=== PATIENT | male | born 1960 ===

== ENCOUNTER 2020-06-26 14:29 | Inpatient (IN) | payer OTHER, SELFPAY ==
[2020-06-29 04:28] VITALS: BMI 29.9
[2020-06-30] VITALS: BP 163/91; PULSE 99; RESP 18; TEMP 36.8; O2SAT 98
[2020-06-30] MEDS: Acetaminophen 325 MG TABLET 650 MG PO ×2 (01:40→12:58)
[2020-06-30 04:00] VITALS: BP 169/77; PULSE 87; RESP 18; TEMP 36.8; O2SAT 95
[2020-06-30] MEDS: Omeprazole 40 MG CAPSULE.DR PO (05:37)
[2020-06-30 06:43] LABS: MANUAL DIFF FLAG NO
[2020-06-30 06:46] LABS: Basophils Percent Auto 0.5 % (0-2); Eosinophils Absolute Auto 0.1 X10*3/uL (0.0-0.4); Eosinophils Percent Auto 1.8 % (0-4); Hematocrit 25.3 % (42-52); Hemoglobin 8.3 g/dl (14.0-18.0); Imm Gran Pct Auto 1.8 % (0.0-0.4); Lymphocytes Absolute Auto 1.6 X10*3/uL (1.2-4.9); Lymphocytes Percent Auto 28.4 % (20-40); Mean Corpuscular HGB Conc 32.8 g/dl (31.0-36.0); Mean Corpuscular Hemoglobin 29.6 pg (27.0-33.0); Mean Corpuscular Volume 90.4 fL (80-98); Mean Platelet Volume 9.2 fL (9.4-12.4); Monocytes Absolute Auto 0.7 X10*3/uL (0.1-1.2); Monocytes Percent Auto 13.4 % (2-11); NRBC Pct Auto 0.4 /100WBC (0.0-0.2); Neutrophils Percent Auto 54.1 % (45-73); Platelet Count 198 X10*3/uL (160-400); Red Cell Distribution Width 17.7 % (11.0-16.0); White Blood Count 5.5 X10*3/uL (4.8-10.8)
[2020-06-30 07:05] LABS: Alanine Aminotransferase 37 U/L (0-40); Albumin Level 3.2 g/dL (3.5-5.0); Alkaline Phosphatase 36 U/L (39-117); Anion Gap 9 (12-20); Aspartate Amino Transferase 26 U/L (5-37); Bilirubin Direct 0.2 mg/dL (0.0-0.5); Bilirubin Total 0.4 mg/dL (0.0-1.0); Blood Urea Nitrogen 5 mg/dL (9-16); Carbon Dioxide 26 mmol/L (22-29); Chloride 106 mmol/L (96-108); Creatinine Clr Calc Pharmacy 142.1; Estimated Glomerular Filt Rate > 60; Glucose Fasting 101 mg/dL (60-99); Potassium 3.9 mmol/l (3.3-5.1); Sodium 137 mmol/L (135-145); Total Protein 5.3 g/dL (6.5-8.0)
[2020-06-30 07:43] VITALS: BP 176/95; PULSE 90; RESP 20; TEMP 36.8; O2SAT 97
[2020-06-30] MEDS: PHENobarbitaL 30 MG TABLET PO (08:13)
[2020-06-30] MEDS: 0.9 % Sodium Chloride Flush 3 ML SYRINGE 2 ML IVFLUSH ×2 (08:13)
[2020-06-30] MEDS: Thiamine HCL 100 MG TABLET PO (08:13)
[2020-06-30] MEDS: Folic Acid 1 MG TABLET PO (08:13)
[2020-06-30] MEDS: KCl 40 mEq in 0.9 % Sodium Chl 40 MEQ/1,000 ML IV.SOLN 100 MEQ IVCONT (09:28)
--- NOTE | 2020-06-30 09:40 | PM.DS ---
DS: Providers Provider Date of admission: 06/26/20 14:29 Primary care physician: Unknown Physician Consults: 06/29/20 06:46 Consult to Cardiology Routine Consulting Provider: Renee Joseph Reason for consultation: elevated troponin, gi bleed Has provider been notified: Yes 06/29/20 06:47 Consult to Gastroenterology Routine Consulting Provider: Luís Matta Reason for consultation: gi bleed DS: Diagnosis Discharge Diagnosis (1) Acute blood loss anemia: Status: Acute (2) Esophageal ulcer: Status: Acute (3) Alcohol dependence with withdrawal: Status: Acute (4) Acute kidney injury: Status: Acute (5) Alcoholic fatty liver: Status: Acute (6) Hypertension: Status: Acute DS: Summary Hospital Course Hospital Course: from initial H&P: 60 year old man presenting with coffee ground emesis and dark stools. He reports onset three days ago. He drinks 1-2 pints a day. Last drink was yesterday. He reported that he has had coffee-ground emesis and dark stools. He has a history of this and was last admitted in 2019 for to symptoms. EGD in 2019 showed erosive esophagitis, hiatal hernia and superficial gastritis. No varices seen. Abdominal CT performed today showed large hiatal hernia with hepatic steatosis and stable right adrenal adenoma. His blood pressure has been stable. H&H also stable but seems to have gone down since February where his hemoglobin was 13.8 and hematocrit 41.3. Potassium 2.9, sodium 133, creatinine 1.59. His EKG showing some mildly worsened ST depressions in lateral leads and tropoinin elevated at 70. He has no complaints of chest pain or shortenss of breath currently. PAST MEDICAL HISTORY: 1. Alcohol abuse/dependence. 2. History of tobacco dependence. 3. Hypertension. 4. Hyperlipidemia. 5. Insomnia. 6. Gastroesophageal reflux disease. 7. Erosive esophagitis 8. Alcoholic liver disease PAST SURGICAL HISTORY: None. SOCIAL HISTORY: He currently lives alone in an apartment. He drinks 1-2 pt of vodka a day. He denies illicit drug use. He ambulates freely. FAMILY HISTORY: This is obtained from old records and shows that mother is 91 years old and alive. Father at age 95 from heart problems. hospital course: patient was admitted for acute blood loss anemia due to esophageal ulcer in the setting of heavy alcohol use. Course was complicated by acute kidney injury, alcohol dependence with withdrawal. Patient received 4 units total PRBC. Initial hemoglobin was 11, lowest hemoglobin was some 7.1, is 8.3 at discharge. Patient was treated with IV Protonix. He underwent EGD which showed esophageal ulcer with exposed blood vessel and underwent sclerotherapy and cautery. Patient was observed for 3 days after. His hemoglobin is now stable and he was able to tolerate solid diet. He will transition to oral Prilosec 40 mg twice daily and follow-up with GI. He has been educated on alcohol cessation. Patient's acute kidney injury has resolved. For his alcohol withdrawal he was treated with phenobarbital and has improved. Time Spent with Patient Time attestation: Total time spent providing and/or coordinating discharge services: Time spent: Greater than 30 minutes Physical Exam Vital Signs and I&O and Narrative: Vital Signs and I&O: Vital Signs Temp 98.2 F 06/30/20 07:43 Pulse 90 06/30/20 07:43 Resp 20 06/30/20 07:43 BP 176/95 H 06/30/20 07:43 Pulse Ox 97 06/30/20 07:43 Intake & Output 06/29/20 06/30/20 06/30/20 18:59 06:59 18:59 Output Total 500 / 500 Balance -500 / -500 Urine Output (Aver age ml/kg/hr) 0.43 Output: Output, Urine Am ount 500 / 500 Other: Urine Urinal Urine Color Yellow Body Mass Index 29.9 Const: Orientation/consciousness: oriented to person, oriented to place and oriented to time Resp: Auscultation: clear to auscultation bilaterally Cardio: Heart sounds: S1 normal heart sound present and S2 normal heart sound present Neuro: General: oriented to person, oriented to place and oriented to time DS: Data Data Completed and Pending Labs on day of discharge: Labs from last 24 hours 06/30/20 06/30/20 06/30/20 06:00 06:00 05:40 WBC Not Rcvd RBC Not Rcvd Hgb Not Rcvd Hct Not Rcvd MCV Not Rcvd MCH Not Rcvd MCHC Not Rcvd RDW RDW Coeff of Koffi Not Rcvd Plt Count Not Rcvd MPV Not Rcvd Immature Gran % (Auto) Neut % (Auto) Lymph % (Auto) Sterling % (Auto) Eos % (Auto) Baso % (Auto) Neut # (Auto) Lymph # (Auto) Sterling # (Auto) Eos # (Auto) Baso # (Auto) Abs Immat Gran (auto) Absolute Lymphs (auto) Absolute Monos (auto) Absolute Eos (auto) Absolute Basos (auto) Absolute Nucleated RBC Not Rcvd Nucleated RBC % (auto) Not Rcvd Absolute Neutrophils PT INR Sodium Not Rcvd 137 Potassium Not Rcvd 3.9 Chloride Not Rcvd 106 Carbon Dioxide 26 Bicarbonate Not Rcvd Anion Gap Not Rcvd 9 L BUN Not Rcvd 5 L Creatinine Not Rcvd 0.65 Estimated Creat Clear Not Rcvd Estim Creat Clear Calc 142.1 Estimated GFR > 60 Est GFR (Non-Af Amer) Not Rcvd Random Glucose Fasting Glucose Not Rcvd 101 H Calcium Not Rcvd 8.0 L Total Bilirubin Not Rcvd 0.4 Direct Bilirubin Not Rcvd 0.2 AST Not Rcvd 26 ALT Not Rcvd 37 Alkaline Phosphatase Not Rcvd 36 L Total Protein Not Rcvd 5.3 L Albumin Not Rcvd 3.2 L Blood Bank Comment 06/30/20 06/29/20 06/29/20 05:40 05:41 05:41 WBC 5.5 5.2 RBC 2.80 L 2.63 L Hgb 8.3 L 7.9 L Hct 25.3 L 23.6 L MCV 90.4 89.7 MCH 29.6 30.0 MCHC 32.8 33.5 RDW 17.7 H RDW Coeff of Koffi 16.9 H Plt Count 198 136 L MPV 9.2 L 9.2 L Immature Gran % (Auto) 1.8 H 1.2 H Neut % (Auto) 54.1 56.9 Lymph % (Auto) 28.4 28.9 Sterling % (Auto) 13.4 H 10.1 Eos % (Auto) 1.8 2.3 Baso % (Auto) 0.5 0.6 Neut # (Auto) 3.0 Lymph # (Auto) 1.6 Sterling # (Auto) 0.7 Eos # (Auto) 0.1 Baso # (Auto) 0.0 Abs Immat Gran (auto) 0.10 H 0.06 H Absolute Lymphs (auto) 1.5 Absolute Monos (auto) 0.5 Absolute Eos (auto) 0.1 Absolute Basos (auto) 0.0 Absolute Nucleated RBC 0.020 H 0.020 H Nucleated RBC % (auto) 0.4 H 0.4 H Absolute Neutrophils 2.9 PT INR Sodium 137 Potassium 3.7 Chloride 106 Carbon Dioxide Bicarbonate 25 Anion Gap 10 L BUN 10 Creatinine 0.62 Estimated Creat Clear 148.9 Estim Creat Clear Calc Estimated GFR Est GFR (Non-Af Amer) > 60 Random Glucose 95 Fasting Glucose Calcium 7.7 L Total Bilirubin Direct Bilirubin AST ALT Alkaline Phosphatase Total Protein Albumin Blood Bank Comment 06/28/20 06/28/20 06/28/20 20:32 14:09 05:55 WBC 8.6 7.5 RBC 2.73 L 2.64 L Hgb 8.1 L 8.1 L 7.9 L Hct 23.5 L 23.8 L 23.2 L MCV 87.2 87.9 MCH 29.7 29.9 MCHC 34.0 34.1 RDW RDW Coeff of Koffi 16.6 H 16.3 H Plt Count 123 L 113 L MPV 9.5 9.3 L Immature Gran % (Auto) 2.3 H 0.9 H Neut % (Auto) 67.8 75.2 H Lymph % (Auto) 17.8 L 13.1 L Sterling % (Auto) 9.7 10.0 Eos % (Auto) 1.9 0.5 Baso % (Auto) 0.5 0.3 Neut # (Auto) Lymph # (Auto) Sterling # (Auto) Eos # (Auto) Baso # (Auto) Abs Immat Gran (auto) 0.20 H 0.07 H Absolute Lymphs (auto) 1.5 1.0 L Absolute Monos (auto) 0.8 0.8 Absolute Eos (auto) 0.2 0.0 Absolute Basos (auto) 0.0 0.0 Absolute Nucleated RBC 0.110 H 0.030 H Nucleated RBC % (auto) 1.3 H 0.4 H Absolute Neutrophils 5.8 5.6 PT INR Sodium Potassium Chloride Carbon Dioxide Bicarbonate Anion Gap BUN Creatinine Estimated Creat Clear Estim Creat Clear Calc Estimated GFR Est GFR (Non-Af Amer) Random Glucose Fasting Glucose Calcium Total Bilirubin Direct Bilirubin AST ALT Alkaline Phosphatase Total Protein Albumin Blood Bank Comment 06/28/20 06/27/20 06/27/20 05:55 Unknown 15:22 WBC RBC Hgb 7.1 L Hct 21.4 L MCV MCH MCHC RDW RDW Coeff of Koffi Plt Count MPV Immature Gran % (Auto) Neut % (Auto) Lymph % (Auto) Sterling % (Auto) Eos % (Auto) Baso % (Auto) Neut # (Auto) Lymph # (Auto) Sterling # (Auto) Eos # (Auto) Baso # (Auto) Abs Immat Gran (auto) Absolute Lymphs (auto) Absolute Monos (auto) Absolute Eos (auto) Absolute Basos (auto) Absolute Nucleated RBC Nucleated RBC % (auto) Absolute Neutrophils PT INR Sodium 140 Potassium 3.5 D Chloride 106 Carbon Dioxide Bicarbonate 27 Anion Gap 11 L BUN 20 H D Creatinine 0.64 Estimated Creat Clear 144.3 Estim Creat Clear Calc Estimated GFR Est GFR (Non-Af Amer) > 60 Random Glucose 105 Fasting Glucose Calcium 7.3 L Total Bilirubin 0.7 Direct Bilirubin AST 35 ALT 44 H Alkaline Phosphatase 33 L Total Protein 4.8 L Albumin 3.0 L Blood Bank Comment PRODUCT AVAILABLE 06/27/20 06/27/20 06/27/20 05:34 05:34 05:34 WBC 7.8 RBC 2.89 L Hgb 8.2 L Hct 25.1 L MCV 86.9 MCH 28.4 MCHC 32.7 RDW RDW Coeff of Koffi 17.3 H Plt Count 128 L MPV 10.1 Immature Gran % (Auto) 1.0 H Neut % (Auto) 73.3 H Lymph % (Auto) 17.1 L Sterling % (Auto) 8.1 Eos % (Auto) 0.4 Baso % (Auto) 0.1 Neut # (Auto) Lymph # (Auto) Sterling # (Auto) Eos # (Auto) Baso # (Auto) Abs Immat Gran (auto) 0.08 H Absolute Lymphs (auto) 1.3 Absolute Monos (auto) 0.6 Absolute Eos (auto) 0.0 Absolute Basos (auto) 0.0 Absolute Nucleated RBC 0.000 Nucleated RBC % (auto) 0.0 Absolute Neutrophils 5.7 PT 13.4 H INR 1.1 Sodium Potassium Chloride Carbon Dioxide Bicarbonate Anion Gap BUN Creatinine Estimated Creat Clear Estim Creat Clear Calc Estimated GFR Est GFR (Non-Af Amer) Random Glucose Fasting Glucose Calcium Total Bilirubin 0.7 Direct Bilirubin 0.3 AST 57 H ALT 66 H Alkaline Phosphatase 36 L D Total Protein 5.0 L D Albumin 3.1 L D Blood Bank Comment 06/27/20 06/27/20 06/26/20 05:34 01:56 22:50 WBC RBC Hgb 9.5 L 9.8 L D Hct 27.5 L 27.9 L D MCV MCH MCHC RDW RDW Coeff of Koffi Plt Count MPV Immature Gran % (Auto) Neut % (Auto) Lymph % (Auto) Sterling % (Auto) Eos % (Auto) Baso % (Auto) Neut # (Auto) Lymph # (Auto) Sterling # (Auto) Eos # (Auto) Baso # (Auto) Abs Immat Gran (auto) Absolute Lymphs (auto) Absolute Monos (auto) Absolute Eos (auto) Absolute Basos (auto) Absolute Nucleated RBC Nucleated RBC % (auto) Absolute Neutrophils PT INR Sodium 138 Potassium 2.9 L Chloride 99 Carbon Dioxide Bicarbonate 31 H Anion Gap 11 L BUN 45 H Creatinine 0.76 Estimated Creat Clear 121.5 Estim Creat Clear Calc Estimated GFR Est GFR (Non-Af Amer) > 60 Random Glucose Fasting Glucose 108 H Calcium 7.6 L Total Bilirubin Direct Bilirubin AST ALT Alkaline Phosphatase Total Protein Albumin Blood Bank Comment Discharge Plan Discharge Anticipated Discharge Date/Time: 06/30/20 09:34 Patient Disposition: Home, Self-Care Referrals: Physician,Unknown [Primary Care Provider] - Discharge Medications: New omeprazole 40 mg Capsule,Delayed Release(Dr/Ec) 40 mg PO BID@0630,1630 Qty: 60 RF: 0 Continued lisinopril 40 mg Tablet 40 mg PO DAILY RF: 0 Discontinued omeprazole [Prilosec] 40 mg Capsule,Delayed Release(Dr/Ec) 40 mg PO DAILY@0630 RF: 0 Discharge Orders: Discharge Order (Routine); Ordered 06/30/20 Ordered By: Joseluis Alvarez Diet: low salt diet Activity on Discharge: As tolerated Visit Report Forms: Patient Portal Discharge page Care Plan Goals: avoid bleeding Health Concerns: etoh, esophogeal ulcer Plan of Treatment: avoid alcohol, increase prilosec to twice daily
[2020-06-30 11:46] VITALS: BP 168/99; PULSE 98; RESP 19; TEMP 36.2; O2SAT 96
== END 2020-06-30 14:21 | disposition home or self-care (01) | DRG 242 ==
PROVIDERS: Admitting Provider Student in an Organized Health Care Education/Training Program; Emergency Provider Emergency Medicine; Visit Provider Internal Medicine
DX: K22.11 Ulcer of esophagus with bleeding (principal); I85.11 Secondary esophageal varices with bleeding; N17.9 Acute kidney failure, unspecified; I42.6 Alcoholic cardiomyopathy; D62 Acute posthemorrhagic anemia; K70.0 Alcoholic fatty liver; E86.0 Dehydration; F10.229 Alcohol dependence with intoxication, unspecified; F10.239 Alcohol dependence with withdrawal, unspecified; D72.829 Elevated white blood cell count, unspecified; E87.6 Hypokalemia; F17.210 Nicotine dependence, cigarettes, uncomplicated; Z79.899 Other long term (current) drug therapy; K44.9 Diaphragmatic hernia without obstruction or gangrene
CPT/HCPCS: 36415; 71045; 74176; 80048; 80051; 80053; 80076; 80320; 81003; 82272; 82565; 82947; 83690; 83735; 83880; 84484; 84520; 85014; 85018; 85025; 85610; 85730; 86850; 86900; 86901; 86923; 93005; 93971; 96361; 96365; 96375; 96376; 99285; J2270; J2405; J2560; J3411; P9016

== ENCOUNTER → 2020-07-22 08:54 | Outpatient (BNVA) | payer OTHER, SELFPAY | PROVIDERS: Visit Provider Nurse Practitioner Family | DX: I42.8 Other cardiomyopathies (principal); I10 Essential (primary) hypertension; E78.5 Hyperlipidemia, unspecified; K22.10 Ulcer of esophagus without bleeding; F10.239 Alcohol dependence with withdrawal, unspecified; Z87.891 Personal history of nicotine dependence | CPT/HCPCS: 99214 ==

== ENCOUNTER → 2020-08-31 09:46 | Outpatient (BNVA) | payer OTHER, SELFPAY | PROVIDERS: Visit Provider Nurse Practitioner Family | DX: I42.8 Other cardiomyopathies (principal); I10 Essential (primary) hypertension; E78.5 Hyperlipidemia, unspecified; F10.239 Alcohol dependence with withdrawal, unspecified; K22.10 Ulcer of esophagus without bleeding | CPT/HCPCS: 99212 ==

== ENCOUNTER 2020-08-31 10:25 | Outpatient (REF) | payer OTHER, SELFPAY ==
[2020-08-31 11:40] LABS: Hematocrit 30.4 % (42-52); Hemoglobin 9.2 g/dl (14.0-18.0); Mean Corpuscular HGB Conc 30.3 g/dl (31.0-36.0); Mean Corpuscular Hemoglobin 22.8 pg (27.0-33.0); Mean Corpuscular Volume 75.4 fL (80-98); Mean Platelet Volume 9.3 fL (9.4-12.4); Platelet Count 384 X10*3/uL (160-400); Red Blood Count 4.03 X10*6/uL (4.60-5.80); Red Cell Distribution Width 17.9 % (11.0-16.0); White Blood Count 6.6 X10*3/uL (4.8-10.8)
[2020-08-31 12:01] LABS: Anion Gap 14 (12-20); Blood Urea Nitrogen 11 mg/dL (9-16); Calcium 9.4 mg/dL (8.4-10.2); Carbon Dioxide 23 mmol/L (22-29); Chloride 102 mmol/L (96-108); Estimated Glomerular Filt Rate > 60; Glucose Random 101 mg/dL (60-115); Potassium 3.9 mmol/l (3.3-5.1); Sodium 135 mmol/L (135-145)
[2020-08-31 12:18] LABS: B Type Natriuretic Peptide 22 pg/mL (<100)
== END 2020-08-31 10:26 | disposition home or self-care (01) ==
LOC: HO.LAB 10:25
PROVIDERS: PCP Physician Assistant Medical; Visit Provider Nurse Practitioner Family
DX: I42.8 Other cardiomyopathies (principal)
CPT/HCPCS: 36415; 80048; 83880; 85027

== ENCOUNTER → 2020-09-19 15:04 | Outpatient (REF) | payer OTHER, SELFPAY ==
--- NOTE | 2020-09-19 15:07 | CA_ITS ---
Transthoracic Echocardiogram Patient (Last, First, Middle): Benji Pretty S Gender: Male Date of : 1960 Age: 60 Procedure Date: 09/19/2020 Procedure Type: Transthoracic Echocardiogram Location: OP Height: 167.64 cm Weight: 93.44 kg BSA: 2.03 m2 Heart Rate: bpm BP: 130 / 70 mmHg Chronometer Tester: RAINA Blanc MD: Natalie Ibarra ELECTROMECHANICAL ENGINEER-C Journeyman Pipefitter: Fabian Simmons MD Symptoms: I42.8 - Other cardiomyopathies Study Quality: Fair ECG Rhythm: Sinus Conclusions: - 1. Normal LV systolic function with impaired relaxation filling pattern 2. Moderately dilated left atrium 3. Normal cardiac valvular Doppler 4. No gross pericardial effusion Findings Left Ventricle Normal left ventricular size, thickness, and systolic function. The visually estimated ejection fraction is between 55-60%. Spectral Doppler is indicative of an impaired relaxation filling pattern. E/E prime ratio is between 8 and 15 consistent with indeterminate filling pressures. Right Ventricle Normal right ventricular cavity size and systolic function. Atria The left atrium is moderately dilated. There is lipomatous hypertrophy of the interatrial septum. There is a highly mobile atrial septum noted. Interatrial shunt cannot be excluded. The right atrium is normal in size. Aortic Valve The aortic valve was not well visualized. There is no aortic valve stenosis. There is no aortic valve regurgitation. Mitral Valve There is mild anterior and posterior mitral leaflet thickening. There is trace mitral valve regurgitation. There is no mitral valve stenosis. Pulmonic Valve The pulmonic valve was not well visualized. Tricuspid Valve The tricuspid valve was not well visualized. Tricuspid regurgitation envelope is inadequate for calculation of right ventricular systolic pressure. Great Vessels All visible segments of the aorta are normal in size. The pulmonary artery was not well visualized. Venous The inferior vena cava is normal in size and collapses greater than 50% with inspiration. Pericardium/Pleural There is no evidence of pericardial effusion. Prior Study Comparison Changes noted compared to prior study dated: 04/01/2018. LV systolic function has normalized Measurements 2D Linear Measurements IVSd: 1.10 0.6-0.9/0.6-1.0 cm LVIDd: 5.37 3.9-5.3/4.2-5.9 cm LVIDd Index: 2.65 2.4-3.2/2.2-3.1 cm/m2 LVIDs: 3.31 2.0-3.6 cm LVPWd: 1.11 0.7-1.1 cm Ao Root: 3.50 2.1-3.5 cm LA Diam: 3.40 2.7-3.8/3.0-4.0 cm LAIDs Index: 1.67 1.5-2.3 cm/m2 LV Mass: 291.89 67-162/88-224 g LV Mass Index: 143.79 43-95/49-115 g/m2 LVOT Diam: 2.20 3.0+(-)1.3 cm 2D Systolic Function EF 4C: 63.20 >55% EF 2C: 56.20 >55% EF BiP: 60.20 >55% Mitral Valve MV Pk E: 0.86 MV PK A: 0.84 MV Decel Time: 204.00 E/A: 1.00 E'Lateral: 7.62 E'Medial: 6.20 E/E' Med: 13.90 E/E' Lat: 11.30 PHT: 60.00 MVA PHT: 3.67 Decel [place]: 4.20 Aortic Valve AoV Pk Kel: 1.78 AoV Mn Kel: 1.19 AoV VTI: 0.31 AoV Pk Grad: 13.00 Aov Mn Grad: 6.00 KATHRYN Cont.VTI: 2.37 LVOT LVOT Pk Kel: 1.07 LVOT Mn Kel: 0.63 LVOT VTI: 0.19 LVOT Pk Grad: 5.00 LVOT Mn Grad: 2.00 LVOT Diam: 2.20 LVOT Area: 3.80 Diastolic Function MV Pk E: 0.86 MV Pk A: 0.84 E/A: 1.00 E'Medial: 6.20 E/E' Med: 13.90 E' Laterial: 7.62 E/E' Lat: 11.30 Great Vessels Aorta Ao Root-2D: 3.50 2.0-3.7 cm Ao Asc: 3.40 2.1-3.4 cm Ao Arch: 3.00 Updated in Other Vendor System with Status of Final Fabian Simmons MD electronically signed on 09/19/2020 6:32:44 PM with status of Final
== END ==
LOC: HO.CARD 15:04
PROVIDERS: Visit Provider Nurse Practitioner Family
DX: I42.8 Other cardiomyopathies (principal)
CPT/HCPCS: 93306

== ENCOUNTER → 2020-11-10 09:56 | Outpatient (BNVA) | payer OTHER, SELFPAY | PROVIDERS: PCP Physician Assistant Medical; Visit Provider Nurse Practitioner Family | DX: I42.8 Other cardiomyopathies (principal); I10 Essential (primary) hypertension; E78.5 Hyperlipidemia, unspecified; F10.239 Alcohol dependence with withdrawal, unspecified; K22.10 Ulcer of esophagus without bleeding | CPT/HCPCS: 99212 ==

== ENCOUNTER 2021-03-10 18:48 | Emergency (ER) | payer OTHER, SELFPAY ==
[2021-03-10] MEDS: LORazepam 2 MG/ML VIAL IM (19:10)
[2021-03-10] MEDS: Haloperidol Lactate 5 MG/ML VIAL IM (19:10)
[2021-03-10] MEDS: diphenhydrAMINE HCL 50 MG/ML VIAL IM (19:10)
[2021-03-10 19:11] VITALS: BP 137/76; PULSE 127; RESP 18; TEMP 37; O2SAT 88; BMI 33.9
[2021-03-10 20:00] VITALS: BP 137/76; PULSE 127; RESP 18; O2SAT 88
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
[2021-03-10 22:00] VITALS: RESP 104
[2021-03-11] VITALS (8 sets, daily range): BP systolic 152–177; BP diastolic 62–105; PULSE 89–108; RESP 15–28; TEMP 36.3–37; O2SAT 2–97
--- NOTE | 2021-03-11 06:56 | PC.NURSE ---
report taken from chyna katz pt resting in stretcher at this time, rr even/unlabored, appears to be on 2l nc for sleep apnea. pt alert to verbal stimuli, appears to be in behavioral control at this time. requesting glass of water, provided. emptied bedside urinal of 200 ml dark yellow urine. pt remains within good view of nurses station. wctm for dc needs.
[2021-03-11] MEDS: Acetaminophen 325 MG TABLET 650 MG PO (09:03)
[2021-03-11] MEDS: LORazepam 2 MG/ML VIAL IM (09:38)
[2021-03-11 09:39] LABS: Basophils Percent Auto 0.6 % (0-2); Eosinophils Absolute Auto 0.1 X10*3/uL (0.0-0.4); Hematocrit 30.9 % (42-52); Imm Gran Abs Auto 0.02 X10*3/uL (0.00-0.03); Imm Gran Pct Auto 0.3 % (0.0-0.4); Lymphocytes Absolute Auto 1.4 X10*3/uL (1.2-4.9); Lymphocytes Percent Auto 20.9 % (20-40); MANUAL DIFF FLAG NO; Mean Corpuscular HGB Conc 29.1 g/dl (31.0-36.0); Mean Corpuscular Hemoglobin 20.5 pg (27.0-33.0); Mean Corpuscular Volume 70.4 fL (80-98); Mean Platelet Volume 8.5 fL (9.4-12.4); Monocytes Absolute Auto 0.6 X10*3/uL (0.1-1.2); Monocytes Percent Auto 8.2 % (2-11); Neutrophils Absolute Auto 4.6 X10*3/uL (2.0-8.3); Platelet Count 265 X10*3/uL (160-400); Red Blood Count 4.39 X10*6/uL (4.60-5.80); Red Cell Distribution Width 21.9 % (11.0-16.0); White Blood Count 6.7 X10*3/uL (4.8-10.8)
--- NOTE | 2021-03-11 09:44 | PC.NURSE ---
no labs ordered from pt arrival. basic labs and gerber ordered att, blood labs obtained and sent. pt remains in behavioral control. pt hypertensive, some slight increase in etoh withdrawal s/s. pt appears comfortable, resting in stretcher. ordered im ativan administered. will fax to crisis once labs resulted. wctm.
[2021-03-11] MEDS: amLODIPine Besylate 10 MG TABLET PO (10:05)
[2021-03-11] MEDS: carvediloL 6.25 MG TABLET PO (10:05)
[2021-03-11] MEDS: Omeprazole 40 MG CAPSULE.DR PO (10:05)
[2021-03-11] MEDS: lisinopriL 40 MG TABLET PO (10:06)
[2021-03-11 10:11] LABS: Ethanol < 10 mg/dL
[2021-03-11 10:13] LABS: Anion Gap 18 (12-20); Blood Urea Nitrogen 16 mg/dL (9-16); Calcium 8.5 mg/dL (8.4-10.2); Carbon Dioxide 21 mmol/L (22-29); Chloride 107 mmol/L (96-108); Creatinine Clr Calc Pharmacy 121.4; Estimated Glomerular Filt Rate > 60; Glucose Random 97 mg/dL (60-115); Potassium 3.5 mmol/L (3.3-5.1); Sodium 142 mmol/L (135-145)
[2021-03-11 11:17] LABS: Alanine Aminotransferase 17 U/L (0-40); Albumin Level 4.3 g/dL (3.5-5.0); Alkaline Phosphatase 49 U/L (39-117); Aspartate Amino Transferase 24 U/L (5-37); Bilirubin Direct 0.2 mg/dL (0.0-0.5); Bilirubin Total 0.4 mg/dL (0.0-1.0); Magnesium 1.9 mg/dL (1.6-2.6); Total Protein 7.2 g/dL (6.5-8.0)
[2021-03-11 14:39] LABS: COVID-19 Test Negative (Negative); IDNOW Serial# 9DD0AD1C
[2021-03-11 14:43] LABS: Amphetamine Screen Urine Not Detected (Not Detect); Barbiturates, Urine Not Detected (Not Detect); Benzodiazepines Screen Urine Not Detected (Not Detect); Cannabinoid Screen Urine Not Detected (Not Detect); Cocaine Screen Urine Not Detected (Not Detect); Opiate Screen Urine Not Detected (Not Detect); Phencyclidine Screen Urine Not Detected (Not Detect)
--- NOTE | 2021-03-11 16:28 | PC.NURSE ---
[facility] AT BEDSIDE FOR PT EVAL
== END 2021-03-11 17:22 | disposition home or self-care (01) ==
PROVIDERS: Physician Assistant Medical; Emergency Provider Internal Medicine; PCP Physician Assistant Medical
DX: F23 Brief psychotic disorder (principal); R45.850 Homicidal ideations; F10.229 Alcohol dependence with intoxication, unspecified; Y90.9 Presence of alcohol in blood, level not specified; R00.0 Tachycardia, unspecified; I10 Essential (primary) hypertension; G47.30 Sleep apnea, unspecified; Z79.899 Other long term (current) drug therapy; Z20.822 Contact with and (suspected) exposure to COVID-19
CPT/HCPCS: 36415; 80048; 80076; 80307; 82077; 83735; 85025; 87635; 96372; 96374; 99285; J1200; J2060

== ENCOUNTER → 2021-03-14 13:09 | Outpatient (BNVA) | payer OTHER, SELFPAY | PROVIDERS: PCP Physician Assistant Medical; Referring Provider Physician Assistant Medical; Visit Provider Nurse Practitioner Family | DX: I42.8 Other cardiomyopathies (principal); I10 Essential (primary) hypertension; E78.5 Hyperlipidemia, unspecified; F10.239 Alcohol dependence with withdrawal, unspecified; K22.10 Ulcer of esophagus without bleeding | CPT/HCPCS: 99212 ==

== ENCOUNTER 2021-08-11 17:40 | Inpatient (IN) | payer OTHER, SELFPAY ==
--- NOTE | ~2021-08-11 | XR_ITS ---
EXAMINATION: XR CHEST CLINICAL INFORMATION: Shortness of breath status post fall COMPARISON: Chest x-ray 06/26/2020 TECHNIQUE: Frontal view of the chest was obtained. FINDINGS: Cardiac silhouette is normal in size. The lungs are adequately aerated. Similar minimal asymmetric elevation of the right hemidiaphragm. No lobar consolidation. No pleural effusion or pneumothorax. Old healed right clavicular fracture. Degenerative changes of the spine. XR/XR chest 1V IMPRESSION: Stable examination demonstrating no acute pulmonary pathology.
--- NOTE | ~2021-08-11 | CT_ITS ---
EXAMINATION: CT ABDOMEN AND PELVIS WITH CONTRAST CLINICAL INFORMATION: Left lower quadrant pain. Nausea and vomiting. COMPARISON: 06/26/2020 TECHNIQUE: Multidetector volumetric images were obtained from the superior aspect of the liver through the pubic symphysis following administration 85 mL of Omnipaque 350 intravenous contrast. Sagittal and coronal reformatted images were obtained on the technologist's workstation. Oral contrast: No This CT examination was performed using dose optimization techniques as appropriate, variously including the following: *Automated exposure control *Adjustment of mA and/or kV according to patient size (this includes techniques or standardized protocols for targeted exams where dose is matched to indication/reason for exam; i.e. extremities or head) *Use of iterative reconstruction technique DLP: 664 mGy-cm FINDINGS: LUNG BASES: Airspace opacities are seen at both lung bases, particularly at the left base. LIVER, GALLBLADDER, AND BILIARY TREE: The liver is normal in size and shape with decreased attenuation. No focal hepatic lesion or biliary ductal dilatation is present. The gallbladder is unremarkable with no evidence of radiopaque gallstones, gallbladder wall thickening, or obvious pericholecystic inflammatory changes. PANCREAS: Diffuse atrophy of the pancreatic parenchyma with no focal abnormality. SPLEEN: Unremarkable. ADRENAL GLANDS: The left adrenal gland is unremarkable. 1.7 cm right adrenal gland nodule. This was previously consistent with lipid rich adenoma. KIDNEYS AND URETERS: The kidneys are normal in size, shape, and attenuation. No hydronephrosis, hydroureter, or calculi seen. Mild symmetric perinephric stranding. BLADDER: Unremarkable. GASTROINTESTINAL TRACT: Large hiatal hernia. Normal caliber small bowel. No obstruction. No colonic wall thickening or inflammatory change. No free air or free fluid. ABDOMINAL WALL: Small fat-containing left inguinal hernia. LYMPH NODES: Normal. VASCULAR: Normal caliber aorta with mild atherosclerotic calcification. PELVIC VISCERA: The prostate and seminal vesicles are unremarkable. OSSEOUS STRUCTURES: No acute or suspicious osseous abnormality. Degenerative changes throughout the spine. Mild degenerative changes of the hips. Unchanged vertebral body height loss at L1. CT/CT abdomen pelvis w con IMPRESSION: No acute finding of the abdomen or pelvis. Airspace opacities of the lung bases, particularly on the left. This could represent atelectasis or pneumonia. Hepatic steatosis. Lipid rich right adrenal adenoma. Large hiatal hernia again noted.
[2021-08-11 17:58] VITALS: BP 147/82; BP 155/82; PULSE 115; PULSE 118; RESP 16; TEMP 37.1; O2SAT 90; O2SAT 96; BMI 32.4
[2021-08-11 18:03] VITALS: O2SAT 96
[2021-08-11] MEDS: Pantoprazole Sodium 40 MG/10 ML VIAL IVPUSH (18:08)
--- NOTE | 2021-08-11 18:17 | ED.NAVMDI ---
HPI - Nausea/Vomiting/Diarrhea General Chief complaint: Nausea/Vomiting/Diarrhea Stated complaint: dark stools/abd pain/etoh Time Seen by Provider: 08/11/21 17:43 Source: patient, EMS and old records reviewed Mode of arrival: EMS Limitations: no limitations History of Present Illness HPI Narrative: 61 y/o male with history of ETOH abuse and dependence, history of ETOH withdrawal, nonischemic cardiomyopathy, hypertension, hyperlipidemia, esophageal ulcers with upper GI bleed and acute blood loss anemia in the past who presents to the ER with vomiting that started yesterday. He is a poor historian. He reports drinking 1-2 pt of vodka daily. He denies drinking alcohol today because his stomach was hurting and he was vomiting. His vomitus is brown with no blood in it. He reports his abdominal pain is in his left lower quadrant and it comes and goes.. He also reports dark brown and black stools that happened yesterday. None today. He also reports some right-sided lower rib pain after he fell onto his right side 3 days ago. He thinks he broke a rib. He has some mild shortness of breath. On EMS arrival patient was found saturating 90-90 who presents to he was placed on supplemental oxygen. He had brown vomitus on his chin. His brought to the ER for further evaluation MD elicited complaint: nausea and vomiting Pertinent past history: alcohol abuse Onset (ago): day(s) (1) Description of vomiting: coffee grounds Description of diarrhea: black tarry Associated nausea: Yes Associated abdominal pain: Yes Location of pain: LLQ Radiation: diffuse Pain consistency: intermittent Quality: stabbing Exacerbating factors: none Relieving factors: none Context: alcohol abuse Associated symptoms: loss of appetite, malaise, nausea/vomiting and shortness of breath Related Data Home Medications Medication Instructions Recorded Confirmed albuterol sulfate 90 mcg/actuation 2 inh INHALATION Q4H PRN 11/10/20 08/11/21 aerosol inhaler fluticasone propionate 44 1 puff PO BID 11/10/20 08/11/21 mcg/actuation HFA aerosol inhaler ferrous sulfate 325 mg (65 mg 325 mg PO DAILY 08/11/21 08/11/21 iron) tablet omeprazole 40 mg capsule,delayed 40 mg PO DAILY 08/11/21 08/11/21 release tamsulosin 0.4 mg capsule 0.4 mg PO BEDTIME 08/11/21 08/11/21 trazodone 100 mg tablet 100 mg PO BEDTIME 08/11/21 08/11/21 Previous Rx's Medication Instructions Recorded amlodipine 10 mg tablet 10 mg PO DAILY 90 Days #90 tab 11/10/20 carvedilol 6.25 mg tablet 6.25 mg PO BID 90 Days #180 tab 11/10/20 lisinopril 40 mg tablet 40 mg PO DAILY 90 Days #90 tab 11/10/20 Allergies Allergy/AdvReac Type Severity Reaction Status Date / Time No Known Allergies Allergy Verified 08/03/21 13:16 Review of Systems Review of Systems: Constitutional: No Fever, No Chills ENT/Mouth: No sore throat, No Rhinorrhea, No Swallowing Difficulty Cardiovascular: + Chest Pain, + SOB, No Orthopnea, No Edema Respiratory: No Cough, No Sputum, No Wheezing, No dyspnea Gastrointestinal: + Nausea, + Vomiting, No Diarrhea, + abdominal Pain, No Hematochezia, + Melena, +Coffee ground emesis Genitourinary: No Dysuria, No Urinary Frequency, No Hematuria Musculoskeletal: + joint pain, + Myalgias Skin: No Skin Lesions, No rash Neuro: + Weakness, No Numbness, No Dizziness, No Headache Psych: No Anxiety/Panic, No Depression Heme/Lymph: No Bruising, No Lymphadenopathy Endocrine: No Polyuria, No Polydipsia Gastrointestinal: Gastrointestinal: Reports nausea PMFSH Past Medical History Medical History Alcohol dependence with withdrawal HLD (hyperlipidemia) Hypertension Nonischemic cardiomyopathy Surgical History History of cardiac cath (~01/2016) Family History Family History Father No problems noted. Mother No problems noted. Social History Social History (System 08/03/21 @ 13:16 by Sophia Gutiérrez) Alcohol intake: current Alcohol intake frequency: 3 or more drinks per day Alcohol type: hard liquor Patient Tobacco Use Status: Never used Tobacco Use of substances other than those prescribed or required for medical reasons: No Advance Directives: No Advance Directives Information Provided: No Physical Exam Vital Signs: Vital Signs: Last Vital Signs Temp 98.8 F 08/11/21 17:58 Pulse 118 H 08/11/21 17:58 Resp 16 08/11/21 17:58 BP 147/82 H 08/11/21 17:58 Pulse Ox 96 08/11/21 18:03 Body Mass Index 32.4 Appearance: Alert. Oriented X3. Grunting and mildly SOB Eyes: Pupils equal, round and reactive to light. ENT: Mouth with brown dried vomit. Mucous membranes are dry. Neck: Normal inspection. Neck supple. CVS: Tachycardic, regular rhythm. Pulses normal. Respiratory: Mild respiratory distress with increased respiratory rate in the low 20s. Breath sounds normal. Right lower anterior and lateral rib tenderness without crepitus. Abdomen: Soft with moderate left lower quadrant tenderness with rebound. No guarding. +BS x4 Skin: Skin warm and dry. Normal skin color. Normal skin turgor. No rashes. Extremities: No lower extremity edema. Abrasions and superficial scratches to bilateral arms. Left volar forearm with well-healed linear scars consistent with prior self-harm. Neuro: Oriented X 3. No motor deficit. No sensory deficit. Course Course Course Narrative: 61-year-old male with history of alcohol abuse and dependence history of GI bleed with peptic ulcer disease presents to the ER with reports of coffee-ground emesis that started yesterday as well as what sounds like melena yesterday. His vomiting persisted but his dark bowel movements resolved. He was given Zofran EN route and is no longer nauseous. He is tender on exam in the left lower quadrant. He was hypoxic to 90% on room air placed on 2 L nasal cannula with improvement in his saturations 96%. Blood pressure stable 140s/80s. Reevaluation(s) Reevaluation #1: H&H is increased from prior back in February. Platelets are normal. No leukocytosis. He does have a slight anion gap of 22. This is most likely due to alcoholic ketosis, however will check a lactic acid and blood cultures. No evidence of active infection at this time. BUN is normal which is reassuring against UGIB. No hx varices. Chest x-ray is clear. Will trial off of supplemental oxygen. Use declining rectal exam. No diarrhea or black stool while in the ER. No vomitus in the ER. CT scan of the belly is pending Reevaluation #2: CT scan of the abdomen did not show any acute pathology specifically in the left lower quadrant. He continues have some abdominal discomfort. No vomiting or diarrhea in the ER. Continuing to decline a rectal exam. Will plan to heme check stool once he has a bowel movement. CT of the belly did show bibasilar infiltrates in his lungs. Concern for possible aspiration pneumonia in the setting of vomiting and alcohol abuse. He continues to require supplemental oxygen with SpO2 90% on room air. Placed back on 2 L nasal cannula with improvement. He continues to be tachycardic to the 1 teens. This could be due to early alcohol withdrawal verses ongoing abdominal pain versus sepsis. Will plan to give another L of IV fluids and treat early alcohol withdrawal with phenobarbital load. Will give a dose of IV Zosyn for aspiration pneumonia coverage and plan for admission to the hospital. Patient agreeable with plan. Case discussed with Dr. Workman who admit the patient. MDM - Nausea/Vomiting/Diarrhea Lab Data Result diagrams: 08/11/21 18:36 08/11/21 18:36 Labs: Lab Results 08/11/21 08/11/21 08/11/21 Range/Units 18:36 18:36 18:36 WBC 9.5 (4.8-10.8) X10*3/uL RBC 4.65 (4.60-5.80) X10*6/uL Hgb 10.9 L (14.0-18.0) g/dl Hct 34.8 L (42.0-52.0) % MCV 74.8 L (80.0-98.0) fL MCH 23.4 L (27.0-33.0) pg MCHC 31.3 (31.0-36.0) g/dl RDW 23.9 H (11.0-16.0) % Plt Count 195 (160-400) X10*3/uL MPV 8.9 L (9.4-12.4) fL Immature Gran % (Auto) 0.5 H (0.0-0.4) % Neut % (Auto) 86.0 H (45-73) % Lymph % (Auto) 6.7 L (20-40) % [place] % (Auto) 6.4 (2-11) % Eos % (Auto) 0.1 (0-4) % Baso % (Auto) 0.3 (0-2) % Lymph # (Auto) 0.6 L (1.2-4.9) X10*3/uL [place] # (Auto) 0.6 (0.1-1.2) X10*3/uL Eos # (Auto) 0.0 (0.0-0.4) X10*3/uL Baso # (Auto) 0.0 (0.0-0.2) X10*3/uL Abs Immat Gran (auto) 0.05 H (0.00-0.03) X10*3/uL Absolute Neuts (auto) 8.2 (2.0-8.3) x10*3/uL Absolute Nucleated RBC 0.000 (0.0-0.012) X10*3/uL Nucleated RBC % (auto) 0.0 (0.0-0.2) /100WBC PT (9.9-13.0) SEC INR (0.9-1.1) APTT (24.1-38.0) SEC Sodium 137 (135-145) mmol/L Potassium 3.1 L (3.3-5.1) mmol/L Chloride 97 (96-108) mmol/L Carbon Dioxide 21 L (22-29) mmol/L Anion Gap 22 H (12-20) BUN 16 (9-16) mg/dL Creatinine 0.73 (0.5-1.4) mg/dL Estim Creat Clear Calc 118.4 Estimated GFR > 60 Random Glucose 142 H D (60-115) mg/dL Calcium 7.9 L D (8.4-10.2) mg/dL Magnesium 1.9 (1.6-2.6) mg/dL Total Bilirubin 0.4 (0.0-1.0) mg/dL Direct Bilirubin 0.2 (0.0-0.5) mg/dL AST 44 H D (5-37) U/L ALT 37 (0-40) U/L Alkaline Phosphatase 59 D (39-117) U/L Troponin I High Sens (<3.5-35.0) ng/L Total Protein 6.8 (6.5-8.0) g/dL Albumin 3.9 (3.5-5.0) g/dL Lipase 15 (8-78) U/L Ethyl Alcohol mg/dL COVID-19 ([facility]OY) Negative (Negative) COVID-19 Clin Com See Note 08/11/21 08/11/21 08/11/21 Range/Units 18:36 18:36 18:36 WBC (4.8-10.8) X10*3/uL RBC (4.60-5.80) X10*6/uL Hgb (14.0-18.0) g/dl Hct (42.0-52.0) % MCV (80.0-98.0) fL MCH (27.0-33.0) pg MCHC (31.0-36.0) g/dl RDW (11.0-16.0) % Plt Count (160-400) X10*3/uL MPV (9.4-12.4) fL Immature Gran % (Auto) (0.0-0.4) % Neut % (Auto) (45-73) % Lymph % (Auto) (20-40) % [place] % (Auto) (2-11) % Eos % (Auto) (0-4) % Baso % (Auto) (0-2) % Lymph # (Auto) (1.2-4.9) X10*3/uL [place] # (Auto) (0.1-1.2) X10*3/uL Eos # (Auto) (0.0-0.4) X10*3/uL Baso # (Auto) (0.0-0.2) X10*3/uL Abs Immat Gran (auto) (0.00-0.03) X10*3/uL Absolute Neuts (auto) (2.0-8.3) x10*3/uL Absolute Nucleated RBC (0.0-0.012) X10*3/uL Nucleated RBC % (auto) (0.0-0.2) /100WBC PT 12.2 (9.9-13.0) SEC INR 1.1 (0.9-1.1) APTT 33.8 (24.1-38.0) SEC Sodium (135-145) mmol/L Potassium (3.3-5.1) mmol/L Chloride (96-108) mmol/L Carbon Dioxide (22-29) mmol/L Anion Gap (12-20) BUN (9-16) mg/dL Creatinine (0.5-1.4) mg/dL Estim Creat Clear Calc Estimated GFR Random Glucose (60-115) mg/dL Calcium (8.4-10.2) mg/dL Magnesium (1.6-2.6) mg/dL Total Bilirubin (0.0-1.0) mg/dL Direct Bilirubin (0.0-0.5) mg/dL AST (5-37) U/L ALT (0-40) U/L Alkaline Phosphatase (39-117) U/L Troponin I High Sens 9.8 (<3.5-35.0) ng/L Total Protein (6.5-8.0) g/dL Albumin (3.5-5.0) g/dL Lipase (8-78) U/L Ethyl Alcohol 46 mg/dL COVID-19 ([facility]OY) (Negative) COVID-19 Clin Com Discharge Plan Discharge Clinical Impression: Acute respiratory failure with hypoxia, Coffee ground vomiting, Acute hypokalemia Aspiration pneumonia Qualifiers: Aspiration pneumonia type: unspecified Laterality: unspecified laterality Lung location: unspecified part of lung Qualified Code(s): J69.0 - Pneumonitis due to inhalation of food and vomit Alcohol dependence Qualifiers: Substance use status: uncomplicated Qualified Code(s): F10.20 - Alcohol dependence, uncomplicated Patient Disposition: Admitted As Inpatient
[2021-08-11] MEDS: Acetaminophen 325 MG TABLET 650 MG PO (18:25)
[2021-08-11] MEDS: 0.9 % Sodium Chloride 1,000 ML 999 ML IVCONT ×2 (18:27→22:01)
[2021-08-11 18:41] LABS: MANUAL DIFF FLAG NO
[2021-08-11 18:42] LABS: Basophils Percent Auto 0.3 % (0-2); Eosinophils Percent Auto 0.1 % (0-4); Hematocrit 34.8 % (42.0-52.0); Hemoglobin 10.9 g/dl (14.0-18.0); Imm Gran Abs Auto 0.05 X10*3/uL (0.00-0.03); Imm Gran Pct Auto 0.5 % (0.0-0.4); Lymphocytes Absolute Auto 0.6 X10*3/uL (1.2-4.9); Lymphocytes Percent Auto 6.7 % (20-40); Mean Corpuscular HGB Conc 31.3 g/dl (31.0-36.0); Mean Corpuscular Hemoglobin 23.4 pg (27.0-33.0); Mean Corpuscular Volume 74.8 fL (80.0-98.0); Mean Platelet Volume 8.9 fL (9.4-12.4); Monocytes Absolute Auto 0.6 X10*3/uL (0.1-1.2); Monocytes Percent Auto 6.4 % (2-11); Neutrophils Absolute Auto 8.2 x10*3/uL (2.0-8.3); Platelet Count 195 X10*3/uL (160-400); Red Blood Count 4.65 X10*6/uL (4.60-5.80); Red Cell Distribution Width 23.9 % (11.0-16.0); White Blood Count 9.5 X10*3/uL (4.8-10.8)
[2021-08-11 18:48] LABS: INTERNATIONAL NORM RATIO 1.1 (0.9-1.1); Prothrombin Time 12.2 SEC (9.9-13.0)
[2021-08-11 18:50] LABS: Partial Thromboplastin Time 33.8 SEC (24.1-38.0)
[2021-08-11 18:53] LABS: Ethanol 46 mg/dL
[2021-08-11 18:56] LABS: COVID-19 Test Negative (Negative)
[2021-08-11 19:01] LABS: Troponin-I High Sensitivity 9.8 ng/L (<3.5-35.0)
[2021-08-11 19:02] LABS: Alanine Aminotransferase 37 U/L (0-40); Albumin Level 3.9 g/dL (3.5-5.0); Alkaline Phosphatase 59 U/L (39-117); Anion Gap 22 (12-20); Aspartate Amino Transferase 44 U/L (5-37); Bilirubin Direct 0.2 mg/dL (0.0-0.5); Bilirubin Total 0.4 mg/dL (0.0-1.0); Blood Urea Nitrogen 16 mg/dL (9-16); Calcium 7.9 mg/dL (8.4-10.2); Carbon Dioxide 21 mmol/L (22-29); Chloride 97 mmol/L (96-108); Creatinine Clr Calc Pharmacy 118.4; Estimated Glomerular Filt Rate > 60; Glucose Random 142 mg/dL (60-115); Lipase 15 U/L (8-78); Magnesium 1.9 mg/dL (1.6-2.6); Potassium 3.1 mmol/L (3.3-5.1); Sodium 137 mmol/L (135-145); Total Protein 6.8 g/dL (6.5-8.0)
--- NOTE | 2021-08-11 19:17 | PHA.MEDREC ---
Pharmacy Consult ? Medication Reconciliation Pharmacy has completed the medication reconciliation. Note patient name is Benji Pretty, SO NO REFILL HISTORY APPEARS. PT USES [facility] Thanks Sunni Nicole D
[2021-08-11] MEDS: iohexoL 350 MG/ML 100 ML INFUS..BTL IV (20:09)
[2021-08-11] MEDS: Potassium Chloride ER 20 MEQ TAB.ER.PRT 40 MEQ PO (20:47)
[2021-08-11] MEDS: PHENobarbitaL sodium 130 MG/ML VIAL 274 MG IM (21:45)
[2021-08-11] MEDS: Piperacillin Sodium/Tazobactam 4.5 GM in 0.9 % Sodium Chloride 100 ML IV (22:02)
--- NOTE | 2021-08-11 22:11 | P.HPHOSP_ITS ---
History of Present Illness Date of Service: 08/11/21 Chief Complaint: Nausea vomiting 61-year-old male with a past medical history of hypertension, hyperlipidemia, cardiomyopathy, alcohol abuse, history of GI bleed/esophageal ulcers presented to the hospital with a chief complaint of nausea and vomiting. Patient is a poor historian. Patient mentioned that over the past 2 days she has been having nausea vomiting, vomitus is coffee-ground color; also reports few episodes of black stool. Denies any chest pain palpitations. Reports that he has been drinking alcohol on a regular basis. Last drink was yesterday. Denies any chest pain palpitations. Denies any numbness tingling or focal weakness. Review of all other systems is negative except mentioned above ER course: Per ER team patient noted to have stable hemoglobin; patient denied rectal exam; CT abdomen showed no acute intra-abdominal pathology but noted to have brother to lower lung field opacities concern for aspiration pneumonia; patient was given Zosyn. Patient was also started on phenobarb protocol. Admitted to the hospital for further management [facility] Medical History Alcohol dependence with withdrawal HLD (hyperlipidemia) Hypertension Nonischemic cardiomyopathy Family History Father No problems noted. Mother No problems noted. Surgical History History of cardiac cath (~01/2016) Social History (System 08/03/21 @ 13:16 by Sophia Gutiérrez) Alcohol intake: current Alcohol intake frequency: 3 or more drinks per day Alcohol type: hard liquor Patient Tobacco Use Status: Never used Tobacco Use of substances other than those prescribed or required for medical reasons: No Advance Directives: No Advance Directives Information Provided: No Meds Allergies Allergy/AdvReac Type Severity Reaction Status Date / Time No Known Allergies Allergy Verified 08/03/21 13:16 Active Medications: Current Medications Folic Acid (Folic Acid 1 Mg Tablet) 1 mg PO DAILY EVAN Stop: 08/15/21 08:59 Sodium Chloride (Ns) 1,000 mls @ 999 mls/hr IVCONT .Q1H1M EVAN Stop: 08/11/21 22:30 Last Admin: 08/11/21 22:01 Dose: 999 mls/hr Documented by: Piperacillin Sod/Tazobactam (Sod 3.375 gm/ Sodium Chloride) 50 mls @ 100 mls/hr IV Q6H [facility] [place] Medication (No Benzodiazepines) 1 each MISCELLANE DAILY [facility] Multivitamins/Vitamin C (Multivitamin Tablet) 1 tab PO DAILY [facility] [place] Stop: 08/15/21 08:59 Pharmacy Consult (Consult Rx Perform Med Rec) 1 each MISCELLANE ONCE PRN PRN Reason: Consult order Phenobarbital (Phenobarbital 15 Mg Tablet) 45 mg PO BID [facility] Stop: 08/14/21 09:01 Phenobarbital (Phenobarbital 15 Mg Tablet) 15 mg PO BID [facility] [place] Stop: 08/16/21 09:01 Phenobarbital (Phenobarbital 15 Mg Tablet) 15 mg PO DAILY [facility] [place] Stop: 08/18/21 09:01 Phenobarbital Sodium (Phenobarbital Sodium 130 Mg/Ml Vial) 205 mg IM Q3H [facility] [place] Stop: 08/12/21 04:01 Thiamine HCl (Thiamine Hcl 100 Mg Tablet) 100 mg PO DAILY [facility] [place] Stop: 08/15/21 08:59 Home Medications Medication Instructions Recorded Confirmed Last Taken Type albuterol sulfate 90 mcg/actuation 2 inh INHALATION Q4H PRN 11/10/20 08/11/21 Unknown History aerosol inhaler fluticasone propionate 44 1 puff PO BID 11/10/20 08/11/21 Unknown History mcg/actuation HFA aerosol inhaler ferrous sulfate 325 mg (65 mg 325 mg PO DAILY 08/11/21 08/11/21 08/10/21 History iron) tablet omeprazole 40 mg capsule,delayed 40 mg PO DAILY 08/11/21 08/11/21 08/10/21 History release tamsulosin 0.4 mg capsule 0.4 mg PO BEDTIME 08/11/21 08/11/21 08/10/21 History trazodone 100 mg tablet 100 mg PO BEDTIME 08/11/21 08/11/21 08/10/21 History Physical Exam Vital Signs and Narrative: Vital Signs: Last Vital Signs Temp 98.8 F 08/11/21 17:58 Pulse 118 H 08/11/21 17:58 Resp 16 08/11/21 17:58 BP 147/82 H 08/11/21 17:58 Pulse Ox 96 08/11/21 18:03 Body Mass Index 32.4 Results Labs CBC and Chem 7: 08/11/21 18:36 08/11/21 18:36 Labs: Laboratory Results - last 24 hr 08/11/21 08/11/21 08/11/21 18:36 18:36 18:36 MCV 74.8 L MCH 23.4 L MCHC 31.3 RDW 23.9 H Plt Count 195 MPV 8.9 L Immature Gran % (Auto) 0.5 H Neut % (Auto) 86.0 H Lymph % (Auto) 6.7 L [place] % (Auto) 6.4 Eos % (Auto) 0.1 Baso % (Auto) 0.3 Lymph # (Auto) 0.6 L [place] # (Auto) 0.6 Eos # (Auto) 0.0 Baso # (Auto) 0.0 Abs Immat Gran (auto) 0.05 H Absolute Neuts (auto) 8.2 Absolute Nucleated RBC 0.000 Nucleated RBC % (auto) 0.0 PT INR APTT Anion Gap 22 H Estim Creat Clear Calc 118.4 Estimated GFR > 60 Random Glucose 142 H D Calcium 7.9 L D Magnesium 1.9 Total Bilirubin 0.4 Direct Bilirubin 0.2 AST 44 H D ALT 37 Alkaline Phosphatase 59 D Troponin I High Sens Total Protein 6.8 Albumin 3.9 Lipase 15 Ethyl Alcohol COVID-19 (ELOY) Negative COVID-19 Clin Com See Note 08/11/21 08/11/21 08/11/21 18:36 18:36 18:36 MCV MCH MCHC RDW Plt Count MPV Immature Gran % (Auto) Neut % (Auto) Lymph % (Auto) [place] % (Auto) Eos % (Auto) Baso % (Auto) Lymph # (Auto) [place] # (Auto) Eos # (Auto) Baso # (Auto) Abs Immat Gran (auto) Absolute Neuts (auto) Absolute Nucleated RBC Nucleated RBC % (auto) PT 12.2 INR 1.1 APTT 33.8 Anion Gap Estim Creat Clear Calc Estimated GFR Random Glucose Calcium Magnesium Total Bilirubin Direct Bilirubin AST ALT Alkaline Phosphatase Troponin I High Sens 9.8 Total Protein Albumin Lipase Ethyl Alcohol 46 COVID-19 (ELOY) COVID-19 Clin Com Imaging Radiologist's Impressions: Impressions Chest X-Ray 08/11/21 18:06 IMPRESSION: Stable examination demonstrating no acute pulmonary pathology. Abdomen/Pelvis CT 08/11/21 19:21 IMPRESSION: No acute finding of the abdomen or pelvis. Airspace opacities of the lung bases, particularly on the left. This could represent atelectasis or pneumonia. Hepatic steatosis. Lipid rich right adrenal adenoma. Large hiatal hernia again noted. Assessment and Plan (1) Aspiration pneumonia: Qualifiers: Aspiration pneumonia type: unspecified Laterality: unspecified laterality Lung location: unspecified part of lung Qualified Code(s): J69.0 - Pneumonitis due to inhalation of food and vomit Status: Acute (2) Coffee ground vomiting: Status: Acute (3) Alcohol dependence with withdrawal: Status: Acute (4) Gastritis: Status: Acute 61-year-old male with a past medical history of hypertension, hyperlipidemia, cardiomyopathy, alcohol abuse, history of GI bleed/esophageal ulcers presented to the hospital with a chief complaint of nausea and vomiting. Noted to have following conditions Nausea/vomiting: The setting of alcoholic gastritis/esophagitis. Supportive care. Ppi. Upper GI bleed: Likely from retching versus ulcers. Patient has prior history of esophageal ulcers. IV ppi. NPO. Gentle IV fluids Will also transfuse the patient 1 unit of blood. Pneumonia: ? aspiration. c/w Zosyn. Speech and swallow eval. Will also add vancomycin. suppl oxygen prn History of hypertension: Hold home amlodipine/lisinopril. Continue carvedilol. DVT prophylaxis: SCD boots Code status: Full code Quality Stroke Does the patient have a stroke diagnosis?: No VTE Prior VTE?: No VTE Risk Level:: Medical - low VTE Device Contraindication: N/A - Device Ordered VTE Drug Contraindication: Treatment Not Indicated
[2021-08-11 22:17] LABS: Lactic Acid 0.7 mmol/L (0.5-2.0)
[2021-08-11 22:26] VITALS: BP 162/91; PULSE 113; RESP 15; O2SAT 95
[2021-08-11] MEDS: Dextrose 5 % and 0.45 % NaCl 1,000 ML 75 ML IVCONT (22:40)
--- NOTE | 2021-08-11 22:48 | PC.NURSE ---
pt repositioned, drink given, medication given per mar.
[2021-08-11 23:34] VITALS: BP 160/91; PULSE 106; RESP 18
[2021-08-12] MEDS: PHENobarbitaL sodium 130 MG/ML VIAL 205 MG IM ×2 (01:06→04:31)
[2021-08-12] MEDS: 0.9 % Sodium Chloride Flush 3 ML SYRINGE IVFLUSH (01:10)
[2021-08-12 01:26] LABS: Appearance Urine CLEAR; Color Urine YELLOW; Glucose Urine UA NEG (NEG); Leukocyte Esterase Urine NEG (NEG); Nitrite Urine NEG (NEG); UACC Culture Trigger NO; Urine Blood 1+ (NEG); Urine Ketones >=80 MG/DL (NEG); Urine Protein 1+ MG/DL (NEG-TRACE)
--- NOTE | 2021-08-12 01:27 | PC.NURSE ---
pt is a&o, no sob or chest pain, pt has no withdraw symptoms. pt is resting in bed at this time. medicated per nov.
[2021-08-12 01:35] LABS: Mucus Urine TRACE /LPF; RBC Urine 0 /HPF (0); WBC Urine 0-2 /HPF (0-4)
[2021-08-12 01:41] LABS: Amphetamine Screen Urine Not Detected (Not Detect); Barbiturates, Urine POSITIVE (Not Detect); Benzodiazepines Screen Urine Not Detected (Not Detect); Cannabinoid Screen Urine Not Detected (Not Detect); Cocaine Screen Urine Not Detected (Not Detect); Fentanyl, urine POSITIVE (Not Detect); Opiate Screen Urine Not Detected (Not Detect); Phencyclidine Screen Urine Not Detected (Not Detect)
[2021-08-12] MEDS: Piperacillin Sodium/Tazobactam 3.375 GM in 0.9 % Sodium Chloride 50 ML IV (04:29)
--- NOTE | 2021-08-12 04:38 | PC.NURSE ---
medicated pt per nov. provided a drink. pt a&o, no dizziness, headache or any sign of withdraw at this time. pt is resting comfortable in bed. call pimentel within reach.
[2021-08-12] MEDS: Pantoprazole Sodium 40 MG/10 ML VIAL IVPUSH ×2 (06:34→16:48)
[2021-08-12 06:41] LABS: MANUAL DIFF FLAG NO
[2021-08-12 06:43] VITALS: BP 176/103; PULSE 101
[2021-08-12] MEDS: carvediloL 6.25 MG TABLET PO ×2 (06:43→20:46)
[2021-08-12 06:45] VITALS: BP 176/103; PULSE 105; RESP 19; O2SAT 92
--- NOTE | 2021-08-12 06:45 | PC.NURSE ---
elevated bp, called hospitalist and okay to give coreg early.
--- NOTE | 2021-08-12 06:46 | PC.NURSE ---
please change into hospital attire and complete bed change.
[2021-08-12 06:52] LABS: Basophils Percent Auto 0.3 % (0-2); Eosinophils Absolute Auto 0.1 X10*3/uL (0.0-0.4); Eosinophils Percent Auto 1.5 % (0-4); Hematocrit 32.2 % (42.0-52.0); Imm Gran Abs Auto 0.04 X10*3/uL (0.00-0.03); Imm Gran Pct Auto 0.5 % (0.0-0.4); Lymphocytes Absolute Auto 0.6 X10*3/uL (1.2-4.9); Lymphocytes Percent Auto 8.4 % (20-40); Mean Corpuscular HGB Conc 31.1 g/dl (31.0-36.0); Mean Corpuscular Hemoglobin 23.2 pg (27.0-33.0); Mean Corpuscular Volume 74.7 fL (80.0-98.0); Mean Platelet Volume 9.3 fL (9.4-12.4); Monocytes Absolute Auto 0.7 X10*3/uL (0.1-1.2); Monocytes Percent Auto 8.7 % (2-11); Neutrophils Absolute Auto 6.1 x10*3/uL (2.0-8.3); Neutrophils Percent Auto 80.6 % (45-73); Platelet Count 190 X10*3/uL (160-400); Red Blood Count 4.31 X10*6/uL (4.60-5.80); Red Cell Distribution Width 23.4 % (11.0-16.0); White Blood Count 7.6 X10*3/uL (4.8-10.8)
[2021-08-12 06:56] LABS: Anion Gap 12 (12-20); Blood Urea Nitrogen 10 mg/dL (9-16); Calcium 7.5 mg/dL (8.4-10.2); Carbon Dioxide 28 mmol/L (22-29); Chloride 101 mmol/L (96-108); Creatinine Clr Calc Pharmacy 121.7; Estimated Glomerular Filt Rate > 60; Glucose Random 147 mg/dL (60-115); Potassium 3.4 mmol/L (3.3-5.1); Sodium 138 mmol/L (135-145)
[2021-08-12] MEDS: Multivitamin TABLET 1 TAB PO (07:59)
[2021-08-12] MEDS: Acetaminophen 325 MG TABLET PO (07:59)
[2021-08-12] MEDS: Thiamine HCL 100 MG TABLET PO (07:59)
[2021-08-12] MEDS: Folic Acid 1 MG TABLET PO (08:00)
--- NOTE | 2021-08-12 09:16 | HO.PM.IMPN ---
Subjective Subjective Date of Service: 08/12/21 Interval History: cc: coffee ground emesis, melena interval history: hungry Cardiovascular Cardiovascular: Reports no additional cardiovascular complaints Respiratory Respiratory: Reports no additional respiratory complaints Physical Exam Vital Signs: Vital Signs: Last Vital Signs Temp 98.8 F 08/11/21 17:58 Pulse 105 H 08/12/21 06:45 Resp 19 08/12/21 06:45 BP 176/103 H 08/12/21 06:45 Pulse Ox 92 08/12/21 06:45 Body Mass Index 32.4 General: AO X 3, no acute distress Resp: CTA bilateral, no accessory muscles used CVS: S1,S2,RRR GI: soft, non tender, non distended Neuro: motor grossly intact, alert Psych: appropriate affect, appropriate insight Objective Data Active Medications Acetaminophen (Acetaminophen 325 Mg Tablet) 325 mg PO Q6H PRN PRN Reason: mild pain Last Admin: 08/12/21 07:59 Dose: 325 mg Documented by: BARBARA Albuterol Sulfate (Albuterol Sulfate 90 Mcg 8 Gm Inhaler) 2 puff INHALE Q4H PRN PRN Reason: Dyspnea Carvedilol (Carvedilol 6.25 Mg Tablet) 6.25 mg PO BID [facility]; Protocol Last Admin: 08/12/21 06:43 Dose: 6.25 mg Documented by: ALEJANDRO Folic Acid (Folic Acid 1 Mg Tablet) 1 mg PO DAILY [facility] Stop: 08/15/21 08:59 Last Admin: 08/12/21 08:00 Dose: 1 mg Documented by: BARBARA Dextrose/Sodium Chloride (D51/2ns) 1,000 mls @ 75 mls/hr IVCONT .[id number] [facility] Last Admin: 08/11/21 22:40 Dose: 75 mls/hr Documented by: ALEJANDRO Medication (No Benzodiazepines) 1 each MISCELLANE DAILY [facility] Melatonin (Melatonin 3 Mg Tablet) 6 mg PO BEDTIME PRN PRN Reason: Insomnia Multivitamins/Vitamin C (Multivitamin Tablet) 1 tab PO DAILY [facility] Stop: 08/15/21 08:59 Last Admin: 08/12/21 07:59 Dose: 1 tab Documented by: BARBARA Non-Formulary Medication (Fluticasone Propionate) 1 puff PO BID [facility] Pantoprazole Sodium (Pantoprazole Sodium 40 Mg/10 Ml Vial) 40 mg IVPUSH BID@4455,4060 [facility] Pharmacy Consult (Consult Rx Perform Med Rec) 1 each MISCELLANE ONCE PRN PRN Reason: Consult order Phenobarbital (Phenobarbital 15 Mg Tablet) 45 mg PO BID [facility] Stop: 08/14/21 09:01 Phenobarbital (Phenobarbital 15 Mg Tablet) 15 mg PO BID [facility] Stop: 08/16/21 09:01 Phenobarbital (Phenobarbital 15 Mg Tablet) 15 mg PO DAILY [facility] Stop: 08/18/21 09:01 Senna (Sennosides 8.6 Mg Tablet) 17.2 mg PO BEDTIME PRN PRN Reason: Constipation Sodium Chloride (0.9 % Sodium Chloride Flush 3 Ml Syringe) 3 ml IVFLUSH QSHIFT [facility] Last Admin: 08/12/21 07:17 Dose: Not Given Documented by: BARBARA Non-Admin Reason: IV Running Tamsulosin HCl (Tamsulosin Hcl 0.4 Mg Capsule) 0.4 mg PO BEDTIME [facility] Thiamine HCl (Thiamine Hcl 100 Mg Tablet) 100 mg PO DAILY [facility] Stop: 08/15/21 08:59 Last Admin: 08/12/21 07:59 Dose: 100 mg Documented by: BARBARA Trazodone HCl (Trazodone Hcl 100 Mg Tablet) 100 mg PO BEDTIME [facility] Labs CBC & Chem 7: 08/12/21 06:29 08/12/21 06:29 Labs: Laboratory Results - last 24 hr 08/11/21 08/11/21 08/11/21 18:36 18:36 18:36 MCV 74.8 L MCH 23.4 L MCHC 31.3 RDW 23.9 H Plt Count 195 MPV 8.9 L Immature Gran % (Auto) 0.5 H Neut % (Auto) 86.0 H Lymph % (Auto) 6.7 L Atlantic % (Auto) 6.4 Eos % (Auto) 0.1 Baso % (Auto) 0.3 Lymph # (Auto) 0.6 L [place] # (Auto) 0.6 Eos # (Auto) 0.0 Baso # (Auto) 0.0 Abs Immat Gran (auto) 0.05 H Absolute Neuts (auto) 8.2 Absolute Nucleated RBC 0.000 Nucleated RBC % (auto) 0.0 PT INR APTT Anion Gap 22 H Estim Creat Clear Calc 118.4 Estimated GFR > 60 Random Glucose 142 H D Lactic Acid Calcium 7.9 L D Magnesium 1.9 Total Bilirubin 0.4 Direct Bilirubin 0.2 AST 44 H D ALT 37 Alkaline Phosphatase 59 D Troponin I High Sens Total Protein 6.8 Albumin 3.9 Lipase 15 Urine Color Urine Appearance Urine pH Ur Specific [place] Urine Protein Urine Glucose (UA) Urine Ketones Urine Blood Urine Nitrite Ur Leukocyte Esterase Urine RBC Urine WBC Ur Squamous Epith Cells Urine Bacteria Urine Mucus Urine Opiates Screen Urine Fentanyl Screen Ur Barbiturates Screen Ur Phencyclidine Scrn Ur Amphetamines Screen U Benzodiazepines Scrn Urine Cocaine Screen U Marijuana (THC) Screen Ethyl Alcohol COVID-19 (ELOY) Negative COVID-19 Clin Com See Note 08/11/21 08/11/21 08/11/21 18:36 18:36 18:36 MCV MCH MCHC RDW Plt Count MPV Immature Gran % (Auto) Neut % (Auto) Lymph % (Auto) Atlantic % (Auto) Eos % (Auto) Baso % (Auto) Lymph # (Auto) Atlantic # (Auto) Eos # (Auto) Baso # (Auto) Abs Immat Gran (auto) Absolute Neuts (auto) Absolute Nucleated RBC Nucleated RBC % (auto) PT 12.2 INR 1.1 APTT 33.8 Anion Gap Estim Creat Clear Calc Estimated GFR Random Glucose Lactic Acid Calcium Magnesium Total Bilirubin Direct Bilirubin AST ALT Alkaline Phosphatase Troponin I High Sens 9.8 Total Protein Albumin Lipase Urine Color Urine Appearance Urine pH Ur Specific [place] Urine Protein Urine Glucose (UA) Urine Ketones Urine Blood Urine Nitrite Ur Leukocyte Esterase Urine RBC Urine WBC Ur Squamous Epith Cells Urine Bacteria Urine Mucus Urine Opiates Screen Urine Fentanyl Screen Ur Barbiturates Screen Ur Phencyclidine Scrn Ur Amphetamines Screen U Benzodiazepines Scrn Urine Cocaine Screen U Marijuana (THC) Screen Ethyl Alcohol 46 COVID-19 ([facility]) COVID-19 Clin Com 08/11/21 08/12/21 08/12/21 22:01 01:17 01:17 MCV MCH MCHC RDW Plt Count MPV Immature Gran % (Auto) Neut % (Auto) Lymph % (Auto) Atlantic % (Auto) Eos % (Auto) Baso % (Auto) Lymph # (Auto) Atlantic # (Auto) Eos # (Auto) Baso # (Auto) Abs Immat Gran (auto) Absolute Neuts (auto) Absolute Nucleated RBC Nucleated RBC % (auto) PT INR APTT Anion Gap Estim Creat Clear Calc Estimated GFR Random Glucose Lactic Acid 0.7 Calcium Magnesium Total Bilirubin Direct Bilirubin AST ALT Alkaline Phosphatase Troponin I High Sens Total Protein Albumin Lipase Urine Color YELLOW Urine Appearance CLEAR Urine pH 6.0 Ur Specific [place] 1.020 Urine Protein 1+ H Urine Glucose (UA) NEG Urine Ketones >=80 Urine Blood 1+ H Urine Nitrite NEG Ur Leukocyte Esterase NEG Urine RBC 0 Urine WBC 0-2 Ur Squamous Epith Cells NONE Urine Bacteria NONE Urine Mucus TRACE Urine Opiates Screen Not Detected Urine Fentanyl Screen POSITIVE H Ur Barbiturates Screen POSITIVE H Ur Phencyclidine Scrn Not Detected Ur Amphetamines Screen Not Detected U Benzodiazepines Scrn Not Detected Urine Cocaine Screen Not Detected U Marijuana (THC) Screen Not Detected Ethyl Alcohol COVID-19 ([facility]) COVID-19 Clin Com 08/12/21 08/12/21 06:29 06:29 MCV 74.7 L MCH 23.2 L MCHC 31.1 RDW 23.4 H Plt Count 190 MPV 9.3 L Immature Gran % (Auto) 0.5 H Neut % (Auto) 80.6 H Lymph % (Auto) 8.4 L Atlantic % (Auto) 8.7 Eos % (Auto) 1.5 Baso % (Auto) 0.3 Lymph # (Auto) 0.6 L Atlantic # (Auto) 0.7 Eos # (Auto) 0.1 Baso # (Auto) 0.0 Abs Immat Gran (auto) 0.04 H Absolute Neuts (auto) 6.1 Absolute Nucleated RBC 0.000 Nucleated RBC % (auto) 0.0 PT INR APTT Anion Gap 12 Estim Creat Clear Calc 121.7 Estimated GFR > 60 Random Glucose 147 H Lactic Acid Calcium 7.5 L Magnesium Total Bilirubin Direct Bilirubin AST ALT Alkaline Phosphatase Troponin I High Sens Total Protein Albumin Lipase Urine Color Urine Appearance Urine pH Ur Specific [place] Urine Protein Urine Glucose (UA) Urine Ketones Urine Blood Urine Nitrite Ur Leukocyte Esterase Urine RBC Urine WBC Ur Squamous Epith Cells Urine Bacteria Urine Mucus Urine Opiates Screen Urine Fentanyl Screen Ur Barbiturates Screen Ur Phencyclidine Scrn Ur Amphetamines Screen U Benzodiazepines Scrn Urine Cocaine Screen U Marijuana (THC) Screen Ethyl Alcohol COVID-19 ([facility]) COVID-19 Clin Com Assessment and Plan (1) Acute respiratory failure with hypoxia: Status: Acute (2) Coffee ground vomiting: Status: Acute Assessment and Plan: 61M presented with coffee ground emesis and melena. 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
[2021-08-12] MEDS: Dextrose 5 % and 0.45 % NaCl 1,000 ML 75 ML IVCONT (12:20)
--- NOTE | 2021-08-12 12:33 | MHC.CM.PN ---
Attempted to meet with patient in regards to discharge planning. Nursing care being provided. Will attempt to meet again. Continue to monitor for d/c needs.
[2021-08-12] MEDS: Acetaminophen 325 MG TABLET 625 MG PO (13:13)
[2021-08-12 16:01] VITALS: BP 181/97; PULSE 86; RESP 20; TEMP 36.6; O2SAT 95
[2021-08-12 16:40] VITALS: BMI 32.4
[2021-08-12] MEDS: oxyCODONE HCl Immed Release 5 MG TABLET PO ×2 (16:48→20:46)
[2021-08-12 19:23] VITALS: BP 140/62; PULSE 88; RESP 18; TEMP 36.6; O2SAT 99
--- NOTE | 2021-08-12 20:13 | CONS_ITS ---
DATE OF SERVICE: 08/12/2021 REFERRING PHYSICIAN: Austin Workman MD REASON FOR CONSULTATION: Coffee-grounds emesis. HISTORY OF PRESENT ILLNESS: The patient is a 61-year-old man with a history of alcohol abuse, who was admitted to the hospital after presenting to the emergency room. He reports nausea and vomiting for 24 hours prior to admission with coffee-grounds emesis. Stools have been black and brown. He denies any epigastric pain. He reports alcohol use with approximately 2 pints of liquor on a daily basis. He was evaluated in the emergency department with lab work showing a hematocrit of 34.8 on admission, up from 30.9 in February. This has remained stable with no signs of GI bleeding overnight. The patient previously has undergone evaluation with endoscopy, most recently in May of 2020, which showed erosive esophagitis with an esophageal ulcer with a visible vessel that was treated with sclerotherapy and cauterization. The patient has been prescribed omeprazole, but he states he has not been taking this over the past month as he has no medication at home. He denies use of chronic NSAIDs. PAST MEDICAL HISTORY: 1. Alcohol abuse. 2. Hypertension. 3. Hyperlipidemia. 4. Cardiomyopathy. 5. Erosive esophagitis. CURRENT MEDICATIONS: His current medication list is reviewed in the chart. ALLERGIES: THERE ARE NONE REPORTED. FAMILY HISTORY: This is reviewed and is noncontributory. SOCIAL HISTORY: He denies tobacco and substance abuse. REVIEW OF SYSTEMS: SKIN: No pruritus. HEENT: Negative. CARDIOPULMONARY: He denies shortness of breath or chest pain. GASTROINTESTINAL: As above. GENITOURINARY: Negative. NEUROPSYCHIATRIC: Negative. PHYSICAL EXAMINATION: GENERAL: Shows a pleasant male, lying in bed, drinking [place]. VITAL SIGNS: Reviewed in the electronic medical record and are stable. SKIN: Anicteric. HEENT: Shows no scleral icterus. NECK: Without lymphadenopathy or thyromegaly. LUNGS: Clear. HEART: Shows regular rate and rhythm. S1, S2. No murmur. ABDOMEN: Soft without focal masses or tenderness. Bowel sounds are present. No organomegaly is noted. EXTREMITIES: Without edema. LABORATORY DATA: Laboratory data and CT scanning are reviewed. CT scanning obtained yesterday shows steatohepatitis and a large hiatal hernia. IMPRESSION: Coffee-grounds emesis. The patient appears to be stable without any signs of ongoing GI bleeding, so I do not recommend endoscopy at this time. He is advised to discontinue alcohol use. I would recommend treating him with a proton pump inhibitor and monitoring his hematocrit. If he does show signs of active bleeding, endoscopy could be considered. He should be prescribed a proton pump inhibitor on discharge, although his compliance is questionable. Thanks for asking me to see him. I will follow him in the hospital with you. MD WILLIAMS Clemente/YOUNG / [phone] MTDD
[2021-08-12] MEDS: traZODone HCL 100 MG TABLET PO (20:44)
[2021-08-12] MEDS: Tamsulosin HCL 0.4 MG CAPSULE PO (20:45)
[2021-08-12] MEDS: PHENobarbitaL 15 MG TABLET 45 MG PO (20:45)
[2021-08-12] MEDS: Melatonin 3 MG TABLET 6 MG PO (20:45)
[2021-08-12 20:46] VITALS: BP 140/62; PULSE 88
[2021-08-12 23:13] VITALS: BP 176/89; PULSE 76; RESP 20; TEMP 36.6; O2SAT 92
[2021-08-13] VITALS (9 sets, daily range): BP systolic 126–162; BP diastolic 81–91; PULSE 76–100; RESP 17–20; TEMP 36.2–37.2; O2SAT 90–96
[2021-08-13] MEDS: Dextrose 5 % and 0.45 % NaCl 1,000 ML 75 ML IVCONT (01:53)
[2021-08-13] MEDS: oxyCODONE HCl Immed Release 5 MG TABLET PO ×2 (02:01→16:16)
[2021-08-13] MEDS: Pantoprazole Sodium 40 MG/10 ML VIAL IVPUSH (05:59)
[2021-08-13] MEDS: Acetaminophen 325 MG TABLET 625 MG PO ×2 (06:33→21:28)
[2021-08-13 07:14] LABS: Hematocrit 32.8 % (42.0-52.0); Hemoglobin 10.2 g/dl (14.0-18.0); Mean Corpuscular HGB Conc 31.1 g/dl (31.0-36.0); Mean Corpuscular Hemoglobin 23.8 pg (27.0-33.0); Mean Corpuscular Volume 76.5 fL (80.0-98.0); Mean Platelet Volume 9.3 fL (9.4-12.4); Platelet Count 180 X10*3/uL (160-400); Red Blood Count 4.29 X10*6/uL (4.60-5.80); Red Cell Distribution Width 23.5 % (11.0-16.0); White Blood Count 7.7 X10*3/uL (4.8-10.8)
[2021-08-13 08:23] LABS: Anion Gap 10 (12-20); Blood Urea Nitrogen 5 mg/dL (9-16); Calcium 7.7 mg/dL (8.4-10.2); Carbon Dioxide 31 mmol/L (22-29); Chloride 98 mmol/L (96-108); Estimated Glomerular Filt Rate > 60; Glucose Fasting 139 mg/dL (60-99); Magnesium 1.5 mg/dL (1.6-2.6); Potassium 3.2 mmol/L (3.3-5.1); Sodium 136 mmol/L (135-145)
[2021-08-13] MEDS: PHENobarbitaL 15 MG TABLET 45 MG PO ×2 (08:38→20:21)
[2021-08-13] MEDS: carvediloL 6.25 MG TABLET PO ×2 (08:39→20:22)
[2021-08-13] MEDS: Thiamine HCL 100 MG TABLET PO (08:39)
[2021-08-13] MEDS: Folic Acid 1 MG TABLET PO (08:39)
[2021-08-13] MEDS: amLODIPine Besylate 10 MG TABLET PO (08:39)
[2021-08-13] MEDS: Multivitamin TABLET 1 TAB PO (08:40)
[2021-08-13] MEDS: lisinopriL 40 MG TABLET PO (08:40)
[2021-08-13] MEDS: 0.9 % Sodium Chloride Flush 3 ML SYRINGE IVFLUSH ×3 (08:42→21:32)
--- NOTE | 2021-08-13 09:46 | PM.DS ---
DS: Providers Provider Date of Service: 08/15/21 Date of admission: 08/11/21 22:17 Primary care physician: ADDY Landrum Consults: 08/11/21 22:09 Consult to Gastroenterology Routine Consulting Provider: Ed Berger Reason for consultation: GI bleed DS: Diagnosis Discharge Diagnosis (1) Acute respiratory failure with hypoxia: Status: Acute (2) Coffee ground vomiting: Status: Acute DS: Summary Hospital Course Hospital Course: patient was admitted for coffee ground emesis. his hgb remained stable, this appears not to have been an active GI bleed, rather more alcoholic gastritis. he was treated with protonix, and symptoms resolved, he was able to tolerate solid diet. course was complicated by transient acute hypoxic respriatory failure, likely aspiration pneumonitis, no evidence of bacterial infection, therefore, antibiotics were discontinued. course was also complicated by alcohol dependence with withdrawal. he was treated with phenobarbital. symptoms resolved. patient is feeling better, he will continue omeprazole and is encouraged to stop ETOH. he was noted to be debilitated and having difficulty ambulating, PT has recommended STR at SNF. Time Spent with Patient Time attestation: Total time spent providing and/or coordinating discharge services: Discharge coordination time: Greater than 30 minutes Quality: Stroke Does the patient have a stroke diagnosis?: No Physical Exam Vital Signs: Vital Signs: Last Vital Signs Temp 98.5 F 08/13/21 02:58 Pulse 76 08/13/21 08:40 Resp 20 08/13/21 02:58 BP 126/84 08/13/21 08:40 Pulse Ox 90 L 08/13/21 02:58 Body Mass Index 32.4 General: AO X 3, no acute distress Resp: CTA bilateral, no accessory muscles used CVS: S1,S2,RRR GI: soft, non tender, non distended Neuro: motor grossly intact, alert Psych: appropriate affect, appropriate insight DS: Data Data Completed and Pending Completed studies during hospitalization [Text1]: Procedures Control Bleeding in Gastrointestinal Tract, Via Natural or Artificial Opening Endoscopic (06/26/20) Detoxification Services for Substance Abuse Treatment (06/26/20) Introduction of Destructive Agent into Upper GI, Via Natural or Artificial Opening Endoscopic (06/26/20) Transfusion of Nonautologous Red Blood Cells into Peripheral Vein, Percutaneous Approach (06/26/20) Labs on day of discharge: Laboratory Results - last 24 hr 08/13/21 08/13/21 06:21 06:21 WBC 7.7 RBC 4.29 L Hgb 10.2 L Hct 32.8 L MCV 76.5 L MCH 23.8 L MCHC 31.1 RDW 23.5 H Plt Count 180 MPV 9.3 L Absolute Nucleated RBC 0.000 Nucleated RBC % (auto) 0.0 Sodium 136 Potassium 3.2 L Chloride 98 Carbon Dioxide 31 H Anion Gap 10 L BUN 5 L Creatinine 0.65 Estim Creat Clear Calc 133.0 Estimated GFR > 60 Fasting Glucose 139 H D Calcium 7.7 L Magnesium 1.5 L Preliminary micro results at discharge 08/11/21 22:01 Blood Culture - Preliminary Blood - Venous No growth after 24 hours. 08/11/21 22:01 Blood Culture - Preliminary Blood - Venous No growth after 24 hours. Discharge Plan Discharge Patient Disposition: er [facility] Discharge Diagnosis: etoh gastritis Referrals: Osito Grant PA [Primary Care Provider] - 1 Week Discharge Medications: Continued tamsulosin 0.4 mg Capsule 0.4 mg PO BEDTIME RF: 0 trazodone 100 mg Tablet 100 mg PO BEDTIME RF: 0 ferrous sulfate 325 mg (65 mg iron) Tablet 325 mg PO DAILY RF: 0 omeprazole 40 mg capsule,delayed release(DR/EC) 40 mg PO DAILY RF: 0 fluticasone propionate 44 mcg/actuation HFA aerosol inhaler 1 puff PO BID RF: 0 albuterol sulfate 90 mcg/actuation HFA aerosol inhaler 2 inh inhalation Q4H PRN (Reason: Dyspnea) RF: 0 amlodipine 10 mg tablet 10 mg PO DAILY 90 Days Qty: 90 RF: 1 carvedilol 6.25 mg tablet 6.25 mg PO BID 90 Days Qty: 180 RF: 1 lisinopril 40 mg tablet 40 mg PO DAILY 90 Days Qty: 90 RF: 1 Diet: advance to usual diet Activity on Discharge: As tolerated Stand Alone Forms: Patient Portal Discharge page Care Plan Goals: recovery Health Concerns: etoh Plan of Treatment: no etoh, continue omeprazole Assessment: see above
--- NOTE | 2021-08-13 10:20 | HO.PM.IMPN ---
Subjective Subjective Date of Service: 08/13/21 Interval History: ?cc: coffee ground emesis, melena interval history: resolved Cardiovascular Cardiovascular: Reports no additional cardiovascular complaints Respiratory Respiratory: Reports no additional respiratory complaints Physical Exam Vital Signs: Vital Signs: Last Vital Signs Temp 97.8 F 08/13/21 08:00 Pulse 76 08/13/21 08:40 Resp 18 08/13/21 08:00 BP 126/84 08/13/21 08:40 Pulse Ox 93 08/13/21 08:00 Body Mass Index 32.4 General: AO X 3, no acute distress Resp: CTA bilateral, no accessory muscles used CVS: S1,S2,RRR GI: soft, non tender, non distended Neuro: motor grossly intact, alert Psych: appropriate affect, appropriate insight Objective Data Active Medications Acetaminophen (Acetaminophen 325 Mg Tablet) 625 mg PO Q6H PRN PRN Reason: mild pain Last Admin: 08/13/21 06:33 Dose: 625 mg Documented by: MIGNON Albuterol Sulfate (Albuterol Sulfate 90 Mcg 8 Gm Inhaler) 2 puff INHALE Q4H PRN PRN Reason: Dyspnea Amlodipine Besylate (Amlodipine Besylate 10 Mg Tablet) 10 mg PO DAILY [facility]; Protocol Last Admin: 08/13/21 08:39 Dose: 10 mg Documented by: CHANDRAKANT Carvedilol (Carvedilol 6.25 Mg Tablet) 6.25 mg PO BID [facility]; Protocol Last Admin: 08/13/21 08:39 Dose: 6.25 mg Documented by: CHANDRAKANT Folic Acid (Folic Acid 1 Mg Tablet) 1 mg PO DAILY [facility] Stop: 08/15/21 08:59 Last Admin: 08/13/21 08:39 Dose: 1 mg Documented by: CHANDRAKANT Lisinopril (Lisinopril 40 Mg Tablet) 40 mg PO DAILY [facility]; Protocol Last Admin: 08/13/21 08:40 Dose: 40 mg Documented by: CHANDRAKANT Medication (No Benzodiazepines) 1 each MISCELLANE DAILY [facility] Melatonin (Melatonin 3 Mg Tablet) 6 mg PO BEDTIME PRN PRN Reason: Insomnia Last Admin: 08/12/21 20:45 Dose: 6 mg Documented by: MIGNON Multivitamins/Vitamin C (Multivitamin Tablet) 1 tab PO DAILY [facility] Stop: 08/15/21 08:59 Last Admin: 08/13/21 08:40 Dose: 1 tab Documented by: CHANDRAKANT Non-Formulary Medication (Fluticasone Propionate) 1 puff PO BID [facility] Oxycodone HCl (Oxycodone Hcl Immed Release 5 Mg Tablet) 5 mg PO Q4H PRN PRN Reason: moderate pain Last Admin: 08/13/21 02:01 Dose: 5 mg Documented by: MIGNON Pantoprazole Sodium (Pantoprazole Sodium 40 Mg/10 Ml Vial) 40 mg IVPUSH BID@0630,1630 [facility] Last Admin: 08/13/21 05:59 Dose: 40 mg Documented by: MIGNON Pharmacy Consult (Consult Rx Perform Med Rec) 1 each MISCELLANE ONCE PRN PRN Reason: Consult order Phenobarbital (Phenobarbital 15 Mg Tablet) 45 mg PO BID [facility] Stop: 08/14/21 09:01 Last Admin: 08/13/21 08:38 Dose: 45 mg Documented by: CHANDRAKANT Phenobarbital (Phenobarbital 15 Mg Tablet) 15 mg PO BID [facility] Stop: 08/16/21 09:01 Phenobarbital (Phenobarbital 15 Mg Tablet) 15 mg PO DAILY [facility] Stop: 08/18/21 09:01 Senna (Sennosides 8.6 Mg Tablet) 17.2 mg PO BEDTIME PRN PRN Reason: Constipation Sodium Chloride (0.9 % Sodium Chloride Flush 3 Ml Syringe) 3 ml IVFLUSH QSHIFT [facility] Last Admin: 08/13/21 08:42 Dose: 3 ml Documented by: CHANDRAKANT Tamsulosin HCl (Tamsulosin Hcl 0.4 Mg Capsule) 0.4 mg PO BEDTIME [facility] Last Admin: 08/12/21 20:45 Dose: 0.4 mg Documented by: MIGNON Thiamine HCl (Thiamine Hcl 100 Mg Tablet) 100 mg PO DAILY [facility] Stop: 08/15/21 08:59 Last Admin: 08/13/21 08:39 Dose: 100 mg Documented by: CHANDRAKANT Trazodone HCl (Trazodone Hcl 100 Mg Tablet) 100 mg PO BEDTIME [facility] Last Admin: 08/12/21 20:44 Dose: 100 mg Documented by: MIGNON Labs CBC & Chem 7: 08/13/21 06:21 08/13/21 06:21 Labs: Laboratory Results - last 24 hr 08/13/21 08/13/21 06:21 06:21 MCV 76.5 L MCH 23.8 L MCHC 31.1 RDW 23.5 H Plt Count 180 MPV 9.3 L Absolute Nucleated RBC 0.000 Nucleated RBC % (auto) 0.0 Anion Gap 10 L Estim Creat Clear Calc 133.0 Estimated GFR > 60 Fasting Glucose 139 H D Calcium 7.7 L Magnesium 1.5 L Microbiology Microbiology Results: Microbiology 08/11/21 22:01 Blood Culture - Preliminary Blood - Venous No growth after 24 hours. 08/11/21 22:01 Blood Culture - Preliminary Blood - Venous No growth after 24 hours. Assessment and Plan (1) Acute respiratory failure with hypoxia: Status: Acute (2) Coffee ground vomiting: Status: Acute Assessment and Plan: 61M presented with coffee ground emesis and melena. 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
--- NOTE | 2021-08-13 12:15 | MHC.CM.PN ---
CM ATTEMPTED TO MEET WITH PT WHO DECLINED TO ANSWER ANY QUESTIONS AND STATED NOTHING HAS CHANGED PER CLARIFICATION, PT MEANT, NOTHING HAS CHANGED SINCE LAST ADMISSION. RN FIELD COMPLETED USING EMR PER RECORDS, PT LIVES ALONE AND IS INDEPENDENT WITH SELF CARE PT USES A [facility] AT [facility] AND HAS NO HOME SERVICES PCP IS [facility] HCP ON FILE DCP TBD PENDING PT EVAL TRANSPORT TBD BY DISPOSITION
[2021-08-13] MEDS: Tamsulosin HCL 0.4 MG CAPSULE PO (20:21)
[2021-08-13] MEDS: traZODone HCL 100 MG TABLET PO (20:21)
[2021-08-13] MEDS: Melatonin 3 MG TABLET 6 MG PO (21:27)
[2021-08-14 04:00] VITALS: BP 134/75; PULSE 89; RESP 18; TEMP 36.1; O2SAT 92
[2021-08-14] MEDS: Omeprazole 40 MG CAPSULE.DR PO ×2 (05:49→21:11)
[2021-08-14] MEDS: oxyCODONE HCl Immed Release 5 MG TABLET PO ×2 (05:53→20:28)
[2021-08-14 05:55] LABS: Hematocrit 33.8 % (42.0-52.0); Hemoglobin 10.6 g/dl (14.0-18.0); Mean Corpuscular HGB Conc 31.4 g/dl (31.0-36.0); Mean Corpuscular Hemoglobin 23.8 pg (27.0-33.0); Mean Platelet Volume 9.4 fL (9.4-12.4); Platelet Count 172 X10*3/uL (160-400); Red Blood Count 4.45 X10*6/uL (4.60-5.80); Red Cell Distribution Width 23.5 % (11.0-16.0); White Blood Count 5.9 X10*3/uL (4.8-10.8)
[2021-08-14 06:17] LABS: Anion Gap 9 (12-20); Blood Urea Nitrogen 5 mg/dL (9-16); Calcium 8.1 mg/dL (8.4-10.2); Carbon Dioxide 31 mmol/L (22-29); Chloride 101 mmol/L (96-108); Creatinine Clr Calc Pharmacy 139.4; Estimated Glomerular Filt Rate > 60; Glucose Fasting 116 mg/dL (60-99); Magnesium 1.6 mg/dL (1.6-2.6); Potassium 3.1 mmol/L (3.3-5.1); Sodium 138 mmol/L (135-145)
[2021-08-14 08:00] VITALS: BP 176/91; PULSE 79; RESP 18; TEMP 36.4; O2SAT 94
[2021-08-14] MEDS: Multivitamin TABLET 1 TAB PO (08:30)
[2021-08-14] MEDS: carvediloL 6.25 MG TABLET PO ×2 (08:30→20:23)
[2021-08-14] MEDS: Potassium Chloride ER 20 MEQ TAB.ER.PRT 40 MEQ PO (08:30)
[2021-08-14] MEDS: PHENobarbitaL 15 MG TABLET 45 MG PO (08:31)
[2021-08-14] MEDS: amLODIPine Besylate 10 MG TABLET PO (08:31)
[2021-08-14] MEDS: Folic Acid 1 MG TABLET PO (08:31)
[2021-08-14] MEDS: Thiamine HCL 100 MG TABLET PO (08:31)
[2021-08-14] MEDS: lisinopriL 40 MG TABLET PO (08:31)
[2021-08-14] MEDS: Acetaminophen 325 MG TABLET 625 MG PO ×2 (08:32→14:44)
[2021-08-14] MEDS: 0.9 % Sodium Chloride Flush 3 ML SYRINGE IVFLUSH ×3 (08:33→20:26)
[2021-08-14 10:57] VITALS: BP 176/91; PULSE 79; O2SAT 94
[2021-08-14 11:43] VITALS: BP 159/87; PULSE 75; RESP 18; TEMP 36.6; O2SAT 95
--- NOTE | 2021-08-14 12:26 | MHC.CM.PN ---
Addendum entered by Carola Leahy RN 08/14/21 14:12: CM MET W/PT WHO REPORTS HE WOULD LIKE TO STAY LOCAL BUT HAS NO PREFERENCES IN SNF'S, PT DOES HAVE BARRIERS TO PLACEMENT THAT INCLUDE ETOH USE AND VACCINE STATUS, PT IS UNVACCINATED FOR COVID. CM WILL CONT TO FOLLOW REFERRALS. Original Note: CM MET W/HOSPITALIST TO DISCUSS CASE, PT MEDICALLY CLEARED, PER PT EVAL PT WILL NEED STR, REFERRALS PLACED TO FACILITIES KNOWN TO TAKE ETOH PT'S, CM WILL MEET W/PT TO DISCUSS PREFERENCES AND EXPAND REFERRAL SEARCH NEEDED.
--- NOTE | 2021-08-14 12:30 | P.PNIM_ITS ---
Subjective Subjective Date of Service: 08/14/21 Interval History: ?cc: coffee ground emesis, melena interval history: resolved, difficulty walking Cardiovascular Cardiovascular: Reports no additional cardiovascular complaints Respiratory Respiratory: Reports no additional respiratory complaints Physical Exam Vital Signs: Vital Signs: Last Vital Signs Temp 97.8 F 08/14/21 11:43 Pulse 75 08/14/21 11:43 Resp 18 08/14/21 11:43 BP 159/87 H 08/14/21 11:43 Pulse Ox 95 08/14/21 11:43 Body Mass Index 32.4 General: AO X 3, no acute distress Resp:? CTA bilateral, no accessory muscles used CVS: S1,S2,RRR GI: soft, non tender, non distended Neuro:? motor grossly intact, alert Psych: appropriate affect, appropriate insight? Objective Data Active Medications Acetaminophen (Acetaminophen 325 Mg Tablet) 625 mg PO Q6H PRN PRN Reason: mild pain Last Admin: 08/14/21 08:32 Dose: 625 mg Documented by: NANCY Albuterol Sulfate (Albuterol Sulfate 90 Mcg 8 Gm Inhaler) 2 puff INHALE Q4H PRN PRN Reason: Dyspnea Amlodipine Besylate (Amlodipine Besylate 10 Mg Tablet) 10 mg PO DAILY [facility]; Protocol Last Admin: 08/14/21 08:31 Dose: 10 mg Documented by: NANCY Carvedilol (Carvedilol 6.25 Mg Tablet) 6.25 mg PO BID [facility]; Protocol Last Admin: 08/14/21 08:30 Dose: 6.25 mg Documented by: NANCY Folic Acid (Folic Acid 1 Mg Tablet) 1 mg PO DAILY [facility] Stop: 08/15/21 08:59 Last Admin: 08/14/21 08:31 Dose: 1 mg Documented by: NANCY Lisinopril (Lisinopril 40 Mg Tablet) 40 mg PO DAILY [facility]; Protocol Last Admin: 08/14/21 08:31 Dose: 40 mg Documented by: NANCY Medication (No Benzodiazepines) 1 each MISCELLANE DAILY [facility] Melatonin (Melatonin 3 Mg Tablet) 6 mg PO BEDTIME PRN PRN Reason: Insomnia Last Admin: 08/13/21 21:27 Dose: 6 mg Documented by: ALLIE Multivitamins/Vitamin C (Multivitamin Tablet) 1 tab PO DAILY [facility] Stop: 08/15/21 08:59 Last Admin: 08/14/21 08:30 Dose: 1 tab Documented by: NANCY Non-Formulary Medication (Fluticasone Propionate) 1 puff PO BID [facility] Omeprazole (Omeprazole 40 Mg Capsule.Dr) 40 mg PO DAILY@0630 [facility] Last Admin: 08/14/21 05:49 Dose: 40 mg Documented by: ALLIE Oxycodone HCl (Oxycodone Hcl Immed Release 5 Mg Tablet) 5 mg PO Q4H PRN PRN Reason: moderate pain Last Admin: 08/14/21 05:53 Dose: 5 mg Documented by: ALLIE Pharmacy Consult (Consult Rx Perform Med Rec) 1 each MISCELLANE ONCE PRN PRN Reason: Consult order Phenobarbital (Phenobarbital 15 Mg Tablet) 15 mg PO BID [facility] Stop: 08/16/21 09:01 Phenobarbital (Phenobarbital 15 Mg Tablet) 15 mg PO DAILY [facility] Stop: 08/18/21 09:01 Senna (Sennosides 8.6 Mg Tablet) 17.2 mg PO BEDTIME PRN PRN Reason: Constipation Sodium Chloride (0.9 % Sodium Chloride Flush 3 Ml Syringe) 3 ml IVFLUSH QSHIFT [facility] Last Admin: 08/14/21 08:33 Dose: 3 ml Documented by: NANCY Tamsulosin HCl (Tamsulosin Hcl 0.4 Mg Capsule) 0.4 mg PO BEDTIME [facility] Last Admin: 08/13/21 20:21 Dose: 0.4 mg Documented by: JERSON Thiamine HCl (Thiamine Hcl 100 Mg Tablet) 100 mg PO DAILY [facility] Stop: 08/15/21 08:59 Last Admin: 08/14/21 08:31 Dose: 100 mg Documented by: NANCY Trazodone HCl (Trazodone Hcl 100 Mg Tablet) 100 mg PO BEDTIME [facility] Last Admin: 08/13/21 20:21 Dose: 100 mg Documented by: JERSON Labs CBC & Chem 7: 08/14/21 05:43 08/14/21 05:43 Labs: Laboratory Results - last 24 hr 08/14/21 08/14/21 05:43 05:43 MCV 76.0 L MCH 23.8 L MCHC 31.4 RDW 23.5 H Plt Count 172 MPV 9.4 Absolute Nucleated RBC 0.000 Nucleated RBC % (auto) 0.0 Anion Gap 9 L Estim Creat Clear Calc 139.4 Estimated GFR > 60 Fasting Glucose 116 H Calcium 8.1 L Magnesium 1.6 Microbiology Microbiology Results: Microbiology 08/11/21 22:01 Blood Culture - Preliminary Blood - Venous No growth after 48 hours. 08/11/21 22:01 Blood Culture - Preliminary Blood - Venous No growth after 48 hours. Assessment and Plan (1) Acute respiratory failure with hypoxia: Status: Acute (2) Coffee ground vomiting: Status: Acute Assessment and Plan: 61M presented with coffee ground emesis and melena. 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
--- NOTE | 2021-08-14 15:44 | MHC.CM.PN ---
BLANKET REFERRAL PLACED PT IS UNVACCINATED AND 4/5 INITIAL REFERRALS DECLINED D/T VACCINE STATUS.
[2021-08-14 16:00] VITALS: BP 134/83; PULSE 82; RESP 18; TEMP 36.8; O2SAT 98
[2021-08-14] MEDS: traZODone HCL 100 MG TABLET PO (20:24)
[2021-08-14] MEDS: Tamsulosin HCL 0.4 MG CAPSULE PO (20:24)
[2021-08-14] MEDS: Melatonin 3 MG TABLET 6 MG PO (20:24)
[2021-08-14] MEDS: PHENobarbitaL 15 MG TABLET PO (20:24)
[2021-08-14] MEDS: Benzonatate 100 MG CAPSULE 200 MG PO (22:18)
[2021-08-14 23:30] VITALS: BP 163/83; PULSE 71; RESP 18; TEMP 36.4; O2SAT 94
[2021-08-15] VITALS (7 sets, daily range): BP systolic 138–170; BP diastolic 80–88; PULSE 76–94; RESP 18; TEMP 36–37; O2SAT 93–98
[2021-08-15] MEDS: Omeprazole 40 MG CAPSULE.DR PO ×2 (05:47→21:11)
[2021-08-15] MEDS: amLODIPine Besylate 10 MG TABLET PO (07:29)
[2021-08-15] MEDS: carvediloL 6.25 MG TABLET PO ×2 (07:30→20:26)
[2021-08-15] MEDS: PHENobarbitaL 15 MG TABLET PO ×2 (07:30→20:26)
[2021-08-15] MEDS: lisinopriL 40 MG TABLET PO (07:30)
[2021-08-15] MEDS: 0.9 % Sodium Chloride Flush 3 ML SYRINGE IVFLUSH ×3 (07:33→20:26)
[2021-08-15] MEDS: oxyCODONE HCl Immed Release 5 MG TABLET PO (08:25)
[2021-08-15] MEDS: Potassium Chloride ER 20 MEQ TAB.ER.PRT 40 MEQ PO (08:25)
--- NOTE | 2021-08-15 09:34 | MHC.CM.PN ---
CM HAS RECEIVED 26 DENIALS FROM SNF'S, REFERRAL SENT TO [facility] THEY TAKE PT'S W/SA, CM WILL MEET W/PT TO DETERMINE IF HE IS WILLING TO GO THAT FAR, RECOVERY SUPPORT NURSE WILL ALSO MEET W/PT TO DISCUSS TX.
--- NOTE | 2021-08-15 12:28 | HO.PM.IMPN ---
Subjective Subjective Date of Service: 08/15/21 Interval History: cc: coffee ground emesis, melena interval history: resolved, difficulty walking Cardiovascular Cardiovascular: Reports no additional cardiovascular complaints Respiratory Respiratory: Reports no additional respiratory complaints Physical Exam Vital Signs: Vital Signs: Last Vital Signs Temp 97.3 F 08/15/21 11:07 Pulse 84 08/15/21 11:07 Resp 18 08/15/21 11:07 BP 162/80 H 08/15/21 11:07 Pulse Ox 94 08/15/21 11:07 Body Mass Index 32.4 General: AO X 3, no acute distress Resp:? CTA bilateral, no accessory muscles used CVS: S1,S2,RRR GI: soft, non tender, non distended Neuro:? motor grossly intact, alert Psych: appropriate affect, appropriate insight? Objective Data Active Medications Acetaminophen (Acetaminophen 325 Mg Tablet) 625 mg PO Q6H PRN PRN Reason: mild pain Last Admin: 08/14/21 14:44 Dose: 625 mg Documented by: NANCY Albuterol Sulfate (Albuterol Sulfate 90 Mcg 8 Gm Inhaler) 2 puff INHALE Q4H PRN PRN Reason: Dyspnea Amlodipine Besylate (Amlodipine Besylate 10 Mg Tablet) 10 mg PO DAILY [facility]; Protocol Last Admin: 08/15/21 07:29 Dose: 10 mg Documented by: KATHY Benzonatate (Benzonatate 100 Mg Capsule) 200 mg PO TID PRN PRN Reason: Cough Last Admin: 08/14/21 22:18 Dose: 200 mg Documented by: ALENA Carvedilol (Carvedilol 6.25 Mg Tablet) 6.25 mg PO BID [facility]; Protocol Last Admin: 08/15/21 07:30 Dose: 6.25 mg Documented by: KATHY Lisinopril (Lisinopril 40 Mg Tablet) 40 mg PO DAILY [facility]; Protocol Last Admin: 08/15/21 07:30 Dose: 40 mg Documented by: KATHY Medication (No Benzodiazepines) 1 each MISCELLANE DAILY [facility] Melatonin (Melatonin 3 Mg Tablet) 6 mg PO BEDTIME PRN PRN Reason: Insomnia Last Admin: 08/14/21 20:24 Dose: 6 mg Documented by: ALENA Non-Formulary Medication (Fluticasone Propionate) 1 puff PO BID [facility] Omeprazole (Omeprazole 40 Mg Capsule.) 40 mg PO DAILY@0630 [facility] Last Admin: 08/15/21 05:47 Dose: 40 mg Documented by: ALENA Oxycodone HCl (Oxycodone Hcl Immed Release 5 Mg Tablet) 5 mg PO Q4H PRN PRN Reason: moderate pain Last Admin: 08/15/21 08:25 Dose: 5 mg Documented by: KATHY Pharmacy Consult (Consult Rx Perform Med Rec) 1 each MISCELLANE ONCE PRN PRN Reason: Consult order Phenobarbital (Phenobarbital 15 Mg Tablet) 15 mg PO BID [facility] Stop: 08/16/21 09:01 Last Admin: 08/15/21 07:30 Dose: 15 mg Documented by: KATHY Phenobarbital (Phenobarbital 15 Mg Tablet) 15 mg PO DAILY [facility] Stop: 08/18/21 09:01 Senna (Sennosides 8.6 Mg Tablet) 17.2 mg PO BEDTIME PRN PRN Reason: Constipation Sodium Chloride (0.9 % Sodium Chloride Flush 3 Ml Syringe) 3 ml IVFLUSH QSHIFT [facility] Last Admin: 08/15/21 07:33 Dose: 3 ml Documented by: KATHY Tamsulosin HCl (Tamsulosin Hcl 0.4 Mg Capsule) 0.4 mg PO BEDTIME [facility] Last Admin: 08/14/21 20:24 Dose: 0.4 mg Documented by: ALENA Trazodone HCl (Trazodone Hcl 100 Mg Tablet) 100 mg PO BEDTIME [facility] Last Admin: 08/14/21 20:24 Dose: 100 mg Documented by: ALENA Labs CBC & Chem 7: 08/14/21 05:43 08/14/21 05:43 Assessment and Plan (1) Acute respiratory failure with hypoxia: Status: Acute (2) Coffee ground vomiting: Status: Acute Assessment and Plan: 61M presented with coffee ground emesis and melena. 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
--- NOTE | 2021-08-15 14:52 | MHC.CM.PN ---
CM MET W/PT TO DISCUSS DCP AND OPTIONS, PT REFUSING TO GO TO [place], PT STATED, I'M NOT GOING ANYWHERE BUT [place] OR [place], CM ASKED IF THERE WAS A FAMILY MEMBER PT COULD STAY WITH D/T LIVING ON CO W/NO ELEVATOR, PT BECAME AGITATED AND REPORTED HE LIVES W/HIS MOTHER AND THERE IS AN ELEVATOR AT [facility] BECAUSE ITS ELDERLY HOUSING, CM ATTEMPTED TO VERIFY W/PT'S SISTER LIOR [place] AT 12:30PM [phone], NO ANSWER AND MESSAGE LEFT W/CM CONTACT INFO.
--- NOTE | 2021-08-15 15:31 | MHC.CM.PN ---
CM REACHED OUT TO PT'S DTRINLAW/HCP ESPINOZA AT [phone], ESPINOZA REPORTED PT IS IN THE PROCESS OF MOVING IN W/HIS 93YO MOTHER WHO NEEDS SOMEONE IN HOME 22/04, PER ESPINOZA PT'S SISTER LIOR HAS BEEN STAYING W/PT'S MOTHER D/T PT'S RECENT 1.5WKS OF DRINKING, ESPINOZA DID REQUEST CM CALL PT WITH HER AND WHEN CM WENT TO PT'S ROOM TO TALK TO HIM ABOUT CALLING ESPINOZA HIS PHONE WAS NOT WORKING AND PT TOLD CM HE WOULD BE WILLING TO GO TO [place] FOR STR. CM CONTACTED ESPINOZA AGAIN AND LET HER KNOW AND WILL FOLLOW-UP W/HER TOMORROW. REFERRAL BROADCASTED TO [facility].
[2021-08-15] MEDS: traZODone HCL 100 MG TABLET PO (20:26)
[2021-08-15] MEDS: Melatonin 3 MG TABLET 6 MG PO (20:26)
[2021-08-15] MEDS: Tamsulosin HCL 0.4 MG CAPSULE PO (20:26)
[2021-08-16] VITALS (7 sets, daily range): BP systolic 128–173; BP diastolic 74–102; PULSE 75–98; RESP 16–18; TEMP 36.1–36.9; O2SAT 94–98
[2021-08-16] MEDS: Omeprazole 40 MG CAPSULE.DR PO (05:51)
[2021-08-16] MEDS: carvediloL 6.25 MG TABLET PO ×2 (07:49→20:06)
[2021-08-16] MEDS: amLODIPine Besylate 10 MG TABLET PO (07:50)
[2021-08-16] MEDS: PHENobarbitaL 15 MG TABLET PO (07:50)
[2021-08-16] MEDS: lisinopriL 40 MG TABLET PO (07:50)
[2021-08-16] MEDS: 0.9 % Sodium Chloride Flush 3 ML SYRINGE IVFLUSH ×3 (07:52→20:10)
[2021-08-16] MEDS: oxyCODONE HCl Immed Release 5 MG TABLET PO (09:41)
--- NOTE | 2021-08-16 10:48 | MHC.RECOVRN ---
T/w met with pt in 385 after consult placed to CARE Team for alcohol use. Pt reports drinking alcohol since teen years, off and on. Most recently, pt reports drinking 2 liters vodka daily x 1 week prior to admission. Prior to that, pt reports 2 months of recovery. Pt difficult to engage in conversation, agitated with t/w inquiring about past tx. Pt reports a couple ATS admissions years ago. Pt states This is comedy. I just won't drink. Pt educated regarding recovery resources and supports, pt declines referrals at this time. Pt hesitant to accept written information, encouraged pt to look it over when ready. Pt provided with resources as well as t/w card if questions arise. CM aware. T/w available as needed.
--- NOTE | 2021-08-16 11:49 | MHC.CM.PN ---
Addendum entered by Carola Leahy RN 08/16/21 16:11: ADDITIONAL REFERRALS PLACED TO [facility], [facility] AND [facility] UNABLE TO OFFER NONVACCINATED BEDS, AWAITING RESPONSE FROM OTHER ADDITIONAL REFERRALS, STILL AWAITING RESPONSE FROM [facility]. Addendum entered by Carola Leahy RN 08/16/21 12:33: CM REACHED OUT TO [facility] LIAISON TO DISCUSS CASE, REFERRAL RESENT TO [facility] AND LIAISON WILL HAVE PT'S CASE REREVIEWED. Original Note: CM UPDATED AND RESENT REFERRAL D/T NO BED OFFERS. 4 ADDITIONAL SNF'S CONTACTED VIA PHONE D/T NO RESPONSE IN [facility] / [facility], [facility] REPORTED NO APPROPRIATE BED AVAILABLE, [facility] CLOSED, [facility] WILL RESPOND VIA [employer] AND MESSAGE WAS LEFT FOR DON AT [facility] [phone]. PT CONT'S TO RECOMMEND STR.
[2021-08-16] MEDS: Acetaminophen 325 MG TABLET 625 MG PO ×2 (13:05→20:09)
--- NOTE | 2021-08-16 13:09 | P.PNIM_ITS ---
Subjective Subjective Date of Service: 08/16/21 Interval History: the patient was seen and evaluated this morning Laying in bed, feels comfortable Denies any fever, chills or shortness of breath tolerating diet No reported other overnight events. Systemic review: No fever, chills or weakness No chest pain, palpitation No shortness of breath or coughing No abdominal pain, nausea or vomiting No urinary symptoms No any rash or wounds Physical Exam Vital Signs: Vital Signs: Last Vital Signs Temp 98.0 F 08/16/21 11:37 Pulse 86 08/16/21 11:37 Resp 18 08/16/21 11:37 BP 128/74 08/16/21 11:37 Pulse Ox 94 08/16/21 11:37 Body Mass Index 32.4 Const: Other: Constitutional : Alert, oriented, not in distress Neck : Normal inspection, Supple Cardiovascular : RRR, S1 S2, no lower extremity edema Respiratory : Good bilateral air entry, no crackles, wheezes or rhonchi Gastrointestinal: soft, lax, Normal bowel sounds, Non tender Skin : Warm, Dry Neurological : Alert & oriented x3, No focal deficit Objective Data Active Medications Acetaminophen (Acetaminophen 325 Mg Tablet) 625 mg PO Q6H PRN PRN Reason: mild pain Last Admin: 08/16/21 13:05 Dose: 625 mg Documented by: ROME Albuterol Sulfate (Albuterol Sulfate 90 Mcg 8 Gm Inhaler) 2 puff INHALE Q4H PRN PRN Reason: Dyspnea Amlodipine Besylate (Amlodipine Besylate 10 Mg Tablet) 10 mg PO DAILY [facility]; Protocol Last Admin: 08/16/21 07:50 Dose: 10 mg Documented by: ROME Benzonatate (Benzonatate 100 Mg Capsule) 200 mg PO TID PRN PRN Reason: Cough Last Admin: 08/14/21 22:18 Dose: 200 mg Documented by: ALENA Carvedilol (Carvedilol 6.25 Mg Tablet) 6.25 mg PO BID [facility]; Protocol Last Admin: 08/16/21 07:49 Dose: 6.25 mg Documented by: ROME Lisinopril (Lisinopril 40 Mg Tablet) 40 mg PO DAILY [facility]; Protocol Last Admin: 08/16/21 07:50 Dose: 40 mg Documented by: ROME Medication (No Benzodiazepines) 1 each MISCELLANE DAILY [facility] Melatonin (Melatonin 3 Mg Tablet) 6 mg PO BEDTIME PRN PRN Reason: Insomnia Last Admin: 08/15/21 20:26 Dose: 6 mg Documented by: ALENA Non-Formulary Medication (Fluticasone Propionate) 1 puff PO BID [facility] Omeprazole (Omeprazole 40 Mg Capsule.) 40 mg PO DAILY@0630 [facility] Last Admin: 08/16/21 05:51 Dose: 40 mg Documented by: ALENA Oxycodone HCl (Oxycodone Hcl Immed Release 5 Mg Tablet) 5 mg PO Q4H PRN PRN Reason: moderate pain Last Admin: 08/16/21 09:41 Dose: 5 mg Documented by: GERALDO Pharmacy Consult (Consult Rx Perform Med Rec) 1 each MISCELLANE ONCE PRN PRN Reason: Consult order Phenobarbital (Phenobarbital 15 Mg Tablet) 15 mg PO DAILY [facility] Stop: 08/18/21 09:01 Senna (Sennosides 8.6 Mg Tablet) 17.2 mg PO BEDTIME PRN PRN Reason: Constipation Sodium Chloride (0.9 % Sodium Chloride Flush 3 Ml Syringe) 3 ml IVFLUSH QSHIFT [facility] Last Admin: 08/16/21 13:06 Dose: 3 ml Documented by: ROME Tamsulosin HCl (Tamsulosin Hcl 0.4 Mg Capsule) 0.4 mg PO BEDTIME [facility] Last Admin: 08/15/21 20:26 Dose: 0.4 mg Documented by: ALENA Trazodone HCl (Trazodone Hcl 100 Mg Tablet) 100 mg PO BEDTIME [facility] Last Admin: 08/15/21 20:26 Dose: 100 mg Documented by: ALENA Labs CBC & Chem 7: 08/14/21 05:43 08/14/21 05:43 Assessment and Plan (1) Coffee ground vomiting: Status: Acute (2) Gastritis: Status: Acute (3) Alcohol dependence with withdrawal: Status: Acute Assessment and Plan: 61M presented with coffee ground emesis and melena. 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
[2021-08-16] MEDS: traZODone HCL 100 MG TABLET PO (20:06)
[2021-08-16] MEDS: Tamsulosin HCL 0.4 MG CAPSULE PO (20:06)
[2021-08-16] MEDS: Melatonin 3 MG TABLET 6 MG PO (20:06)
[2021-08-17] VITALS (7 sets, daily range): BP systolic 141–166; BP diastolic 81–91; PULSE 78–84; RESP 16–19; TEMP 36.1–36.8; O2SAT 94–97
[2021-08-17] MEDS: Omeprazole 40 MG CAPSULE.DR PO (05:45)
[2021-08-17 05:55] LABS: Anion Gap 14 (12-20); Blood Urea Nitrogen 15 mg/dL (9-16); Calcium 8.5 mg/dL (8.4-10.2); Carbon Dioxide 25 mmol/L (22-29); Chloride 103 mmol/L (96-108); Creatinine Clr Calc Pharmacy 123.5; Estimated Glomerular Filt Rate > 60; Glucose Random 108 mg/dL (60-115); Potassium 3.7 mmol/L (3.3-5.1); Sodium 138 mmol/L (135-145)
[2021-08-17] MEDS: PHENobarbitaL 15 MG TABLET PO (07:28)
[2021-08-17] MEDS: lisinopriL 40 MG TABLET PO (07:29)
[2021-08-17] MEDS: amLODIPine Besylate 10 MG TABLET PO (07:30)
[2021-08-17] MEDS: carvediloL 6.25 MG TABLET PO ×2 (07:30→19:18)
[2021-08-17] MEDS: 0.9 % Sodium Chloride Flush 3 ML SYRINGE IVFLUSH ×3 (07:32→19:19)
--- NOTE | 2021-08-17 11:47 | P.PNIM_ITS ---
Subjective Subjective Date of Service: 08/17/21 Interval History: the patient was seen and evaluated this morning Laying in bed, feels comfortable Denies any fever, chills or shortness of breath tolerating diet No reported other overnight events. Systemic review: No fever, chills or weakness No chest pain, palpitation No shortness of breath or coughing No abdominal pain, nausea or vomiting No urinary symptoms No any rash or wounds Physical Exam Vital Signs: Vital Signs: Last Vital Signs Temp 98.0 F 08/17/21 08:00 Pulse 79 08/17/21 08:39 Resp 18 08/17/21 08:00 BP 144/87 H 08/17/21 08:39 Pulse Ox 94 08/17/21 08:39 Body Mass Index 32.4 Const: Other: Constitutional : Alert, oriented, not in distress Neck : Normal inspection, Supple Cardiovascular : RRR, S1 S2, no lower extremity edema Respiratory : Good bilateral air entry, no crackles, wheezes or rhonchi Gastrointestinal: soft, lax, Normal bowel sounds, Non tender Skin : Warm, Dry Neurological : Alert & oriented x3, No focal deficit Objective Data Active Medications Acetaminophen (Acetaminophen 325 Mg Tablet) 625 mg PO Q6H PRN PRN Reason: mild pain Last Admin: 08/16/21 20:09 Dose: 625 mg Documented by: ALENA Albuterol Sulfate (Albuterol Sulfate 90 Mcg 8 Gm Inhaler) 2 puff INHALE Q4H PRN PRN Reason: Dyspnea Amlodipine Besylate (Amlodipine Besylate 10 Mg Tablet) 10 mg PO DAILY [facility]; Protocol Last Admin: 08/17/21 07:30 Dose: 10 mg Documented by: KATHY Benzonatate (Benzonatate 100 Mg Capsule) 200 mg PO TID PRN PRN Reason: Cough Last Admin: 08/14/21 22:18 Dose: 200 mg Documented by: ALENA Carvedilol (Carvedilol 6.25 Mg Tablet) 6.25 mg PO BID [facility]; Protocol Last Admin: 08/17/21 07:30 Dose: 6.25 mg Documented by: KATHY Lisinopril (Lisinopril 40 Mg Tablet) 40 mg PO DAILY [facility]; Protocol Last Admin: 08/17/21 07:29 Dose: 40 mg Documented by: KATHY Medication (No Benzodiazepines) 1 each MISCELLANE DAILY [facility] Melatonin (Melatonin 3 Mg Tablet) 6 mg PO BEDTIME PRN PRN Reason: Insomnia Last Admin: 08/16/21 20:06 Dose: 6 mg Documented by: ALENA Non-Formulary Medication (Fluticasone Propionate) 1 puff PO BID [facility] Omeprazole (Omeprazole 40 Mg Capsule.Dr) 40 mg PO DAILY@0630 [facility] Last Admin: 08/17/21 05:45 Dose: 40 mg Documented by: ALENA Oxycodone HCl (Oxycodone Hcl Immed Release 5 Mg Tablet) 5 mg PO Q4H PRN PRN Reason: moderate pain Last Admin: 08/16/21 09:41 Dose: 5 mg Documented by: GERALDO Pharmacy Consult (Consult Rx Perform Med Rec) 1 each MISCELLANE ONCE PRN PRN Reason: Consult order Phenobarbital (Phenobarbital 15 Mg Tablet) 15 mg PO DAILY [facility] Stop: 08/18/21 09:01 Last Admin: 08/17/21 07:28 Dose: 15 mg Documented by: KATHY Senna (Sennosides 8.6 Mg Tablet) 17.2 mg PO BEDTIME PRN PRN Reason: Constipation Sodium Chloride (0.9 % Sodium Chloride Flush 3 Ml Syringe) 3 ml IVFLUSH QSHIFT [facility] Last Admin: 08/17/21 07:32 Dose: 3 ml Documented by: KATHY Tamsulosin HCl (Tamsulosin Hcl 0.4 Mg Capsule) 0.4 mg PO BEDTIME [facility] Last Admin: 08/16/21 20:06 Dose: 0.4 mg Documented by: ALENA Trazodone HCl (Trazodone Hcl 100 Mg Tablet) 100 mg PO BEDTIME [facility] Last Admin: 08/16/21 20:06 Dose: 100 mg Documented by: ALENA Labs CBC & Chem 7: 08/14/21 05:43 08/17/21 05:13 Labs: Laboratory Results - last 24 hr 08/17/21 05:13 Anion Gap 14 Estim Creat Clear Calc 123.5 Estimated GFR > 60 Random Glucose 108 Calcium 8.5 Microbiology Microbiology Results: Microbiology 08/11/21 22:01 Blood Culture - Final Blood - Venous No growth after 5 days. 08/11/21 22:01 Blood Culture - Final Blood - Venous No growth after 5 days. Assessment and Plan (1) Gastritis: Status: Acute (2) Coffee ground vomiting: Status: Acute (3) Acute hypokalemia: Status: Acute (4) Alcohol dependence with withdrawal: Status: Acute Assessment and Plan: 61M presented with coffee ground emesis and melena. 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
--- NOTE | 2021-08-17 12:06 | MHC.CM.PN ---
Pt is medically ready for DC however still in need of STR. Fifty + referrals have been placed and currently no one is offering pt a bed as he is not vaccinated against COVID-19. CM will continue bed search.
[2021-08-17] MEDS: Acetaminophen 325 MG TABLET 625 MG PO ×2 (12:54→19:17)
[2021-08-17] MEDS: Tamsulosin HCL 0.4 MG CAPSULE PO (19:17)
[2021-08-17] MEDS: Melatonin 3 MG TABLET 6 MG PO (19:17)
[2021-08-17] MEDS: traZODone HCL 100 MG TABLET PO (19:18)
[2021-08-18] VITALS (9 sets, daily range): BP systolic 131–166; BP diastolic 82–92; PULSE 73–94; RESP 16–18; TEMP 36.1–37.1; O2SAT 94–95
[2021-08-18] MEDS: Omeprazole 40 MG CAPSULE.DR PO (05:33)
[2021-08-18] MEDS: amLODIPine Besylate 10 MG TABLET PO (08:43)
[2021-08-18] MEDS: 0.9 % Sodium Chloride Flush 3 ML SYRINGE IVFLUSH ×3 (08:43→21:17)
[2021-08-18] MEDS: lisinopriL 40 MG TABLET PO (08:44)
[2021-08-18] MEDS: carvediloL 6.25 MG TABLET PO ×2 (08:44→21:17)
[2021-08-18] MEDS: PHENobarbitaL 15 MG TABLET PO (08:45)
[2021-08-18] MEDS: Acetaminophen 325 MG TABLET 625 MG PO (08:45)
--- NOTE | 2021-08-18 11:24 | P.PNIM_ITS ---
Subjective Subjective Date of Service: 08/18/21 Interval History: the patient was seen and evaluated this morning Laying in bed, feels comfortable Denies any fever, chills or shortness of breath tolerating diet No reported other overnight events. Systemic review: No fever, chills or weakness No chest pain, palpitation No shortness of breath or coughing No abdominal pain, nausea or vomiting No urinary symptoms No any rash or wounds Physical Exam Vital Signs: Vital Signs: Last Vital Signs Temp 97.0 F 08/18/21 07:26 Pulse 76 08/18/21 08:44 Resp 16 08/18/21 07:26 BP 166/92 H 08/18/21 08:44 Pulse Ox 95 08/18/21 08:24 Body Mass Index 32.4 Const: Other: Constitutional : Alert, oriented, not in distress Neck : Normal inspection, Supple Cardiovascular : RRR, S1 S2, no lower extremity edema Respiratory : Good bilateral air entry, no crackles, wheezes or rhonchi Gastrointestinal: soft, lax, Normal bowel sounds, Non tender Skin : Warm, Dry Neurological : Alert & oriented x3, No focal deficit Objective Data Active Medications Acetaminophen (Acetaminophen 325 Mg Tablet) 650 mg PO Q6H PRN PRN Reason: mild pain Albuterol Sulfate (Albuterol Sulfate 90 Mcg 8 Gm Inhaler) 2 puff INHALE Q4H PRN PRN Reason: Dyspnea Amlodipine Besylate (Amlodipine Besylate 10 Mg Tablet) 10 mg PO DAILY [facility]; Protocol Last Admin: 08/18/21 08:43 Dose: 10 mg Documented by: HUANG Benzonatate (Benzonatate 100 Mg Capsule) 200 mg PO TID PRN PRN Reason: Cough Last Admin: 08/14/21 22:18 Dose: 200 mg Documented by: ALENA Carvedilol (Carvedilol 6.25 Mg Tablet) 6.25 mg PO BID [facility]; Protocol Last Admin: 08/18/21 08:44 Dose: 6.25 mg Documented by: HUANG Lisinopril (Lisinopril 40 Mg Tablet) 40 mg PO DAILY [facility]; Protocol Last Admin: 08/18/21 08:44 Dose: 40 mg Documented by: HUANG Medication (No Benzodiazepines) 1 each MISCELLANE DAILY [facility] Melatonin (Melatonin 3 Mg Tablet) 6 mg PO BEDTIME PRN PRN Reason: Insomnia Last Admin: 08/17/21 19:17 Dose: 6 mg Documented by: ALLIE Non-Formulary Medication (Fluticasone Propionate) 1 puff PO BID [facility] Omeprazole (Omeprazole 40 Mg Capsule.Dr) 40 mg PO DAILY@0630 [facility] Last Admin: 08/18/21 05:33 Dose: 40 mg Documented by: ALLIE Pharmacy Consult (Consult Rx Perform Med Rec) 1 each MISCELLANE ONCE PRN PRN Reason: Consult order Senna (Sennosides 8.6 Mg Tablet) 17.2 mg PO BEDTIME PRN PRN Reason: Constipation Sodium Chloride (0.9 % Sodium Chloride Flush 3 Ml Syringe) 3 ml IVFLUSH QSHIFT [facility] Last Admin: 08/18/21 08:43 Dose: 3 ml Documented by: HUANG Tamsulosin HCl (Tamsulosin Hcl 0.4 Mg Capsule) 0.4 mg PO BEDTIME [facility] Last Admin: 08/17/21 19:17 Dose: 0.4 mg Documented by: ALLIE Trazodone HCl (Trazodone Hcl 100 Mg Tablet) 100 mg PO BEDTIME [facility] Last Admin: 08/17/21 19:18 Dose: 100 mg Documented by: ALLIE Labs CBC & Chem 7: 08/14/21 05:43 08/17/21 05:13 Assessment and Plan (1) Gastritis: Status: Acute (2) Coffee ground vomiting: Status: Acute Assessment and Plan: 61M presented with coffee ground emesis and melena. 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
[2021-08-18] MEDS: Sennosides 8.6 MG TABLET 17.2 MG PO (12:36)
--- NOTE | 2021-08-18 13:21 | MHC.CM.PN ---
CM ATTEMPTING TO CONTACT PTS HCP, ESPINOZA, [phone] TO DISCUSS ALTERNATE DC PLAN THERE CONTINUES TO BE NO BED OFFERS DESPITE OVER 50 REFERRALS BEING MADE. A VM MESSAGE WAS LEFT REQUESTING A RETURN CALL.
[2021-08-18] MEDS: Acetaminophen 325 MG TABLET 650 MG PO (16:37)
[2021-08-18] MEDS: traZODone HCL 100 MG TABLET PO (21:17)
[2021-08-18] MEDS: Melatonin 3 MG TABLET 6 MG PO (21:17)
[2021-08-18] MEDS: Tamsulosin HCL 0.4 MG CAPSULE PO (21:17)
[2021-08-19] VITALS (9 sets, daily range): BP systolic 111–167; BP diastolic 69–103; PULSE 76–95; RESP 17–20; TEMP 36.2–37; O2SAT 95–99
[2021-08-19] MEDS: Omeprazole 40 MG CAPSULE.DR PO (06:22)
[2021-08-19] MEDS: lisinopriL 40 MG TABLET PO (09:15)
[2021-08-19] MEDS: amLODIPine Besylate 10 MG TABLET PO (09:15)
[2021-08-19] MEDS: 0.9 % Sodium Chloride Flush 3 ML SYRINGE IVFLUSH ×3 (09:15→21:45)
[2021-08-19] MEDS: carvediloL 6.25 MG TABLET PO ×2 (09:16→21:44)
--- NOTE | 2021-08-19 11:00 | MHC.CM.PN ---
CM CONTACTED PT'S HCP ESPINOZA AT APPROX 9:20AM TO DISCUSS DCP D/T PT NOT HAVING BED OFFERS D/T VACCINE STATUS, PT'S HCP AGREEABLE TO HOME W/SERVICES AT PT'S [facility]OTHERS APT W/ASSISTANCE OF SISTER WHO IS ALSO STAYING THERE, CM HAS SENT OUT REFERRALS FOR VNA AND WILL ARRANGE TRANSPORT TO [facility]OTHERS HOME FOR PT IF NO RESPONSE FROM REFERRALS BY NOON TODAY. D/C PLAN: HOME W/VNA FOR SN/PT, CHAIR VAN FOR TRANSPORT.
--- NOTE | 2021-08-19 11:23 | P.DS_ITS ---
DS: Providers Provider Date of Service: 08/19/21 Date of admission: 08/11/21 22:17 Primary care physician: JESSICA Landrum Consults: 08/11/21 22:09 Consult to Gastroenterology Routine Consulting Provider: Ed Berger Reason for consultation: GI bleed 08/15/21 15:18 Consult to Care Team Routine Comment: Reason for consultation: etoh DS: Diagnosis Discharge Diagnosis (1) Gastritis: Status: Acute (2) Coffee ground vomiting: Status: Acute (3) Physical deconditioning: Status: Acute (4) Alcohol dependence with withdrawal: Status: Acute DS: Summary Hospital Course Hospital Course: Admission note HPI 61-year-old male with a past medical history of hypertension, hyperlipidemia, cardiomyopathy, alcohol abuse, history of GI bleed/esophageal ulcers presented to the hospital with a chief complaint of nausea and vomiting.? Patient is a poor historian. Patient mentioned that over the past 2 days she has been having nausea vomiting, vomitus is coffee-ground color; also reports few episodes of black stool.? Denies any chest pain palpitations. Reports that he has been drinking alcohol on a regular basis.? Last drink was yesterday. Denies any chest pain palpitations. Denies any numbness tingling or focal weakness. ER course:? Per ER team patient noted to have stable hemoglobin; patient denied rectal exam; CT abdomen showed no acute intra-abdominal pathology but noted to have brother to lower lung field opacities concern for aspiration pneumonia; jessica gee was given Zosyn.? Patient was also started on phenobarb protocol.? Admitted to the hospital for further management Hospital course patient was admitted for coffee ground emesis. his hgb remained stable, this appears not to have been an active GI bleed, rather more alcoholic gastritis. he was treated with protonix, and symptoms resolved, he was able to tolerate solid diet. course was complicated by transient acute hypoxic respriatory failure, likely aspiration pneumonitis, no evidence of bacterial infection, therefore, antibiotics were discontinued. course was also complicated by alcohol dependence with withdrawal. he was treated with phenobarbital. symptoms resolved. patient is feeling better, he will continue omeprazole and is encouraged to stop ETOH. he was noted to be debilitated and having difficulty ambulating, PT has recommended STR at SNF but the patient with preferred to go home with home therapy. Time Spent with Patient Time attestation: Total time spent providing and/or coordinating discharge services: Discharge coordination time: Greater than 30 minutes Quality: Stroke Does the patient have a stroke diagnosis?: No Physical Exam Vital Signs: Vital Signs: Last Vital Signs Temp 97.2 F 08/19/21 07:21 Pulse 76 08/19/21 07:21 Resp 18 08/19/21 07:21 BP 142/83 H 08/19/21 07:21 Pulse Ox 96 08/19/21 07:21 Body Mass Index 32.4 Const: Other: Constitutional : Alert, oriented, not in distress Neck : Normal inspection, Supple Cardiovascular : RRR, S1 S2, no lower extremity edema Respiratory : Good bilateral air entry, no crackles, wheezes or rhonchi Gastrointestinal: soft, lax, Normal bowel sounds, Non tender Skin : Warm, Dry Neurological : Alert & oriented x3, No focal deficit DS: Data Data Completed and Pending Completed studies during hospitalization [Text1]: Procedures Control Bleeding in Gastrointestinal Tract, Via Natural or Artificial Opening Endoscopic (06/26/20) Detoxification Services for Substance Abuse Treatment (06/26/20) Introduction of Destructive Agent into Upper GI, Via Natural or Artificial Opening Endoscopic (06/26/20) Transfusion of Nonautologous Red Blood Cells into Peripheral Vein, Percutaneous Approach (06/26/20) Discharge Plan Discharge Patient Disposition: er [facility] Discharge Diagnosis: etoh gastritis Referrals: Osito Grant PA [Primary Care Provider] - 1 Week Discharge Medications: New (DME) Ultra-Light Rollator Misc See Rx Instructions .Route Qty: 1 RF: 0 Continued tamsulosin 0.4 mg Capsule 0.4 mg PO BEDTIME RF: 0 trazodone 100 mg Tablet 100 mg PO BEDTIME RF: 0 ferrous sulfate 325 mg (65 mg iron) Tablet 325 mg PO DAILY RF: 0 omeprazole 40 mg capsule,delayed release(DR/EC) 40 mg PO DAILY RF: 0 fluticasone propionate 44 mcg/actuation HFA aerosol inhaler 1 puff PO BID RF: 0 albuterol sulfate 90 mcg/actuation HFA aerosol inhaler 2 inh inhalation Q4H PRN (Reason: Dyspnea) RF: 0 amlodipine 10 mg tablet 10 mg PO DAILY 90 Days Qty: 90 RF: 1 carvedilol 6.25 mg tablet 6.25 mg PO BID 90 Days Qty: 180 RF: 1 lisinopril 40 mg tablet 40 mg PO DAILY 90 Days Qty: 90 RF: 1 Discharge Orders: Discharge Order (Routine); Ordered 08/19/21 Ordered By: Leonela Lowe Diet: advance to usual diet Activity on Discharge: As tolerated Stand Alone Forms: Patient Portal Discharge page Care Plan Goals: recovery Health Concerns: Read below Plan of Treatment: avoid drinking alcohol continue omeprazole Assessment: see above
[2021-08-19] MEDS: Acetaminophen 325 MG TABLET 650 MG PO ×2 (13:05→21:44)
[2021-08-19] MEDS: Sennosides 8.6 MG TABLET 17.2 MG PO (13:31)
--- NOTE | 2021-08-19 15:24 | P.PNIM_ITS ---
Subjective Subjective Date of Service: 08/19/21 Interval History: the patient was seen and evaluated this morning Laying in bed, feels comfortable Denies any fever, chills or shortness of breath No complaints No reported other overnight events. Systemic review: No fever, chills or weakness No chest pain, palpitation No shortness of breath or coughing No abdominal pain, nausea or vomiting No urinary symptoms No any rash or wounds Physical Exam Vital Signs: Vital Signs: Last Vital Signs Temp 98.6 F 08/19/21 11:37 Pulse 83 08/19/21 11:37 Resp 20 08/19/21 11:37 BP 148/84 H 08/19/21 11:37 Pulse Ox 95 08/19/21 11:37 Body Mass Index 32.4 Const: Other: Constitutional : Alert, oriented, not in distress Neck : Normal inspection, Supple Cardiovascular : RRR, S1 S2, no lower extremity edema Respiratory : Good bilateral air entry, no crackles, wheezes or rhonchi Gastrointestinal: soft, lax, Normal bowel sounds, Non tender Skin : Warm, Dry Neurological : Alert & oriented x3, No focal deficit Objective Data Active Medications Acetaminophen (Acetaminophen 325 Mg Tablet) 650 mg PO Q6H PRN PRN Reason: mild pain Last Admin: 08/19/21 13:05 Dose: 650 mg Documented by: LEXY Albuterol Sulfate (Albuterol Sulfate 90 Mcg 8 Gm Inhaler) 2 puff INHALE Q4H PRN PRN Reason: Dyspnea Amlodipine Besylate (Amlodipine Besylate 10 Mg Tablet) 10 mg PO DAILY [facility]; Protocol Last Admin: 08/19/21 09:15 Dose: 10 mg Documented by: LEXY Benzonatate (Benzonatate 100 Mg Capsule) 200 mg PO TID PRN PRN Reason: Cough Last Admin: 08/14/21 22:18 Dose: 200 mg Documented by: ALENA Carvedilol (Carvedilol 6.25 Mg Tablet) 6.25 mg PO BID [facility]; Protocol Last Admin: 08/19/21 09:16 Dose: 6.25 mg Documented by: LEXY Fluticasone Propionate (Fluticasone Propionate 100 Mcg Blst.W.Dev) 1 puff INHALE RBID [facility] Last Admin: 08/19/21 11:34 Dose: Not Given Documented by: MARIA DEL ROSARIO Non-Admin Reason: med not avail Lisinopril (Lisinopril 40 Mg Tablet) 40 mg PO DAILY [facility]; Protocol Last Admin: 08/19/21 09:15 Dose: 40 mg Documented by: LEXY Medication (No Benzodiazepines) 1 each MISCELLANE DAILY [facility] Melatonin (Melatonin 3 Mg Tablet) 6 mg PO BEDTIME PRN PRN Reason: Insomnia Last Admin: 08/18/21 21:17 Dose: 6 mg Documented by: BRITTNI Omeprazole (Omeprazole 40 Mg Capsule.Dr) 40 mg PO DAILY@0630 [facility] Last Admin: 08/19/21 06:22 Dose: 40 mg Documented by: BRITTNI Pharmacy Consult (Consult Rx Perform Med Rec) 1 each MISCELLANE ONCE PRN PRN Reason: Consult order Senna (Sennosides 8.6 Mg Tablet) 17.2 mg PO BEDTIME PRN PRN Reason: Constipation Last Admin: 08/19/21 13:31 Dose: 17.2 mg Documented by: LEXY Sodium Chloride (0.9 % Sodium Chloride Flush 3 Ml Syringe) 3 ml IVFLUSH QSHIFT [facility] Last Admin: 08/19/21 09:15 Dose: 3 ml Documented by: LEXY Tamsulosin HCl (Tamsulosin Hcl 0.4 Mg Capsule) 0.4 mg PO BEDTIME [facility] Last Admin: 08/18/21 21:17 Dose: 0.4 mg Documented by: BRITTIN Trazodone HCl (Trazodone Hcl 100 Mg Tablet) 100 mg PO BEDTIME [facility] Last Admin: 08/18/21 21:17 Dose: 100 mg Documented by: BRITTNI Labs CBC & Chem 7: 08/14/21 05:43 08/17/21 05:13 Assessment and Plan (1) Physical deconditioning: Status: Acute (2) Alcohol dependence with withdrawal: Status: Acute Assessment and Plan: 61M presented with coffee ground emesis and melena. 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
--- NOTE | 2021-08-19 15:53 | MHC.CM.PN ---
CM REACHED OUT TO PT'S HCP ESPINOZA AT 3:30PM [phone] TO UPDATE HER, CM STILL ATTEMPTING TO OBTAIN A VNA FOR PT AND PT WILL NOT BE D/CING UNTIL SERVICES ARE SET UP. ANTIC POSSIBLE D/C TOMORROW
[2021-08-19] MEDS: Fluticasone Propionate 100 MCG BLST.W.DEV 1 PUFF INHALE (19:52)
[2021-08-19] MEDS: Melatonin 3 MG TABLET 6 MG PO (21:44)
[2021-08-19] MEDS: traZODone HCL 100 MG TABLET PO (21:44)
[2021-08-19] MEDS: Tamsulosin HCL 0.4 MG CAPSULE PO (21:44)
--- NOTE | 2021-08-20 00:38 | MHC.PIE ---
P: IVline has some pain when flushing, nited IVline has been on for more than a week, area has no redness nor swelling I: Dr. Taveras was made aware E: IV line removed and tolerated.
[2021-08-20] MEDS: Omeprazole 40 MG CAPSULE.DR PO (05:46)
[2021-08-20 07:02] VITALS: BP 173/77; PULSE 80; RESP 18; TEMP 36.2; O2SAT 95
[2021-08-20] MEDS: Fluticasone Propionate 100 MCG BLST.W.DEV 1 PUFF INHALE (07:18)
[2021-08-20 07:19] VITALS: PULSE 88; O2SAT 95
[2021-08-20] MEDS: lisinopriL 40 MG TABLET PO (07:43)
[2021-08-20] MEDS: amLODIPine Besylate 10 MG TABLET PO (07:43)
[2021-08-20] MEDS: carvediloL 6.25 MG TABLET PO ×2 (07:43→21:22)
--- NOTE | 2021-08-20 11:06 | P.PNIM_ITS ---
Subjective Subjective Date of Service: 08/20/21 Interval History: the patient was seen and evaluated this morning Laying in bed, feels comfortable Denies any fever, chills or shortness of breath No complaints No reported other overnight events. Systemic review: No fever, chills or weakness No chest pain, palpitation No shortness of breath or coughing No abdominal pain, nausea or vomiting No urinary symptoms No any rash or wounds Physical Exam Vital Signs: Vital Signs: Last Vital Signs Temp 97.2 F 08/20/21 07:02 Pulse 80 08/20/21 07:02 Resp 18 08/20/21 07:02 BP 173/77 H 08/20/21 07:02 Pulse Ox 95 08/20/21 07:02 Body Mass Index 32.4 Const: Other: Constitutional : Alert, oriented, not in distress Neck : Normal inspection, Supple Cardiovascular : RRR, S1 S2, no lower extremity edema Respiratory : Good bilateral air entry, no crackles, wheezes or rhonchi Gastrointestinal: soft, lax, Normal bowel sounds, Non tender Skin : Warm, Dry Neurological : Alert & oriented x3, No focal deficit Objective Data Active Medications Acetaminophen (Acetaminophen 325 Mg Tablet) 650 mg PO Q6H PRN PRN Reason: mild pain Last Admin: 08/19/21 21:44 Dose: 650 mg Documented by: ALLIE Albuterol Sulfate (Albuterol Sulfate 90 Mcg 8 Gm Inhaler) 2 puff INHALE Q4H PRN PRN Reason: Dyspnea Amlodipine Besylate (Amlodipine Besylate 10 Mg Tablet) 10 mg PO DAILY [facility]; Protocol Last Admin: 08/20/21 07:43 Dose: 10 mg Documented by: NANCY Benzonatate (Benzonatate 100 Mg Capsule) 200 mg PO TID PRN PRN Reason: Cough Last Admin: 08/14/21 22:18 Dose: 200 mg Documented by: ALENA Carvedilol (Carvedilol 6.25 Mg Tablet) 6.25 mg PO BID [facility]; Protocol Last Admin: 08/20/21 07:43 Dose: 6.25 mg Documented by: NANCY Fluticasone Propionate (Fluticasone Propionate 100 Mcg Blst.W.Dev) 1 puff INHALE RBID [facility] Last Admin: 08/20/21 07:18 Dose: 1 puff Documented by: HO.BLASCL Lisinopril (Lisinopril 40 Mg Tablet) 40 mg PO DAILY [facility]; Protocol Last Admin: 08/20/21 07:43 Dose: 40 mg Documented by: NANCY Medication (No Benzodiazepines) 1 each MISCELLANE DAILY [facility] Melatonin (Melatonin 3 Mg Tablet) 6 mg PO BEDTIME PRN PRN Reason: Insomnia Last Admin: 08/19/21 21:44 Dose: 6 mg Documented by: ALLIE Omeprazole (Omeprazole 40 Mg Capsule.) 40 mg PO DAILY@0630 [facility] Last Admin: 08/20/21 05:46 Dose: 40 mg Documented by: ALLIE Pharmacy Consult (Consult Rx Perform Med Rec) 1 each MISCELLANE ONCE PRN PRN Reason: Consult order Senna (Sennosides 8.6 Mg Tablet) 17.2 mg PO BEDTIME PRN PRN Reason: Constipation Last Admin: 08/19/21 13:31 Dose: 17.2 mg Documented by: LEXY Sodium Chloride (0.9 % Sodium Chloride Flush 3 Ml Syringe) 3 ml IVFLUSH QSHIFT [facility] Last Admin: 08/20/21 07:43 Dose: Not Given Documented by: NANCY Non-Admin Reason: No Access Tamsulosin HCl (Tamsulosin Hcl 0.4 Mg Capsule) 0.4 mg PO BEDTIME [facility] Last Admin: 08/19/21 21:44 Dose: 0.4 mg Documented by: ALLIE Trazodone HCl (Trazodone Hcl 100 Mg Tablet) 100 mg PO BEDTIME [facility] Last Admin: 08/19/21 21:44 Dose: 100 mg Documented by: ALLIE Labs CBC & Chem 7: 08/14/21 05:43 08/17/21 05:13 Assessment and Plan (1) Physical deconditioning: Status: Acute (2) Alcohol dependence with withdrawal: Status: Acute Assessment and Plan: 61M presented with coffee ground emesis and melena. 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
[2021-08-20 11:15] VITALS: BP 130/64; PULSE 79; RESP 16; TEMP 36.7; O2SAT 94
[2021-08-20] MEDS: Sennosides 8.6 MG TABLET 17.2 MG PO (14:07)
[2021-08-20] MEDS: Acetaminophen 325 MG TABLET 650 MG PO ×2 (14:08→21:21)
[2021-08-20 15:12] VITALS: BP 147/94; PULSE 92; RESP 18; TEMP 37; O2SAT 98
[2021-08-20 19:20] VITALS: BP 124/70; PULSE 78; RESP 18; TEMP 37; O2SAT 98
[2021-08-20] MEDS: traZODone HCL 100 MG TABLET PO (21:21)
[2021-08-20] MEDS: Melatonin 3 MG TABLET 6 MG PO (21:21)
[2021-08-20 21:22] VITALS: BP 124/70; PULSE 78
[2021-08-20] MEDS: Tamsulosin HCL 0.4 MG CAPSULE PO (21:22)
[2021-08-21] VITALS: BP 134/77; PULSE 76; RESP 17; TEMP 36.5; O2SAT 95
[2021-08-21] MEDS: Omeprazole 40 MG CAPSULE.DR PO (05:22)
[2021-08-21 07:23] VITALS: BP 144/70; PULSE 84; RESP 18; TEMP 36.1; O2SAT 96
[2021-08-21 08:41] VITALS: BP 144/70; PULSE 84; O2SAT 96
[2021-08-21] MEDS: amLODIPine Besylate 10 MG TABLET PO (08:56)
[2021-08-21] MEDS: lisinopriL 40 MG TABLET PO (08:56)
[2021-08-21] MEDS: carvediloL 6.25 MG TABLET PO (08:56)
[2021-08-21] MEDS: Acetaminophen 325 MG TABLET 650 MG PO (09:00)
[2021-08-21 11:37] VITALS: BP 140/78; PULSE 88; RESP 18; TEMP 35.6; O2SAT 95
--- NOTE | 2021-08-21 14:04 | MHC.CM.PN ---
Patient is medically cleared for dc to home today with VNA. [facility] has accepted Patient. Dc address is [address] [place] [address].Patient is aware of and in agreement with the dc plan.
--- NOTE | 2021-08-21 14:21 | MHC.CM.PN ---
pATIENT WILL DC TO HOME TODAY AT 3pm, [facility] [facility].
== END 2021-08-21 15:28 | disposition home health service (06) | DRG 241 ==
LOC: HO.ED 21:19 → HO.EDOVER 22:19 → HO.IMC 08-12 14:15 → HO.S3 08-13 18:30
PROVIDERS: Internal Medicine; Physician Assistant; Admitting Provider Hospitalist; Emergency Provider Internal Medicine; PCP Physician Assistant Medical; Visit Provider Student in an Organized Health Care Education/Training Program
DX: K29.21 Alcoholic gastritis with bleeding (principal); J96.01 Acute respiratory failure with hypoxia; J69.0 Pneumonitis due to inhalation of food and vomit; I10 Essential (primary) hypertension; E78.5 Hyperlipidemia, unspecified; J44.9 Chronic obstructive pulmonary disease, unspecified; N40.0 Benign prostatic hyperplasia without lower urinary tract symptoms; I42.8 Other cardiomyopathies; K75.81 Nonalcoholic steatohepatitis (NASH); F10.239 Alcohol dependence with withdrawal, unspecified; E87.6 Hypokalemia; Z20.822 Contact with and (suspected) exposure to COVID-19; Z79.51 Long term (current) use of inhaled steroids; Z79.899 Other long term (current) drug therapy
CPT/HCPCS: 36415; 71045; 74177; 80048; 80076; 80307; 81001; 82077; 83605; 83690; 83735; 84484; 85025; 85027; 85610; 85730; 87040; 87635; 96361; 96365; 96372; 96375; 97116; 97162; 99285; J2543; J2560; Q9967

== ENCOUNTER 2021-09-14 23:03 | Emergency (ER) | payer OTHER, SELFPAY ==
--- NOTE | ~2021-09-14 | CT_ITS ---
EXAMINATION: CT BRAIN AND CT CERVICAL SPINE WITHOUT CONTRAST. CLINICAL INFORMATION: Fall. COMPARISON: None TECHNIQUE: Axial 5 mm thin and reformatted 2 mm thin sagittal and coronal images of brain were obtained without contrast. Subsequently axial 3 mm thin and reformatted 2 mm thin sagittal and coronal images of cervical spine were obtained. DLP 1437 FINDINGS: Brain: There is no acute intra-axial, extra-axial bleed, masses or midline shift. There is no acute infarction evolution. The lateral ventricles are symmetrical in size and configuration without enlargement. There is mild periventricular hypodensity in both cerebral hemispheres without mass effect. Bone windows reveal no calvarial abnormality. No scalp soft tissue abnormality. Bilateral paranasal sinuses and mastoid air cells are well-aerated. Cervical spine: There is normal cervical lordosis. The vertebral heights and alignment is normal. There is loss of C6-C7 disc height with posterior spondylosis. Rest of the disc heights are normal. There is moderate ventral spondylosis C3-C4 and C6-C7 disc levels. The craniovertebral junction and the C1-C2 alignment is normal. There is no visible acute fracture, dislocation or subluxation seen. The prevertebral and the paravertebral soft tissues are normal. There is mild left C2-C3 and C5-C6 right facet joint arthropathy and hypertrophy. There is a right apical pleural thickening and apical scarring. CT/CT cervical spine wo con IMPRESSION: No acute intracranial process seen. There is no visible acute fracture, dislocation or subluxation.
--- NOTE | ~2021-09-14 | CT_ITS ---
EXAMINATION: CT ANGIOGRAM OF THE CHEST WITH AND WITHOUT CONTRAST (CT PULMONARY ANGIOGRAM FOR PE) CLINICAL INFORMATION: Reason for Exam chest pain tachcyardia COMPARISON: None TECHNIQUE: Prior to contrast administration, noncontrast localization images were obtained. Subsequently, multidetector volumetric imaging was performed from the thoracic inlet to below the diaphragms following the administration of 80 mL Omnipaque 350 intravenous contrast. No contrast reaction reported Sagittal, coronal, and MIP oblique sagittal reformatted images were obtained on the CT workstation, uploaded to PACS, and reviewed. This CT examination was performed using dose optimization techniques as appropriate, variously including the following: *Automated exposure control *Adjustment of mA and/or kV according to patient size (this includes techniques or standardized protocols for targeted exams where dose is matched to indication/reason for exam; i.e. extremities or head) *Use of iterative reconstruction technique Total exam dose-length product 446 mGy-cm FINDINGS: QUALITY OF STUDY/CONTRAST BOLUS: Satisfactory. PULMONARY ARTERIES: The pulmonary artery opacification is suboptimal however no gross main or segmental pulmonary artery filling defects seen. Peripheral pulmonary arteries and 7 optimally visualized. THORACIC AORTA: No aneurysm or dissection. LUNG: The lungs are mildly emphysematous with patchy atelectatic changes posterior segment right upper lobe and dependent segments of both lower lobe. There is mild superior major fissure thickening no consolidation or pulmonary nodule seen.. PLEURA: No pleural effusion or pneumothorax. MEDIASTINUM: Normal heart size. No pericardial effusion. No hilar or mediastinal lymphadenopathy. No evidence of septal bowing or right heart strain. There is small to moderate-sized hiatal hernia. No pericardial effusion seen. The thyroid lobes are symmetrical and normal. CHEST WALL/AXILLA: No axillary or internal mammary lymphadenopathy. OSSEOUS STRUCTURES: No lytic or sclerotic process seen. UPPER ABDOMEN: Visualized liver, spleen, pancreas and left adrenal gland is unremarkable. There is a 2.3 cm right adrenal lesion measuring 24 Hounsfield units. No reflux of contrast into the hepatic veins to suggest elevated right heart pressures. CT/CT angio chest PE protocol IMPRESSION: No evidence of PE in the major vessels. The subsegmental branches are not well opacified. No evidence aortic dissection. Dependent atelectasis as described above. Small to moderate-sized hiatal hernia. VTE: negative main and segmental branches.
--- NOTE | ~2021-09-14 | XR_ITS ---
EXAMINATION: XR chest 1V CLINICAL INFORMATION: Reason for Exam chest pain COMPARISON: Chest radiograph 08/11/2021, CT PE 05/19/2017 TECHNIQUE: One view of the chest XR/XR chest 1V FINDINGS/IMPRESSION: Elevation of the right hemidiaphragm with low lung volumes. Trachea appears deviated to the right however appears similar to 2017. Hazy right upper lobe airspace opacity may reflect atelectasis in the setting of lung volumes, alternatively aspiration or infection. Consider follow-up radiographs to ensure resolution. No pneumothorax. No pleural effusion. Unchanged cardiomediastinal silhouette. Large hiatal hernia. Similar remote right clavicular fracture deformity.
--- NOTE | ~2021-09-14 | CT_ITS ---
EXAMINATION: CT BRAIN AND CT CERVICAL SPINE WITHOUT CONTRAST. CLINICAL INFORMATION: Fall. COMPARISON: None TECHNIQUE: Axial 5 mm thin and reformatted 2 mm thin sagittal and coronal images of brain were obtained without contrast. Subsequently axial 3 mm thin and reformatted 2 mm thin sagittal and coronal images of cervical spine were obtained. DLP [id number] FINDINGS: Brain: There is no acute intra-axial, extra-axial bleed, masses or midline shift. There is no acute infarction evolution. The lateral ventricles are symmetrical in size and configuration without enlargement. There is mild periventricular hypodensity in both cerebral hemispheres without mass effect. Bone windows reveal no calvarial abnormality. No scalp soft tissue abnormality. Bilateral paranasal sinuses and mastoid air cells are well-aerated. Cervical spine: There is normal cervical lordosis. The vertebral heights and alignment is normal. There is loss of C6-C7 disc height with posterior spondylosis. Rest of the disc heights are normal. There is moderate ventral spondylosis C3-C4 and C6-C7 disc levels. The craniovertebral junction and the C1-C2 alignment is normal. There is no visible acute fracture, dislocation or subluxation seen. The prevertebral and the paravertebral soft tissues are normal. There is mild left C2-C3 and C5-C6 right facet joint arthropathy and hypertrophy. There is a right apical pleural thickening and apical scarring. CT/CT head/brain wo con IMPRESSION: No acute intracranial process seen. There is no visible acute fracture, dislocation or subluxation.
[2021-09-14 23:17] VITALS: BP 143/84; PULSE 126; RESP 20; TEMP 36.4; O2SAT 93; BMI 25.1
--- NOTE | 2021-09-14 23:21 | ECG_ITS ---
Test Reason : CHEST PAIN Blood Pressure : / mmHG Vent. Rate : 124 BPM Atrial Rate : 124 BPM P-R Int : 156 ms QRS Dur : 100 ms QT Int : 310 ms P-R-T Axes : 000 202 167 degrees QTc Int : 445 ms Sinus tachycardia Right superior axis deviation ST & T wave abnormality, consider inferior ischemia Abnormal ECG When compared with ECG of 26-JUN-2020 10:03, Premature atrial complexes are no longer Present QRS axis Shifted left ST less depressed in Lateral leads T wave inversion now evident in Lateral leads Referred By: Generic ED Physician Electronically Signed By:KERWIN MUIR MD
[2021-09-14 23:46] LABS: Basophils Absolute Auto 0.1 X10*3/uL (0.0-0.2); Basophils Percent Auto 0.9 % (0-2); Eosinophils Absolute Auto 0.1 X10*3/uL (0.0-0.4); Eosinophils Percent Auto 2.1 % (0-4); Hematocrit 35.2 % (42.0-52.0); Hemoglobin 11.2 g/dl (14.0-18.0); Imm Gran Abs Auto 0.02 X10*3/uL (0.00-0.03); Imm Gran Pct Auto 0.3 % (0.0-0.4); Lymphocytes Absolute Auto 1.5 X10*3/uL (1.2-4.9); Lymphocytes Percent Auto 26.2 % (20-40); MANUAL DIFF FLAG NO; Mean Corpuscular HGB Conc 31.8 g/dl (31.0-36.0); Mean Corpuscular Hemoglobin 24.9 pg (27.0-33.0); Mean Corpuscular Volume 78.4 fL (80.0-98.0); Mean Platelet Volume 8.7 fL (9.4-12.4); Monocytes Absolute Auto 0.5 X10*3/uL (0.1-1.2); Monocytes Percent Auto 9.3 % (2-11); Neutrophils Absolute Auto 3.6 x10*3/uL (2.0-8.3); Neutrophils Percent Auto 61.2 % (45-73); Platelet Count 253 X10*3/uL (160-400); Red Blood Count 4.49 X10*6/uL (4.60-5.80); Red Cell Distribution Width 20.1 % (11.0-16.0); White Blood Count 5.8 X10*3/uL (4.8-10.8)
[2021-09-15] VITALS (8 sets, daily range): BP systolic 132–178; BP diastolic 76–106; PULSE 89–111; RESP 16–20; TEMP 36.6–36.9; O2SAT 90–100
--- NOTE | 2021-09-15 | ECG_ITS ---
Test Reason : chest pain Blood Pressure : / mmHG Vent. Rate : 106 BPM Atrial Rate : 106 BPM P-R Int : 160 ms QRS Dur : 094 ms QT Int : 370 ms P-R-T Axes : 049 -17 -07 degrees QTc Int : 491 ms Sinus tachycardia Otherwise normal ECG When compared with ECG of 14-SEP-2021 23:08, QRS axis Shifted right T wave inversion no longer evident in Lateral leads Referred By: Maria Teresa Ferguson Electronically Signed By:KERWIN MUIR MD
[2021-09-15 00:08] LABS: Troponin-I High Sensitivity 5.3 ng/L (<3.5-35.0)
[2021-09-15 00:14] LABS: Anion Gap 17 (12-20); Blood Urea Nitrogen 12 mg/dL (9-16); Calcium 9.3 mg/dL (8.4-10.2); Carbon Dioxide 23 mmol/L (22-29); Chloride 107 mmol/L (96-108); Estimated Glomerular Filt Rate > 60; Glucose Random 120 mg/dL (60-115); Potassium 2.9 mmol/L (3.3-5.1); Sodium 144 mmol/L (135-145)
[2021-09-15 03:00] LABS: Troponin-I High Sensitivity 5.5 ng/L (<3.5-35.0)
--- NOTE | 2021-09-15 03:56 | PC.NURSE ---
PT O2 sat was 94-95% on RA while awake. O2 sat dropped to 88% on RA while sleeping in bed. PT placed on O2 at 2 L/min via NC; current sat is 98%. PT is waiting to be seen by provider.
--- NOTE | 2021-09-15 06:38 | ED_ITS ---
HPI - Chest Pain General Chief Complaint: Chest Pain Stated Complaint: Chest pain Time Seen by Provider: 09/15/21 06:38 Source: patient and old records reviewed Mode of arrival: ambulatory Limitations: no limitations History of Present Illness HPI narrative: 61 yo male with ETOH use, HTN, nonischemic cardiomyopathy, PUD, ALHAJI, anemia reports a fall 2 days ago hitting his head and landing on his chest 2 days ago - he is unsure of LOC and when asked if he was drinking he states Naaah . He reports since then chest pain across his entire chest that spreads to his back with no other symptoms. MD complaint: chest pain Onset (ago): day(s) (2) Timing of current episode: constant Prior episodes: Yes Onset: other (after falling) Pain location: left chest and right chest Pain radiation: back Severity: moderate Quality: aching Relieving factors: nothing Exacerbating factors: movement Context: trauma/injury Associated symptoms: other (also reports headache and abrasion to the forehead) Treatment prior to arrival: none Related Data Home Medications Medication Instructions Recorded Confirmed albuterol sulfate 90 mcg/actuation 2 inh INHALATION Q4H PRN 11/10/20 08/11/21 aerosol inhaler fluticasone propionate 44 1 puff PO BID 11/10/20 08/11/21 mcg/actuation HFA aerosol inhaler ferrous sulfate 325 mg (65 mg 325 mg PO DAILY 08/11/21 08/11/21 iron) tablet omeprazole 40 mg capsule,delayed 40 mg PO DAILY 08/11/21 08/11/21 release tamsulosin 0.4 mg capsule 0.4 mg PO BEDTIME 08/11/21 08/11/21 trazodone 100 mg tablet 100 mg PO BEDTIME 08/11/21 08/11/21 Previous Rx's Medication Instructions Recorded amlodipine 10 mg tablet 10 mg PO DAILY 90 Days #90 tab 11/10/20 carvedilol 6.25 mg tablet 6.25 mg PO BID 90 Days #180 tab 11/10/20 lisinopril 40 mg tablet 40 mg PO DAILY 90 Days #90 tab 11/10/20 walker (Ultra-Light Rollator) #1 ea 08/19/21 Allergies Allergy/AdvReac Type Severity Reaction Status Date / Time No Known Allergies Allergy Verified 08/03/21 13:16 Review of Systems Review of Systems: Constitutional : No Weight loss, No Fever, No Chills ENT/Mouth : No sore throat, No Rhinorrhea Eyes: No Eye Pain, No Swelling Cardiovascular : pos Chest Pain, no SOB, no Dyspnea on Exertion, No Orthopnea, No Edema, No Palpitations Respiratory : No Cough, No Sputum Gastrointestinal : no Nausea, No Vomiting, No Diarrhea, No abdominal Pain, No Hematochezia, No Melena Genitourinary : No Dysuria, No Urinary Frequency Musculoskeletal : No joint pain, No Myalgias, No Joint Swelling Skin : No Skin Lesions, No rash, pos abrasion Neuro : No Weakness, No Numbness, No Dizziness, pos Headache Psych : No Anxiety/Panic, No Depression Heme/Lymph: No Bruising, No Lymphadenopathy Endocrine : No Polyuria, No Polydipsia All other systems reviewed and are negative [facility] Past Medical History Medical History Alcohol dependence Alcohol dependence with withdrawal HLD (hyperlipidemia) Hypertension Nonischemic cardiomyopathy Surgical History History of cardiac cath (~01/2016) Family History Family History Father No problems noted. Mother No problems noted. Social History Social History Household Members: Spouse Housing: Apartment Do you presently have visiting nurse or other home services: No Unable to assess alcohol history related to: Refusing to respond Alcohol intake: current Alcohol intake frequency: 3 or more drinks per day Alcohol type: hard liquor Patient Tobacco Use Status: Never used Tobacco Advance Directives: No Advance Directives Information Provided: No service: No Current occupational status: unemployed Physical Exam Vital Signs: Vital Signs: Last Vital Signs Temp 98.4 F 09/15/21 08:00 Pulse 101 H 09/15/21 08:00 Resp 16 09/15/21 08:00 BP 178/104 H 09/15/21 08:00 Pulse Ox 98 09/15/21 08:00 BMI result Body Mass Index 25.1 Appearance: Alert. Oriented X3. No acute distress. Eyes: Pupils equal, round and reactive to light. ENT: Pharynx normal. Abrasion and contusion to forehead Neck: Normal inspection. Neck supple. CVS: tachcyardic heart rate and rhythm. Pulses normal. Respiratory: No respiratory distress. Breath sounds normal. Abdomen: Soft and nontender. Skin: Skin warm and dry. Normal skin color. Normal skin turgor. Extremities: No lower extremity edema. Neuro: Oriented X 3. No motor deficit. No sensory deficit. Course Course Course Narrative: negative workup unchanged EKG, lytes being repleted, CT scans negative, trop negative x 3, suspect gastritis, PO BP medications ordered. Anticipate DC home MDM - Chest Pain MDM Narrative Medical decision making narrative: 61 yo male with ETOH use, HTN, nonischemic cardiomyopathy, PUD, ALHAJI, anemia reports a fall 2 days ago hitting his head and landing on his chest 2 days ago - he is unsure of LOC and when asked if he was drinking he states Naaah . At this time labs, EKG, troponin x 2, CTA for PE given tachcyardia, CT head/C spine for trauma, IVF, repletion of lytes, dispo per results and findings. Lab Data Result diagrams: 09/14/21 23:42 09/14/21 23:42 Labs: Lab Results 09/14/21 09/14/21 09/14/21 Range/Units 23:42 23:42 23:42 WBC 5.8 (4.8-10.8) X10*3/uL RBC 4.49 L (4.60-5.80) X10*6/uL Hgb 11.2 L (14.0-18.0) g/dl Hct 35.2 L (42.0-52.0) % MCV 78.4 L (80.0-98.0) fL MCH 24.9 L (27.0-33.0) pg MCHC 31.8 (31.0-36.0) g/dl RDW 20.1 H (11.0-16.0) % Plt Count 253 D (160-400) X10*3/uL MPV 8.7 L (9.4-12.4) fL Immature Gran % (Auto) 0.3 (0.0-0.4) % Neut % (Auto) 61.2 (45-73) % Lymph % (Auto) 26.2 (20-40) % [place] % (Auto) 9.3 (2-11) % Eos % (Auto) 2.1 (0-4) % Baso % (Auto) 0.9 (0-2) % Lymph # (Auto) 1.5 (1.2-4.9) X10*3/uL [place] # (Auto) 0.5 (0.1-1.2) X10*3/uL Eos # (Auto) 0.1 (0.0-0.4) X10*3/uL Baso # (Auto) 0.1 (0.0-0.2) X10*3/uL Abs Immat Gran (auto) 0.02 (0.00-0.03) X10*3/uL Absolute Neuts (auto) 3.6 (2.0-8.3) x10*3/uL Absolute Nucleated RBC 0.000 (0.0-0.012) X10*3/uL Nucleated RBC % (auto) 0.0 (0.0-0.2) /100WBC Sodium 144 (135-145) mmol/L Potassium 2.9 L D (3.3-5.1) mmol/L Chloride 107 (96-108) mmol/L Carbon Dioxide 23 (22-29) mmol/L Anion Gap 17 (12-20) BUN 12 (9-16) mg/dL Creatinine 0.76 (0.5-1.4) mg/dL Estim Creat Clear Calc 104.0 Estimated GFR > 60 Random Glucose 120 H (60-115) mg/dL Calcium 9.3 D (8.4-10.2) mg/dL Magnesium 1.7 (1.6-2.6) mg/dL Total Bilirubin 0.2 (0.0-1.0) mg/dL Direct Bilirubin < 0.2 (0.0-0.5) mg/dL AST 42 H (5-37) U/L ALT 35 (0-40) U/L Alkaline Phosphatase 71 D (39-117) U/L Troponin I High Sens 5.3 (<3.5-35.0) ng/L Total Protein 7.4 (6.5-8.0) g/dL Albumin 3.9 (3.5-5.0) g/dL Lipase 24 (8-78) U/L Ethyl Alcohol mg/dL 09/15/21 09/15/21 09/15/21 Range/Units 02:36 07:21 07:21 WBC (4.8-10.8) X10*3/uL RBC (4.60-5.80) X10*6/uL Hgb (14.0-18.0) g/dl Hct (42.0-52.0) % MCV (80.0-98.0) fL MCH (27.0-33.0) pg MCHC (31.0-36.0) g/dl RDW (11.0-16.0) % Plt Count (160-400) X10*3/uL MPV (9.4-12.4) fL Immature Gran % (Auto) (0.0-0.4) % Neut % (Auto) (45-73) % Lymph % (Auto) (20-40) % [place] % (Auto) (2-11) % Eos % (Auto) (0-4) % Baso % (Auto) (0-2) % Lymph # (Auto) (1.2-4.9) X10*3/uL [place] # (Auto) (0.1-1.2) X10*3/uL Eos # (Auto) (0.0-0.4) X10*3/uL Baso # (Auto) (0.0-0.2) X10*3/uL Abs Immat Gran (auto) (0.00-0.03) X10*3/uL Absolute Neuts (auto) (2.0-8.3) x10*3/uL Absolute Nucleated RBC (0.0-0.012) X10*3/uL Nucleated RBC % (auto) (0.0-0.2) /100WBC Sodium (135-145) mmol/L Potassium (3.3-5.1) mmol/L Chloride (96-108) mmol/L Carbon Dioxide (22-29) mmol/L Anion Gap (12-20) BUN (9-16) mg/dL Creatinine (0.5-1.4) mg/dL Estim Creat Clear Calc Estimated GFR Random Glucose (60-115) mg/dL Calcium (8.4-10.2) mg/dL Magnesium (1.6-2.6) mg/dL Total Bilirubin (0.0-1.0) mg/dL Direct Bilirubin (0.0-0.5) mg/dL AST (5-37) U/L ALT (0-40) U/L Alkaline Phosphatase (39-117) U/L Troponin I High Sens 5.5 < 3.5 (<3.5-35.0) ng/L Total Protein (6.5-8.0) g/dL Albumin (3.5-5.0) g/dL Lipase (8-78) U/L Ethyl Alcohol < 10 mg/dL ECG Data ECG #1: Attestation: I personally reviewed and interpreted this ECG as follows: ECG interpretation date: 09/15/21 ECG interpretation time: 06:41 Interpretation: Rate: 124 Rhythm: sinus tachycardia Mallory: right Normal P waves. Normal ALBERTO. Normal QRS complex. ST T wave : no EMMANUEL, nonspecific qTC: normal prior studies: changed ?limb lead error The study has been interpreted contemporaneously by me. Rate: 106 Rhythm: sinus tachcyardia Mallory: left Normal P waves. Normal ALBERTO. Normal QRS complex. ST T wave : no EMMANUEL, nonspecific slight TE depression lateral leads qTC: prolonged prior studies: no acute ischemia The study has been interpreted contemporaneously by me. . Discharge Plan Discharge Clinical Impression: Acute hypokalemia, Atypical chest pain, Gastritis, Abrasion of face Patient Disposition: Home, Self-Care Instructions: Abrasion (ED), Chest Pain (ED), Gastritis (ED), Hypokalemia (ED) Prescriptions: No Action tamsulosin 0.4 mg Capsule 0.4 mg PO BEDTIME RF: 0 trazodone 100 mg Tablet 100 mg PO BEDTIME RF: 0 ferrous sulfate 325 mg (65 mg iron) Tablet 325 mg PO DAILY RF: 0 omeprazole 40 mg capsule,delayed release(DR/EC) 40 mg PO DAILY RF: 0 (DME) Ultra-Light Rollator Misc See Rx Instructions .Route Qty: 1 RF: 0 fluticasone propionate 44 mcg/actuation HFA aerosol inhaler 1 puff PO BID RF: 0 albuterol sulfate 90 mcg/actuation HFA aerosol inhaler 2 inh inhalation Q4H PRN (Reason: Dyspnea) RF: 0 amlodipine 10 mg tablet 10 mg PO DAILY 90 Days Qty: 90 RF: 1 carvedilol 6.25 mg tablet 6.25 mg PO BID 90 Days Qty: 180 RF: 1 lisinopril 40 mg tablet 40 mg PO DAILY 90 Days Qty: 90 RF: 1
[2021-09-15 06:54] LABS: Alanine Aminotransferase 35 U/L (0-40); Albumin Level 3.9 g/dL (3.5-5.0); Alkaline Phosphatase 71 U/L (39-117); Aspartate Amino Transferase 42 U/L (5-37); Bilirubin Direct < 0.2 mg/dL (0.0-0.5); Bilirubin Total 0.2 mg/dL (0.0-1.0); Lipase 24 U/L (8-78); Magnesium 1.7 mg/dL (1.6-2.6); Total Protein 7.4 g/dL (6.5-8.0)
[2021-09-15 07:47] LABS: Ethanol < 10 mg/dL
[2021-09-15 07:51] LABS: Troponin-I High Sensitivity < 3.5 ng/L (<3.5-35.0)
[2021-09-15] MEDS: iohexoL 350 MG/ML 100 ML INFUS..BTL IV (08:07)
[2021-09-15] MEDS: 0.9 % Sodium Chloride 1,000 ML 999 ML IV (08:08)
[2021-09-15] MEDS: Thiamine HCL 200 MG in 0.9 % Sodium Chloride 100 ML 204 MG IV (08:09)
[2021-09-15] MEDS: Folic Acid 1 MG in 0.9 % Sodium Chloride 50 ML 100.4 MG IV (09:20)
[2021-09-15] MEDS: Potassium Chloride/H20 10 MEQ/100 ML PIGGYBACK 100 MEQ IV ×2 (09:27→11:48)
[2021-09-15] MEDS: amLODIPine Besylate 10 MG TABLET PO (09:31)
[2021-09-15] MEDS: Potassium Chloride ER 20 MEQ TAB.ER.PRT 40 MEQ PO (09:31)
[2021-09-15] MEDS: Magnesium Hydrox/Alum Hydrox 30 ML ORAL.SUSP PO (09:32)
[2021-09-15] MEDS: Lidocaine HCl Viscous 2 % 15 ML SOLUTION MUCOUS MEM (09:32)
[2021-09-15] MEDS: carvediloL 6.25 MG TABLET PO (09:32)
[2021-09-15] MEDS: lisinopriL 40 MG TABLET PO (09:32)
[2021-09-15] MEDS: Magnesium Sulfate/H2O 2 GM/50 ML PIGGYBACK IV (09:37)
== END 2021-09-15 13:00 | disposition home or self-care (01) ==
PROVIDERS: Emergency Medicine Emergency Medical Services; Emergency Provider Emergency Medicine
DX: S00.81XA Abrasion of other part of head, initial encounter (principal); R07.9 Chest pain, unspecified; E87.6 Hypokalemia; K29.70 Gastritis, unspecified, without bleeding; M54.2 Cervicalgia; W01.0XXA Fall on same level from slipping, tripping and stumbling without subsequent striking against object, initial encounter; Y93.9 Activity, unspecified; Y92.9 Unspecified place or not applicable; Y99.9 Unspecified external cause status; Z79.899 Other long term (current) drug therapy
CPT/HCPCS: 36415; 70450; 71045; 71275; 72125; 80048; 80076; 82077; 83690; 83735; 84484; 85025; 93005; 96365; 96366; 96375; 99284; J3411; J3475; Q9967

== ENCOUNTER 2021-11-01 02:37 | Emergency (ER) | payer OTHER, SELFPAY ==
--- NOTE | ~2021-11-01 | XR_ITS ---
EXAMINATION: XR ANKLE, LEFT CLINICAL INFORMATION: Malleolus pain COMPARISON: Radiographs 04/13/2019 TECHNIQUE: AP, lateral, and mortise views of the left ankle. FINDINGS: There is an essentially nondisplaced fracture of the distal fibula approximately at the level of the tibial plafond, with adjacent soft tissue swelling. On the lateral view there is subtle cortical irregularity along the anterior aspect of the distal tibia, which is favored to be chronic when compared to 04/13/2019. Spurring is noted at the medial malleolus. The medial clear space appears borderline widened, and there is also soft tissue swelling of the adjacent medial ankle. XR/XR ankle LT 2V IMPRESSION: Essentially nondisplaced fracture of the distal fibula. Borderline widening of the medial clear space which may reflect ligamentous injury.
[2021-11-01 02:45] VITALS: BP 128/90; BP 142/76; PULSE 85; PULSE 93; RESP 20; TEMP 36.8; O2SAT 95; BMI 23.7
--- NOTE | 2021-11-01 02:52 | ED_ITS ---
HPI - Extremity Injury (Lower) General Chief Complaint: Extremity Injury, Lower Stated Complaint: ETOH,ANKLE PAIN Time Seen by Provider: 11/01/21 02:46 Source: patient and EMS Mode of arrival: EMS Limitations: no limitations History of Present Illness HPI Narrative: Patient comes to the emergency room via EMS for left ankle pain. Patient admits that he was drinking alcohol. Patient states that he slipped and sprained his ankle. Patient states that he did not fall. However, his ankle has gradually become more painful. Patient denies being on blood thinners. Related Data Home Medications Medication Instructions Recorded Confirmed albuterol sulfate 90 2 inh INHALATION Q4H PRN 11/10/20 08/11/21 mcg/actuation aerosol inhaler fluticasone propionate 44 1 puff PO BID 11/10/20 08/11/21 mcg/actuation HFA aerosol inhaler ferrous sulfate 325 mg (65 mg 325 mg PO DAILY 08/11/21 08/11/21 iron) tablet omeprazole 40 mg 40 mg PO DAILY 08/11/21 08/11/21 capsule,delayed release tamsulosin 0.4 mg capsule 0.4 mg PO BEDTIME 08/11/21 08/11/21 trazodone 100 mg tablet 100 mg PO BEDTIME 08/11/21 08/11/21 Previous Rx's Medication Instructions Recorded walker (Ultra-Light Rollator) #1 ea 08/19/21 amlodipine 10 mg tablet 10 mg PO DAILY 90 Days #90 tab 09/27/21 carvedilol 6.25 mg tablet 6.25 mg PO BID 90 Days #180 tab 09/27/21 lisinopril 40 mg tablet 40 mg PO DAILY 90 Days #90 tab 09/27/21 Allergies Allergy/AdvReac Type Severity Reaction Status Date / Time No Known Allergies Allergy Verified 08/03/21 13:16 Review of Systems Verdana 4l Review of Systems: Verdana 4d Verdana 4d Constitutional : No Weight loss, No Fever, No Chills, No Night Sweats, No Fatigue, No Malaise ENT/Mouth : No Hearing loss, No Ear Pain, No Nasal Congestion, No Sinus Pain, No Hoarseness, No sore throat, No Rhinorrhea, No Swallowing DifficultyDifficulty Eyes: No Eye Pain, No Swelling, No Redness, No Foreign Body, No Discharge, No Vision Changes Cardiovascular : No Chest Pain, No SOB, No Dyspnea on Exertion, No Orthopnea, No Edema, No Palpitations Respiratory : No Cough, No Sputum, No Wheezing, No Smoke Exposure, No Dyspnea Gastrointestinal : No Nausea, No Vomiting, No Diarrhea, No Constipation, No abdominal Pain, No Hematochezia, No Melena Genitourinary : no irregular bleeding, No Dysuria, No Urinary Frequency, No Hematuria, No Urinary Incontinence, No Urgency, No Flank Pain, No Urinary Flow Changes, No Hesitancy Musculoskeletal : Complaining of left ankle pain after a sprain, No Myalgias, No Joint Swelling Skin : No Skin Lesions, No rash Neuro : No Weakness, No Numbness, No Paresthesias, No Loss of Consciousness, No Dizziness, No Headache Psych : No Anxiety/Panic, No Depression, No SI/HI/AH/VH, No Social Issues, Heme/Lymph: No Bruising, No Bleeding,No Lymphadenopathy Endocrine : No Polyuria, No Polydipsia, No Temperature Intolerance [facility] Past Medical History Medical History Alcohol dependence Alcohol dependence with withdrawal HLD (hyperlipidemia) Hypertension Nonischemic cardiomyopathy Surgical History History of cardiac cath (~01/2016) Family History Family History Father No problems noted. Mother No problems noted. 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 Oriented X3. No acute distress. Eyes: Pupils equal, round and reactive to light. ENT: Pharynx normal. Neck: Normal inspection. Neck supple. No lymph nodes noted. No crepitus CVS: Normal heart rate and rhythm. Pulses normal. Normal S1 and S2 Respiratory: No respiratory distress. Breath sounds normal. No Wheezing. No rales Abdomen: Soft and nontender. No rigidity. No distention. good BS x4 Skin: Skin warm and dry. Normal skin color. Normal skin turgor. Extremities: Left ankle is swollen bilaterally, patient does have good pedal pulses, able to move his toes. Neuro: Oriented X 3. No motor deficit. No sensory deficit. Moving all extermities. No slurred speech. Course Course Course Narrative: Patient has non displaced tib-fib fracture, possibly chronic. At this time, patient is intoxicated, we will splint his ankle, provided with crutches but he will have to stay until he is completely sober. Patient's vitals are stable. Physician observation started at 03:42 MDM - Extremity Injury (Lower) Imaging Data Ankle x-ray: Radiologist's impression: FINDINGS: There is an essentially nondisplaced fracture of the distal fibula approximately at the level of the tibial plafond, with adjacent soft tissue swelling. On the lateral view there is subtle cortical irregularity along the anterior aspect of the distal tibia, which is favored to be chronic when compared to 04/13/2019. Spurring is noted at the medial malleolus. The medial clear space appears borderline widened, and there is also soft tissue swelling of the adjacent medial ankle.? XR/XR ankle LT 2V IMPRESSION: Essentially nondisplaced fracture of the distal fibula. Borderline widening of the medial clear space which may reflect ligamentous injury. Discharge Plan Discharge Clinical Impression: Fracture of tibia and fibula, Alcohol intoxication Patient Disposition: Still a Patient Prescriptions: No Action carvedilol 6.25 mg tablet 6.25 mg PO BID 90 Days Qty: 180 1RF Rx Instructions: must administer with a meal/food lisinopril 40 mg tablet 40 mg PO DAILY 90 Days Qty: 90 1RF amlodipine 10 mg tablet 10 mg PO DAILY 90 Days Qty: 90 1RF tamsulosin 0.4 mg Capsule 0.4 mg PO BEDTIME 0RF trazodone 100 mg Tablet 100 mg PO BEDTIME 0RF ferrous sulfate 325 mg (65 mg iron) Tablet 325 mg PO DAILY 0RF omeprazole 40 mg capsule,delayed release(DR/EC) 40 mg PO DAILY 0RF (DME) Ultra-Light Rollator Misc See Rx Instructions .Route Qty: 1 0RF Rx Instructions: As directed fluticasone propionate 44 mcg/actuation HFA aerosol inhaler 1 puff PO BID 0RF albuterol sulfate 90 mcg/actuation HFA aerosol inhaler 2 inh inhalation Q4H PRN (Reason: Dyspnea) 0RF
[2021-11-01] MEDS: traMADoL HCL 50 MG TABLET PO ×2 (03:01→05:14)
[2021-11-01 05:15] VITALS: BP 110/75; PULSE 94; RESP 16
[2021-11-01] MEDS: Omeprazole 20 MG CAPSULE.DR PO (05:24)
[2021-11-01 06:55] VITALS: BP 119/83; PULSE 95; RESP 18; O2SAT 93
[2021-11-01 09:21] VITALS: BP 144/81; PULSE 103; RESP 20; O2SAT 91
--- NOTE | 2021-11-01 09:41 | PC.NURSE ---
Pt refused crutch teaching by biotechnician and myself. I have never used this and I don't want to Plan is to have PT provide options for mobility devices. Pt ate 100% of meal.
[2021-11-01 10:19] VITALS: BP 153/93; PULSE 100; RESP 14; TEMP 36.8; O2SAT 94
--- NOTE | 2021-11-01 10:21 | MHC.CM.ED ---
Patient decided to call for transportation and go home prior to being seen by case management or physical therapy.
== END 2021-11-01 10:33 | disposition home or self-care (01) ==
PROVIDERS: Emergency Provider Emergency Medicine
DX: S82.202A Unspecified fracture of shaft of left tibia, initial encounter for closed fracture (principal); M79.605 Pain in left leg; W18.30XA Fall on same level, unspecified, initial encounter; Y93.9 Activity, unspecified; Y92.9 Unspecified place or not applicable; Y99.9 Unspecified external cause status; Z79.899 Other long term (current) drug therapy
CPT/HCPCS: 29505; 73600; 99283; 99284

== ENCOUNTER 2021-11-02 12:01 | Emergency (ER) | payer OTHER, SELFPAY ==
--- NOTE | ~2021-11-02 | XR_ITS ---
EXAMINATION: LEFT FOOT AND ANKLE CLINICAL INFORMATION: Fall COMPARISON: Foot study of April 13, 2019 TECHNIQUE: 3 views of the left foot and 2 views of the left ankle FINDINGS: Views of the left ankle demonstrate large amount soft tissue swelling being present. There appears to be evidence of an old healed or healing distal left fibular fracture as well as now being a lucent transverse line of the distal fibula likely representing either a healing or new nondisplaced fracture. There appears to be widening of the medial joint space to approximately 5 mm. Bony density about the distal anterior aspect of the tibia is seen and was present on study of April 13, 2019 and likely posttraumatic finding. Views of the left foot demonstrate what is likely a chronic avulsion injury about the medial aspect of the navicula which was present on prior study of November 01, 2021. Less likely this could represent accessory ossicle. There is a small Achilles calcaneal spur. XR/XR ankle LT min 3V IMPRESSION: Evidence for previous fractures of the distal lateral malleolus, anterior talar bone, and medial navicular. Appearance of acute on chronic distal left fibular fracture versus original fracture line still being evident. Widening of the medial joint space.
--- NOTE | ~2021-11-02 | XR_ITS ---
EXAMINATION: LEFT FOOT AND ANKLE CLINICAL INFORMATION: Fall COMPARISON: Foot study of April 13, 2019 TECHNIQUE: 3 views of the left foot and 2 views of the left ankle FINDINGS: Views of the left ankle demonstrate large amount soft tissue swelling being present. There appears to be evidence of an old healed or healing distal left fibular fracture as well as now being a lucent transverse line of the distal fibula likely representing either a healing or new nondisplaced fracture. There appears to be widening of the medial joint space to approximately 5 mm. Bony density about the distal anterior aspect of the tibia is seen and was present on study of April 13, 2019 and likely posttraumatic finding. Views of the left foot demonstrate what is likely a chronic avulsion injury about the medial aspect of the navicula which was present on prior study of November 01, 2021. Less likely this could represent accessory ossicle. There is a small Achilles calcaneal spur. XR/XR foot LT min 3V IMPRESSION: Evidence for previous fractures of the distal lateral malleolus, anterior talar bone, and medial navicular. Appearance of acute on chronic distal left fibular fracture versus original fracture line still being evident. Widening of the medial joint space.
--- NOTE | 2021-11-02 12:09 | ED_ITS ---
HPI - Fall General Chief Complaint: General Medical Stated Complaint: LEFT LEG PAIN S/P FALL, ETOH USE PER EMS Time Seen by Provider: 11/02/21 12:04 Source: patient and official court interpreter Mode of arrival: EMS Limitations: other (ETOH use) History of Present Illness HPI Narrative: seen on 11/01 found to have nondisplaced L fibula fracture - put in short posterior splint refused crutches - has WC at home states he has been walking on splint, denies fall again, still drinking but denies falling again states he is in too much pain - walked back and forth to the store - splint is wet and dirty. complaint: fall (L ankle and foot pain) Onset (ago): day(s) (3 but worse today) Fall from: standing Fall witnessed: no Place fall occurred: home Loss of consciousness: none Symptoms prior to fall: none Context: tripped/slipped and alcohol use Location of injury - extremities: left: ankle and foot Severity: moderate Quality: dull and aching Associated symptoms (after fall): other (states pain is too much, the splint is too tight, and he is walking on the splint to and from the store) Related Data Home Medications Medication Instructions Recorded Confirmed albuterol sulfate 90 2 inh INHALATION Q4H PRN 11/10/20 08/11/21 mcg/actuation aerosol inhaler fluticasone propionate 44 1 puff PO BID 11/10/20 08/11/21 mcg/actuation HFA aerosol inhaler ferrous sulfate 325 mg (65 mg 325 mg PO DAILY 08/11/21 08/11/21 iron) tablet omeprazole 40 mg 40 mg PO DAILY 08/11/21 08/11/21 capsule,delayed release tamsulosin 0.4 mg capsule 0.4 mg PO BEDTIME 08/11/21 08/11/21 trazodone 100 mg tablet 100 mg PO BEDTIME 08/11/21 08/11/21 Previous Rx's Medication Instructions Recorded walker (Ultra-Light Rollator) #1 ea 08/19/21 amlodipine 10 mg tablet 10 mg PO DAILY 90 Days #90 tab 09/27/21 carvedilol 6.25 mg tablet 6.25 mg PO BID 90 Days #180 tab 09/27/21 lisinopril 40 mg tablet 40 mg PO DAILY 90 Days #90 tab 09/27/21 oxycodone 5 mg tablet 5 mg PO TID PRN #12 tab 11/02/21 Allergies Allergy/AdvReac Type Severity Reaction Status Date / Time No Known Allergies Allergy Verified 08/03/21 13:16 Review of Systems Verdana 4l Review of Systems: Verdana 4d Verdana 4d Constitutional : No Fever, No Chills ENT/Mouth : No Ear Pain, No Hoarseness, No sore throat Eyes: No Eye Pain, No Swelling, No Redness, No Foreign Body Cardiovascular : No Chest Pain, No SOB Respiratory : No Cough, No Dyspnea GastrointestinalGastrointestinal : No Nausea, No Vomiting, No Diarrhea, No abdominal Pain Genitourinary : No Dysuria, No Hematuria Musculoskeletal : positive joint pain, No Myalgias, pos Joint Swelling Skin : No Skin lacerations, No rash Neuro : No Weakness, No Numbness, No Loss of Consciousness, No Dizziness, No Headache Psych : No Anxiety/Panic, No Depression Heme/Lymph: no easy bruising, no Lymphadenopathy Endocrine : No Polyuria, No Polydipsia All other systems reviewed and are negative [facility] Past Medical History Attestation statement: The following information was validated with the patient. Medical History Alcohol dependence Alcohol dependence with withdrawal HLD (hyperlipidemia) Hypertension Nonischemic cardiomyopathy Surgical History History of cardiac cath (~01/2016) Family History Family History Father No problems noted. Mother No problems noted. Social History Social History Household Members: Spouse Housing: Apartment Do you presently have visiting nurse or other home services: No Unable to assess alcohol history related to: Refusing to respond Alcohol intake: current Alcohol intake frequency: 3 or more drinks per day Alcohol type: hard liquor Patient Tobacco Use Status: Never used Tobacco Use of substances other than those prescribed or required for medical reasons: No Advance Directives: No Advance Directives Information Provided: Yes service: No Current occupational status: unemployed Physical Exam Verdana 4l Vital Signs: Verdana 4d Verdana 4d Vital Signs: Verdana 4d Verdana 4Bd Last Vital Signs Verdana 4d Personnel Scheduler New 4d Espinoza New 4d Temp 98 F 11/02/21 12:14 Personnel Scheduler New 4d Pulse 105 H 11/02/21 14:00 Personnel Scheduler New 4d Resp 16 11/02/21 14:00 BP 114/82 11/02/21 14:00 Pulse Ox 92 11/02/21 14:00 BMI result Body Mass Index 42.9 Appearance: Alert. Oriented X3. No acute distress. Eyes: Pupils equal, round and reactive to light. ENT: Pharynx normal. Neck: Normal inspection. Neck supple. CVS: Normal heart rate and rhythm. Pulses normal. Respiratory: No respiratory distress. Breath sounds normal. Abdomen: Soft and non-tender. Skin: Skin warm and dry. Normal skin color. Normal skin turgor. Extremities: No lower extremity edema. LLE SILT intact, ecchymosis medial and lateral malleolus moderate swelling around ankle joint - splint removed can wiggle toes, toes are warm to touch bounding DP pulses Neuro: Oriented X 3. No motor deficit. No sensory deficit. Course Course Course Narrative: no new fractures just not compliant with NWB - he knows he has to see ortho, has WC at home and help. he will not go to rehab. will place posterior short and stirrup on MDM - Fall MDM Narrative Medical decision making narrative: 61 yo male with hx of HTN, HLD, ETOH abuse here with L ankle and foot pain his exam seems much worse with swelling and ecchymosis - unsure if he fell again vs just walking in the splint. At this time NV intact no signs of compartment syndrome - will repeat xrays and give PO pain medications. Dispo per repeat exams. Patient not compliant with splint and NWB status Discharge Plan Discharge Clinical Impression: Medical non-compliance Fracture of distal end of fibula Qualifiers: Encounter type: subsequent encounter Fracture type: closed Fracture morphology: unspecified fracture morphology Laterality: left Fracture healing: with routine healing Qualified Code(s): S82.832D - Other fracture of upper and lower end of left fibula, subsequent encounter for closed fracture with routine healing Soft tissue injury of left ankle Qualifiers: Encounter type: initial encounter Qualified Code(s): S99.912A - Unspecified injury of left ankle, initial encounter Patient Disposition: Home, Self-Care Instructions: Ankle Fracture (ED), Ankle Sprain (ED), Leg Fracture (ED), Splint Care (ED), Ankle Stirrup Splint (ED) Additional Instructions: return to ED for any worsening symptoms or concerns YOU CANNOT PUT WEIGHT ON YOUR FOOT amisha quinn.. you need to keep your leg elevated musischano mimichelle podniesiona noge NO ALCOHOL Prescriptions: New oxycodone 5 mg tablet 5 mg PO TID PRN (Reason: pain) Qty: 12 0RF Rx Instructions: partial fill okay No Action carvedilol 6.25 mg tablet 6.25 mg PO BID 90 Days Qty: 180 1RF Rx Instructions: must administer with a meal/food lisinopril 40 mg tablet 40 mg PO DAILY 90 Days Qty: 90 1RF amlodipine 10 mg tablet 10 mg PO DAILY 90 Days Qty: 90 1RF tamsulosin 0.4 mg Capsule 0.4 mg PO BEDTIME 0RF trazodone 100 mg Tablet 100 mg PO BEDTIME 0RF ferrous sulfate 325 mg (65 mg iron) Tablet 325 mg PO DAILY 0RF omeprazole 40 mg capsule,delayed release(DR/EC) 40 mg PO DAILY 0RF (DME) Ultra-Light Rollator Misc See Rx Instructions .Route Qty: 1 0RF Rx Instructions: As directed fluticasone propionate 44 mcg/actuation HFA aerosol inhaler 1 puff PO BID 0RF albuterol sulfate 90 mcg/actuation HFA aerosol inhaler 2 inh inhalation Q4H PRN (Reason: Dyspnea) 0RF Referrals: Adam Weller MD [Physician] - 5 days (call for appointment next week)
[2021-11-02 12:14] VITALS: BP 131/89; BP 144/74; PULSE 111; PULSE 60; RESP 20; TEMP 36.6; O2SAT 93; O2SAT 96; BMI 42.9
--- NOTE | 2021-11-02 12:30 | PC.NURSE ---
patient a&o, splint removed by provider, pt medicated for pain and nausea, pt admits to drinking 1 pt vodka this morning, vss, will continue to monitor.
[2021-11-02] MEDS: Morphine Sulfate Immed Release 15 MG TABLET PO (12:33)
[2021-11-02] MEDS: Ondansetron ODT 4 MG TAB.RAPDIS TRANSLINGU (12:33)
--- NOTE | 2021-11-02 13:51 | PC.NURSE ---
patient a&o, pt given po per his request, pt continuously ringing wanting something to eat, pt unable to have po at this time- pt aware, will continue to monitor.
[2021-11-02 14:00] VITALS: BP 114/82; PULSE 105; RESP 16; O2SAT 92
--- NOTE | 2021-11-02 14:02 | PC.NURSE ---
pt a&ox3, vss, requesting food and juice, gave pt juice, no food per provider.
--- NOTE | 2021-11-02 15:17 | PC.NURSE ---
splint placed by aria BROOKS
== END 2021-11-02 15:20 | disposition home or self-care (01) ==
PROVIDERS: Emergency Provider Emergency Medicine; PCP Physician Assistant Medical
DX: S82.65XD Nondisplaced fracture of lateral malleolus of left fibula, subsequent encounter for closed fracture with routine healing (principal); X58.XXXD Exposure to other specified factors, subsequent encounter; Z91.19 Patient's noncompliance with other medical treatment and regimen
CPT/HCPCS: 29515; 73610; 73630; 99284

== ENCOUNTER 2021-11-09 09:06 | Outpatient (REF) | payer OTHER, SELFPAY ==
--- NOTE | ~2021-11-09 | XR_ITS ---
EXAMINATION: XR ANKLE, LEFT CLINICAL INFORMATION: Pain in unspecified ankle and joints COMPARISON: 11/02/2021 TECHNIQUE: AP, lateral, and mortise views of the left ankle. FINDINGS: Soft tissues are swollen, similar to prior. Nondisplaced distal fibular fracture is again suspected, though only well seen on the lateral view. Small marginal osteophytes are present at the talocrural joint. A small osseous loose body is suspected in the anterior aspect of the talocrural joint, measuring 1.2 cm in diameter. Ankle mortise is symmetric. Widening of the medial clear space appears more proportional with the remainder of the joint. Possible deltoid ligament injury is uncertain. Osteoarthritis in the midfoot is better seen on prior radiographs. Type II accessory navicular. Small enthesopathic spur at the Achilles tendon insertion. XR/XR ankle LT min 3V IMPRESSION: 1. Marked soft tissue swelling at the ankle. Subtle nondisplaced distal fibular fracture is again suspected, though only appreciated on the lateral view on this study. 2. Mild talocrural osteoarthritis with a probable small anterior loose body.
== END 2021-11-09 09:07 | disposition home or self-care (01) ==
LOC: HO.HOSX 09:06
PROVIDERS: Visit Provider Physician Assistant
DX: S82.832A Other fracture of upper and lower end of left fibula, initial encounter for closed fracture (principal)
CPT/HCPCS: 29405; 73610; 99202

== ENCOUNTER 2021-11-24 18:30 | Emergency (ER) | payer OTHER, SELFPAY ==
[2021-11-24 18:46] VITALS: BP 164/95; PULSE 112; PULSE 120; RESP 24; TEMP 36.8; O2SAT 88; BMI 38.0
--- NOTE | 2021-11-24 18:50 | ED.ALCOHOL ---
HPI - Alcohol General Chief Complaint: ETOH/Substance Use Stated Complaint: etoh Time Seen by Provider: 11/24/21 18:47 Source: patient and EMS Mode of arrival: EMS Limitations: no limitations History of Present Illness HPI narrative: Patient alcoholic comes here all the time had few drinks of vodka, questionable fall at home patient patient refusing any testing or labs Related Data Home Medications Medication Instructions Recorded Confirmed albuterol sulfate 90 mcg/actuation 2 inh INHALATION Q4H PRN 11/10/20 11/09/21 aerosol inhaler fluticasone propionate 44 1 puff PO BID 11/10/20 11/09/21 mcg/actuation HFA aerosol inhaler ferrous sulfate 325 mg (65 mg 325 mg PO DAILY 08/11/21 11/09/21 iron) tablet omeprazole 40 mg capsule,delayed 40 mg PO DAILY 08/11/21 11/09/21 release tamsulosin 0.4 mg capsule 0.4 mg PO BEDTIME 08/11/21 11/09/21 trazodone 100 mg tablet 100 mg PO BEDTIME 08/11/21 11/09/21 Previous Rx's Medication Instructions Recorded walker (Ultra-Light Rollator) #1 ea 08/19/21 amlodipine 10 mg tablet 10 mg PO DAILY 90 Days #90 tab 09/27/21 carvedilol 6.25 mg tablet 6.25 mg PO BID 90 Days #180 tab 09/27/21 lisinopril 40 mg tablet 40 mg PO DAILY 90 Days #90 tab 09/27/21 oxycodone 5 mg tablet 5 mg PO TID PRN #12 tab 11/02/21 Allergies Allergy/AdvReac Type Severity Reaction Status Date / Time No Known Allergies Allergy Verified 11/09/21 10:54 Review of Systems Review of Systems: Yes all other systems are reviewed and are negative [facility] Past Medical History Medical History Alcohol dependence Alcohol dependence with withdrawal HLD (hyperlipidemia) Hypertension Nonischemic cardiomyopathy Surgical History History of cardiac cath (~01/2016) Family History Family History Father No problems noted. Mother No problems noted. Social History Social History Household Members: Spouse Housing: Apartment Do you presently have visiting nurse or other home services: No Unable to assess alcohol history related to: Refusing to respond Alcohol intake: current Alcohol intake frequency: 3 or more drinks per day Alcohol type: hard liquor Patient Tobacco Use Status: Never used Tobacco Advance Directives: Yes Advance Directives on File: Yes Advance Directives Date on File: 07/01/20 service: No Current occupational status: unemployed Physical Exam ED Vital Signs: Vital Signs - 24 hr 11/24/21 18:46 11/24/21 18:58 Temperature 98.2 F Pulse Rate 112 H 110 H Respiratory Rate 24 H 18 Blood Pressure 164/95 H 158/91 H Pulse Oximetry 88 L 95 BMI result Body Mass Index 38.0 Appearance: Alert. Oriented X3. No acute distress. etoh+ Eyes: Superficial lac on the right eye brow ENT: Pharynx normal. Oral Mucosa moist Neck: Normal inspection. Neck supple. CVS: Normal heart rate and rhythm. Pulses normal. Respiratory: No respiratory distress. Equal air entry bilateral, no wheezing/rales/rhonchi Abdomen: Soft and nontender. Bowel sounds are present, no mass palpable, Skin: Skin warm and dry. Normal skin color. Normal skin turgor. Extremities: No lower extremity edema. No calf tenderness Neuro: Oriented X 3. No motor deficit. Discharge Plan Discharge Clinical Impression: Alcoholic intoxication Patient Disposition: Home, Self-Care Instructions: Alcohol Intoxication (ED) Additional Instructions: Stop drinking alcohol and follow-up with detox Prescriptions: No Action carvedilol 6.25 mg tablet 6.25 mg PO BID 90 Days Qty: 180 1RF Rx Instructions: must administer with a meal/food lisinopril 40 mg tablet 40 mg PO DAILY 90 Days Qty: 90 1RF amlodipine 10 mg tablet 10 mg PO DAILY 90 Days Qty: 90 1RF tamsulosin 0.4 mg Capsule 0.4 mg PO BEDTIME 0RF trazodone 100 mg Tablet 100 mg PO BEDTIME 0RF ferrous sulfate 325 mg (65 mg iron) Tablet 325 mg PO DAILY 0RF omeprazole 40 mg capsule,delayed release(DR/EC) 40 mg PO DAILY 0RF (DME) Ultra-Light Rollator Misc See Rx Instructions .Route Qty: 1 0RF Rx Instructions: As directed oxycodone 5 mg tablet 5 mg PO TID PRN (Reason: pain) Qty: 12 0RF Rx Instructions: partial fill okay fluticasone propionate 44 mcg/actuation HFA aerosol inhaler 1 puff PO BID 0RF albuterol sulfate 90 mcg/actuation HFA aerosol inhaler 2 inh inhalation Q4H PRN (Reason: Dyspnea) 0RF
[2021-11-24 18:58] VITALS: BP 158/91; PULSE 110; RESP 18; O2SAT 95
--- NOTE | 2021-11-24 19:02 | PC.NURSE ---
pt is refusing covid test.
== END 2021-11-24 20:10 | disposition home or self-care (01) ==
PROVIDERS: Emergency Provider Internal Medicine
DX: F10.129 Alcohol abuse with intoxication, unspecified (principal); Y90.9 Presence of alcohol in blood, level not specified; Z79.899 Other long term (current) drug therapy; Z71.41 Alcohol abuse counseling and surveillance of alcoholic
CPT/HCPCS: 99282; 99283

== ENCOUNTER 2021-11-27 21:53 | Emergency (ER) | payer OTHER, SELFPAY ==
--- NOTE | ~2021-11-27 | XR_ITS ---
EXAMINATION: XR CHEST CLINICAL INFORMATION: Mildly hypoxic, possible aspiration, EtOH COMPARISON: 09/15/2021 TECHNIQUE: Frontal view of the chest was obtained. FINDINGS: The lungs are hypoinflated. No focal consolidation is seen. There is suggestion of mild scattered atelectasis bilaterally, as also noted on prior CT. No evidence of pneumothorax, significant pleural effusion, or overt pulmonary edema. Cardiac size is within normal limits. Calcification is present at the aortic arch. Redemonstrated hiatal hernia. No acute osseous findings are seen. XR/XR chest 1V IMPRESSION: Suggestion of mild scattered atelectasis bilaterally, without confluent consolidation.
--- NOTE | ~2021-11-27 | CT_ITS ---
EXAMINATION: CT HEAD WITHOUT CONTRAST CLINICAL INFORMATION: Fall, EtOH COMPARISON: 09/15/2021 TECHNIQUE: Contiguous axial imaging was performed from the skull base to vertex without intravenous administration of contrast. This CT examination was performed using dose optimization techniques as appropriate, variously including the following: *Automated exposure control *Adjustment of mA and/or kV according to patient size (this includes techniques or standardized protocols for targeted exams where dose is matched to indication/reason for exam; i.e. extremities or head) *Use of iterative reconstruction technique DLP: 752 mGy-cm FINDINGS: There is no evidence of acute intracranial hemorrhage or territorial infarction. No abnormal mass effect or midline shift is seen. Philippe to white matter differentiation is well preserved. No extra-axial fluid collections are identified. The ventricles are normal in size. There is mild periventricular white matter hypoattenuation consistent with chronic small vessel ischemic disease. The osseous structures and soft tissues are normal. The mastoid air cells and visualized portions of the paranasal sinuses are well aerated. CT/CT head/brain wo con IMPRESSION: No acute intracranial pathology.
[2021-11-27 22:02] VITALS: BP 152/93; PULSE 113; RESP 16; TEMP 36.8; O2SAT 90; BMI 30.4
--- NOTE | 2021-11-27 22:08 | ECG_ITS ---
Test Reason : ETOH Blood Pressure : / mmHG Vent. Rate : 106 BPM Atrial Rate : 106 BPM P-R Int : 170 ms QRS Dur : 104 ms QT Int : 362 ms P-R-T Axes : 043 -22 007 degrees QTc Int : 480 ms Sinus tachycardia Minimal voltage criteria for LVH, may be normal variant ( [employer] product ) Borderline ECG When compared with ECG of 15-SEP-2021 07:03, No significant change was found Referred By: Shawna Euceda Electronically Signed By:Steven Edwards
--- NOTE | 2021-11-27 22:09 | ED.ALCOHOL ---
HPI - Alcohol General Chief Complaint: ETOH/Substance Use Stated Complaint: ETOH Time Seen by Provider: 11/27/21 21:58 Source: EMS Mode of arrival: EMS Limitations: other (Intoxicated) History of Present Illness HPI narrative: Patient comes to the emergency room via EMS. Patient coming from home, seems that he called EMS, patient is intoxicated, known to the emergency room for multiple falls secondary to alcohol intoxications. At this time, patient is awake and alert, not answering questions, yelling fucken Putin , otherwise not saying anything, at this time, patient is too intoxicated to explain how he fell. Related Data Home Medications Medication Instructions Recorded Confirmed albuterol sulfate 90 mcg/actuation 2 inh INHALATION Q4H PRN 11/10/20 11/09/21 aerosol inhaler fluticasone propionate 44 1 puff PO BID 11/10/20 11/09/21 mcg/actuation HFA aerosol inhaler ferrous sulfate 325 mg (65 mg 325 mg PO DAILY 08/11/21 11/09/21 iron) tablet omeprazole 40 mg capsule,delayed 40 mg PO DAILY 08/11/21 11/09/21 release tamsulosin 0.4 mg capsule 0.4 mg PO BEDTIME 08/11/21 11/09/21 trazodone 100 mg tablet 100 mg PO BEDTIME 08/11/21 11/09/21 Previous Rx's Medication Instructions Recorded leann (Ultra-Light Rollator) #1 ea 08/19/21 amlodipine 10 mg tablet 10 mg PO DAILY 90 Days #90 tab 09/27/21 carvedilol 6.25 mg tablet 6.25 mg PO BID 90 Days #180 tab 09/27/21 lisinopril 40 mg tablet 40 mg PO DAILY 90 Days #90 tab 09/27/21 oxycodone 5 mg tablet 5 mg PO TID PRN #12 tab 11/02/21 Allergies Allergy/AdvReac Type Severity Reaction Status Date / Time No Known Allergies Allergy Verified 11/09/21 10:54 Review of Systems Review of Systems: Yes Other (Too intoxicated at the moment) [facility] Past Medical History Medical History Alcohol dependence Alcohol dependence with withdrawal HLD (hyperlipidemia) Hypertension Nonischemic cardiomyopathy Surgical History History of cardiac cath (~01/2016) Family History Family History Father No problems noted. Mother No problems noted. Social History Social History Household Members: Spouse Housing: Apartment Do you presently have visiting nurse or other home services: No Unable to assess alcohol history related to: Refusing to respond Alcohol intake: current Alcohol intake frequency: 3 or more drinks per day Alcohol type: hard liquor Patient Tobacco Use Status: Never used Tobacco Use of substances other than those prescribed or required for medical reasons: No Advance Directives: Yes Advance Directives on File: Yes Advance Directives Date on File: 07/01/20 service: No Current occupational status: unemployed Physical Exam ED Vital Signs: Vital Signs - 24 hr 11/27/21 22:02 Temperature 98.2 F Pulse Rate 113 H Respiratory Rate 16 Blood Pressure 152/93 H Pulse Oximetry 90 L BMI result Body Mass Index 30.4 Const Other: Appearance: Alert. Oriented X2. No acute distress. Intoxicated Eyes: Pupils equal, round and reactive to light. ENT: Pharynx normal. Denies nose pain on palpation Neck: Normal inspection. Neck supple. No lymph nodes noted. No crepitus CVS: Normal heart rate and rhythm. Pulses normal. Normal S1 and S2 Respiratory: No respiratory distress. Breath sounds normal. No Wheezing. No rales Abdomen: Soft and nontender. No rigidity. No distention. good BS x4 Skin: Skin warm and dry. Patient has small facial abrasions, bleeding controlled, no lacerations Extremities: No lower extremity edema. No Lacerations. No Rash, left lower extremity in a cast Neuro: Moves all extremities, cranial nerves 2-12 grossly intact No motor deficit. No sensory deficit. Moving all extermities. No slurred speech. Psych: Intoxicated, but actively calm, not answering any questions Course Course Course Narrative: It was noted that patient's oxygen saturation is 90% on room air. Patient does not seem to have any history of asthma or COPD. Lungs do sound clear. I ordered several labs, x-ray, head CT. Patient is known to refuse all treatment. Patient's nurse is going to try to obtain blood work, will go ahead and do the x-ray, hopefully patient will cooperate for the head CT Patient's lactic acid is 5.6, likely secondary to alcohol intoxication. Patient has no signs of infection, sepsis not suspected. Patient's oxygen saturation in the low 90s, likely secondary to hypoventilation syndrome. Patient is obese. Patient is calm, cooperative, sleeping comfortably in bed. Head CT shows no acute pathologies. Plan: metabolize to freedom, reassess once the patient is sober Physician observation started at 01:26 [facility] - Alcohol Lab Data Result diagrams: 11/27/21 22:21 11/27/21 22:21 Labs: Lab Results 11/27/21 11/27/21 11/27/21 Range/Units 22:21 22:21 22:21 WBC 5.9 (4.8-10.8) X10*3/uL RBC 4.47 L (4.60-5.80) X10*6/uL Hgb 11.9 L (14.0-18.0) g/dl Hct 37.1 L (42.0-52.0) % MCV 83.0 (80.0-98.0) fL MCH 26.6 L (27.0-33.0) pg MCHC 32.1 (31.0-36.0) g/dl RDW 19.3 H (11.0-16.0) % Plt Count 284 (160-400) X10*3/uL MPV 8.5 L (9.4-12.4) fL Immature Gran % (Auto) 0.2 (0.0-0.4) % Neut % (Auto) 63.4 (45-73) % Lymph % (Auto) 28.1 (20-40) % Cecil % (Auto) 6.6 (2-11) % Eos % (Auto) 0.7 (0-4) % Baso % (Auto) 1.0 (0-2) % Lymph # (Auto) 1.7 (1.2-4.9) X10*3/uL Cecil # (Auto) 0.4 (0.1-1.2) X10*3/uL Eos # (Auto) 0.0 (0.0-0.4) X10*3/uL Baso # (Auto) 0.1 (0.0-0.2) X10*3/uL Abs Immat Gran (auto) 0.01 (0.00-0.03) X10*3/uL Absolute Neuts (auto) 3.8 (2.0-8.3) x10*3/uL Absolute Nucleated RBC 0.000 (0.0-0.012) X10*3/uL Nucleated RBC % (auto) 0.0 (0.0-0.2) /100WBC PT (9.9-13.0) SEC INR (0.9-1.1) Sodium 138 (135-145) mmol/L Potassium 3.5 D (3.3-5.1) mmol/L Chloride 99 (96-108) mmol/L Carbon Dioxide 20 L (22-29) mmol/L Anion Gap 23 H (12-20) BUN 12 (9-16) mg/dL Creatinine 0.76 (0.5-1.4) mg/dL Estim Creat Clear Calc 110.2 Estimated GFR > 60 Random Glucose 97 (60-115) mg/dL Lactic Acid (0.5-2.0) mmol/L Calcium 8.5 D (8.4-10.2) mg/dL Magnesium 2.0 (1.6-2.6) mg/dL Total Bilirubin 0.3 (0.0-1.0) mg/dL Direct Bilirubin < 0.2 (0.0-0.5) mg/dL AST 42 H (5-37) U/L ALT 25 (0-40) U/L Alkaline Phosphatase 67 (39-117) U/L Troponin I High Sens 9.6 D (<3.5-35.0) ng/L B-Natriuretic Peptide (<100) pg/mL Total Protein 7.8 (6.5-8.0) g/dL Albumin 4.0 (3.5-5.0) g/dL Ethyl Alcohol mg/dL COVID-19 (ELOY) (Negative) COVID-19 Clin Com 11/27/21 11/27/21 11/27/21 Range/Units 22:21 22:21 22:21 WBC (4.8-10.8) X10*3/uL RBC (4.60-5.80) X10*6/uL Hgb (14.0-18.0) g/dl Hct (42.0-52.0) % MCV (80.0-98.0) fL MCH (27.0-33.0) pg MCHC (31.0-36.0) g/dl RDW (11.0-16.0) % Plt Count (160-400) X10*3/uL MPV (9.4-12.4) fL Immature Gran % (Auto) (0.0-0.4) % Neut % (Auto) (45-73) % Lymph % (Auto) (20-40) % Cecil % (Auto) (2-11) % Eos % (Auto) (0-4) % Baso % (Auto) (0-2) % Lymph # (Auto) (1.2-4.9) X10*3/uL Cecil # (Auto) (0.1-1.2) X10*3/uL Eos # (Auto) (0.0-0.4) X10*3/uL Baso # (Auto) (0.0-0.2) X10*3/uL Abs Immat Gran (auto) (0.00-0.03) X10*3/uL Absolute Neuts (auto) (2.0-8.3) x10*3/uL Absolute Nucleated RBC (0.0-0.012) X10*3/uL Nucleated RBC % (auto) (0.0-0.2) /100WBC PT 11.3 (9.9-13.0) SEC INR 1.0 (0.9-1.1) Sodium (135-145) mmol/L Potassium (3.3-5.1) mmol/L Chloride (96-108) mmol/L Carbon Dioxide (22-29) mmol/L Anion Gap (12-20) BUN (9-16) mg/dL Creatinine (0.5-1.4) mg/dL Estim Creat Clear Calc Estimated GFR Random Glucose (60-115) mg/dL Lactic Acid 5.6 H* (0.5-2.0) mmol/L Calcium (8.4-10.2) mg/dL Magnesium (1.6-2.6) mg/dL Total Bilirubin (0.0-1.0) mg/dL Direct Bilirubin (0.0-0.5) mg/dL AST (5-37) U/L ALT (0-40) U/L Alkaline Phosphatase (39-117) U/L Troponin I High Sens (<3.5-35.0) ng/L B-Natriuretic Peptide (<100) pg/mL Total Protein (6.5-8.0) g/dL Albumin (3.5-5.0) g/dL Ethyl Alcohol mg/dL COVID-19 (ELOY) Negative (Negative) COVID-19 Clin Com See Note 11/27/21 11/27/21 Range/Units 22:21 22:21 WBC (4.8-10.8) X10*3/uL RBC (4.60-5.80) X10*6/uL Hgb (14.0-18.0) g/dl Hct (42.0-52.0) % MCV (80.0-98.0) fL MCH (27.0-33.0) pg MCHC (31.0-36.0) g/dl RDW (11.0-16.0) % Plt Count (160-400) X10*3/uL MPV (9.4-12.4) fL Immature Gran % (Auto) (0.0-0.4) % Neut % (Auto) (45-73) % Lymph % (Auto) (20-40) % Cecil % (Auto) (2-11) % Eos % (Auto) (0-4) % Baso % (Auto) (0-2) % Lymph # (Auto) (1.2-4.9) X10*3/uL Cecil # (Auto) (0.1-1.2) X10*3/uL Eos # (Auto) (0.0-0.4) X10*3/uL Baso # (Auto) (0.0-0.2) X10*3/uL Abs Immat Gran (auto) (0.00-0.03) X10*3/uL Absolute Neuts (auto) (2.0-8.3) x10*3/uL Absolute Nucleated RBC (0.0-0.012) X10*3/uL Nucleated RBC % (auto) (0.0-0.2) /100WBC PT (9.9-13.0) SEC INR (0.9-1.1) Sodium (135-145) mmol/L Potassium (3.3-5.1) mmol/L Chloride (96-108) mmol/L Carbon Dioxide (22-29) mmol/L Anion Gap (12-20) BUN (9-16) mg/dL Creatinine (0.5-1.4) mg/dL Estim Creat Clear Calc Estimated GFR Random Glucose (60-115) mg/dL Lactic Acid (0.5-2.0) mmol/L Calcium (8.4-10.2) mg/dL Magnesium (1.6-2.6) mg/dL Total Bilirubin (0.0-1.0) mg/dL Direct Bilirubin (0.0-0.5) mg/dL AST (5-37) U/L ALT (0-40) U/L Alkaline Phosphatase (39-117) U/L Troponin I High Sens (<3.5-35.0) ng/L B-Natriuretic Peptide < 10 (<100) pg/mL Total Protein (6.5-8.0) g/dL Albumin (3.5-5.0) g/dL Ethyl Alcohol 368 H* mg/dL COVID-19 (ELOY) (Negative) COVID-19 Clin Com Imaging Data CT scan - head: Radiologist's impression: There is no evidence of acute intracranial hemorrhage or territorial infarction. No abnormal mass effect or midline shift is seen. Philippe to white matter differentiation is well preserved. No extra-axial fluid collections are identified. The ventricles are normal in size. There is mild periventricular white matter hypoattenuation consistent with chronic small vessel ischemic disease. The osseous structures and soft tissues are normal. The mastoid air cells and visualized portions of the paranasal sinuses are well aerated. ? CT/CT head/brain wo con IMPRESSION: No acute intracranial pathology. Chest x-ray: Radiologist's impression: The lungs are hypoinflated. No focal consolidation is seen. There is suggestion of mild scattered atelectasis bilaterally, as also noted on prior CT. No evidence of pneumothorax, significant pleural effusion, or overt pulmonary edema. Cardiac size is within normal limits. Calcification is present at the aortic arch. Redemonstrated hiatal hernia. No acute osseous findings are seen. XR/XR chest 1V IMPRESSION: Suggestion of mild scattered atelectasis bilaterally, without confluent consolidation. ? Discharge Plan Discharge Clinical Impression: Alcoholic intoxication, Abrasion Patient Disposition: Still a Patient Prescriptions: No Action carvedilol 6.25 mg tablet 6.25 mg PO BID 90 Days Qty: 180 1RF Rx Instructions: must administer with a meal/food lisinopril 40 mg tablet 40 mg PO DAILY 90 Days Qty: 90 1RF amlodipine 10 mg tablet 10 mg PO DAILY 90 Days Qty: 90 1RF tamsulosin 0.4 mg Capsule 0.4 mg PO BEDTIME 0RF trazodone 100 mg Tablet 100 mg PO BEDTIME 0RF ferrous sulfate 325 mg (65 mg iron) Tablet 325 mg PO DAILY 0RF omeprazole 40 mg capsule,delayed release(DR/EC) 40 mg PO DAILY 0RF (DME) Ultra-Light Rollator Misc See Rx Instructions .Route Qty: 1 0RF Rx Instructions: As directed oxycodone 5 mg tablet 5 mg PO TID PRN (Reason: pain) Qty: 12 0RF Rx Instructions: partial fill okay fluticasone propionate 44 mcg/actuation HFA aerosol inhaler 1 puff PO BID 0RF albuterol sulfate 90 mcg/actuation HFA aerosol inhaler 2 inh inhalation Q4H PRN (Reason: Dyspnea) 0RF
[2021-11-27 22:31] LABS: MANUAL DIFF FLAG NO
[2021-11-27 22:32] LABS: Basophils Absolute Auto 0.1 X10*3/uL (0.0-0.2); Eosinophils Percent Auto 0.7 % (0-4); Hematocrit 37.1 % (42.0-52.0); Hemoglobin 11.9 g/dl (14.0-18.0); Imm Gran Abs Auto 0.01 X10*3/uL (0.00-0.03); Imm Gran Pct Auto 0.2 % (0.0-0.4); Lymphocytes Absolute Auto 1.7 X10*3/uL (1.2-4.9); Lymphocytes Percent Auto 28.1 % (20-40); Mean Corpuscular HGB Conc 32.1 g/dl (31.0-36.0); Mean Corpuscular Hemoglobin 26.6 pg (27.0-33.0); Mean Platelet Volume 8.5 fL (9.4-12.4); Monocytes Absolute Auto 0.4 X10*3/uL (0.1-1.2); Monocytes Percent Auto 6.6 % (2-11); Neutrophils Absolute Auto 3.8 x10*3/uL (2.0-8.3); Neutrophils Percent Auto 63.4 % (45-73); Platelet Count 284 X10*3/uL (160-400); Red Blood Count 4.47 X10*6/uL (4.60-5.80); Red Cell Distribution Width 19.3 % (11.0-16.0); White Blood Count 5.9 X10*3/uL (4.8-10.8)
[2021-11-27 22:38] LABS: Prothrombin Time 11.3 SEC (9.9-13.0)
[2021-11-27 22:45] LABS: Ethanol 368 mg/dL
[2021-11-27 22:46] LABS: Lactic Acid 5.6 mmol/L (0.5-2.0)
[2021-11-27 22:48] LABS: COVID-19 Test Negative (Negative)
[2021-11-27 22:51] LABS: Alanine Aminotransferase 25 U/L (0-40); Alkaline Phosphatase 67 U/L (39-117); Anion Gap 23 (12-20); Aspartate Amino Transferase 42 U/L (5-37); Bilirubin Direct < 0.2 mg/dL (0.0-0.5); Bilirubin Total 0.3 mg/dL (0.0-1.0); Blood Urea Nitrogen 12 mg/dL (9-16); Calcium 8.5 mg/dL (8.4-10.2); Carbon Dioxide 20 mmol/L (22-29); Chloride 99 mmol/L (96-108); Creatinine Clr Calc Pharmacy 110.2; Estimated Glomerular Filt Rate > 60; Glucose Random 97 mg/dL (60-115); Potassium 3.5 mmol/L (3.3-5.1); Sodium 138 mmol/L (135-145); Total Protein 7.8 g/dL (6.5-8.0)
[2021-11-27 22:53] LABS: B Type Natriuretic Peptide < 10 pg/mL (<100); Troponin-I High Sensitivity 9.6 ng/L (<3.5-35.0)
[2021-11-27] MEDS: 0.9 % Sodium Chloride 1,000 ML 999 ML IV (23:15)
[2021-11-28 00:29] LABS: Reflex Lactate? Lactic Acid Added
[2021-11-28 01:33] LABS: ~Lactic Acid-LAB USE ONLY 3.8 mmol/L (0.5-2.0)
[2021-11-28 02:00] VITALS: RESP 15
[2021-11-28] MEDS: Acetaminophen 325 MG TABLET 650 MG PO (03:05)
--- NOTE | 2021-11-28 03:06 | PC.NURSE ---
Patient complaining of headache and given Tylenol.
[2021-11-28 03:15] LABS: Reflex Lactate? 2 Y
[2021-11-28 03:53] LABS: ~Lactic Acid-LAB USE ONLY 3.2 mmol/L (0.5-2.0)
[2021-11-28 04:00] VITALS: RESP 15
[2021-11-28 06:18] VITALS: BP 165/105; PULSE 110; RESP 18; O2SAT 94
--- NOTE | 2021-11-28 06:24 | PC.NURSE ---
PATIENT VITALS REPORTED TO PROVIDER NO FURTHER ORDERS AT THIS TIME
--- NOTE | 2021-11-28 08:28 | PC.NURSE ---
attempt to reach sister, no answer at this time
--- NOTE | 2021-11-28 08:55 | PC.NURSE ---
plans for transportation via chair van being made at this time. pt able to stand/pivot into wc for ride home. pt reports having a wc at home for personal use.
== END 2021-11-28 09:48 | disposition still patient (30) ==
PROVIDERS: Emergency Provider Emergency Medicine
DX: F10.220 Alcohol dependence with intoxication, uncomplicated (principal); Y90.8 Blood alcohol level of 240 mg/100 ml or more; S00.81XA Abrasion of other part of head, initial encounter; W19.XXXA Unspecified fall, initial encounter; R51.9 Headache, unspecified; I10 Essential (primary) hypertension; E78.5 Hyperlipidemia, unspecified; E66.9 Obesity, unspecified; K70.0 Alcoholic fatty liver; Z20.822 Contact with and (suspected) exposure to COVID-19; Z91.81 History of falling; Y93.89 Activity, other specified; Y92.039 Unspecified place in apartment as the place of occurrence of the external cause; Y99.9 Unspecified external cause status
CPT/HCPCS: 36415; 70450; 71045; 80048; 80076; 82077; 83605; 83735; 83880; 84484; 85025; 85610; 87040; 87635; 93005; 96360; 99285

== ENCOUNTER 2021-11-28 17:13 | Emergency (ER) | payer OTHER, SELFPAY ==
--- NOTE | ~2021-11-28 | CT_ITS ---
EXAMINATION: CT HEAD WITHOUT CONTRAST CLINICAL INFORMATION: Fall, with head trauma COMPARISON: Head CT 11/27/2021 TECHNIQUE: Contiguous axial imaging was performed from the skull base to vertex without intravenous administration of contrast. This CT examination was performed using dose optimization techniques as appropriate, variously including the following: *Automated exposure control *Adjustment of mA and/or kV according to patient size (this includes techniques or standardized protocols for targeted exams where dose is matched to indication/reason for exam; i.e. extremities or head) *Use of iterative reconstruction technique DLP: 805 mGy-cm FINDINGS: There is no evidence of acute intracranial hemorrhage or territorial infarction. No abnormal mass effect or midline shift is seen. Philippe to white matter differentiation is well preserved. No extra-axial fluid collections are identified. The ventricles are normal in size. Again demonstrated are areas of decreased attenuation in the subcortical and periventricular white matter, likely retail account representative of chronic small vessel ischemic disease. The osseous structures and soft tissues are normal. The mastoid air cells and visualized portions of the paranasal sinuses are well aerated. CT/CT head/brain wo con IMPRESSION: No acute intracranial pathology.
[2021-11-28 17:24] VITALS: BP 138/83; BP 152/80; PULSE 77; PULSE 80; RESP 18; O2SAT 100; O2SAT 95
--- NOTE | 2021-11-28 17:38 | ED.ALCOHOL ---
HPI - Alcohol General Chief Complaint: Fall Stated Complaint: etoh Time Seen by Provider: 11/28/21 17:38 Source: patient Mode of arrival: ambulatory Limitations: altered mental status (due to intoxication) and other History of Present Illness HPI narrative: This is a 61-year-old male past medical history significant for ALHAJI, hyperlipidemia, nonischemic cardiomyopathy, hypertension, alcohol abuse disorder presenting to the emergency department via ambulance with acute alcohol intoxication. Patient clearly intoxicated, his tongue he is having pain to his left foot where he has a fracture of the distal end of the left fibula with a cast in place. Patient also has an abrasion overlying the right eyebrow. Patient tells me he fell, hit his head. Unsure of there is LOC patient is intoxicated and not answering questions appropriately. He tells me he drink about a pt of vodka. However all other questions he just laughs. Unable to obtain an accurate review of systems. MD complaint: alcohol intoxication Amount of alcohol consumed: 1 pt of vodka Chronic alcohol use: Yes Previous visits for alcohol intoxication: Yes Recent trauma: Yes Treatments prior to arrival: none Related Data Home Medications Medication Instructions Recorded Confirmed albuterol sulfate 90 mcg/actuation 2 inh INHALATION Q4H PRN 11/10/20 11/28/21 aerosol inhaler fluticasone propionate 44 1 puff PO BID 11/10/20 11/28/21 mcg/actuation HFA aerosol inhaler ferrous sulfate 325 mg (65 mg 325 mg PO DAILY 08/11/21 11/28/21 iron) tablet omeprazole 40 mg capsule,delayed 40 mg PO DAILY 08/11/21 11/28/21 release tamsulosin 0.4 mg capsule 0.4 mg PO BEDTIME 08/11/21 11/28/21 trazodone 100 mg tablet 100 mg PO BEDTIME 08/11/21 11/28/21 Previous Rx's Medication Instructions Recorded walker (Ultra-Light Rollator) #1 ea 08/19/21 amlodipine 10 mg tablet 10 mg PO DAILY 90 Days #90 tab 09/27/21 carvedilol 6.25 mg tablet 6.25 mg PO BID 90 Days #180 tab 09/27/21 lisinopril 40 mg tablet 40 mg PO DAILY 90 Days #90 tab 09/27/21 oxycodone 5 mg tablet 5 mg PO TID PRN #12 tab 11/02/21 Allergies Allergy/AdvReac Type Severity Reaction Status Date / Time No Known Allergies Allergy Verified 11/09/21 10:54 Review of Systems Review of Systems: Yes Unobtainable due to mental status (Due to acute alcohol intoxication patient not making much sense not answeri) [facility] Past Medical History Attestation statement: The following information was validated with the patient. Source: old records reviewed and nursing notes reviewed Medical History Alcohol dependence Alcohol dependence with withdrawal HLD (hyperlipidemia) Hypertension Nonischemic cardiomyopathy Surgical History History of cardiac cath (~01/2016) Family History Family History Father No problems noted. Mother No problems noted. Social History Social History Household Members: Spouse Housing: Apartment Do you presently have visiting nurse or other home services: No Unable to assess alcohol history related to: Refusing to respond Alcohol intake: current Alcohol intake frequency: 3 or more drinks per day Alcohol type: hard liquor Patient Tobacco Use Status: Never used Tobacco Advance Directives: Yes Advance Directives on File: Yes Advance Directives Date on File: 07/01/20 service: No Current occupational status: unemployed Physical Exam ED Vital Signs: Vital Signs - 24 hr 11/28/21 17:24 11/28/21 21:12 Pulse Rate 80 131 H Respiratory Rate 18 Blood Pressure 138/83 169/94 H Pulse Oximetry 95 92 BMI result Body Mass Index 0.2 vss Appearance: Alert.? Oriented X3.? No acute distress.? Head: Normocephalic, atraumatic, no step-offs or deformities Eyes: Pupils equal, round and reactive to light.? ENT: Pharynx normal.? Neck: Normal inspection.? Neck supple.? CVS: Normal heart rate and rhythm.? Pulses normal.? Respiratory: No respiratory distress.? Breath sounds normal.? Abdomen: Soft and nontender.? Skin: Skin warm and dry.? Normal skin color.? Normal skin turgor.?+ small laceration overlying the right eyebrow. Extremities: No lower extremity edema.? No calf ttp. 5/5 strength to bilateral upper and lower extremities Back: No midline tenderness, no C-spine tenderness, full range of motion, no CVA tenderness bilaterally Neuro: Oriented X 3.? No motor deficit.? No sensory deficit. CN 2-12 intact. Following commands. Course Reevaluation(s) Reevaluation #1: CBC within normal limits. Appears to be a patient's baseline. Patient's potassium was noted to be is on the lower end. It appears as though patient is chronically on the lower side. I gave p.o. potassium. Patient's UA is negative. Drug tox negative. Ethanol 264. Was called to patient's bedside he is now diaphoretic. Will give 2 mg of p.o. Ativan at this time. If this is not work I will try phenobarb. Time: 21:14 Reevaluation #2: Patient alert and oriented x4. Very upset and angry and telling me he wants to go home. He says he wants to leave against medical advice. He refused to take the Ativan at this time. He says he is going home regardless. I explained to patient that I am worried as his blood pressure is high, he is tachycardic, and his alcohol level is high. I told him I would feel more comfortable because given the Ativan and watch him for a little bit longer. I explained to patient why it is important to stay I explained he can have a seizure, fall, get a bleed, dye, decreased quality of life. He is able to comprehend these risks and he screams that he will be going home. At this time patient will be leaving against medical advice. He will be going home via chair van to ensure patient at least has a safe ride home. Explained all the risks to patient. Will go against medical advice and he agrees to leave despite the risks. Patient denies SI and HI upon departure. Time: 21:35 Reevaluation #3: Discuss this case with my attending. Time: 21:38 MDM - Alcohol MDM Narrative Medical decision making narrative: 1745 61 yo m pmhx ALHAJI, hyperlipidemia, nonischemic cardiomyopathy, hypertension, alcohol abuse disorder presenting to the emergency department via ambulance w/ acute alcohol intoxication. It appears as though patient was seen here today for the same issue. I tried to clarify with patient if the abrasion overlying his right eyebrow was new or old however he is unable to tell me and he continues to tell me that he fell today. PE within intoxicated male, not answering questions appropriately alert, awake, moving all extremities. Small abrasion overlying the right eyebrow. Plan at this time is basic labs, CT of the head and brain. Since patient is reporting fall he will get a CT of the head. Medical Records Attestation: I reviewed the patient's medical records. Lab Data Attestation: I reviewed the patient's lab results. Result diagrams: 11/28/21 20:03 11/28/21 20:03 Labs: Lab Results 11/28/21 11/28/21 11/28/21 Range/Units 18:34 18:34 20:03 WBC 7.1 (4.8-10.8) X10*3/uL RBC 4.40 L (4.60-5.80) X10*6/uL Hgb 11.7 L (14.0-18.0) g/dl Hct 36.8 L (42.0-52.0) % MCV 83.6 (80.0-98.0) fL MCH 26.6 L (27.0-33.0) pg MCHC 31.8 (31.0-36.0) g/dl RDW 18.8 H (11.0-16.0) % Plt Count 249 (160-400) X10*3/uL MPV 8.7 L (9.4-12.4) fL Immature Gran % (Auto) 0.3 (0.0-0.4) % Neut % (Auto) 68.8 (45-73) % Lymph % (Auto) 22.3 (20-40) % Sterling % (Auto) 6.7 (2-11) % Eos % (Auto) 1.3 (0-4) % Baso % (Auto) 0.6 (0-2) % Lymph # (Auto) 1.6 (1.2-4.9) X10*3/uL Sterling # (Auto) 0.5 (0.1-1.2) X10*3/uL Eos # (Auto) 0.1 (0.0-0.4) X10*3/uL Baso # (Auto) 0.0 (0.0-0.2) X10*3/uL Abs Immat Gran (auto) 0.02 (0.00-0.03) X10*3/uL Absolute Neuts (auto) 4.9 (2.0-8.3) x10*3/uL Absolute Nucleated RBC 0.000 (0.0-0.012) X10*3/uL Nucleated RBC % (auto) 0.0 (0.0-0.2) /100WBC Sodium (135-145) mmol/L Potassium (3.3-5.1) mmol/L Chloride (96-108) mmol/L Carbon Dioxide (22-29) mmol/L Anion Gap (12-20) BUN (9-16) mg/dL Creatinine (0.5-1.4) mg/dL Estim Creat Clear Calc Estimated GFR Random Glucose (60-115) mg/dL Calcium (8.4-10.2) mg/dL Total Bilirubin (0.0-1.0) mg/dL AST (5-37) U/L ALT (0-40) U/L Alkaline Phosphatase (39-117) U/L Total Protein (6.5-8.0) g/dL Albumin (3.5-5.0) g/dL Urine Color STRAW Urine Appearance CLEAR Urine pH 6.0 (5.0-8.0) Ur Specific [place] <= 1.005 (1.005-1.025) Urine Protein NEG (NEG-TRACE) MG/DL Urine Glucose (UA) NEG (NEG) MG/DL Urine Ketones NEG (NEG) MG/DL Urine Blood NEG (NEG) Urine Nitrite NEG (NEG) Ur Leukocyte Esterase NEG (NEG) Urine Opiates Screen Not Detected (Not Detect) Urine Fentanyl Screen Not Detected (Not Detect) Ur Barbiturates Screen Not Detected (Not Detect) Ur Phencyclidine Scrn Not Detected (Not Detect) Ur Amphetamines Screen Not Detected (Not Detect) U Benzodiazepines Scrn Not Detected (Not Detect) Urine Cocaine Screen Not Detected (Not Detect) U Marijuana (THC) Screen Not Detected (Not Detect) Ethyl Alcohol mg/dL 11/28/21 11/28/21 Range/Units 20:03 20:03 WBC (4.8-10.8) X10*3/uL RBC (4.60-5.80) X10*6/uL Hgb (14.0-18.0) g/dl Hct (42.0-52.0) % MCV (80.0-98.0) fL MCH (27.0-33.0) pg MCHC (31.0-36.0) g/dl RDW (11.0-16.0) % Plt Count (160-400) X10*3/uL MPV (9.4-12.4) fL Immature Gran % (Auto) (0.0-0.4) % Neut % (Auto) (45-73) % Lymph % (Auto) (20-40) % Sterling % (Auto) (2-11) % Eos % (Auto) (0-4) % Baso % (Auto) (0-2) % Lymph # (Auto) (1.2-4.9) X10*3/uL Sterling # (Auto) (0.1-1.2) X10*3/uL Eos # (Auto) (0.0-0.4) X10*3/uL Baso # (Auto) (0.0-0.2) X10*3/uL Abs Immat Gran (auto) (0.00-0.03) X10*3/uL Absolute Neuts (auto) (2.0-8.3) x10*3/uL Absolute Nucleated RBC (0.0-0.012) X10*3/uL Nucleated RBC % (auto) (0.0-0.2) /100WBC Sodium 140 (135-145) mmol/L Potassium 3.1 L (3.3-5.1) mmol/L Chloride 101 (96-108) mmol/L Carbon Dioxide 26 (22-29) mmol/L Anion Gap 16 (12-20) BUN 6 L (9-16) mg/dL Creatinine 0.77 (0.5-1.4) mg/dL Estim Creat Clear Calc 140.1 Estimated GFR > 60 Random Glucose 141 H D (60-115) mg/dL Calcium 8.8 (8.4-10.2) mg/dL Total Bilirubin 0.3 (0.0-1.0) mg/dL AST 35 (5-37) U/L ALT 26 (0-40) U/L Alkaline Phosphatase 70 (39-117) U/L Total Protein 7.5 (6.5-8.0) g/dL Albumin 3.9 (3.5-5.0) g/dL Urine Color Urine Appearance Urine pH (5.0-8.0) Ur Specific [place] (1.005-1.025) Urine Protein (NEG-TRACE) MG/DL Urine Glucose (UA) (NEG) MG/DL Urine Ketones (NEG) MG/DL Urine Blood (NEG) Urine Nitrite (NEG) Ur Leukocyte Esterase (NEG) Urine Opiates Screen (Not Detect) Urine Fentanyl Screen (Not Detect) Ur Barbiturates Screen (Not Detect) Ur Phencyclidine Scrn (Not Detect) Ur Amphetamines Screen (Not Detect) U Benzodiazepines Scrn (Not Detect) Urine Cocaine Screen (Not Detect) U Marijuana (THC) Screen (Not Detect) Ethyl Alcohol 264 mg/dL Critical Care Time Critical Care Time Critical Care Time: No Discharge Plan Discharge Clinical Impression: Alcoholic intoxication, Left against medical advice Patient Disposition: Left Against Medical Advice Additional Instructions: Take your medications as prescribed. If you were prescribed antibiotics today, it is important that you take your medication to their entirety, do not skip any doses, do not finish them early. Follow-up with your primary care provider this week. Return to the emergency department with new or worsening symptoms. In case of emergency call 911 Today you decided to leave against medical advise, this means that you could potentially experience worsening symptoms, , stroke, intracranial bleeding, decreased quality of life, complications from alcohol intoxication. You told me you understood the risks/benefits and he were willing to take these risks and go home. Please return if you change your mind. Za?ywaj marizol huerta z zaleceniami. Je?li dzisiaj przepisano Ci antybiotyki, wa?ne fayst, anali przyjmowa? marizol w ca?o?ci, amisha pomija? ?adnych dawek, amisha ko?czy? ich wcze?amisha. Kontynuacja kontaktu z dostawc? podstawowej opieki zdrowotnej w tym tygodniu. Wr?? na oddzia? ratunkowy z nowymi lub nasilonymi objawami. W przypadku po??czenia alarmowego pod numer 911 Dzisiaj chanodecydowa?e? si? odej?? wbrew zaleceniu lekarskiemu, co oznacza, ?e ??mo?esz potencjalnie do?wiadczy? nasilaj?cych si? objaw?w, ?mierci, udaru m?zgu, krwawienia ?r?dczaszkowego, obni?onej jako?ci ?ycia, powik?a? po zatruciu alkoholem. Powiedzia?e? mi, ?e rozumiesz ryzyko/korzy?ci, a on by? got?w podj?? to ryzyko i wr?ci? do domu. Prosz? wr??, je?ehsan elaine. Prescriptions: No Action carvedilol 6.25 mg tablet 6.25 mg PO BID 90 Days Qty: 180 1RF Rx Instructions: must administer with a meal/food lisinopril 40 mg tablet 40 mg PO DAILY 90 Days Qty: 90 1RF amlodipine 10 mg tablet 10 mg PO DAILY 90 Days Qty: 90 1RF tamsulosin 0.4 mg Capsule 0.4 mg PO BEDTIME 0RF trazodone 100 mg Tablet 100 mg PO BEDTIME 0RF ferrous sulfate 325 mg (65 mg iron) Tablet 325 mg PO DAILY 0RF omeprazole 40 mg capsule,delayed release(DR/EC) 40 mg PO DAILY 0RF (DME) Ultra-Light Rollator Misc See Rx Instructions .Route Qty: 1 0RF Rx Instructions: As directed oxycodone 5 mg tablet 5 mg PO TID PRN (Reason: pain) Qty: 12 0RF Rx Instructions: partial fill okay fluticasone propionate 44 mcg/actuation HFA aerosol inhaler 1 puff PO BID 0RF albuterol sulfate 90 mcg/actuation HFA aerosol inhaler 2 inh inhalation Q4H PRN (Reason: Dyspnea) 0RF Referrals: Physician,Unknown J [Primary Care Provider] - 2 days Stand Alone Forms: Against Medical Advice
[2021-11-28 18:44] LABS: Appearance Urine CLEAR; Color Urine STRAW; Glucose Urine UA NEG (NEG); Leukocyte Esterase Urine NEG (NEG); Nitrite Urine NEG (NEG); Specific Gravity - Urine <= 1.005 (1.005-1.025); Urine Blood NEG (NEG); Urine Ketones NEG (NEG); Urine Protein NEG (NEG-TRACE)
[2021-11-28 18:57] LABS: Amphetamine Screen Urine Not Detected (Not Detect); Barbiturates, Urine Not Detected (Not Detect); Benzodiazepines Screen Urine Not Detected (Not Detect); Cannabinoid Screen Urine Not Detected (Not Detect); Cocaine Screen Urine Not Detected (Not Detect); Fentanyl, urine Not Detected (Not Detect); Opiate Screen Urine Not Detected (Not Detect); Phencyclidine Screen Urine Not Detected (Not Detect)
[2021-11-28] MEDS: Acetaminophen 325 MG TABLET 975 MG PO (19:12)
[2021-11-28] MEDS: LORazepam 1 MG TABLET PO (19:12)
[2021-11-28 20:09] LABS: Basophils Percent Auto 0.6 % (0-2); Eosinophils Absolute Auto 0.1 X10*3/uL (0.0-0.4); Eosinophils Percent Auto 1.3 % (0-4); Hematocrit 36.8 % (42.0-52.0); Hemoglobin 11.7 g/dl (14.0-18.0); Imm Gran Abs Auto 0.02 X10*3/uL (0.00-0.03); Imm Gran Pct Auto 0.3 % (0.0-0.4); Lymphocytes Absolute Auto 1.6 X10*3/uL (1.2-4.9); Lymphocytes Percent Auto 22.3 % (20-40); MANUAL DIFF FLAG NO; Mean Corpuscular HGB Conc 31.8 g/dl (31.0-36.0); Mean Corpuscular Hemoglobin 26.6 pg (27.0-33.0); Mean Corpuscular Volume 83.6 fL (80.0-98.0); Mean Platelet Volume 8.7 fL (9.4-12.4); Monocytes Absolute Auto 0.5 X10*3/uL (0.1-1.2); Monocytes Percent Auto 6.7 % (2-11); Neutrophils Absolute Auto 4.9 x10*3/uL (2.0-8.3); Neutrophils Percent Auto 68.8 % (45-73); Platelet Count 249 X10*3/uL (160-400); Red Cell Distribution Width 18.8 % (11.0-16.0); White Blood Count 7.1 X10*3/uL (4.8-10.8)
[2021-11-28 20:23] LABS: Ethanol 264 mg/dL
[2021-11-28 20:27] LABS: Alanine Aminotransferase 26 U/L (0-40); Albumin Level 3.9 g/dL (3.5-5.0); Alkaline Phosphatase 70 U/L (39-117); Anion Gap 16 (12-20); Aspartate Amino Transferase 35 U/L (5-37); Bilirubin Total 0.3 mg/dL (0.0-1.0); Blood Urea Nitrogen 6 mg/dL (9-16); Calcium 8.8 mg/dL (8.4-10.2); Carbon Dioxide 26 mmol/L (22-29); Chloride 101 mmol/L (96-108); Creatinine Clr Calc Pharmacy 140.1; Estimated Glomerular Filt Rate > 60; Glucose Random 141 mg/dL (60-115); Potassium 3.1 mmol/L (3.3-5.1); Sodium 140 mmol/L (135-145); Total Protein 7.5 g/dL (6.5-8.0)
[2021-11-28 21:12] VITALS: BP 169/94; PULSE 131; O2SAT 92
[2021-11-28] MEDS: Potassium Chloride ER 20 MEQ TAB.ER.PRT PO (21:30)
[2021-11-28] MEDS: LORazepam 1 MG TABLET 2 MG PO (21:30)
[2021-11-28 22:17] VITALS: BP 155/96; PULSE 108; RESP 20; TEMP 36.9; O2SAT 90
== END 2021-11-28 23:25 | disposition left against medical advice (07) ==
PROVIDERS: Physician Assistant; Emergency Provider Emergency Medicine Emergency Medical Services
DX: S00.211A Abrasion of right eyelid and periocular area, initial encounter (principal); G44.309 Post-traumatic headache, unspecified, not intractable; F10.129 Alcohol abuse with intoxication, unspecified; Y90.8 Blood alcohol level of 240 mg/100 ml or more; W18.30XA Fall on same level, unspecified, initial encounter; Y93.9 Activity, unspecified; Y92.9 Unspecified place or not applicable; Y99.9 Unspecified external cause status; Z71.41 Alcohol abuse counseling and surveillance of alcoholic; Z79.899 Other long term (current) drug therapy
CPT/HCPCS: 36415; 70450; 80053; 80307; 81003; 82077; 85025; 99284

== ENCOUNTER 2021-12-07 08:38 | Outpatient (REF) | payer OTHER, SELFPAY ==
--- NOTE | ~2021-12-07 | XR_ITS ---
EXAMINATION: XR ANKLE, LEFT CLINICAL INFORMATION: Pain COMPARISON: 11/09/2021 TECHNIQUE: AP, lateral, and mortise views of the left ankle. FINDINGS: There is increased callus formation at the lateral malleolus, consistent with a healing fracture. Subtle cortical step off is noted. Ankle mortise is congruent. Soft tissue swelling surrounds the ankle, greatest laterally. XR/XR ankle LT min 3V IMPRESSION: Healing distal fibular fracture with increased callus formation. Prominent soft tissue swelling remains.
== END 2021-12-07 08:39 | disposition home or self-care (01) ==
LOC: HO.HOSX 08:38
PROVIDERS: Visit Provider Physician Assistant
DX: S82.832A Other fracture of upper and lower end of left fibula, initial encounter for closed fracture (principal); I42.8 Other cardiomyopathies; I10 Essential (primary) hypertension; E78.5 Hyperlipidemia, unspecified; K70.0 Alcoholic fatty liver; N17.9 Acute kidney failure, unspecified; K22.10 Ulcer of esophagus without bleeding; D62 Acute posthemorrhagic anemia
CPT/HCPCS: 73610; 99212

== ENCOUNTER 2021-12-12 14:58 | Inpatient (IN) | payer OTHER, SELFPAY ==
[2021-12-12] VITALS (7 sets, daily range): BP systolic 126–150; BP diastolic 71–90; PULSE 95–137; RESP 16–26; TEMP 37.2; O2SAT 87–100; BMI 30.7
--- NOTE | ~2021-12-12 | XR_ITS ---
EXAMINATION: XR CHEST CLINICAL INFORMATION: Cough COMPARISON: Previous chest x-ray October 2021 and chest CTA August 2021 TECHNIQUE: Frontal view of the chest was obtained. FINDINGS: The cardiac and mediastinal contours are stable. There is increased density over the heart and spine suggestive of an esophageal hernia. The lungs are clear. There is no pleural effusion or pneumothorax. There is an old right clavicle fracture. There are degenerative changes of the spine. XR/XR chest 1V IMPRESSION: No evidence for acute disease in the chest.
--- NOTE | ~2021-12-12 | US_ITS ---
EXAMINATION: US VENOUS ULTRASOUND WITH DOPPLER LOWER EXTREMITY, LEFT CLINICAL INFORMATION: Pain and swelling COMPARISON: None TECHNIQUE: Ultrasound of the deep veins is performed from the hip to the calf with compression sonography and color and pulse Doppler assessment. Spectral analysis with color-flow imaging is performed. FINDINGS: There is normal venous compression and respiratory variation and augmented flow. The visualized common femoral vein, superficial femoral vein, profunda femoral vein, popliteal vein, and the trifurcation region shows no evidence of deep venous thrombosis. There is no significant popliteal fossa cyst. US/US venous duplex LE LT IMPRESSION: No DVT demonstrated in the left lower extremity.
--- NOTE | ~2021-12-12 | CT_ITS ---
EXAMINATION: CT ANGIOGRAM OF THE CHEST WITH AND WITHOUT CONTRAST (CT PULMONARY ANGIOGRAM FOR PE) CLINICAL INFORMATION: Hypoxia COMPARISON: Chest x-ray earlier today and CTA chest September 15.1 TECHNIQUE: Prior to contrast administration, noncontrast localization images were obtained. Subsequently, multidetector volumetric imaging was performed from the thoracic inlet to below the diaphragms following the administration of 75 mL Omnipaque 350 intravenous contrast. No contrast reaction reported Sagittal, coronal, and MIP oblique sagittal reformatted images were obtained on the CT workstation, uploaded to PACS, and reviewed. This CT examination was performed using dose optimization techniques as appropriate, variously including the following: *Automated exposure control *Adjustment of mA and/or kV according to patient size (this includes techniques or standardized protocols for targeted exams where dose is matched to indication/reason for exam; i.e. extremities or head) *Use of iterative reconstruction technique Total exam dose-length product 426 mGy-cm FINDINGS: The heart is normal in size. There is no pericardial effusion. No gross main or segmental pulmonary arterial filling defects. Subsegmental pulmonary arteries are suboptimally visualized, however, no gross subsegmental pulmonary emboli noted. No CT evidence of right-sided heart strain. Normal caliber thoracic aorta. No gross mediastinal lymphadenopathy. No enlarged axillary lymph nodes. Central airways are patent. Lungs are adequately aerated. Dependent patchy opacities bilaterally are nonspecific but most suggestive of atelectasis. There is no gross lobar consolidation. No pleural effusion or pneumothorax. 6 mm nodular density of the lingula possibly represents an area of nodular atelectasis versus a developing pulmonary nodule (image 290/511, series 7). Moderate sized hiatal hernia again noted. Stable size of 2.3 cm right adrenal lesion, nonspecific on today's imaging. There is mild fatty atrophy of the pancreas. Moderate degenerative changes of the spine. Subcutaneous right lateral rib fractures. CT/CT angio chest PE protocol IMPRESSION: 1. No gross main or segmental pulmonary arterial filling defects. Subsegmental pulmonary arteries are suboptimally visualized, however, no gross subsegmental pulmonary emboli noted. 2. 6 mm nodular density of the lingula possibly represents an area of nodular atelectasis versus a developing pulmonary nodule. Attention on follow-up imaging recommended. 3. Other previously visualized findings as described above. VTE: negative
--- NOTE | 2021-12-12 15:31 | ECG_ITS ---
Test Reason : TACHYCARDIA Blood Pressure : / mmHG Vent. Rate : 113 BPM Atrial Rate : 113 BPM P-R Int : 156 ms QRS Dur : 100 ms QT Int : 342 ms P-R-T Axes : 042 -09 008 degrees QTc Int : 469 ms Sinus tachycardia Otherwise normal ECG When compared with ECG of 27-NOV-2021 22:21, No significant change was found Referred By: Maria Teresa Ferguson Electronically Signed By:RENEE GOLD
--- NOTE | 2021-12-12 15:37 | ED_ITS ---
HPI - Alcohol General Chief Complaint: ETOH/Substance Use Stated Complaint: ETOH,L LEG PAIN,NOT COOPERATIVE PER EMS Time Seen by Provider: 12/12/21 15:30 Source: patient Mode of arrival: EMS Limitations: other (very poor historian due to ETOH intoxication) History of Present Illness HPI narrative: called 911 for himself but then when they got there he became agitated and spit at them, police were called and he became more compliant. His main complaint is L ankle pain he has a known L distal fib fracture for months that he is not compliant with is in walking boot but doesn't wear it and continues to ambulate on his broken ankle. Crying due to his dog dying recently. MD complaint: alcohol intoxication Last drink: Just prior to admission Chronic alcohol use: Yes Previous visits for alcohol intoxication: Yes Recent trauma: No Associated symptoms: other (L ankle pain) Treatments prior to arrival: other (has left foot walking boot) Related Data Home Medications Medication Instructions Recorded Confirmed albuterol sulfate 90 mcg/actuation 2 inh INHALATION Q4H PRN 11/10/20 11/28/21 aerosol inhaler fluticasone propionate 44 1 puff PO BID 11/10/20 11/28/21 mcg/actuation HFA aerosol inhaler ferrous sulfate 325 mg (65 mg 325 mg PO DAILY 08/11/21 11/28/21 iron) tablet omeprazole 40 mg capsule,delayed 40 mg PO DAILY 08/11/21 11/28/21 release tamsulosin 0.4 mg capsule 0.4 mg PO BEDTIME 08/11/21 11/28/21 trazodone 100 mg tablet 100 mg PO BEDTIME 08/11/21 11/28/21 Previous Rx's Medication Instructions Recorded walker (Ultra-Light Rollator) #1 ea 08/19/21 amlodipine 10 mg tablet 10 mg PO DAILY 90 Days #90 tab 09/27/21 carvedilol 6.25 mg tablet 6.25 mg PO BID 90 Days #180 tab 09/27/21 lisinopril 40 mg tablet 40 mg PO DAILY 90 Days #90 tab 09/27/21 oxycodone 5 mg tablet 5 mg PO TID PRN #12 tab 11/02/21 Allergies Allergy/AdvReac Type Severity Reaction Status Date / Time No Known Allergies Allergy Verified 12/07/21 10:37 Review of Systems Review of Systems: ROS unable to be obtained due to poor cooperation and ETOH intoxication [facility] Past Medical History Attestation statement: The following information was validated with the patient. Medical History Alcohol dependence Alcohol dependence with withdrawal HLD (hyperlipidemia) Hypertension Nonischemic cardiomyopathy Surgical History History of cardiac cath (~01/2016) Family History Family History Father No problems noted. Mother No problems noted. Social History Social History Household Members: Spouse Housing: Apartment Do you presently have visiting nurse or other home services: No Unable to assess alcohol history related to: Refusing to respond Alcohol intake: current Alcohol intake frequency: 3 or more drinks per day Alcohol type: hard liquor Patient Tobacco Use Status: Never used Tobacco Advance Directives: Yes Advance Directives on File: Yes Advance Directives Date on File: 07/01/20 service: No Current occupational status: unemployed Physical Exam ED Vital Signs: Vital Signs - 24 hr 12/12/21 15:21 12/12/21 15:51 Pulse Rate 123 H 119 H Respiratory Rate 20 20 Blood Pressure 135/82 Pulse Oximetry 87 L BMI result Body Mass Index 30.7 Appearance: Alert. Oriented X3. No acute distress. ETOH odor, loud belligerent Eyes: Pupils equal, round and reactive to light. ENT: Pharynx normal. Neck: Normal inspection. Neck supple. CVS: Normal heart rate and rhythm. Pulses normal. Respiratory: No respiratory distress. Breath sounds diminished and coarse Abdomen: Soft and non-tender. Skin: Skin warm and dry. Normal skin color. Normal skin turgor. Extremities: L foot boot is off, 2+ DP pulse, swelling noted ankle and lower calf SILT lower leg Neuro: Oriented X 3. No motor deficit. No sensory deficit. Course Course Course Narrative: signed out to Dr. Euceda 430pm gave him his home dose of PO carvedilol lactic acidosis due to ETOH and not infection or severe sepsis CTA ordered given hypoxia MDM - Alcohol MDM Narrative Medical decision making narrative: 61 yo male with hx of HTN, cardiomyopathy, HLD, ALHAJI, ETOH abuse called 911 due to chronic L ankle pain from the fact that he had a known L fibula fracture for 1 month really continued to walk on it due to his ETOH abuse and also would come in to the ED on multiple visits with a wet and unkempt splint. Just seen by orthopedics on 12/07 and transitioned to a tall walking boot he comes in today asking for pain medications for the ankle. He is intoxicated and has low O2 sats and a coarse cough. Will obtain labs, cultures, CXR for aspiration/pneumonia, albuterol neb. Will also obtain DVT study of L leg to r/o DVT. Lab Data Result diagrams: 12/12/21 15:53 12/12/21 15:53 Labs: Lab Results 12/12/21 12/12/21 12/12/21 Range/Units 15:52 15:53 15:53 WBC 5.2 (4.8-10.8) X10*3/uL RBC 4.14 L (4.60-5.80) X10*6/uL Hgb 10.9 L (14.0-18.0) g/dl Hct 35.4 L (42.0-52.0) % MCV 85.5 (80.0-98.0) fL MCH 26.3 L (27.0-33.0) pg MCHC 30.8 L (31.0-36.0) g/dl RDW 18.6 H (11.0-16.0) % Plt Count 283 (160-400) X10*3/uL MPV 8.3 L (9.4-12.4) fL Immature Gran % (Auto) 0.6 H (0.0-0.4) % Neut % (Auto) 62.1 (45-73) % Lymph % (Auto) 27.3 (20-40) % [place] % (Auto) 7.5 (2-11) % Eos % (Auto) 1.7 (0-4) % Baso % (Auto) 0.8 (0-2) % Lymph # (Auto) 1.4 (1.2-4.9) X10*3/uL [place] # (Auto) 0.4 (0.1-1.2) X10*3/uL Eos # (Auto) 0.1 (0.0-0.4) X10*3/uL Baso # (Auto) 0.0 (0.0-0.2) X10*3/uL Abs Immat Gran (auto) 0.03 (0.00-0.03) X10*3/uL Absolute Neuts (auto) 3.2 (2.0-8.3) x10*3/uL Absolute Nucleated RBC 0.000 (0.0-0.012) X10*3/uL Nucleated RBC % (auto) 0.0 (0.0-0.2) /100WBC PT 11.4 (9.9-13.0) SEC INR 1.0 (0.9-1.1) Sodium (135-145) mmol/L Potassium (3.3-5.1) mmol/L Chloride (96-108) mmol/L Carbon Dioxide (22-29) mmol/L Anion Gap (12-20) BUN (9-16) mg/dL Creatinine (0.5-1.4) mg/dL Estim Creat Clear Calc Estimated GFR Random Glucose (60-115) mg/dL Lactic Acid 3.8 H* (0.5-2.0) mmol/L Calcium (8.4-10.2) mg/dL Magnesium (1.6-2.6) mg/dL Total Bilirubin (0.0-1.0) mg/dL Direct Bilirubin (0.0-0.5) mg/dL AST (5-37) U/L ALT (0-40) U/L Alkaline Phosphatase (39-117) U/L Troponin I High Sens (<3.5-35.0) ng/L B-Natriuretic Peptide (<100) pg/mL Total Protein (6.5-8.0) g/dL Albumin (3.5-5.0) g/dL Ethyl Alcohol mg/dL COVID-19 (ELOY) (Negative) COVID-19 Clin Com 12/12/21 12/12/21 12/12/21 Range/Units 15:53 15:53 15:53 WBC (4.8-10.8) X10*3/uL RBC (4.60-5.80) X10*6/uL Hgb (14.0-18.0) g/dl Hct (42.0-52.0) % MCV (80.0-98.0) fL MCH (27.0-33.0) pg MCHC (31.0-36.0) g/dl RDW (11.0-16.0) % Plt Count (160-400) X10*3/uL MPV (9.4-12.4) fL Immature Gran % (Auto) (0.0-0.4) % Neut % (Auto) (45-73) % Lymph % (Auto) (20-40) % [place] % (Auto) (2-11) % Eos % (Auto) (0-4) % Baso % (Auto) (0-2) % Lymph # (Auto) (1.2-4.9) X10*3/uL [place] # (Auto) (0.1-1.2) X10*3/uL Eos # (Auto) (0.0-0.4) X10*3/uL Baso # (Auto) (0.0-0.2) X10*3/uL Abs Immat Gran (auto) (0.00-0.03) X10*3/uL Absolute Neuts (auto) (2.0-8.3) x10*3/uL Absolute Nucleated RBC (0.0-0.012) X10*3/uL Nucleated RBC % (auto) (0.0-0.2) /100WBC PT (9.9-13.0) SEC INR (0.9-1.1) Sodium 143 (135-145) mmol/L Potassium 3.6 (3.3-5.1) mmol/L Chloride 103 (96-108) mmol/L Carbon Dioxide 25 (22-29) mmol/L Anion Gap 19 (12-20) BUN 11 D (9-16) mg/dL Creatinine 0.89 (0.5-1.4) mg/dL Estim Creat Clear Calc 103.5 Estimated GFR > 60 Random Glucose 103 (60-115) mg/dL Lactic Acid (0.5-2.0) mmol/L Calcium 8.5 (8.4-10.2) mg/dL Magnesium 1.8 (1.6-2.6) mg/dL Total Bilirubin < 0.2 (0.0-1.0) mg/dL Direct Bilirubin < 0.2 (0.0-0.5) mg/dL AST 24 (5-37) U/L ALT 23 (0-40) U/L Alkaline Phosphatase 62 (39-117) U/L Troponin I High Sens 21.0 D (<3.5-35.0) ng/L B-Natriuretic Peptide < 10 (<100) pg/mL Total Protein 7.6 (6.5-8.0) g/dL Albumin 3.9 (3.5-5.0) g/dL Ethyl Alcohol mg/dL COVID-19 (ELOY) Negative (Negative) COVID-19 Clin Com See Note 12/12/21 Range/Units 15:53 WBC (4.8-10.8) X10*3/uL RBC (4.60-5.80) X10*6/uL Hgb (14.0-18.0) g/dl Hct (42.0-52.0) % MCV (80.0-98.0) fL MCH (27.0-33.0) pg MCHC (31.0-36.0) g/dl RDW (11.0-16.0) % Plt Count (160-400) X10*3/uL MPV (9.4-12.4) fL Immature Gran % (Auto) (0.0-0.4) % Neut % (Auto) (45-73) % Lymph % (Auto) (20-40) % [place] % (Auto) (2-11) % Eos % (Auto) (0-4) % Baso % (Auto) (0-2) % Lymph # (Auto) (1.2-4.9) X10*3/uL [place] # (Auto) (0.1-1.2) X10*3/uL Eos # (Auto) (0.0-0.4) X10*3/uL Baso # (Auto) (0.0-0.2) X10*3/uL Abs Immat Gran (auto) (0.00-0.03) X10*3/uL Absolute Neuts (auto) (2.0-8.3) x10*3/uL Absolute Nucleated RBC (0.0-0.012) X10*3/uL Nucleated RBC % (auto) (0.0-0.2) /100WBC PT (9.9-13.0) SEC INR (0.9-1.1) Sodium (135-145) mmol/L Potassium (3.3-5.1) mmol/L Chloride (96-108) mmol/L Carbon Dioxide (22-29) mmol/L Anion Gap (12-20) BUN (9-16) mg/dL Creatinine (0.5-1.4) mg/dL Estim Creat Clear Calc Estimated GFR Random Glucose (60-115) mg/dL Lactic Acid (0.5-2.0) mmol/L Calcium (8.4-10.2) mg/dL Magnesium (1.6-2.6) mg/dL Total Bilirubin (0.0-1.0) mg/dL Direct Bilirubin (0.0-0.5) mg/dL AST (5-37) U/L ALT (0-40) U/L Alkaline Phosphatase (39-117) U/L Troponin I High Sens (<3.5-35.0) ng/L B-Natriuretic Peptide (<100) pg/mL Total Protein (6.5-8.0) g/dL Albumin (3.5-5.0) g/dL Ethyl Alcohol 384 H* mg/dL COVID-19 (ELOY) (Negative) COVID-19 Clin Com ECG Data ECG #1: Attestation: I personally reviewed and interpreted this ECG as follows: ECG interpretation date: 12/12/21 ECG interpretation time: 16:06 Interpretation: Rate: 113 Rhythm: sinus tachycardia [place]: left Normal P waves. Normal ALBERTO. Normal QRS complex. ST T wave : normal no EMMANUEL qTC: normal prior studies: no acute ischemia The study has been interpreted contemporaneously by me. . Discharge Plan Discharge Clinical Impression: Acidosis, lactic Alcoholic intoxication Qualifiers: Complication of substance-induced condition: uncomplicated Qualified Code(s): F10.920 - Alcohol use, unspecified with intoxication, uncomplicated Patient Disposition: Still a Patient Prescriptions: No Action carvedilol 6.25 mg tablet 6.25 mg PO BID 90 Days Qty: 180 1RF Rx Instructions: must administer with a meal/food lisinopril 40 mg tablet 40 mg PO DAILY 90 Days Qty: 90 1RF amlodipine 10 mg tablet 10 mg PO DAILY 90 Days Qty: 90 1RF tamsulosin 0.4 mg Capsule 0.4 mg PO BEDTIME 0RF trazodone 100 mg Tablet 100 mg PO BEDTIME 0RF ferrous sulfate 325 mg (65 mg iron) Tablet 325 mg PO DAILY 0RF omeprazole 40 mg capsule,delayed release(DR/EC) 40 mg PO DAILY 0RF (DME) Ultra-Light Rollator Misc See Rx Instructions .Route Qty: 1 0RF Rx Instructions: As directed oxycodone 5 mg tablet 5 mg PO TID PRN (Reason: pain) Qty: 12 0RF Rx Instructions: partial fill okay fluticasone propionate 44 mcg/actuation HFA aerosol inhaler 1 puff PO BID 0RF albuterol sulfate 90 mcg/actuation HFA aerosol inhaler 2 inh inhalation Q4H PRN (Reason: Dyspnea) 0RF
[2021-12-12] MEDS: Albuterol Sulfate (0.083%) 2.5 MG/3 ML VIAL.NEB INHALE (15:50)
[2021-12-12 15:58] LABS: MANUAL DIFF FLAG NO
[2021-12-12 16:01] LABS: Basophils Percent Auto 0.8 % (0-2); Eosinophils Absolute Auto 0.1 X10*3/uL (0.0-0.4); Eosinophils Percent Auto 1.7 % (0-4); Hematocrit 35.4 % (42.0-52.0); Hemoglobin 10.9 g/dl (14.0-18.0); Imm Gran Abs Auto 0.03 X10*3/uL (0.00-0.03); Imm Gran Pct Auto 0.6 % (0.0-0.4); Lymphocytes Absolute Auto 1.4 X10*3/uL (1.2-4.9); Lymphocytes Percent Auto 27.3 % (20-40); Mean Corpuscular HGB Conc 30.8 g/dl (31.0-36.0); Mean Corpuscular Hemoglobin 26.3 pg (27.0-33.0); Mean Corpuscular Volume 85.5 fL (80.0-98.0); Mean Platelet Volume 8.3 fL (9.4-12.4); Monocytes Absolute Auto 0.4 X10*3/uL (0.1-1.2); Monocytes Percent Auto 7.5 % (2-11); Neutrophils Absolute Auto 3.2 x10*3/uL (2.0-8.3); Neutrophils Percent Auto 62.1 % (45-73); Platelet Count 283 X10*3/uL (160-400); Red Blood Count 4.14 X10*6/uL (4.60-5.80); Red Cell Distribution Width 18.6 % (11.0-16.0); White Blood Count 5.2 X10*3/uL (4.8-10.8)
[2021-12-12 16:06] LABS: Prothrombin Time 11.4 SEC (9.9-13.0)
[2021-12-12 16:14] LABS: COVID-19 Test Negative (Negative); IDNOW Serial# 16C4AD1C
[2021-12-12 16:18] LABS: Lactic Acid 3.8 mmol/L (0.5-2.0)
[2021-12-12 16:19] LABS: Ethanol 384 mg/dL
[2021-12-12 16:21] LABS: Alanine Aminotransferase 23 U/L (0-40); Albumin Level 3.9 g/dL (3.5-5.0); Alkaline Phosphatase 62 U/L (39-117); Anion Gap 19 (12-20); Aspartate Amino Transferase 24 U/L (5-37); Bilirubin Direct < 0.2 mg/dL (0.0-0.5); Bilirubin Total < 0.2 mg/dL (0.0-1.0); Blood Urea Nitrogen 11 mg/dL (9-16); Calcium 8.5 mg/dL (8.4-10.2); Carbon Dioxide 25 mmol/L (22-29); Chloride 103 mmol/L (96-108); Creatinine Clr Calc Pharmacy 103.5; Estimated Glomerular Filt Rate > 60; Glucose Random 103 mg/dL (60-115); Magnesium 1.8 mg/dL (1.6-2.6); Potassium 3.6 mmol/L (3.3-5.1); Sodium 143 mmol/L (135-145); Total Protein 7.6 g/dL (6.5-8.0)
[2021-12-12 16:23] LABS: B Type Natriuretic Peptide < 10 pg/mL (<100)
[2021-12-12] MEDS: 0.9 % Sodium Chloride 500 ML IV (16:48)
[2021-12-12] MEDS: carvediloL 6.25 MG TABLET PO (17:10)
[2021-12-12] MEDS: Thiamine HCL 200 MG in 0.9 % Sodium Chloride 100 ML 204 MG IV (17:11)
[2021-12-12] MEDS: iohexoL 350 MG/ML 100 ML INFUS..BTL IV (17:38)
[2021-12-12 17:57] LABS: Reflex Lactate? Lactic Acid Added
[2021-12-12 18:00] LABS: Appearance Urine CLEAR; Color Urine YELLOW; Glucose Urine UA NEG (NEG); Leukocyte Esterase Urine NEG (NEG); Nitrite Urine NEG (NEG); Specific Gravity - Urine 1.015 (1.005-1.025); UACC Culture Trigger NO; Urine Blood NEG (NEG); Urine Ketones NEG (NEG); Urine Protein 1+ MG/DL (NEG-TRACE)
[2021-12-12 18:09] LABS: Bacteria Urine TRACE /LPF; RBC Urine 0 /HPF (0); WBC Urine 0 /HPF (0-4)
[2021-12-12 18:11] LABS: Amphetamine Screen Urine Not Detected (Not Detect); Barbiturates, Urine Not Detected (Not Detect); Benzodiazepines Screen Urine Not Detected (Not Detect); Cannabinoid Screen Urine Not Detected (Not Detect); Cocaine Screen Urine Not Detected (Not Detect); Fentanyl, urine POSITIVE (Not Detect); Opiate Screen Urine POSITIVE (Not Detect); Phencyclidine Screen Urine Not Detected (Not Detect)
[2021-12-12] MEDS: Omeprazole 40 MG CAPSULE.DR PO (19:25)
[2021-12-12 19:36] LABS: ~Lactic Acid-LAB USE ONLY 3.4 mmol/L (0.5-2.0)
--- NOTE | 2021-12-12 20:22 | PHA.MEDREC ---
Pharmacy Consult ? Medication Reconciliation Pharmacy has completed the medication reconciliation.
[2021-12-12 20:48] LABS: Reflex Lactate? 2 Y
[2021-12-12 21:30] LABS: ~Lactic Acid-LAB USE ONLY 2.8 mmol/L (0.5-2.0)
--- NOTE | 2021-12-12 21:33 | PC.NURSE ---
Room air sat's 88%, pt refuses to wear oxygen.
--- NOTE | 2021-12-12 23:49 | PM.IMHP ---
History of Present Illness Date of Service: 12/12/21 Chief Complaint: alcohol abuse 61-year-old male with a past medical history of hypertension, hyperlipidemia, alcohol abuse, nonischemic cardiomyopathy presented to the hospital today with a chief complaint of alcohol intoxication. Reportedly patient called the EMS himself because he was alcohol intoxicated. He also complained of the left ankle pain which he had a recent fracture and is following with orthopedics. Mentioned that he has been eating okay denies any nausea vomiting or chest pain. Denies any abdominal discomfort. That he drinks alcohol every day. Denies any urinary symptoms. Review of all other systems is negative except mentioned above ER course: Per ER team patient on presentation noted to have stable vitals except for low oxygen saturating 82% on room air; chest x-ray showed no acute findings; CTA chest was done which showed no evidence of pulmonary embolism but noted to have pulmonary nodule. Patient has slightly diminished breath sounds; admitted to the hospital for further management PMFSH Medical History Alcohol dependence Alcohol dependence with withdrawal HLD (hyperlipidemia) Hypertension Nonischemic cardiomyopathy Family History Father No problems noted. Mother No problems noted. Surgical History History of cardiac cath (~01/2016) Social History Household Members: Spouse Housing: Apartment Do you presently have visiting nurse or other home services: No Unable to assess alcohol history related to: Refusing to respond Alcohol intake: current Alcohol intake frequency: 0-2 drinks per day Alcohol type: hard liquor Patient Tobacco Use Status: Never used Tobacco Use of substances other than those prescribed or required for medical reasons: Refusing to respond Advance Directives: Yes Advance Directives on File: Yes Advance Directives Date on File: 07/01/20 service: No Current occupational status: unemployed Meds Allergies Allergy/AdvReac Type Severity Reaction Status Date / Time No Known Allergies Allergy Verified 12/07/21 10:37 Active Medications: Current Medications Acetaminophen (Acetaminophen 325 Mg Tablet) 650 mg PO Q6H PRN PRN Reason: Pain, Mild (Pain Scale 1-3) Albuterol/Ipratropium (Albuterol/Iprat 2.5/0.5mg 3 Ml Ampul.Neb) 3 ml INHALE Q4H PRN PRN Reason: Shortness of Breath/Wheezing Enoxaparin Sodium (Enoxaparin Sodium 40 Mg/0.4 Ml Syringe) 40 mg SUBCUT Q24H [facility] Last Admin: 12/12/21 23:47 Dose: Not Given Documented by: Lorazepam (Lorazepam 1 Mg Tablet) 1 mg PO Q4H PRN PRN Reason: Breakthrough alcohol withdrawa Stop: 12/16/21 20:02 Melatonin (Melatonin 3 Mg Tablet) 6 mg PO BEDTIME PRN PRN Reason: Insomnia Senna (Sennosides 8.6 Mg Tablet) 17.2 mg PO BEDTIME PRN PRN Reason: Constipation Sodium Chloride (0.9 % Sodium Chloride Flush 3 Ml Syringe) 3 ml IVFLUSH QSHIFT [facility] Home Medications Medication Instructions Recorded Confirmed Last Taken Type albuterol sulfate 90 mcg/actuation 2 inh INHALATION Q4H PRN 11/10/20 12/12/21 Unknown History aerosol inhaler ferrous sulfate 325 mg (65 mg 325 mg PO DAILY 08/11/21 12/12/21 12/12/21 History iron) tablet omeprazole 40 mg capsule,delayed 40 mg PO DAILY 08/11/21 12/12/21 12/12/21 History release tamsulosin 0.4 mg capsule 0.4 mg PO BEDTIME 08/11/21 12/12/21 12/11/21 History trazodone 100 mg tablet 100 mg PO BEDTIME 08/11/21 12/12/21 12/11/21 History magnesium oxide 400 mg (241.3 mg 1 tab PO BID 12/12/21 12/12/21 12/12/21 History magnesium) tablet Physical Exam Vital Signs and Narrative: Vital Signs: Last Vital Signs Temp 98.9 F 12/12/21 20:16 Pulse 100 12/12/21 22:27 Resp 16 12/12/21 22:27 BP 130/71 12/12/21 22:27 Pulse Ox 96 12/12/21 22:27 BMI result Body Mass Index 30.7 Gen: Appears be in no acute distress HEENT: NCAT, Dry mucosa. Pulmonary: slightly diminished breath sounds CVS: Normal S1-S2 Abdomen: BS+, Soft, Nontender Extremities: Warm well perfused Neuro: Alert and awake. Results Labs CBC and Chem 7: 12/12/21 15:53 12/12/21 15:53 Labs: Laboratory Results - last 24 hr 12/12/21 12/12/21 12/12/21 15:52 15:53 15:53 MCV 85.5 MCH 26.3 L MCHC 30.8 L RDW 18.6 H Plt Count 283 MPV 8.3 L Immature Gran % (Auto) 0.6 H Neut % (Auto) 62.1 Lymph % (Auto) 27.3 [place] % (Auto) 7.5 Eos % (Auto) 1.7 Baso % (Auto) 0.8 Lymph # (Auto) 1.4 [place] # (Auto) 0.4 Eos # (Auto) 0.1 Baso # (Auto) 0.0 Abs Immat Gran (auto) 0.03 Absolute Neuts (auto) 3.2 Absolute Nucleated RBC 0.000 Nucleated RBC % (auto) 0.0 PT 11.4 INR 1.0 Anion Gap Estim Creat Clear Calc Estimated GFR Random Glucose Lactic Acid 3.8 H* Lactic Acid F/U @ 2Hr Lactic Acid F/U @ 4Hr Calcium Magnesium Total Bilirubin Direct Bilirubin AST ALT Alkaline Phosphatase B-Natriuretic Peptide Total Protein Albumin Urine Color Urine Appearance Urine pH Ur Specific [place] Urine Protein Urine Glucose (UA) Urine Ketones Urine Blood Urine Nitrite Ur Leukocyte Esterase Urine RBC Urine WBC Ur Squamous Epith Cells Urine Bacteria Urine Opiates Screen Urine Fentanyl Screen Ur Barbiturates Screen Ur Phencyclidine Scrn Ur Amphetamines Screen U Benzodiazepines Scrn Urine Cocaine Screen U Marijuana (THC) Screen Ethyl Alcohol COVID-19 (ELOY) COVID-19 Clin Com 12/12/21 12/12/21 12/12/21 15:53 15:53 15:53 MCV MCH MCHC RDW Plt Count MPV Immature Gran % (Auto) Neut % (Auto) Lymph % (Auto) [place] % (Auto) Eos % (Auto) Baso % (Auto) Lymph # (Auto) [place] # (Auto) Eos # (Auto) Baso # (Auto) Abs Immat Gran (auto) Absolute Neuts (auto) Absolute Nucleated RBC Nucleated RBC % (auto) PT INR Anion Gap 19 Estim Creat Clear Calc 103.5 Estimated GFR > 60 Random Glucose 103 Lactic Acid Lactic Acid F/U @ 2Hr Lactic Acid F/U @ 4Hr Calcium 8.5 Magnesium 1.8 Total Bilirubin < 0.2 Direct Bilirubin < 0.2 AST 24 ALT 23 Alkaline Phosphatase 62 B-Natriuretic Peptide < 10 Total Protein 7.6 Albumin 3.9 Urine Color Urine Appearance Urine pH Ur Specific [place] Urine Protein Urine Glucose (UA) Urine Ketones Urine Blood Urine Nitrite Ur Leukocyte Esterase Urine RBC Urine WBC Ur Squamous Epith Cells Urine Bacteria Urine Opiates Screen Urine Fentanyl Screen Ur Barbiturates Screen Ur Phencyclidine Scrn Ur Amphetamines Screen U Benzodiazepines Scrn Urine Cocaine Screen U Marijuana (THC) Screen Ethyl Alcohol COVID-19 (ELOY) Negative COVID-[employer] Com See Note 12/12/21 12/12/21 12/12/21 15:53 17:53 17:53 MCV MCH MCHC RDW Plt Count MPV Immature Gran % (Auto) Neut % (Auto) Lymph % (Auto) [place] % (Auto) Eos % (Auto) Baso % (Auto) Lymph # (Auto) [place] # (Auto) Eos # (Auto) Baso # (Auto) Abs Immat Gran (auto) Absolute Neuts (auto) Absolute Nucleated RBC Nucleated RBC % (auto) PT INR Anion Gap Estim Creat Clear Calc Estimated GFR Random Glucose Lactic Acid Lactic Acid F/U @ 2Hr Lactic Acid F/U @ 4Hr Calcium Magnesium Total Bilirubin Direct Bilirubin AST ALT Alkaline Phosphatase B-Natriuretic Peptide Total Protein Albumin Urine Color YELLOW Urine Appearance CLEAR Urine pH 6.0 Ur Specific [place] 1.015 Urine Protein 1+ H Urine Glucose (UA) NEG Urine Ketones NEG Urine Blood NEG Urine Nitrite NEG Ur Leukocyte Esterase NEG Urine RBC 0 Urine WBC 0 Ur Squamous Epith Cells NONE Urine Bacteria TRACE Urine Opiates Screen POSITIVE H Urine Fentanyl Screen POSITIVE H Ur Barbiturates Screen Not Detected Ur Phencyclidine Scrn Not Detected Ur Amphetamines Screen Not Detected U Benzodiazepines Scrn Not Detected Urine Cocaine Screen Not Detected U Marijuana (THC) Screen Not Detected Ethyl Alcohol 384 H* COVID-19 (ELOY) COVID-[employer] 12/12/21 12/12/21 18:44 20:56 MCV MCH MCHC RDW Plt Count MPV Immature Gran % (Auto) Neut % (Auto) Lymph % (Auto) [place] % (Auto) Eos % (Auto) Baso % (Auto) Lymph # (Auto) [place] # (Auto) Eos # (Auto) Baso # (Auto) Abs Immat Gran (auto) Absolute Neuts (auto) Absolute Nucleated RBC Nucleated RBC % (auto) PT INR Anion Gap Estim Creat Clear Calc Estimated GFR Random Glucose Lactic Acid Lactic Acid F/U @ 2Hr 3.4 H* Lactic Acid F/U @ 4Hr 2.8 H* Calcium Magnesium Total Bilirubin Direct Bilirubin AST ALT Alkaline Phosphatase B-Natriuretic Peptide Total Protein Albumin Urine Color Urine Appearance Urine pH Ur Specific [place] Urine Protein Urine Glucose (UA) Urine Ketones Urine Blood Urine Nitrite Ur Leukocyte Esterase Urine RBC Urine WBC Ur Squamous Epith Cells Urine Bacteria Urine Opiates Screen Urine Fentanyl Screen Ur Barbiturates Screen Ur Phencyclidine Scrn Ur Amphetamines Screen U Benzodiazepines Scrn Urine Cocaine Screen U Marijuana (THC) Screen Ethyl Alcohol COVID-19 (ELOY) COVID-19 Clin Com Imaging Radiologist's Impressions: Impressions Chest X-Ray 12/12/21 15:43 IMPRESSION: No evidence for acute disease in the chest. Venous Duplex 12/12/21 16:15 IMPRESSION: No DVT demonstrated in the left lower extremity. Chest CTA 12/12/21 17:52 IMPRESSION: 1. No gross main or segmental pulmonary arterial filling defects. Subsegmental pulmonary arteries are suboptimally visualized, however, no gross subsegmental pulmonary emboli noted. 2. 6 mm nodular density of the lingula possibly represents an area of nodular atelectasis versus a developing pulmonary nodule. Attention on follow-up imaging recommended. 3. Other previously visualized findings as described above. VTE: negative Assessment and Plan (1) Alcoholic intoxication: Qualifiers: Complication of substance-induced condition: uncomplicated Qualified Code(s): F10.920 - Alcohol use, unspecified with intoxication, uncomplicated Status: Acute (2) Acidosis, lactic: Status: Acute (3) Hypoxic: Status: Acute (4) Fracture of distal end of left fibula: Status: Acute Plan 61-year-old male with a past medical history of hypertension, hyperlipidemia, alcohol abuse, nonischemic cardiomyopathy presented to the hospital today with a chief complaint of alcohol intoxication/ left ankle pain/ hypoxia. Admitted for following Hypoxia: Likely in the setting of COPD. Patient had mildly diminished breath sounds. DuoNebs p.r.n. CT angio chest showed no pulmonary Embolism. Trending pulse oximetry alcohol intoxication: Will start the patient on phenobarb protocol. Thiamine folate and multivitamins. Lactic acidosis: Improving with IV fluids. pulmonary nodule: Outpatient follow-up with the PCP for surveillance CT scans History of left fibular fracture: Patient follow-up with Orthopedics as outpatient. Patient is currently on Un[place] boot. Pain control. history of hypertension /hyperlipidemia: Continue home medications. Hold home lisinopril for now. DVT prophylaxis: Lovenox Code status: Full code Quality Stroke Does the patient have a stroke diagnosis?: No VTE Prior VTE?: No VTE Risk Level:: Medical - moderate - high VTE Device Contraindication: Treatment Not Indicated VTE Drug Contraindication: N/A - Med Ordered
[2021-12-13] VITALS (7 sets, daily range): BP systolic 152–184; BP diastolic 77–99; PULSE 85–109; RESP 17–19; TEMP 36.1–36.7; O2SAT 93–97
--- NOTE | 2021-12-13 | ECG_ITS ---
Test Reason : CHEST PAIN Blood Pressure : / mmHG Vent. Rate : 098 BPM Atrial Rate : 098 BPM P-R Int : 176 ms QRS Dur : 100 ms QT Int : 390 ms P-R-T Axes : 049 -12 -04 degrees QTc Int : 497 ms Normal sinus rhythm Prolonged QT Abnormal ECG When compared with ECG of 12-DEC-2021 15:56, No significant change was found Referred By: Shawna Euceda Electronically Signed By:RENEE GOLD
[2021-12-13] MEDS: Acetaminophen 325 MG TABLET 650 MG PO ×3 (00:33→15:33)
[2021-12-13] MEDS: LORazepam 1 MG TABLET PO ×2 (00:37→13:52)
[2021-12-13] MEDS: PHENobarbitaL sodium 130 MG/ML VIAL 300 MG IM (02:00)
--- NOTE | 2021-12-13 02:09 | PC.NURSE ---
I assumed care of this pt at 1900. Since that time he has been resting in bed, alert and oriented x 3, sleeping at times but waking to verbal stimuli. he has complained of headache and has been given Tylenol for FLORES. At approximately 1230a. I noted that the pt appeared mildly tremulous, mildly diaphoretic, HR 105 and BP 160's/90's. Hospitalist notified and I gave the Ativan 1mg PRN order. Hospitalist initiated phenobarb orders at this time and initial dose has been administered. Sinus tach on bedside monitor. No chest pain. Respirations spontaneous and non-[id number]. pt occasionally refuses to wear 2l nasal cannula - hospitalist notified and aware. When he does not wear O2 his room air sat's dip to 87% and he is encouraged to replace the O2. At this time, at this moment, he has 2l NC applied and sat's are 95%. he is asleep currently. Will prepare for transport to inaptient bed assignment.
[2021-12-13] MEDS: Omeprazole 40 MG CAPSULE.DR PO (05:56)
[2021-12-13 06:03] LABS: MANUAL DIFF FLAG NO
[2021-12-13 06:08] LABS: Basophils Absolute Auto 0.1 X10*3/uL (0.0-0.2); Basophils Percent Auto 0.9 % (0-2); Eosinophils Absolute Auto 0.1 X10*3/uL (0.0-0.4); Eosinophils Percent Auto 2.1 % (0-4); Hematocrit 34.8 % (42.0-52.0); Hemoglobin 10.9 g/dl (14.0-18.0); Imm Gran Abs Auto 0.04 X10*3/uL (0.00-0.03); Imm Gran Pct Auto 0.7 % (0.0-0.4); Lymphocytes Absolute Auto 1.2 X10*3/uL (1.2-4.9); Lymphocytes Percent Auto 21.5 % (20-40); Mean Corpuscular HGB Conc 31.3 g/dl (31.0-36.0); Mean Corpuscular Hemoglobin 26.5 pg (27.0-33.0); Mean Corpuscular Volume 84.5 fL (80.0-98.0); Mean Platelet Volume 8.5 fL (9.4-12.4); Monocytes Absolute Auto 0.5 X10*3/uL (0.1-1.2); Monocytes Percent Auto 8.7 % (2-11); Neutrophils Absolute Auto 3.7 x10*3/uL (2.0-8.3); Neutrophils Percent Auto 66.1 % (45-73); Platelet Count 265 X10*3/uL (160-400); Red Blood Count 4.12 X10*6/uL (4.60-5.80); Red Cell Distribution Width 18.2 % (11.0-16.0); White Blood Count 5.6 X10*3/uL (4.8-10.8)
--- NOTE | 2021-12-13 06:19 | PC.NURSE ---
pt refused 0500 IM phenobarbital, he's been sleeping and not displaying any signs of withdrawal. Dr. Ji jewell.
[2021-12-13 06:31] LABS: Anion Gap 14 (12-20); Blood Urea Nitrogen 8 mg/dL (9-16); Calcium 8.5 mg/dL (8.4-10.2); Carbon Dioxide 27 mmol/L (22-29); Chloride 103 mmol/L (96-108); Creatinine Clr Calc Pharmacy 131.6; Estimated Glomerular Filt Rate > 60; Glucose Random 99 mg/dL (60-115); Potassium 3.6 mmol/L (3.3-5.1); Sodium 140 mmol/L (135-145)
[2021-12-13] MEDS: Thiamine HCL 100 MG TABLET PO (08:52)
[2021-12-13] MEDS: Multivitamin TABLET 1 TAB PO (08:53)
[2021-12-13] MEDS: 0.9 % Sodium Chloride Flush 3 ML SYRINGE IVFLUSH ×2 (08:53→20:58)
[2021-12-13] MEDS: Folic Acid 1 MG TABLET PO (08:53)
[2021-12-13] MEDS: amLODIPine Besylate 10 MG TABLET PO (08:53)
[2021-12-13] MEDS: Magnesium Oxide 400 MG TABLET PO ×2 (08:53→20:58)
[2021-12-13] MEDS: carvediloL 6.25 MG TABLET PO ×2 (08:53→20:58)
--- NOTE | 2021-12-13 13:02 | HO.PM.IMPN ---
Subjective Subjective Date of Service: 12/13/21 Interval History: Being followed for hypoxia and alcohol intoxication with high likelihood of withdrawal complaining of headache asking for Tylenol, refused Lovenox and phenobarb shots since does not like needles, finger oximetry 97% on 3 L aerosol mask, denies lightheadedness dizziness,or, shakiness, denies nausea, no vomiting, no abdominal pain. Complaining of dry cough Review of Systems Review of Systems: Yes all other systems are reviewed and are negative Physical Exam Vital Signs: Vital Signs: Last Vital Signs Temp 97.8 F 12/13/21 11:43 Pulse 86 12/13/21 11:43 Resp 17 12/13/21 11:43 BP 165/89 H 12/13/21 11:43 Pulse Ox 97 12/13/21 11:43 BMI result Body Mass Index 30.7 Const: Other: General resting in bedno acute distress. Neck is supple no JVD. CVS regular rate rhythm, Respiratory lungs clear to auscultation, no respiratory distress, no wheeze, no rhonchi. Gastrointestinal abdomen soft, nontender, bowel sounds audible, no guarding , no rigidity. Extremities no clubbing cyanosis or edema. Neuro nonfocal , moving all 4 extremity, speech clear. Skin bruise forehead Psych appropriate affect Objective Data Active Medications Acetaminophen (Acetaminophen 325 Mg Tablet) 650 mg PO Q6H PRN PRN Reason: Pain, Mild (Pain Scale 1-3) Last Admin: 12/13/21 08:52 Dose: 650 mg Documented by: ROME Albuterol/Ipratropium (Albuterol/Iprat 2.5/0.5mg 3 Ml Ampul.Neb) 3 ml INHALE Q4H PRN PRN Reason: Shortness of Breath/Wheezing Amlodipine Besylate (Amlodipine Besylate 10 Mg Tablet) 10 mg PO DAILY [facility]; Protocol Last Admin: 12/13/21 08:53 Dose: 10 mg Documented by: ROME Carvedilol (Carvedilol 6.25 Mg Tablet) 6.25 mg PO BID [facility]; Protocol Last Admin: 12/13/21 08:53 Dose: 6.25 mg Documented by: ROME Enoxaparin Sodium (Enoxaparin Sodium 40 Mg/0.4 Ml Syringe) 40 mg SUBCUT Q24H [facility] Last Admin: 12/12/21 23:47 Dose: Not Given Documented by: NELLY Non-Admin Reason: Patient Refused Folic Acid (Folic Acid 1 Mg Tablet) 1 mg PO DAILY [facility] Stop: 12/16/21 08:59 Last Admin: 12/13/21 08:53 Dose: 1 mg Documented by: ROME Lorazepam (Lorazepam 1 Mg Tablet) 1 mg PO Q4H PRN PRN Reason: Breakthrough alcohol withdrawa Stop: 12/16/21 20:02 Last Admin: 12/13/21 00:37 Dose: 1 mg Documented by: NELLY Magnesium Oxide (Magnesium Oxide 400 Mg Tablet) 400 mg PO BID [facility] Last Admin: 12/13/21 08:53 Dose: 400 mg Documented by: ROME Medication (No Benzodiazepines) 1 each MISCELLANE DAILY [facility] Melatonin (Melatonin 3 Mg Tablet) 6 mg PO BEDTIME PRN PRN Reason: Insomnia Multivitamins/Vitamin C (Multivitamin Tablet) 1 tab PO DAILY [facility] Stop: 12/16/21 08:59 Last Admin: 12/13/21 08:53 Dose: 1 tab Documented by: ROME Omeprazole (Omeprazole 40 Mg Capsule.Dr) 40 mg PO DAILY@0630 [facility] Last Admin: 12/13/21 05:56 Dose: 40 mg Documented by: ALENA Phenobarbital (Phenobarbital 30 Mg Tablet) 60 mg PO BID [facility]; Protocol Stop: 12/15/21 09:01 Phenobarbital (Phenobarbital 30 Mg Tablet) 30 mg PO BID [facility]; Protocol Stop: 12/17/21 09:01 Phenobarbital (Phenobarbital 30 Mg Tablet) 30 mg PO DAILY [facility]; Protocol Stop: 12/19/21 09:01 Senna (Sennosides 8.6 Mg Tablet) 17.2 mg PO BEDTIME PRN PRN Reason: Constipation Sodium Chloride (0.9 % Sodium Chloride Flush 3 Ml Syringe) 3 ml IVFLUSH QSHIFT [facility] Last Admin: 12/13/21 08:53 Dose: 3 ml Documented by: ROME Tamsulosin HCl (Tamsulosin Hcl 0.4 Mg Capsule) 0.4 mg PO BEDTIME [facility] Thiamine HCl (Thiamine Hcl 100 Mg Tablet) 100 mg PO DAILY [facility] Stop: 12/16/21 08:59 Last Admin: 12/13/21 08:52 Dose: 100 mg Documented by: ROME Trazodone HCl (Trazodone Hcl 100 Mg Tablet) 100 mg PO BEDTIME EVAN Labs CBC & Chem 7: 12/13/21 05:47 12/13/21 05:47 Labs: Laboratory Results - last 24 hr 12/12/21 12/12/21 12/12/21 15:52 15:53 15:53 MCV 85.5 MCH 26.3 L MCHC 30.8 L RDW 18.6 H Plt Count 283 MPV 8.3 L Immature Gran % (Auto) 0.6 H Neut % (Auto) 62.1 Lymph % (Auto) 27.3 Chambers % (Auto) 7.5 Eos % (Auto) 1.7 Baso % (Auto) 0.8 Lymph # (Auto) 1.4 Chambers # (Auto) 0.4 Eos # (Auto) 0.1 Baso # (Auto) 0.0 Abs Immat Gran (auto) 0.03 Absolute Neuts (auto) 3.2 Absolute Nucleated RBC 0.000 Nucleated RBC % (auto) 0.0 PT 11.4 INR 1.0 Anion Gap Estim Creat Clear Calc Estimated GFR Random Glucose Lactic Acid 3.8 H* Lactic Acid F/U @ 2Hr Lactic Acid F/U @ 4Hr Calcium Magnesium Total Bilirubin Direct Bilirubin AST ALT Alkaline Phosphatase B-Natriuretic Peptide Total Protein Albumin Urine Color Urine Appearance Urine pH Ur Specific [place] Urine Protein Urine Glucose (UA) Urine Ketones Urine Blood Urine Nitrite Ur Leukocyte Esterase Urine RBC Urine WBC Ur Squamous Epith Cells Urine Bacteria Urine Opiates Screen Urine Fentanyl Screen Ur Barbiturates Screen Ur Phencyclidine Scrn Ur Amphetamines Screen U Benzodiazepines Scrn Urine Cocaine Screen U Marijuana (THC) Screen Ethyl Alcohol COVID-19 (ELOY) COVID-19 Clin Com 12/12/21 12/12/21 12/12/21 15:53 15:53 15:53 MCV MCH MCHC RDW Plt Count MPV Immature Gran % (Auto) Neut % (Auto) Lymph % (Auto) Chambers % (Auto) Eos % (Auto) Baso % (Auto) Lymph # (Auto) Chambers # (Auto) Eos # (Auto) Baso # (Auto) Abs Immat Gran (auto) Absolute Neuts (auto) Absolute Nucleated RBC Nucleated RBC % (auto) PT INR Anion Gap 19 Estim Creat Clear Calc 103.5 Estimated GFR > 60 Random Glucose 103 Lactic Acid Lactic Acid F/U @ 2Hr Lactic Acid F/U @ 4Hr Calcium 8.5 Magnesium 1.8 Total Bilirubin < 0.2 Direct Bilirubin < 0.2 AST 24 ALT 23 Alkaline Phosphatase 62 B-Natriuretic Peptide < 10 Total Protein 7.6 Albumin 3.9 Urine Color Urine Appearance Urine pH Ur Specific [place] Urine Protein Urine Glucose (UA) Urine Ketones Urine Blood Urine Nitrite Ur Leukocyte Esterase Urine RBC Urine WBC Ur Squamous Epith Cells Urine Bacteria Urine Opiates Screen Urine Fentanyl Screen Ur Barbiturates Screen Ur Phencyclidine Scrn Ur Amphetamines Screen U Benzodiazepines Scrn Urine Cocaine Screen U Marijuana (THC) Screen Ethyl Alcohol COVID-19 (ELOY) Negative COVID-[facility] Com See Note 12/12/21 12/12/21 12/12/21 15:53 17:53 17:53 MCV MCH MCHC RDW Plt Count MPV Immature Gran % (Auto) Neut % (Auto) Lymph % (Auto) Chambers % (Auto) Eos % (Auto) Baso % (Auto) Lymph # (Auto) Chambers # (Auto) Eos # (Auto) Baso # (Auto) Abs Immat Gran (auto) Absolute Neuts (auto) Absolute Nucleated RBC Nucleated RBC % (auto) PT INR Anion Gap Estim Creat Clear Calc Estimated GFR Random Glucose Lactic Acid Lactic Acid F/U @ 2Hr Lactic Acid F/U @ 4Hr Calcium Magnesium Total Bilirubin Direct Bilirubin AST ALT Alkaline Phosphatase B-Natriuretic Peptide Total Protein Albumin Urine Color YELLOW Urine Appearance CLEAR Urine pH 6.0 Ur Specific [place] 1.015 Urine Protein 1+ H Urine Glucose (UA) NEG Urine Ketones NEG Urine Blood NEG Urine Nitrite NEG Ur Leukocyte Esterase NEG Urine RBC 0 Urine WBC 0 Ur Squamous Epith Cells NONE Urine Bacteria TRACE Urine Opiates Screen POSITIVE H Urine Fentanyl Screen POSITIVE H Ur Barbiturates Screen Not Detected Ur Phencyclidine Scrn Not Detected Ur Amphetamines Screen Not Detected U Benzodiazepines Scrn Not Detected Urine Cocaine Screen Not Detected U Marijuana (THC) Screen Not Detected Ethyl Alcohol 384 H* COVID-19 (ELOY) COVID-[facility] 12/12/21 12/12/21 12/13/21 18:44 20:56 05:47 MCV 84.5 MCH 26.5 L MCHC 31.3 RDW 18.2 H Plt Count 265 MPV 8.5 L Immature Gran % (Auto) 0.7 H Neut % (Auto) 66.1 Lymph % (Auto) 21.5 Chambers % (Auto) 8.7 Eos % (Auto) 2.1 Baso % (Auto) 0.9 Lymph # (Auto) 1.2 Chambers # (Auto) 0.5 Eos # (Auto) 0.1 Baso # (Auto) 0.1 Abs Immat Gran (auto) 0.04 H Absolute Neuts (auto) 3.7 Absolute Nucleated RBC 0.000 Nucleated RBC % (auto) 0.0 PT INR Anion Gap Estim Creat Clear Calc Estimated GFR Random Glucose Lactic Acid Lactic Acid F/U @ 2Hr 3.4 H* Lactic Acid F/U @ 4Hr 2.8 H* Calcium Magnesium Total Bilirubin Direct Bilirubin AST ALT Alkaline Phosphatase B-Natriuretic Peptide Total Protein Albumin Urine Color Urine Appearance Urine pH Ur Specific [place] Urine Protein Urine Glucose (UA) Urine Ketones Urine Blood Urine Nitrite Ur Leukocyte Esterase Urine RBC Urine WBC Ur Squamous Epith Cells Urine Bacteria Urine Opiates Screen Urine Fentanyl Screen Ur Barbiturates Screen Ur Phencyclidine Scrn Ur Amphetamines Screen U Benzodiazepines Scrn Urine Cocaine Screen U Marijuana (THC) Screen Ethyl Alcohol COVID-19 (ELOY) [employer] [place] 12/13/21 05:47 MCV MCH MCHC RDW Plt Count MPV Immature Gran % (Auto) Neut % (Auto) Lymph % (Auto) Chambers % (Auto) Eos % (Auto) Baso % (Auto) Lymph # (Auto) Chambers # (Auto) Eos # (Auto) Baso # (Auto) Abs Immat Gran (auto) Absolute Neuts (auto) Absolute Nucleated RBC Nucleated RBC % (auto) PT INR Anion Gap 14 Estim Creat Clear Calc 131.6 Estimated GFR > 60 Random Glucose 99 Lactic Acid Lactic Acid F/U @ 2Hr Lactic Acid F/U @ 4Hr Calcium 8.5 Magnesium Total Bilirubin Direct Bilirubin AST ALT Alkaline Phosphatase B-Natriuretic Peptide Total Protein Albumin Urine Color Urine Appearance Urine pH Ur Specific [place] Urine Protein Urine Glucose (UA) Urine Ketones Urine Blood Urine Nitrite Ur Leukocyte Esterase Urine RBC Urine WBC Ur Squamous Epith Cells Urine Bacteria Urine Opiates Screen Urine Fentanyl Screen Ur Barbiturates Screen Ur Phencyclidine Scrn Ur Amphetamines Screen U Benzodiazepines Scrn Urine Cocaine Screen U Marijuana (THC) Screen Ethyl Alcohol COVID-19 (ELOY) COVID-[facility] Assessment and Plan (1) Alcoholic intoxication: Status: Acute (2) Hypoxic: Status: Acute (3) Nonischemic cardiomyopathy: Status: Acute (4) Hypertension: Status: Acute (5) HLD (hyperlipidemia): Status: Acute Plan 61-year-old male with a past medical history of hypertension, hyperlipidemia, alcohol abuse, nonischemic cardiomyopathy presented to the hospital today with a chief complaint of alcohol intoxication/ left ankle pain/ hypoxia.? Admitted for following Acute hypoxic respiratory failure Noted to have finger oximetry 87 on room air on arrival, oxygenation improved currently 96% on 3 L CTA chest showed no PE , mild atelectasis, venous Doppler showed no DVT , chest x-ray no infiltrate, BNP less than 10, troponin 21 Likely in the setting of COPD, mildly diminished breath sounds, no acute exacerbation Continue DuoNebs p.r.n. wean oxygen as tolerated alcohol intoxication with high likelihood of withdrawal, alcohol level 384 continue phenobarb protocol,Thiamine , folate and multivitamins. Lactic acidosis:? Improving with IV fluids. No sepsis Pulmonary nodule: Outpatient follow-up with the PCP for surveillance CT scans History of left fibular fracture:? Patient follow-up with Orthopedics as outpatient.?Pain control. history of hypertension /hyperlipidemia: Continue home medications.? Opioid use disorder urine toxicology positive for opiates and fentanyl patient denies use, will consult care team. non ischemic cardiomyopathy with recovered EF stable DVT prophylaxis:? Lovenox Code status: Full code Quality Stroke Does the patient have a stroke diagnosis?: No VTE Prior VTE?: No VTE Risk Level:: Medical - moderate - high VTE Device Contraindication: Treatment Not Indicated VTE Drug Contraindication: N/A - Med Ordered
[2021-12-13] MEDS: 0.9 % Sodium Chloride 500 ML 100 ML IVCONT (14:26)
--- NOTE | 2021-12-13 14:48 | MHC.CM.PN ---
EMR REVIEWED, PT ADMITTED W/ETOH INTOX AND RESPIRATORY FAILURE, CM MET W/PT WHO REPORTS HE LIVES ALONE, INDEP W/CARE, HAS A WALKER AND W/C AT HOME AND REPORTS HE HAS A VNA A FEW TIMES A WEEK, PT WAS SET UP W/[facility] DURING LAST ADMIT, PT OPEN TO STR HOWEVER PT IS UNVACCINATED FOR COVID AND CM WAS UNABLE TO PLACE HIM D/T DURING HIS LAST ADMISSION. PT VERIFIES PCP AME SHORE, HCP ON FILE FROM PREVIOUS ADMISSION AND PT IS NOT COVID VACCINATED. D/C PLAN: HOME W/RESUMP OF [facility], PT WILL LIKELY NEED TRANSPORT HOME. RECOVERY SUPPORT NURSE CURRENTLY MEETING W/PT.
--- NOTE | 2021-12-13 15:05 | MHC.RECOVRN ---
Met with pt in 358 after consult placed to CARE Team for substance use. Pt reports alcohol use, 1-2 pints vodka daily. Pts toxicology positive for opiates and fentanyl. Denies other substances. Pt reports attending AA in the past, sponsor last year. Pt ambivalent about reconnecting with AA. Pt also reports mother in August. Pt difficult to engage in discussion regarding goals related to alcohol use, pt looks away and doesn't answer. Pt educated regarding AUD supports and community resources, pt disinterested. T/w educated pt regarding medications for AUD, pt interested in naltrexone. Discussed with pt the importance of having other supports, pt dismissive. Will follow up with pt tomorrow and provide more resources. Discussed with Jacy James APRN.
[2021-12-13] MEDS: PHENobarbitaL 30 MG TABLET 60 MG PO (20:57)
[2021-12-13] MEDS: traZODone HCL 100 MG TABLET PO (20:57)
[2021-12-13] MEDS: Tamsulosin HCL 0.4 MG CAPSULE PO (20:58)
[2021-12-14] VITALS: BP 151/90; PULSE 92; RESP 16; TEMP 37.2; O2SAT 95
[2021-12-14 04:00] VITALS: BP 154/74; PULSE 92; RESP 16; TEMP 36.8; O2SAT 95
[2021-12-14] MEDS: Acetaminophen 325 MG TABLET 650 MG PO (04:04)
[2021-12-14] MEDS: Omeprazole 40 MG CAPSULE.DR PO (04:07)
[2021-12-14 08:00] VITALS: BP 181/97; PULSE 96; RESP 20; TEMP 36.4; O2SAT 98
[2021-12-14] MEDS: amLODIPine Besylate 10 MG TABLET PO (08:20)
[2021-12-14] MEDS: lisinopriL 40 MG TABLET PO (08:20)
[2021-12-14] MEDS: carvediloL 6.25 MG TABLET PO (08:20)
[2021-12-14] MEDS: Multivitamin TABLET 1 TAB PO (08:20)
[2021-12-14] MEDS: Thiamine HCL 100 MG TABLET PO (08:21)
[2021-12-14] MEDS: Magnesium Oxide 400 MG TABLET PO (08:21)
[2021-12-14] MEDS: Folic Acid 1 MG TABLET PO (08:21)
[2021-12-14] MEDS: PHENobarbitaL 30 MG TABLET 60 MG PO (08:21)
[2021-12-14] MEDS: 0.9 % Sodium Chloride Flush 3 ML SYRINGE IVFLUSH (08:22)
[2021-12-14 08:47] LABS: Hematocrit 38.9 % (42.0-52.0); Hemoglobin 11.9 g/dl (14.0-18.0); Mean Corpuscular HGB Conc 30.6 g/dl (31.0-36.0); Mean Corpuscular Volume 85.1 fL (80.0-98.0); Mean Platelet Volume 8.8 fL (9.4-12.4); Platelet Count 289 X10*3/uL (160-400); Red Blood Count 4.57 X10*6/uL (4.60-5.80); Red Cell Distribution Width 17.6 % (11.0-16.0); White Blood Count 7.6 X10*3/uL (4.8-10.8)
[2021-12-14 09:01] LABS: Anion Gap 14 (12-20); Blood Urea Nitrogen 10 mg/dL (9-16); Calcium 9.2 mg/dL (8.4-10.2); Carbon Dioxide 25 mmol/L (22-29); Chloride 101 mmol/L (96-108); Creatinine Clr Calc Pharmacy 131.6; Estimated Glomerular Filt Rate > 60; Glucose Random 101 mg/dL (60-115); Magnesium 1.8 mg/dL (1.6-2.6); Potassium 3.6 mmol/L (3.3-5.1); Sodium 136 mmol/L (135-145)
[2021-12-14 09:21] LABS: Procalcitonin 0.02 ng/mL
--- NOTE | 2021-12-14 10:47 | MHC.RECOVRN ---
Met with pt in 358 to follow up after discussion yesterday. Pt continues to be dismissive of recovery supports other than naltrexone. Pt educated regarding medication, including mechanism of action and risks associated with using opiates. Pt denies opiate use. Pt provided with many written resources and encouraged to contact t/w if referrals are wanted. Discussed with Jacy James APRN. Naltrexone prescription sent to pts pharmacy. Pt has intake appt at the [facility] on 12/20 at 10AM. Pt and CM aware.
--- NOTE | 2021-12-14 10:53 | P.DS_ITS ---
DS: Providers Provider Date of Service: 12/14/21 Date of admission: 12/12/21 19:42 Date of discharge: 12/14/21 Primary care physician: Unknown Physician Consults: 12/13/21 13:18 Consult to Care Team Routine Comment: Reason for consultation: opiate use 12/14/21 07:53 Addiction Medicine Routine Consulting Provider: Jacy James Reason for consultation: etoh ?fentanyl DS: Diagnosis Discharge Diagnosis (1) Acute respiratory failure with hypoxia: Status: Acute (2) Acidosis, lactic: Status: Acute (3) Alcohol withdrawal: Status: Acute (4) Alcohol intoxication with moderate or severe use disorder: Status: Acute DS: Summary Hospital Course Hospital Course: From admission H+P by hospitalist Austin Workman, 12/12/21: 61-year-old male with a past medical history of hypertension, hyperlipidemia, alcohol abuse, nonischemic cardiomyopathy presented to the hospital today with a chief complaint of alcohol intoxication.? Reportedly patient called the EMS himself because he was alcohol intoxicated.? He also complained of the left ankle pain which he had a recent fracture and is following with orthopedics.? Mentioned that he has been eating okay denies any nausea vomiting or chest pain.? Denies any abdominal discomfort.? That he drinks alcohol every day.? Denies any urinary symptoms. Review of all other systems is negative except mentioned above ER course: Per ER team patient on presentation noted to have stable vitals except for low oxygen saturating 82% on room air; chest x-ray showed no acute findings; CTA chest was done which showed no evidence of pulmonary embolism but noted to have pulmonary nodule.? Patient has slightly diminished breath sounds; admitted to the hospital for further management The patient was admitted to the medical/surgical floor and quickly weaned off oxygen; CTA was negative for PE and leg Dopplers were negative for DVT. No evidence of pneumonia or CHF. Not in COPD exacerbation. Ultimately, hypoxia was attributed to atelectasis. He was not treated with steroids. Given alcohol intoxication with high risk for withdrawal, he was treated with phenobarbital taper. He met with the CARE Team and the addiction medicine specialist and was prescribed naltrexone for outpatient use. Urine toxicology was positive for opiates and fentanyl, but the patient adamantly denied use of these substances. There was an incidental 6 mm lingular nodule that should be followed by repeat CT chest without contrast in 3 months. He was discharged home with a commitment to sobriety and resumption of VNA seervices. Time Spent with Patient Time attestation: Total time spent providing and/or coordinating discharge services: Discharge coordination time: Greater than 30 minutes Quality: Stroke Does the patient have a stroke diagnosis?: No Physical Exam Vital Signs: Vital Signs: Last Vital Signs Temp 97.5 F 12/14/21 08:00 Pulse 96 12/14/21 08:00 Resp 20 12/14/21 08:00 BP 181/97 H 12/14/21 08:00 Pulse Ox 98 12/14/21 08:00 BMI result Body Mass Index 30.7 Gen: in no acute distress HEENT: sclera anicteric, moist mucus membranes Neck: supple Lungs: clear to auscultation bilaterally Heart: regular rate and rhythm, no murmurs Abd: soft, non-tender, non-distended Ext: no edema Skin: warm/well-perfused Neuro: alert and oriented x3, no focal findings Psych: appropriate affect DS: Data Data Completed and Pending Completed studies during hospitalization [Text1]: Laboratory Results WBC 7.6 X10*3/uL (4.8-10.8) 12/14/21 08:12 RBC 4.57 X10*6/uL (4.60-5.80) L 12/14/21 08:12 Hgb 11.9 g/dl (14.0-18.0) L 12/14/21 08:12 Hct 38.9 % (42.0-52.0) L 12/14/21 08:12 MCV 85.1 fL (80.0-98.0) 12/14/21 08:12 MCH 26.0 pg (27.0-33.0) L 12/14/21 08:12 MCHC 30.6 g/dl (31.0-36.0) L 12/14/21 08:12 RDW 17.6 % (11.0-16.0) H 12/14/21 08:12 Plt Count 289 X10*3/uL (160-400) 12/14/21 08:12 MPV 8.8 fL (9.4-12.4) L 12/14/21 08:12 Immature Gran % (Auto) 0.7 % (0.0-0.4) H 12/13/21 05:47 Neut % (Auto) 66.1 % (45-73) 12/13/21 05:47 Lymph % (Auto) 21.5 % (20-40) 12/13/21 05:47 Cache % (Auto) 8.7 % (2-11) 12/13/21 05:47 Eos % (Auto) 2.1 % (0-4) 12/13/21 05:47 Baso % (Auto) 0.9 % (0-2) 12/13/21 05:47 Lymph # (Auto) 1.2 X10*3/uL (1.2-4.9) 12/13/21 05:47 Cache # (Auto) 0.5 X10*3/uL (0.1-1.2) 12/13/21 05:47 Eos # (Auto) 0.1 X10*3/uL (0.0-0.4) 12/13/21 05:47 Baso # (Auto) 0.1 X10*3/uL (0.0-0.2) 12/13/21 05:47 Abs Immat Gran (auto) 0.04 X10*3/uL (0.00-0.03) H 12/13/21 05:47 Absolute Neuts (auto) 3.7 x10*3/uL (2.0-8.3) 12/13/21 05:47 Absolute Nucleated RBC 0.000 X10*3/uL (0.0-0.012) 12/14/21 08:12 Nucleated RBC % (auto) 0.0 /100WBC (0.0-0.2) 12/14/21 08:12 PT 11.4 SEC (9.9-13.0) 12/12/21 15:53 INR 1.0 (0.9-1.1) 12/12/21 15:53 Sodium 136 mmol/L (135-145) 12/14/21 08:12 Potassium 3.6 mmol/L (3.3-5.1) 12/14/21 08:12 Chloride 101 mmol/L (96-108) 12/14/21 08:12 Carbon Dioxide 25 mmol/L (22-29) 12/14/21 08:12 Anion Gap 14 (12-20) 12/14/21 08:12 BUN 10 mg/dL (9-16) 12/14/21 08:12 Creatinine 0.70 mg/dL (0.5-1.4) 12/14/21 08:12 Estim Creat Clear Calc 131.6 12/14/21 08:12 Estimated GFR > 60 12/14/21 08:12 Random Glucose 101 mg/dL (60-115) 12/14/21 08:12 Lactic Acid 3.8 mmol/L (0.5-2.0) H* 12/12/21 15:52 Lactic Acid F/U @ 2Hr 3.4 mmol/L (0.5-2.0) H* 12/12/21 18:44 Lactic Acid F/U @ 4Hr 2.8 mmol/L (0.5-2.0) H* 12/12/21 20:56 Calcium 9.2 mg/dL (8.4-10.2) D 12/14/21 08:12 Magnesium 1.8 mg/dL (1.6-2.6) 12/14/21 08:12 Total Bilirubin < 0.2 mg/dL (0.0-1.0) 12/12/21 15:53 Direct Bilirubin < 0.2 mg/dL (0.0-0.5) 12/12/21 15:53 AST 24 U/L (5-37) 12/12/21 15:53 ALT 23 U/L (0-40) 12/12/21 15:53 Alkaline Phosphatase 62 U/L (39-117) 12/12/21 15:53 Troponin I High Sens 21.0 ng/L (<3.5-35.0) D 12/12/21 15:53 B-Natriuretic Peptide < 10 pg/mL (<100) 12/12/21 15:53 Total Protein 7.6 g/dL (6.5-8.0) 12/12/21 15:53 Albumin 3.9 g/dL (3.5-5.0) 12/12/21 15:53 Procalcitonin 0.02 ng/mL 12/14/21 08:12 Urine Color YELLOW 12/12/21 17:53 Urine Appearance CLEAR 12/12/21 17:53 Urine pH 6.0 (5.0-8.0) 12/12/21 17:53 Ur Specific [place] 1.015 (1.005-1.025) 12/12/21 17:53 Urine Protein 1+ MG/DL (NEG-TRACE) H 12/12/21 17:53 Urine Glucose (UA) NEG MG/DL (NEG) 12/12/21 17:53 Urine Ketones NEG MG/DL (NEG) 12/12/21 17:53 Urine Blood NEG (NEG) 12/12/21 17:53 Urine Nitrite NEG (NEG) 12/12/21 17:53 Ur Leukocyte Esterase NEG (NEG) 12/12/21 17:53 Urine RBC 0 /HPF (0) 12/12/21 17:53 Urine WBC 0 /HPF (0-4) 12/12/21 17:53 Ur Squamous Epith Cells NONE /LPF 12/12/21 17:53 Urine Bacteria TRACE /LPF 12/12/21 17:53 Urine Opiates Screen POSITIVE (Not Detect) H 12/12/21 17:53 Urine Fentanyl Screen POSITIVE (Not Detect) H 12/12/21 17:53 Ur Barbiturates Screen Not Detected (Not Detect) 12/12/21 17:53 Ur Phencyclidine Scrn Not Detected (Not Detect) 12/12/21 17:53 Ur Amphetamines Screen Not Detected (Not Detect) 12/12/21 17:53 U Benzodiazepines Scrn Not Detected (Not Detect) 12/12/21 17:53 Urine Cocaine Screen Not Detected (Not Detect) 12/12/21 17:53 U Marijuana (THC) Screen Not Detected (Not Detect) 12/12/21 17:53 Ethyl Alcohol 384 mg/dL H* 12/12/21 15:53 COVID-19 ([facility]OY) Negative (Negative) 12/12/21 15:53 COVID-19 Clin Com See Note 12/12/21 15:53 Impressions Chest X-Ray 12/12/21 15:43 IMPRESSION: No evidence for acute disease in the chest. Venous Duplex 12/12/21 16:15 IMPRESSION: No DVT demonstrated in the left lower extremity. Chest CTA 12/12/21 17:52 IMPRESSION: 1. No gross main or segmental pulmonary arterial filling defects. Subsegmental pulmonary arteries are suboptimally visualized, however, no gross subsegmental pulmonary emboli noted. 2. 6 mm nodular density of the lingula possibly represents an area of nodular atelectasis versus a developing pulmonary nodule. Attention on follow-up imaging recommended. 3. Other previously visualized findings as described above. VTE: negative Discharge Plan Discharge Patient Disposition: Home Health Service Discharge Diagnosis: alcohol intoxication/withdrawal, alcohol use disorder, COPD, pulmonary nodulce Referrals: [facility], [facility] [Other] - 1 Week (INTAKE APPT FOR MED ASSISTED TREATMENT ON 12/20 AT 10:00AM ) [facility] [Outside] - 1 Day (RESUMPTION OF CARE) Osito Grant PA [Physician [facility]] - 1 Week Discharge Medications: New naltrexone 50 mg tablet 50 mg PO DAILY Qty: 30 0RF multivitamin [Daily-Jaya] Tablet 1 tab PO DAILY Qty: 30 0RF folic acid 1 mg Tablet 1 mg PO DAILY Qty: 30 0RF thiamine mononitrate (vit B1) 100 mg Tablet 100 mg PO DAILY Qty: 30 0RF Continued carvedilol 6.25 mg tablet 6.25 mg PO BID 90 Days Qty: 180 1RF Rx Instructions: must administer with a meal/food lisinopril 40 mg tablet 40 mg PO DAILY 90 Days Qty: 90 1RF amlodipine 10 mg tablet 10 mg PO DAILY 90 Days Qty: 90 1RF tamsulosin 0.4 mg Capsule 0.4 mg PO BEDTIME 0RF trazodone 100 mg Tablet 100 mg PO BEDTIME 0RF ferrous sulfate 325 mg (65 mg iron) Tablet 325 mg PO DAILY 0RF omeprazole 40 mg capsule,delayed release(DR/EC) 40 mg PO DAILY 0RF oxycodone 5 mg tablet 5 mg PO TID PRN (Reason: pain) Qty: 12 0RF Rx Instructions: partial fill okay magnesium oxide 400 mg (241.3 mg magnesium) tablet 1 tab PO BID 0RF albuterol sulfate 90 mcg/actuation HFA aerosol inhaler 2 inh inhalation Q4H PRN (Reason: Dyspnea) 0RF No Action (DME) Ultra-Light Rollator Misc See Rx Instructions .Route Qty: 1 0RF Rx Instructions: As directed Discharge Orders: Discharge Order (Routine); Ordered 12/14/21 Ordered By: Juanjose Mcallister Diet: low salt diet Activity on Discharge: As tolerated Stand Alone Forms: Patient Portal Discharge page Care Plan Goals: sobriety Health Concerns: alcohol intoxication/withdrawal, alcohol use disorder, COPD, pulmonary nodule Plan of Treatment: naltrexone 50 mg daily; follow up with [facility] take multivitamin, folic acid, and thiamine as prescribed avoid alcohol; the combination with phenobarbital [which hangs around your system for several days] is dangerous see your primary care doctor in one week You have an incidental 6 mm pulmonary nodule in the left lung. Recommend repeating CT chest in 3 months; please see your primary care doctor to have this test ordered/scheduled Assessment: see Discharge Summary Patient Instructions: Abuse of Alcohol (DC), Alcohol Use Disorder (DC)
[2021-12-14 11:21] VITALS: BP 114/66; PULSE 19; RESP 20; TEMP 37.4; O2SAT 91
--- NOTE | 2021-12-14 12:25 | MHC.CM.PN ---
Pt medically cleared for d/c home w/resmup of [facility] and new appt for MAT at [facility] on 12/20 at 10am, [facility] for chair van transport home.
[2021-12-14 19:43] VITALS: BP 133/73; PULSE 104; RESP 18; TEMP 37.1; O2SAT 96
== END 2021-12-14 13:39 | disposition home health service (06) | DRG 143 ==
LOC: HO.ED 19:24 → HO.EDOVER 19:48 → HO.S3 12-13 01:54
PROVIDERS: Emergency Medicine; Admitting Provider Hospitalist; Emergency Provider Emergency Medicine; PCP Physician Assistant Medical; Visit Provider Family Medicine
DX: J98.11 Atelectasis (principal); J96.01 Acute respiratory failure with hypoxia; E87.2 Acidosis; I42.8 Other cardiomyopathies; Y90.8 Blood alcohol level of 240 mg/100 ml or more; F10.230 Alcohol dependence with withdrawal, uncomplicated; E78.5 Hyperlipidemia, unspecified; F10.229 Alcohol dependence with intoxication, unspecified; I10 Essential (primary) hypertension; R91.1 Solitary pulmonary nodule; Z20.822 Contact with and (suspected) exposure to COVID-19; Z79.899 Other long term (current) drug therapy
CPT/HCPCS: 36415; 71045; 71275; 80048; 80076; 80307; 81001; 82077; 83605; 83735; 83880; 84145; 84484; 85025; 85027; 85610; 87040; 87635; 93005; 93971; 94640; 96361; 96365; 99285; J2560; J3411; Q9967

== ENCOUNTER 2021-12-14 23:46 | Emergency (ER) | payer OTHER, SELFPAY ==
[2021-12-14 23:56] VITALS: BP 112/70; PULSE 121; RESP 20; TEMP 37.2; O2SAT 94; BMI 25.8
[2021-12-15 00:55] VITALS: BP 100/65; PULSE 94; RESP 18; TEMP 37; O2SAT 91
--- NOTE | 2021-12-15 00:56 | ED_ITS ---
HPI - Alcohol General Chief Complaint: ETOH/Substance Use Stated Complaint: etoh Time Seen by Provider: 12/15/21 00:56 Source: patient Mode of arrival: EMS History of Present Illness HPI narrative: 61-year-old male with known alcohol dependence presents via EMS. Patient states that he drank 2 pints today. Otherwise, he has no acute complaints. Related Data Home Medications Medication Instructions Recorded Confirmed albuterol sulfate 90 mcg/actuation 2 inh INHALATION Q4H PRN 11/10/20 12/15/21 aerosol inhaler amlodipine 10 mg tablet 10 mg PO DAILY 12/15/21 12/15/21 carvedilol 6.25 mg tablet 6.25 mg PO BID 12/15/21 12/15/21 ferrous sulfate 325 mg (65 mg 1 tab PO DAILY 12/15/21 12/15/21 iron) tablet,delayed release nabumetone 500 mg tablet 500 mg PO DAILY 12/15/21 12/15/21 omeprazole 40 mg capsule,delayed 1 cap PO DAILY 12/15/21 12/15/21 release tamsulosin 0.4 mg capsule 1 cap PO DAILY 12/15/21 12/15/21 trazodone 100 mg tablet 1 tab PO BEDTIME 12/15/21 12/15/21 Previous Rx's Medication Instructions Recorded walker (Ultra-Light Rollator) #1 ea 08/19/21 Allergies Allergy/AdvReac Type Severity Reaction Status Date / Time No Known Allergies Allergy Verified 12/07/21 10:37 Review of Systems Review of Systems: Pertinent positives and negatives as stated in HPI 10 point review of systems is otherwise negative. [facility] Past Medical History Source: nursing notes reviewed Medical History Acidosis, lactic Alcohol dependence Alcohol dependence with withdrawal Alcoholic intoxication Fracture of distal end of left fibula HLD (hyperlipidemia) Hypertension Hypoxic Nonischemic cardiomyopathy Surgical History History of cardiac cath (~01/2016) Family History Family History Father No problems noted. Mother No problems noted. Social History Social History Household Members: None Housing: Apartment Do you presently have visiting nurse or other home services: No Unable to assess alcohol history related to: Refusing to respond Alcohol intake: current Alcohol intake frequency: 0-2 drinks per day Alcohol type: hard liquor Patient Tobacco Use Status: Never used Tobacco Advance Directives Date on File: 07/01/20 service: No Current occupational status: unemployed Physical Exam ED Vital Signs: Vital Signs - 24 hr 12/14/21 23:56 12/15/21 00:55 Temperature 99 F 98.6 F Pulse Rate 121 H 94 Respiratory Rate 20 18 Blood Pressure 112/70 100/65 Pulse Oximetry 94 91 L BMI result Body Mass Index 25.8 VITAL SIGNS: Reviewed. GENERAL: Well developed, well nourished, in no acute distress. HEAD: Normocephalic/healing abrasion to right forehead EYES: PERRLA, EOMI EARS: Ext canals without abnormality OROPHARYNX: no oral lesions noted, posterior pharynx clear LUNGS: Normal breath sounds. No adventitious sounds or accessory muscle use. SpO2<94> CARDIOVASCULAR: Regular rate and rhythm without noted murmurs, no JVD or lower extremity edema. ABDOMEN: Soft, non-tender, non-distended with bowel sounds. MUSCULOSKELETAL: No tenderness, deformities, or effusions noted on gross inspection. EXTREMITIES: No cyanosis, clubbing or edema; noted walking boot to left lower extremity SKIN: Inspection of the skin reveals no rashes NEUROLOGIC: Alert and oriented x 4. Strength and sensation to light touch were grossly intact x 4. Course Course Course Narrative: 61-year-old male with history and clinical presentation consistent with alcohol intoxication and alcohol dependency. Likely component of COPD on review of documentation and patient noted to become slightly hypoxic and placed on 2 L of nasal cannula. Otherwise, will obtain basic labs. Patient refusing lab work and we contacted his emergency contact, Eileen, who will provide the patient with safe ride home. Discharge Plan Discharge Clinical Impression: Alcohol intoxication with moderate or severe use disorder Patient Disposition: Home, Self-Care Instructions: Alcohol Intoxication (ED) Additional Instructions: 1. Resume all home medications as prescribed. Return to the ER for worsening symptoms. Prescriptions: No Action (DME) Ultra-Light Rollator Misc See Rx Instructions .Route Qty: 1 0RF Rx Instructions: As directed carvedilol 6.25 mg tablet 6.25 mg PO BID 0RF omeprazole 40 mg capsule,delayed release(DR/EC) 1 cap PO DAILY 0RF tamsulosin 0.4 mg capsule 1 cap PO DAILY 0RF trazodone 100 mg tablet 1 tab PO BEDTIME 0RF amlodipine 10 mg tablet 10 mg PO DAILY 0RF ferrous sulfate 325 mg (65 mg iron) tablet,delayed release (DR/EC) 1 tab PO DAILY 0RF nabumetone 500 mg tablet 500 mg PO DAILY 0RF albuterol sulfate 90 mcg/actuation HFA aerosol inhaler 2 inh inhalation Q4H PRN (Reason: Dyspnea) 0RF
--- NOTE | 2021-12-15 01:42 | PC.NURSE ---
Eileen (sister) contacted for transportation home. Eileen coming to pick pt up.
== END 2021-12-15 02:19 | disposition home or self-care (01) ==
LOC: HO.ED 12-15 01:47
PROVIDERS: Emergency Provider Student in an Organized Health Care Education/Training Program
DX: F10.220 Alcohol dependence with intoxication, uncomplicated (principal); Y90.9 Presence of alcohol in blood, level not specified; R09.02 Hypoxemia
CPT/HCPCS: 99281; 99282

== ENCOUNTER 2022-01-04 06:41 | Outpatient (REF) | payer OTHER, SELFPAY ==
--- NOTE | ~2022-01-04 | XR_ITS ---
EXAMINATION: XR ANKLE, LEFT CLINICAL INFORMATION: Pain left ankle and left foot. COMPARISON: Left ankle 12/07/2021 TECHNIQUE: AP, lateral, and mortise views of the left ankle. FINDINGS: Since the last exam there is significant callus formation seen along the lateral cortex distal fibula suggestive of hairline fracture. Small avulsion fracture along the anterior tibial malleoli and Small bone fragment is seen anterior to the ankle joint on lateral view similar to previous study. There is moderate lateral malleolar soft tissue swelling. A small enthesophyte is seen along the tip of medial malleolus with a small loose body likely old fracture.. XR/XR ankle LT min 3V IMPRESSION: Slowly healing fracture with abundant callus formation along the lateral distal fibula. Moderate soft tissue swelling still present. Small avulsion fracture along the anterior tibial malleoli and small bone fragments anterior to ankle joint swelling is unchanged.
== END 2022-01-04 06:42 | disposition home or self-care (01) ==
LOC: HO.HOSX 06:41
PROVIDERS: Visit Provider Physician Assistant
DX: S82.832D Other fracture of upper and lower end of left fibula, subsequent encounter for closed fracture with routine healing (principal)
CPT/HCPCS: 73610; 99212

== ENCOUNTER 2022-02-01 09:13 | Outpatient (REF) | payer OTHER, SELFPAY ==
--- NOTE | ~2022-02-01 | XR_ITS ---
EXAMINATION:XR ankle LT min 3V CLINICAL INFORMATION: Reason for Exam M25.579 - Pain in unspecified ankle and joints of unspeci... COMPARISON: January 04, 2022 TECHNIQUE: AP, lateral, and mortise views of the ankle. FINDINGS: Further fracture healing distal fibula/lateral malleolus, more new bone formation, barely visible fracture line on the frontal view. There are no other new fractures. Distal tibia, tibial plafond and ankle mortise are intact. There is surrounding soft tissue swelling. Small osseous density anterior to the distal tibia probably chip fracture or incompletely fused osteophyte unchanged. XR/XR ankle LT min 3V IMPRESSION: Further healing/bone formation callus distal fibula lateral malleolus. There is extensive surrounding soft tissue swelling. Small osseous density anterior edge of the distal tibia articular surface could be accessory ossicle, incompletely fused osteophyte versus old chip fracture unchanged.
== END 2022-02-01 09:14 | disposition home or self-care (01) ==
LOC: HO.HOSX 09:13
PROVIDERS: Visit Provider Physician Assistant
DX: S82.832A Other fracture of upper and lower end of left fibula, initial encounter for closed fracture (principal)
CPT/HCPCS: 73610; 99212

== ENCOUNTER 2022-02-14 15:55 | Emergency (ER) | payer OTHER, SELFPAY ==
--- NOTE | ~2022-02-14 | XR_ITS ---
EXAMINATION: XR CHEST CLINICAL INFORMATION: Shortness of breath COMPARISON: Desktop Publisher film from CT dated 12/12/2021, plain film dated 12/12/2021 TECHNIQUE: 2 views of the chest were obtained. FINDINGS: No convincing evidence for an acute process. Scattered parenchymal opacities are once again seen showing no increase from previous. There appears to be some improvement on the right. There is no effusion. No failure. The cardiac silhouette is felt to be comparable to previous. XR/XR chest 2V IMPRESSION: No acute finding. There appears be some improvement on the right.
[2022-02-14 16:04] VITALS: BP 174/95; BP 180/78; PULSE 109; PULSE 110; RESP 18; TEMP 36.5; O2SAT 90; O2SAT 99; BMI 34.2
--- NOTE | 2022-02-14 16:10 | ED.ALCOHOL ---
HPI - Alcohol General Chief Complaint: ETOH/Substance Use Stated Complaint: ETOH Time Seen by Provider: 02/14/22 16:10 Source: patient and EMS Mode of arrival: EMS Limitations: no limitations History of Present Illness HPI narrative: Patient is 61 years old male alcoholic, hypertension, nonischemic cardiomyopathy been here multiple times drunk called EMS for similar situation was found in the house drunk. No head injury no fall. Patient said few days ago he fell and has some pain in the right rib pain shortness breath patient said that at room air on arrival. Patient had an outpatient echo done which showed 55-60% ejection fraction patient had cardiac catheterization 01/2016 which showed normal coronary Related Data Home Medications Medication Instructions Recorded Confirmed albuterol sulfate 90 mcg/actuation 2 inh INHALATION Q4H PRN 11/10/20 12/15/21 aerosol inhaler amlodipine 10 mg tablet 10 mg PO DAILY 12/15/21 12/15/21 carvedilol 6.25 mg tablet 6.25 mg PO BID 12/15/21 12/15/21 ferrous sulfate 325 mg (65 mg 1 tab PO DAILY 12/15/21 12/15/21 iron) tablet,delayed release nabumetone 500 mg tablet 500 mg PO DAILY 12/15/21 12/15/21 omeprazole 40 mg capsule,delayed 1 cap PO DAILY 12/15/21 12/15/21 release tamsulosin 0.4 mg capsule 1 cap PO DAILY 12/15/21 12/15/21 trazodone 100 mg tablet 1 tab PO BEDTIME 12/15/21 12/15/21 Previous Rx's Medication Instructions Recorded walker (Ultra-Light Rollator) #1 ea 08/19/21 Allergies Allergy/AdvReac Type Severity Reaction Status Date / Time No Known Allergies Allergy Verified 02/01/22 09:33 Review of Systems Review of Systems: Yes all other systems are reviewed and are negative [facility] Past Medical History Medical History Acidosis, lactic Alcohol dependence Alcohol dependence with withdrawal Alcoholic intoxication Fracture of distal end of left fibula HLD (hyperlipidemia) Hypertension Hypoxic Nonischemic cardiomyopathy Surgical History History of cardiac cath (~01/2016) Family History Family History Father No problems noted. Mother No problems noted. Social History Social History Household Members: None Housing: Apartment Do you presently have visiting nurse or other home services: No Unable to assess alcohol history related to: Refusing to respond Alcohol intake: current Alcohol intake frequency: 0-2 drinks per day Alcohol type: hard liquor Patient Tobacco Use Status: Never used Tobacco Advance Directives: Yes Advance Directives on File: Yes Advance Directives Date on File: 07/01/20 service: No Current occupational status: unemployed Physical Exam ED Vital Signs: Vital Signs - 24 hr 02/14/22 16:04 02/14/22 17:28 Temperature 97.7 F Pulse Rate 109 H 111 H Respiratory Rate 18 18 Blood Pressure 174/95 H Pulse Oximetry 90 L BMI result Body Mass Index 34.2 Appearance: Alert. Oriented X3. No acute distress. Intoxicated Eyes: PERRLA, No Nystagmus ENT: Pharynx normal. Oral Mucosa moist Neck: Normal inspection. Neck supple. CVS: Normal heart rate and rhythm. Pulses normal. Respiratory: No respiratory distress. Equal air entry bilateral, no wheezing/rales/rhonchi right midaxillary mid chest tenderness no deformity no bruising Abdomen: Soft and nontender. Bowel sounds are present, no mass palpable, no CVA tenderness Skin: Skin warm and dry. Normal skin color. Normal skin turgor. Extremities: No lower extremity edema. No calf tenderness Neuro: Oriented X 3. No motor deficit. No sensory deficit.No cerebellar signs , cranial nerves II-XII intact MDM - Alcohol MDM Narrative Medical decision making narrative: Patient alcohol ambulated in the ER refused to go to detox will discharge patient home with family Lab Data Attestation: I reviewed the patient's lab results. Labs: Lab Results 02/14/22 Range/Units 16:12 COVID-19 ([facility]OY) Negative (Negative) COVID-19 Clin Com See Note Discharge Plan Discharge Clinical Impression: Alcoholic intoxication Patient Disposition: Home, Self-Care Instructions: Alcohol Intoxication (ED) Additional Instructions: Stop drinking alcohol Follow-up with detox Prescriptions: No Action (DME) Ultra-Light Rollator Misc See Rx Instructions .Route Qty: 1 0RF Rx Instructions: As directed carvedilol 6.25 mg tablet 6.25 mg PO BID 0RF omeprazole 40 mg capsule,delayed release(DR/EC) 1 cap PO DAILY 0RF tamsulosin 0.4 mg capsule 1 cap PO DAILY 0RF trazodone 100 mg tablet 1 tab PO BEDTIME 0RF amlodipine 10 mg tablet 10 mg PO DAILY 0RF ferrous sulfate 325 mg (65 mg iron) tablet,delayed release (DR/EC) 1 tab PO DAILY 0RF nabumetone 500 mg tablet 500 mg PO DAILY 0RF albuterol sulfate 90 mcg/actuation HFA aerosol inhaler 2 inh inhalation Q4H PRN (Reason: Dyspnea) 0RF Interventions: ED Discharge Assessment Last Done: 02/14/22 20:23 Discharge Date/Time: 02/14/22 20:28
[2022-02-14 17:01] LABS: COVID-19 Test Negative (Negative); IDNOW Serial# 16C4AD1C
[2022-02-14] MEDS: Lidocaine 4 % Patch ADH..PATCH 1 PATCH TRANSDERMA (17:03)
[2022-02-14] MEDS: Acetaminophen 325 MG TABLET 650 MG PO (17:07)
[2022-02-14] MEDS: Albuterol Sulfate 90 MCG 8 GM INHALER 4 PUFF INHALE (17:27)
[2022-02-14 17:28] VITALS: PULSE 111; RESP 18; O2SAT 96
[2022-02-14] MEDS: Ondansetron ODT 4 MG TAB.RAPDIS TRANSLINGU (20:00)
[2022-02-14] MEDS: Omeprazole 40 MG CAPSULE.DR PO (20:00)
[2022-02-14] MEDS: Magnesium Hydrox/Alum Hydrox 30 ML ORAL.SUSP PO (20:00)
== END 2022-02-14 20:28 | disposition home or self-care (01) ==
PROVIDERS: Emergency Provider Internal Medicine
DX: F10.220 Alcohol dependence with intoxication, uncomplicated (principal); Y90.9 Presence of alcohol in blood, level not specified; R06.02 Shortness of breath; R07.81 Pleurodynia; Z20.822 Contact with and (suspected) exposure to COVID-19
CPT/HCPCS: 71046; 87635; 94640; 99283; 99284

== ENCOUNTER 2023-01-08 20:02 | Inpatient (IN) | payer OTHER, SELFPAY ==
[2023-01-08] VITALS (9 sets, daily range): BP systolic 83–130; BP diastolic 40–86; PULSE 78–94; RESP 14–22; TEMP 37; O2SAT 90–98; BMI 30.4
--- NOTE | ~2023-01-08 | CT_ITS ---
EXAMINATION: NONCONTRAST HEAD CT NONCONTRAST MAXILLOFACIAL CT NONCONTRAST CERVICAL SPINE CT INDICATION INFORMATION: Fall. Intoxication. COMPARISON: 11/28/2021 TECHNIQUE: Separate noncontrast CT examinations of the head, maxillofacial bones, and cervical spine were performed. Coronal and sagittal images were created for each examination at the technologist workstation. This CT examination was performed using dose optimization techniques as appropriate, variously including the following: *Automated exposure control *Adjustment of mA and/or kV according to patient size (this includes techniques or standardized protocols for targeted exams where dose is matched to indication/reason for exam; i.e. extremities or head) *Use of iterative reconstruction technique DLP: 2160 mGy-cm FINDINGS: Head: There is no evidence of acute intracranial hemorrhage or territorial infarction. No abnormal mass effect or midline shift is seen. Philippe to white matter differentiation is well preserved. No extra-axial fluid collections are identified. No hydrocephalus. Proportional prominence of the ventricles and sulcal spaces is consistent with mild volume loss. Patchy periventricular and deep white matter hypoattenuation is consistent with moderate small vessel ischemic changes. No acute soft tissue abnormality. No calvarial fracture. The mastoid air cells are well aerated. Maxillofacial: No acute maxillofacial fractures are seen. Chronic bilateral nasal bone fractures unchanged in alignment from prior. The pterygoid plates are intact. The lamina papyracea are intact. The zygomatic arches are intact. The orbital rims are intact. Mandible and temporomandibular joints are intact. The frontal, maxillary, ethmoid, and sphenoid sinuses are well aerated. The uncinate process is normal bilaterally. The infundibula and middle meati are patent. The nasal septum is midline. The orbits demonstrate a normal appearance bilaterally. The globes are intact, and there are no suspicious findings to suggest retrobulbar hemorrhage. Soft tissues unremarkable. Cervical spine: There is anatomic alignment of the vertebral bodies and posterior elements. The atlantoaxial and atlantooccipital articulations are intact. Vertebral body heights and intervertebral disc spaces are maintained. No evidence of acute fracture. No prevertebral soft tissue swelling. Imaged lungs are clear. The thyroid gland is unremarkable. CT/CT cervical spine wo IV con IMPRESSION: 1. No acute intracranial findings. 2. No acute maxillofacial fracture. 3. No acute fracture or malalignment of the cervical spine.
--- NOTE | ~2023-01-08 | CT_ITS ---
EXAMINATION CT CHEST, ABDOMEN AND PELVIS WITH CONTRAST CLINICAL INFORMATION: Trauma. COMPARISON: CT pulmonary angiogram dated 12/12/2021 CT abdomen/pelvis dated 08/11/2021 TECHNIQUE: Multidetector volumetric CT imaging of the chest, abdomen and pelvis was obtained after the administration of 100 mL of intravenous Omnipaque 300 without immediate adverse reactions. Coronal and sagittal reformats were reviewed. This CT examination was performed using dose optimization techniques as appropriate, variously including the following: *Automated exposure control *Adjustment of mA and/or kV according to patient size (this includes techniques or standardized protocols for targeted exams where dose is matched to indication/reason for exam; i.e. extremities or head) *Use of iterative reconstruction technique DLP: 1099 mGy-cm. FINDINGS: CHEST LUNGS/PLEURA: No acute pulmonary parenchymal abnormalities. No pneumothorax. Mild emphysema suspected. Pleuroparenchymal scarring redemonstrated along the right major fissure posteriorly. There is no pleural effusion. No pleural mass or thickening. A previously seen 6 mm nodule in the lingula has resolved. MEDIASTINUM/ABHISHEK: Mild cardiomegaly. Coronary calcifications present. Great vessels normal caliber. No mediastinal, hilar or supraclavicular lymphadenopathy. Moderate hiatal hernia redemonstrated. CHEST WALL/AXILLA: Unremarkable. ABDOMEN/PELVIS HEPATOBILIARY: Liver normal in size, contour and morphology. Hepatic steatosis. No suspicious lesions. No intra or extrahepatic biliary dilation. Gallbladder unremarkable. PANCREAS: Fatty atrophy. No mass or inflammation. SPLEEN: Unremarkable. ADRENAL GLANDS: Stable 1.9 cm lipid rich right adrenal adenoma. No follow-up imaging recommended. Normal left adrenal gland. KIDNEYS, URETERS AND BLADDER: Kidneys normal in size, axis and morphology demonstrating symmetric enhancement. No hydronephrosis or urinary calculi. Ureters normal in course and caliber. Bladder grossly unremarkable.. GASTROINTESTINAL TRACT: No bowel related abnormalities. PELVIC VISCERA: Mild prostatomegaly. LYMPH NODES: No lymphadenopathy. PERITONEUM/BODY WALL: Unremarkable. VASCULAR STRUCTURES: Aorta is atherosclerotic but normal caliber. OSSEOUS STRUCTURES No acute or suspicious osseous abnormalities. Stable compression deformities at T3, T8, T9 and L1. CT/CT abdomen pelvis wo IV con IMPRESSION: * No evidence of acute traumatic injury within the chest, abdomen or pelvis. * A previously seen 6 mm nodule in the lingula has resolved. * No fractures. * Mild emphysema. * Hepatic steatosis. * Stable compression deformities at T3, T8, T9 and L1.
--- NOTE | 2023-01-08 20:45 | ED.GENADULT ---
HPI - General Adult General Chief complaint: ETOH/Substance Use Stated complaint: ETOH Time Seen by Provider: 01/08/23 20:13 Source: patient and EMS Mode of arrival: EMS Limitations: other (Patient intoxicated) History of Present Illness HPI narrative: 62 year old male history of ALHAJI, hyperlipidemia, nonischemic cardiomyopathy, hypertension, alcohol abuse disorder presenting to the emergency department via ambulance with acute alcohol intoxication.? Patient clearly intoxicated, reports tooth pain all over and is noted to have swelling to r. side of upper lip. Patient reports he didnt fall and he is fine and stating i just want to go home also screaming Fuck you dont talk to me . Patient is intoxicated and not answering questions appropriately.? He tells me he drink about a pt of vodka.? However all other questions he just laughs.? Unable to obtain an accurate review of systems. Patient verbally aggressive toward staff members, kicking objects in the department. Security called to the bedside as patient is uncooperative Related Data Home Medications Medication Instructions Recorded Confirmed albuterol sulfate 90 mcg/actuation 2 inh inhalation Q4H PRN Dyspnea 11/10/20 12/15/21 aerosol inhaler amlodipine 10 mg tablet 10 mg PO DAILY 12/15/21 12/15/21 carvedilol 6.25 mg tablet 6.25 mg PO BID 12/15/21 12/15/21 ferrous sulfate 325 mg (65 mg 1 tab PO DAILY 12/15/21 12/15/21 iron) tablet,delayed release nabumetone 500 mg tablet 500 mg PO DAILY 12/15/21 12/15/21 omeprazole 40 mg capsule,delayed 1 cap PO DAILY 12/15/21 12/15/21 release tamsulosin 0.4 mg capsule 1 cap PO DAILY 12/15/21 12/15/21 trazodone 100 mg tablet 1 tab PO BEDTIME 12/15/21 12/15/21 Previous Rx's Medication Instructions Recorded walker (Ultra-Light Rollator [facility] [place]) #1 ea 08/19/21 Allergies Allergy/AdvReac Type Severity Reaction Status Date / Time No Known Allergies Allergy Verified 02/01/22 09:33 Review of Systems Review of Systems: Patient very intoxicated. Yes Other PMFSH Past Medical History Attestation statement: The following information was validated with the patient. Source: old records reviewed and nursing notes reviewed Medical History Acidosis, lactic Alcohol dependence Alcohol dependence with withdrawal Alcoholic intoxication Fracture of distal end of left fibula HLD (hyperlipidemia) Hypertension Hypoxic Nonischemic cardiomyopathy Surgical History History of cardiac cath (~01/2016) Family History Family History Father No problems noted. Mother No problems noted. Social History Social History Household Members: None Housing: Apartment Do you presently have visiting nurse or other home services: No Unable to assess alcohol history related to: Refusing to respond Alcohol intake: current Alcohol intake frequency: 0-2 drinks per day Alcohol type: hard liquor Patient Tobacco Use Status: Never used Tobacco Smoked in Last 30 Days: No Use of substances other than those prescribed or required for medical reasons: No Advance Directives: Yes Advance Directives on File: Yes Advance Directives Date on File: 07/01/20 service: No Current occupational status: unemployed Physical Exam ED Vital Signs: Vital Signs - 24 hr 01/08/23 22:39 01/08/23 23:27 01/09/23 00:00 Temperature 98.6 F Pulse Rate 91 94 85 Respiratory Rate 14 22 H 19 Blood Pressure 83/40 L 94/55 L 92/51 L Pulse Oximetry 90 L Oxygen Delivery Method Room Air 01/08/23 21:30 01/08/23 21:45 01/08/23 22:00 Temperature Pulse Rate Respiratory Rate 14 14 14 Blood Pressure Pulse Oximetry Oxygen Delivery Method 01/08/23 22:15 01/08/23 22:45 01/08/23 23:00 Temperature Pulse Rate Respiratory Rate 14 14 14 Blood Pressure Pulse Oximetry Oxygen Delivery Method BMI result Body Mass Index 30.4 vss Appearance: Alert.? Oriented X3.? No acute distress.? Patient smells like alcohol. Uncooperative, verbally aggressive toward staff members, shaking items. Head: Normocephalic, atraumatic, no step-offs or deformities Mouth: swollen upper right side of lip not allowing exam of internal mouth or tongue Eyes: Pupils equal, round and reactive to light.? CVS: Normal heart rate and rhythm.? Pulses normal.? Respiratory: No respiratory distress.? Breath sounds diminished b/l increased work of breahting w/ exertion.? Abdomen: Soft and nontender.? Skin: Skin warm and dry.? Normal skin color.? Normal skin turgor.? Extremities: No lower extremity edema.? No calf ttp. 5/5 strength to bilateral upper and lower extremities Neuro: Oriented X 3.? No motor deficit.? No sensory deficit. CN 2-12 intact Course Reevaluation(s) Reevaluation #1: Patient continues to escalate, he is kicking things, threatening to throw punches at staff members. There is concerns for possible medical etiology behind patient's presentation unclear if patient fell. Spoke to my attending patient putting self and others at risk at this time medical restraint will be ordered. Refusing Xray of chest. and labs and vitals. Time: 21:07 Reevaluation #2: There was initially a delay in obtaining lab secondary to patient not cooperating however after medication restraints labs were obtained showing leukocytosis of 15.8, patient noted to have a potassium of 2.4, IV potassium ordered at this time, patient's creatinine also higher than usual 1.74. Patient's blood pressure is noted to be low, systolic pressure in the 80s, signs of end-organ damage, elevated white blood cell count. At this time infection suspected blood cultures, lactic acid ordered as well as prophylactic antibiotics. I also added a CPK to rule out rhabdomyolysis. Time: 22:43 Reevaluation #3: Patient verbally abusive toward staff members and combative. He ripped his IVs out. A continuous process coffee roaster was used to try to further explain situation to patient despite this patient states he wants to and does not matter, he ripped out his IVs in smothered blood all over the wall. Patient tried to ambulate into our waiting room and nearly collapsed due to dyspnea. Was brought back in a wheelchair. Patient is not understanding severity of illness, unable to comprehend information that is being given to him medically he is clinically intoxicated, altered, meeting severe septic criteria. I do not believe patient is in [place] mind to make his own decisions at this time as he is under the influence of alcohol and is unable to verbalize understanding of information being provided to him. I discussed this with my attending multiple times recommend another restraint, haldol, ativan and benadryl along w/ possible pressors due to patients pressure. patients sister on her way to try to help situation . Time: 01:04 Additional Reevaluation(s): Patient's sister came in convince patient to get CT scans. Patient did rip his IVs out, he does have an acute kidney injury therefore scans were obtained without IV contrast. Sign-out given to Dr. Gamez pending results will likley need hospital admission. 1427 Discussed w/ hospitalist who will admit patient. Pending scans hospitalist aware. Medications Administered Generic Name Dose Route Start Last Admin Trade Name Freq PRN Reason Stop Dose Admin Potassium Chloride 10 meq in 100 mls @ 100 mls/hr 01/08/23 23:00 01/09/23 00:41 Potassium Chloride/H20 IV 01/09/23 02:59 100 mls/hr Q1H EVAN Administration Discontinued Medications Generic Name Dose Route Start Last Admin Trade Name Freq PRN Reason Stop Dose Admin Diphenhydramine HCl 50 mg 01/08/23 21:06 01/08/23 21:16 Diphenhydramine Hcl 50 Mg/Ml Vial IM 01/08/23 21:07 50 mg ONCE ONE Administration Haloperidol Lactate 5 mg 01/08/23 21:06 01/08/23 21:16 Haloperidol Lactate 5 Mg/Ml Vial IM 01/08/23 21:07 5 mg ONCE ONE Administration Sodium Chloride 1,000 mls @ 999 mls/hr 01/08/23 22:45 01/09/23 00:34 Ns IV 01/08/23 23:45 Infused .Q1H1M EVAN Infusion Piperacillin Sod/Tazobactam 50 mls @ 100 mls/hr 01/08/23 22:42 01/08/23 23:30 Sod 3.375 gm/ Sodium Chloride IV 01/08/23 23:11 Infused ONCE ONE Infusion Magnesium Sulfate 2 gm in 50 mls @ 25 mls/hr 01/08/23 22:44 01/09/23 00:41 Magnesium Sulfate/H2o IV 01/09/23 00:43 Infused ONCE ONE Infusion Sodium Chloride 2,721.54 mls @ 2,721.54 mls/hr 01/08/23 23:29 01/08/23 23:31 Ns 30 ml/kg infuse over 1 hr (2721.54 ml) 01/09/23 00:28 2,721.54 mls/hr IV Administration .Q1H STA Lorazepam 2 mg 01/08/23 21:06 01/08/23 21:16 Lorazepam 2 Mg/Ml Vial IM 01/08/23 21:07 2 mg STAT STA Administration Lorazepam 1 mg 01/08/23 23:45 01/08/23 23:56 Lorazepam 2 Mg/Ml Vial IVPUSH 01/08/23 23:46 1 mg STAT STA Administration Medical Decision Making Medical Decision Making [facility] Narrative: 62 mariam old male presents w/ alchol intoxication noted to be SOB, and uncooperative not providing HPI or ROS PE significant for Patient smells like alcohol. Uncooperative, verbally aggressive toward staff members, shaking items. Breath sounds diminished b/l. RRR. abdomen soft non tender. neuro nonfocal. Pressure soft Concerns for infection and alcohol intoxication. Will rule out electrolyte abnormalities, pna, CHF, viral illness, UTI Differential Diagnosis Differential Diagnoses: The differential diagnosis associated with the presentation includes Concerns for infection and alcohol intoxication. Will rule out electrolyte abnormalities, pna, CHF, viral illness, UTI Admission/Observation Consideration of admission/observation: Escalation of care including admission/observation considered [facility] Consult Healthcare Provider Management of the patient was discussed with: Hospitalist Lab Data [facility] Lab Attestation statement: I reviewed the patient's lab results. 01/08/23 21:45 01/08/23 21:45 Labs: Lab Results 01/08/23 01/08/23 01/08/23 Range/Units 21:44 21:44 21:44 WBC (4.8-10.8) X10*3/uL RBC (4.60-5.80) X10*6/uL Hgb (14.0-18.0) g/dl Hct (42.0-52.0) % MCV (80.0-98.0) fL MCH (27.0-33.0) pg MCHC (31.0-36.0) g/dl RDW (11.0-16.0) % Plt Count (160-400) X10*3/uL MPV (9.4-12.4) fL Immature Gran % (Auto) (0.0-0.4) % Neut % (Auto) (45-73) % Lymph % (Auto) (20-40) % [place] % (Auto) (2-11) % Eos % (Auto) (0-4) % Baso % (Auto) (0-2) % Lymph # (Auto) (1.2-4.9) X10*3/uL [place] # (Auto) (0.1-1.2) X10*3/uL Eos # (Auto) (0.0-0.4) X10*3/uL Baso # (Auto) (0.0-0.2) X10*3/uL Abs Immat Gran (auto) (0.00-0.03) X10*3/uL Absolute Neuts (auto) (2.0-8.3) x10*3/uL Absolute Nucleated RBC (0.0-0.012) X10*3/uL Nucleated RBC % (auto) (0.0-0.2) /100WBC PT 11.9 (10.0-13.1) SEC INR 1.0 (0.9-1.1) Sodium (135-145) mmol/L Potassium (3.3-5.1) mmol/L Chloride (96-108) mmol/L Carbon Dioxide (22-29) mmol/L Anion Gap (12-20) BUN (9-16) mg/dL Creatinine (0.5-1.4) mg/dL Estim Creat Clear Calc Estimated GFR Random Glucose (60-115) mg/dL Lactic Acid (0.5-2.0) mmol/L Calcium (8.4-10.2) mg/dL Magnesium (1.6-2.6) mg/dL Total Bilirubin (0.0-1.0) mg/dL AST (5-37) U/L ALT (0-40) U/L Alkaline Phosphatase (39-117) U/L Total Creatine Kinase 296 H (38-174) U/L Total Protein (6.5-8.0) g/dL Albumin (3.5-5.0) g/dL Ethyl Alcohol 287 mg/dL COVID-19 (ELOY) Negative (Negative) COVID-19 Clin Com See Note 01/08/23 01/08/23 01/08/23 Range/Units 21:45 21:45 23:09 WBC 15.8 H (4.8-10.8) X10*3/uL RBC 4.63 (4.60-5.80) X10*6/uL Hgb 13.6 L (14.0-18.0) g/dl Hct 39.2 L (42.0-52.0) % MCV 84.7 (80.0-98.0) fL MCH 29.4 (27.0-33.0) pg MCHC 34.7 (31.0-36.0) g/dl RDW 17.4 H (11.0-16.0) % Plt Count 188 D (160-400) X10*3/uL MPV 8.9 L (9.4-12.4) fL Immature Gran % (Auto) 0.6 H (0.0-0.4) % Neut % (Auto) 85.4 H (45-73) % Lymph % (Auto) 6.9 L (20-40) % [place] % (Auto) 6.7 (2-11) % Eos % (Auto) 0.1 (0-4) % Baso % (Auto) 0.3 (0-2) % Lymph # (Auto) 1.1 L (1.2-4.9) X10*3/uL [place] # (Auto) 1.1 (0.1-1.2) X10*3/uL Eos # (Auto) 0.0 (0.0-0.4) X10*3/uL Baso # (Auto) 0.0 (0.0-0.2) X10*3/uL Abs Immat Gran (auto) 0.10 H (0.00-0.03) X10*3/uL Absolute Neuts (auto) 13.5 H (2.0-8.3) x10*3/uL Absolute Nucleated RBC 0.000 (0.0-0.012) X10*3/uL Nucleated RBC % (auto) 0.0 (0.0-0.2) /100WBC PT (10.0-13.1) SEC INR (0.9-1.1) Sodium 137 (135-145) mmol/L Potassium 2.4 L* D (3.3-5.1) mmol/L Chloride 98 (96-108) mmol/L Carbon Dioxide 22 (22-29) mmol/L Anion Gap 19 (12-20) BUN 13 (9-16) mg/dL Creatinine 1.74 H (0.5-1.4) mg/dL Estim Creat Clear Calc 47.5 Estimated GFR 40 Random Glucose 86 (60-115) mg/dL Lactic Acid 4.5 H* (0.5-2.0) mmol/L Calcium 8.8 (8.4-10.2) mg/dL Magnesium 1.5 L (1.6-2.6) mg/dL Total Bilirubin 0.5 (0.0-1.0) mg/dL AST 36 (5-37) U/L ALT 35 (0-40) U/L Alkaline Phosphatase 52 (39-117) U/L Total Creatine Kinase (38-174) U/L Total Protein 7.4 (6.5-8.0) g/dL Albumin 4.1 (3.5-5.0) g/dL Ethyl Alcohol mg/dL COVID-19 (ELOY) (Negative) COVID-19 Clin Com External Record Review External record reviewed: Inpatient record, Office record, Outpatient record, Prior outpatient labs, Prior outpatient radiology, Primary care record and Outside ED record Core Measures Measure exclusions: not indicated Critical Care Time Critical Care Time Critical Care Time: Yes Total Critical Care Time: 45 Attestation: I attest to this time spent taking care of the patient, obtaining history, physical, reviewing labs, imaging, speaking to my attending Discharge Plan Discharge Clinical Impression: Alcoholic intoxication, ALHAJI (acute kidney injury), Shortness of breath, Acute hypotension, Hypokalemia Patient Disposition: Admitted As Inpatient
[2023-01-08] MEDS: diphenhydrAMINE HCL 50 MG/ML VIAL IM (21:16)
[2023-01-08] MEDS: Haloperidol Lactate 5 MG/ML VIAL IM (21:16)
[2023-01-08] MEDS: LORazepam 2 MG/ML VIAL IM (21:16)
[2023-01-08 21:52] LABS: MANUAL DIFF FLAG NO
[2023-01-08 21:53] LABS: Basophils Percent Auto 0.3 % (0-2); Eosinophils Percent Auto 0.1 % (0-4); Hematocrit 39.2 % (42.0-52.0); Hemoglobin 13.6 g/dl (14.0-18.0); Imm Gran Pct Auto 0.6 % (0.0-0.4); Lymphocytes Absolute Auto 1.1 X10*3/uL (1.2-4.9); Lymphocytes Percent Auto 6.9 % (20-40); Mean Corpuscular HGB Conc 34.7 g/dl (31.0-36.0); Mean Corpuscular Hemoglobin 29.4 pg (27.0-33.0); Mean Corpuscular Volume 84.7 fL (80.0-98.0); Mean Platelet Volume 8.9 fL (9.4-12.4); Monocytes Absolute Auto 1.1 X10*3/uL (0.1-1.2); Monocytes Percent Auto 6.7 % (2-11); Neutrophils Absolute Auto 13.5 x10*3/uL (2.0-8.3); Neutrophils Percent Auto 85.4 % (45-73); Platelet Count 188 X10*3/uL (160-400); Red Blood Count 4.63 X10*6/uL (4.60-5.80); Red Cell Distribution Width 17.4 % (11.0-16.0); White Blood Count 15.8 X10*3/uL (4.8-10.8)
[2023-01-08 21:59] LABS: Prothrombin Time 11.9 SEC (10.0-13.1)
[2023-01-08 22:17] LABS: Ethanol 287 mg/dL
[2023-01-08 22:30] LABS: Alanine Aminotransferase 35 U/L (0-40); Albumin Level 4.1 g/dL (3.5-5.0); Alkaline Phosphatase 52 U/L (39-117); Anion Gap 19 (12-20); Aspartate Amino Transferase 36 U/L (5-37); Bilirubin Total 0.5 mg/dL (0.0-1.0); Blood Urea Nitrogen 13 mg/dL (9-16); Calcium 8.8 mg/dL (8.4-10.2); Carbon Dioxide 22 mmol/L (22-29); Chloride 98 mmol/L (96-108); Creatinine Clr Calc Pharmacy 47.5; Estimated Glomerular Filt Rate 40; Glucose Random 86 mg/dL (60-115); Magnesium 1.5 mg/dL (1.6-2.6); Potassium 2.4 mmol/L (3.3-5.1); Sodium 137 mmol/L (135-145); Total Protein 7.4 g/dL (6.5-8.0)
[2023-01-08] MEDS: Piperacillin Sodium/Tazobactam 3.375 GM in 0.9 % Sodium Chloride 50 ML IV (23:03)
[2023-01-08] MEDS: Magnesium Sulfate/H2O 2 GM/50 ML PIGGYBACK IV (23:03)
[2023-01-08] MEDS: 0.9 % Sodium Chloride 1,000 ML 999 ML IV (23:04)
[2023-01-08 23:21] LABS: COVID-19 Test Negative (Negative); IDNOW Serial# 9DB6401D
[2023-01-08] MEDS: Potassium Chloride/H20 10 MEQ/100 ML PIGGYBACK 100 MEQ IV (23:30)
[2023-01-08] MEDS: 0.9 % Sodium Chloride 2,721.54 ML 2721.54 ML IV (23:31)
[2023-01-08 23:32] LABS: Lactic Acid 4.5 mmol/L (0.5-2.0)
--- NOTE | 2023-01-08 23:40 | PC.NURSE ---
Pt arrives via EMS for ETOH. Pt alert and oriented to self. Breaths even regular and labored. Sinus tach on monitor with HR 106. Hypotensive. Unable to stand, unsteady gait. Yelling curse words at staff, kicked translating ipad, acting violent towards staff. Medically restrained with no complications @ 2116 as ordered by MLP. Pt tolerated well. MLP, nurse, and security at bedside. VSS after medication restrain. Monitoring performed every 15 minutes. Pt continues to be awake and alert yelling profanity at bedside. IV line started with pts consent, 20G on L FA and 22G on L hand. Labs drawn and sent. Pt tolerated well. Multiple attempts made to obtain CT scan but pt is unable to sit still for scans and risk to falling off the table. MLP aware.
[2023-01-08] MEDS: LORazepam 2 MG/ML VIAL 1 MG IVPUSH (23:56)
[2023-01-09] VITALS (7 sets, daily range): BP systolic 92–145; BP diastolic 51–90; PULSE 85–110; RESP 16–22; TEMP 36.4–36.8; O2SAT 91–93
[2023-01-09] MEDS: Potassium Chloride/H20 10 MEQ/100 ML PIGGYBACK 100 MEQ IV ×7 (00:41→10:27)
--- NOTE | 2023-01-09 00:42 | PC.NURSE ---
Pt self removed 20G IV from L FA
[2023-01-09 01:16] LABS: Reflex Lactate? Lactic Acid Added
--- NOTE | 2023-01-09 01:48 | PC.NURSE ---
Pt self removed IV line and heart monitor. Requesting to leave against medical advise. MLP at bedside with nurse and video dimpling machine operator. Pt refusing all care at this time.
--- NOTE | 2023-01-09 02:28 | ECG_ITS ---
Test Reason : ETOH Blood Pressure : / mmHG Vent. Rate : 096 BPM Atrial Rate : 096 BPM P-R Int : 160 ms QRS Dur : 098 ms QT Int : 380 ms P-R-T Axes : 030 -15 -27 degrees QTc Int : 480 ms Normal sinus rhythm Nonspecific ST abnormality Prolonged QT Abnormal ECG When compared with ECG of 13-DEC-2021 01:16, No significant change was found Referred By: Marylou Luna Electronically Signed By:KERWIN MUIR MD
--- NOTE | 2023-01-09 02:39 | PC.NURSE ---
Pt returned to the bedside with sister's assistance. Calm and cooperative agreeing to medical care. IV line re-started 22G on R hand. IV fluids started.
[2023-01-09 02:40] LABS: ~Lactic Acid-LAB USE ONLY 2.6 mmol/L (0.5-2.0)
[2023-01-09 02:44] LABS: B Type Natriuretic Peptide < 10 pg/mL (<100); Troponin-I High Sensitivity 3.7 ng/L (<3.5-35.0)
--- NOTE | 2023-01-09 02:53 | ECG_ITS ---
Test Reason : etoh Blood Pressure : / mmHG Vent. Rate : 109 BPM Atrial Rate : 109 BPM P-R Int : 150 ms QRS Dur : 096 ms QT Int : 350 ms P-R-T Axes : 053 000 -01 degrees QTc Int : 471 ms Sinus tachycardia Otherwise normal ECG When compared with ECG of 09-JAN-2023 02:53, No significant change was found Referred By: Sonja Morrison Electronically Signed By:KERWIN MUIR MD
[2023-01-09] MEDS: PHENobarbitaL sodium 130 MG/ML IM ONCE 328 MG IM (03:27)
--- NOTE | 2023-01-09 03:32 | P.HPHOSP_ITS ---
History of Present Illness Date of Service: 01/09/23 Chief Complaint: Alcohol intoxication This is a 62-year-old male with pertinent history of alcohol use disorder, essential hypertension, nonischemic cardiomyopathy, opioid use disorder who was brought to the ER via ambulance for acute alcohol intoxication. Patient wary agitated upon arrival as per ER provider. He was swearing and screaming in the ER. Was not answering questions appropriately and kicking objects in the ER. Patient drinks a pt of vodka every day and his last use was yesterday. Patient was given Ativan, Haldol and Benadryl in the ER. He is somnolent upon my examination. Unable to provide history and unable to obtain review of systems. Review of Systems Review of Systems: Yes Unobtainable due to mental status PMFSH Medical History Acidosis, lactic Alcohol dependence Alcohol dependence with withdrawal Alcoholic intoxication Fracture of distal end of left fibula HLD (hyperlipidemia) Hypertension Hypoxic Nonischemic cardiomyopathy Family History Father No problems noted. Mother No problems noted. Surgical History History of cardiac cath (~01/2016) Social History Household Members: None Housing: Apartment Do you presently have visiting nurse or other home services: No Unable to assess alcohol history related to: Refusing to respond Alcohol intake: current Alcohol intake frequency: 0-2 drinks per day Alcohol type: hard liquor Patient Tobacco Use Status: Never used Tobacco Smoked in Last 30 Days: No Use of substances other than those prescribed or required for medical reasons: No Advance Directives: Yes Advance Directives on File: Yes Advance Directives Date on File: 07/01/20 service: No Current occupational status: unemployed Meds Allergies Allergy/AdvReac Type Severity Reaction Status Date / Time No Known Allergies Allergy Verified 02/01/22 09:33 Active Medications: Current Medications Pharmacy Consult (Consult Rx Perform Med Rec) 1 each MISCELLANE ONCE PRN PRN Reason: Consult order Pharmacy Consult (Consult Rx Etoh Phenob Im/Po) 1 each MISCELLANE ONCE PRN; Protocol PRN Reason: Consult order Phenobarbital Sodium (Phenobarbital Sodium 130 Mg/Ml Vial Im Q3hx2) 246 mg IM Q3H EVAN Stop: 01/09/23 09:01 Home Medications Medication Instructions Recorded Confirmed Last Taken Type albuterol sulfate 90 mcg/actuation 2 inh inhalation Q4H PRN Dyspnea 11/10/20 12/15/21 Unknown History aerosol inhaler amlodipine 10 mg tablet 10 mg PO DAILY 12/15/21 12/15/21 Unknown History carvedilol 6.25 mg tablet 6.25 mg PO BID 12/15/21 12/15/21 Unknown History ferrous sulfate 325 mg (65 mg 1 tab PO DAILY 12/15/21 12/15/21 Unknown History iron) tablet,delayed release nabumetone 500 mg tablet 500 mg PO DAILY 12/15/21 12/15/21 Unknown History omeprazole 40 mg capsule,delayed 1 cap PO DAILY 12/15/21 12/15/21 Unknown History release tamsulosin 0.4 mg capsule 1 cap PO DAILY 12/15/21 12/15/21 Unknown History trazodone 100 mg tablet 1 tab PO BEDTIME 12/15/21 12/15/21 Unknown History Physical Exam Vital Signs and Narrative: Vital Signs: Last Vital Signs Temp 98.6 F 01/08/23 22:39 Pulse 110 H 01/09/23 02:38 Resp 22 H 01/09/23 02:38 BP 109/66 01/09/23 02:38 Pulse Ox 92 01/09/23 02:38 O2 Del Method Room Air 01/09/23 02:38 BMI result Body Mass Index 30.4 Middle-aged male lying in bed in no distress Neck supple, no JVD Tachycardic with regular rhythm, S1-S2 heard Regular breath sounds bilaterally, no wheezing or crackles appreciated Abdomen soft nontender, no guarding, no rigidity Patient is asleep, withdrawing to painful stimulus but not responding to verbal stimulus No pedal edema Results Labs 01/08/23 21:45 01/08/23 21:45 Labs: Laboratory Results - last 24 hr 01/08/23 01/08/23 01/08/23 21:44 21:44 21:44 MCV MCH MCHC RDW Plt Count MPV Immature Gran % (Auto) Neut % (Auto) Lymph % (Auto) [place] % (Auto) Eos % (Auto) Baso % (Auto) Lymph # (Auto) [place] # (Auto) Eos # (Auto) Baso # (Auto) Abs Immat Gran (auto) Absolute Neuts (auto) Absolute Nucleated RBC Nucleated RBC % (auto) PT 11.9 INR 1.0 Anion Gap Estim Creat Clear Calc Estimated GFR Random Glucose Lactic Acid Lactic Acid F/U @ 2Hr Calcium Magnesium Total Bilirubin AST ALT Alkaline Phosphatase Total Creatine Kinase 296 H Troponin I High Sens B-Natriuretic Peptide Total Protein Albumin Ethyl Alcohol 287 COVID-19 (ELOY) Negative COVID-19 [facility] See Note 01/08/23 01/08/23 01/08/23 21:45 21:45 23:09 MCV 84.7 MCH 29.4 MCHC 34.7 RDW 17.4 H Plt Count 188 D MPV 8.9 L Immature Gran % (Auto) 0.6 H Neut % (Auto) 85.4 H Lymph % (Auto) 6.9 L [place] % (Auto) 6.7 Eos % (Auto) 0.1 Baso % (Auto) 0.3 Lymph # (Auto) 1.1 L [place] # (Auto) 1.1 Eos # (Auto) 0.0 Baso # (Auto) 0.0 Abs Immat Gran (auto) 0.10 H Absolute Neuts (auto) 13.5 H Absolute Nucleated RBC 0.000 Nucleated RBC % (auto) 0.0 PT INR Anion Gap 19 Estim Creat Clear Calc 47.5 Estimated GFR 40 Random Glucose 86 Lactic Acid 4.5 H* Lactic Acid F/U @ 2Hr Calcium 8.8 Magnesium 1.5 L Total Bilirubin 0.5 AST 36 ALT 35 Alkaline Phosphatase 52 Total Creatine Kinase Troponin I High Sens B-Natriuretic Peptide Total Protein 7.4 Albumin 4.1 Ethyl Alcohol COVID-19 ([facility]OY) COVID-[employer] 01/09/23 01/09/23 01/09/23 02:16 02:16 02:16 MCV MCH MCHC RDW Plt Count MPV Immature Gran % (Auto) Neut % (Auto) Lymph % (Auto) [place] % (Auto) Eos % (Auto) Baso % (Auto) Lymph # (Auto) [place] # (Auto) Eos # (Auto) Baso # (Auto) Abs Immat Gran (auto) Absolute Neuts (auto) Absolute Nucleated RBC Nucleated RBC % (auto) PT INR Anion Gap Estim Creat Clear Calc Estimated GFR Random Glucose Lactic Acid Lactic Acid F/U @ 2Hr 2.6 H* Calcium Magnesium Total Bilirubin AST ALT Alkaline Phosphatase Total Creatine Kinase Troponin I High Sens 3.7 B-Natriuretic Peptide < 10 Total Protein Albumin Ethyl Alcohol COVID-19 (ELOY) COVID-19 Clin Com Imaging Radiologist's Impressions: Impressions Cervical Spine CT 01/09/23 02:05 IMPRESSION: 1. No acute intracranial findings. 2. No acute maxillofacial fracture. 3. No acute fracture or malalignment of the cervical spine. Face CT 01/09/23 02:05 IMPRESSION: 1. No acute intracranial findings. 2. No acute maxillofacial fracture. 3. No acute fracture or malalignment of the cervical spine. Head CT 01/09/23 02:05 IMPRESSION: 1. No acute intracranial findings. 2. No acute maxillofacial fracture. 3. No acute fracture or malalignment of the cervical spine. Abdomen/Pelvis CT 01/09/23 02:10 IMPRESSION: * No evidence of acute traumatic injury within the chest, abdomen or pelvis. * A previously seen 6 mm nodule in the lingula has resolved. * No fractures. * Mild emphysema. * Hepatic steatosis. * Stable compression deformities at T3, T8, T9 and L1. Chest CT 01/09/23 02:10 IMPRESSION: * No evidence of acute traumatic injury within the chest, abdomen or pelvis. * A previously seen 6 mm nodule in the lingula has resolved. * No fractures. * Mild emphysema. * Hepatic steatosis. * Stable compression deformities at T3, T8, T9 and L1. Assessment and Plan (1) Alcoholic intoxication: Status: Acute (2) ALHAJI (acute kidney injury): Status: Acute Plan This is a 62-year-old male with pertinent history of alcohol use disorder, essential hypertension, nonischemic cardiomyopathy, opioid use disorder who was brought to the ER via ambulance for acute alcohol intoxication. #. Acute alcohol intoxication: With concerns for withdrawal. Initiated on phenobarb protocol in the ER. Monitor CIWA. Initiating thiamine. Consulting addiction medicine #. Acute lactic acidosis: Due to hypoperfusion. Improved with IV fluids. No sepsis #. Hypokalemia: Likely due to poor p.o. intake. Repleted #. Hypomagnesemia: Due to alcoholism. Repleted #. Reactive leukocytosis: Defer antibiotics. UA pending #. Acute kidney injury, stage I likely prerenal: Resuscitated with IV crystalloids in the ER. Monitor creatinine and urine output with fluid resuscitation. Avoid nephrotoxins #. Opioid use disorder: UDS pending #. Essential hypertension: Hold home antihypertensives Med rec pending DVT prophylaxis: Lovenox 40 mg daily Full code Cardiac diet Time Spent With Patient Time: Total time managing care of this patient today ____ minutes. Quality Stroke Does the patient have a stroke diagnosis?: No VTE Prior VTE?: No VTE Risk Level:: Medical - moderate - high VTE Device Contraindication: Treatment Not Indicated VTE Drug Contraindication: N/A - Med Ordered
--- NOTE | 2023-01-09 04:04 | PC.NURSE ---
Med req completed.
[2023-01-09 04:22] LABS: Reflex Lactate? 2 Y
[2023-01-09 04:38] LABS: Appearance Urine Clear; Color Urine Dark Yellow; Glucose Urine UA Negative (Negative); Leukocyte Esterase Urine Negative (Negative); Nitrite Urine Negative (Negative); Specific Gravity - Urine >= 1.030 (1.005-1.025); UMIC TRIGGER UACC YES; Urine Blood Negative (Negative); Urine Ketones Trace mg/dL (Negative); Urine Protein 30 (1+) mg/dL (Neg-Trace)
[2023-01-09 04:47] LABS: Bacteria Urine None Seen (None Seen); RBC Urine 0-2 /HPF (0-2); WBC Urine 0-5 /HPF (0-5)
[2023-01-09 04:50] LABS: Amphetamine Screen Urine Not Detected (Not Detect); Barbiturates, Urine Not Detected (Not Detect); Benzodiazepines Screen Urine Not Detected (Not Detect); Cannabinoid Screen Urine Not Detected (Not Detect); Cocaine Screen Urine Not Detected (Not Detect); Fentanyl, urine POSITIVE (Not Detect); Opiate Screen Urine Not Detected (Not Detect); Phencyclidine Screen Urine Not Detected (Not Detect); ~Lactic Acid-LAB USE ONLY 2.2 mmol/L (0.5-2.0)
[2023-01-09] MEDS: Enoxaparin Sodium 40 MG/0.4 ML SYRINGE SUBCUT (04:51)
[2023-01-09 04:58] LABS: Folate 14.6 ng/mL (> or = 4.0); Vitamin B12 917 pg/mL (200-900)
[2023-01-09] MEDS: Thiamine HCL 100 MG in 0.9 % Sodium Chloride 100 ML 202 MG IV ×2 (05:37→11:48)
[2023-01-09] MEDS: PHENobarbitaL sodium 130 MG/ML VIAL IM Q3Hx2 246 MG IM ×2 (06:05→09:02)
--- NOTE | 2023-01-09 07:40 | PHA.MEDREC ---
Pharmacy Consult ? Medication Reconciliation Pharmacy has reviewed the medication reconciliation completed by Destiny. There are no remarkable issues for provider's attention. Mary Saul, PharmD
[2023-01-09 07:41] LABS: MANUAL DIFF FLAG NO
[2023-01-09 07:43] LABS: Basophils Percent Auto 0.2 % (0-2); Eosinophils Percent Auto 0.3 % (0-4); Hematocrit 34.7 % (42.0-52.0); Imm Gran Abs Auto 0.06 X10*3/uL (0.00-0.03); Imm Gran Pct Auto 0.7 % (0.0-0.4); Lymphocytes Absolute Auto 1.4 X10*3/uL (1.2-4.9); Mean Corpuscular HGB Conc 34.6 g/dl (31.0-36.0); Mean Corpuscular Hemoglobin 29.6 pg (27.0-33.0); Mean Corpuscular Volume 85.7 fL (80.0-98.0); Monocytes Absolute Auto 0.8 X10*3/uL (0.1-1.2); Monocytes Percent Auto 9.1 % (2-11); Neutrophils Absolute Auto 6.9 x10*3/uL (2.0-8.3); Neutrophils Percent Auto 74.7 % (45-73); Platelet Count 135 X10*3/uL (160-400); Red Blood Count 4.05 X10*6/uL (4.60-5.80); Red Cell Distribution Width 17.3 % (11.0-16.0); White Blood Count 9.2 X10*3/uL (4.8-10.8)
--- NOTE | 2023-01-09 07:45 | PC.NURSE ---
Resumed care of patient this AM, she is calm in bed sleeping. Potassium currently running through R hand IV. Labs drawn this AM.
--- NOTE | 2023-01-09 07:53 | PC.NURSE ---
report given to Beth on M3 for admission. Pt to be transfered up by transport
[2023-01-09 08:05] LABS: Magnesium 1.7 mg/dL (1.6-2.6)
[2023-01-09 08:06] LABS: Blood Urea Nitrogen 10 mg/dL (9-16); Creatinine Clr Calc Pharmacy 86.1; Estimated Glomerular Filt Rate > 60; Glucose Random 95 mg/dL (60-115)
[2023-01-09 08:20] LABS: Anion Gap 15 (12-20); Calcium 7.5 mg/dL (8.4-10.2); Carbon Dioxide 20 mmol/L (22-29); Chloride 105 mmol/L (96-108); Sodium 137 mmol/L (135-145)
--- NOTE | 2023-01-09 08:43 | PM.EVENT ---
Event Note Date of Service: 01/09/23 Event Note: patient seen and examined at bedside. He reports well-controlled withdrawal symptoms. He is complaining of tooth pain. Tylenol p.r.n.. Did recommend that he follow-up with dentist once he is stable for discharge. will continue phenobarb protocol, thiamine and folic acid Time Spent With Patient Time: Total time managing care of this patient today ____ minutes.
--- NOTE | 2023-01-09 09:16 | MHC.CM.PN ---
Addendum entered by Ileana Biggs RN 01/09/23 09:17: MUÑIZ EXPLAINED AND LEFT BEDSIDE WITH PERMISSION Original Note: PATIENT LIVES ALONE. HE USES [facility] FOR AMBULATION ASSIST NO [facility] OR [facility] HCP IS ON FILE AND VERIFIED. PATIENT CURRENTLY NOT FEELING WELL ENOUGH FOR EXTENDED CONVERSATION. CASE MANAGEMENT NAME WRITTEN ON BOARD.
--- NOTE | 2023-01-09 09:44 | MHC.CM.PN ---
CALL TO [facility]. VERIFIED THAT PATIENT SEES ADDY ROSAS [phone]
--- NOTE | 2023-01-09 09:45 | MHC.RECOVRN ---
Addiction Consult received for alcohol use disorder. Chart reviewed, per CM note pt not feeling well enough for conversation. Will continue to follow and meet with pt later today/tomorrow.
[2023-01-09] MEDS: Tamsulosin HCL 0.4 MG CAPSULE PO (16:21)
[2023-01-09] MEDS: Omeprazole 40 MG CAPSULE.DR PO (16:21)
[2023-01-09] MEDS: hydroCHLOROthiazide 25 MG TABLET PO (16:21)
[2023-01-09] MEDS: amLODIPine Besylate 10 MG TABLET PO (16:22)
[2023-01-09] MEDS: 0.9 % Sodium Chloride Flush 3 ML SYRINGE IVFLUSH ×2 (16:22→20:09)
[2023-01-09] MEDS: PHENobarbitaL 15 MG TABLET 45 MG PO (20:08)
[2023-01-09] MEDS: traZODone HCL 100 MG TABLET PO (20:08)
[2023-01-10 04:00] VITALS: RESP 18
[2023-01-10] MEDS: Enoxaparin Sodium 40 MG/0.4 ML SYRINGE SUBCUT (04:56)
[2023-01-10 05:11] VITALS: BP 134/66; PULSE 84; RESP 16; TEMP 36.4; O2SAT 93
[2023-01-10] MEDS: Omeprazole 40 MG CAPSULE.DR PO (05:55)
[2023-01-10 07:42] VITALS: BP 155/96; PULSE 93; RESP 18; TEMP 36.7; O2SAT 96
[2023-01-10] MEDS: Ferrous Sulfate 324 MG TABLET.DR PO (08:07)
[2023-01-10] MEDS: Tamsulosin HCL 0.4 MG CAPSULE PO (08:07)
[2023-01-10] MEDS: Thiamine HCL 100 MG in 0.9 % Sodium Chloride 100 ML 202 MG IV (08:07)
[2023-01-10] MEDS: 0.9 % Sodium Chloride Flush 3 ML SYRINGE IVFLUSH ×2 (08:07→21:01)
[2023-01-10] MEDS: Naltrexone HCl 50 MG TABLET PO (08:07)
[2023-01-10] MEDS: PHENobarbitaL 15 MG TABLET 45 MG PO ×2 (08:07→21:01)
[2023-01-10] MEDS: amLODIPine Besylate 10 MG TABLET PO (08:07)
[2023-01-10] MEDS: hydroCHLOROthiazide 25 MG TABLET PO (08:08)
[2023-01-10] MEDS: lisinopriL 40 MG TABLET PO (08:08)
[2023-01-10 09:38] LABS: Anion Gap 12 (12-20); Blood Urea Nitrogen 6 mg/dL (9-16); Calcium 8.3 mg/dL (8.4-10.2); Carbon Dioxide 27 mmol/L (22-29); Chloride 99 mmol/L (96-108); Creatinine Clr Calc Pharmacy 118.1; Estimated Glomerular Filt Rate > 60; Glucose Random 181 mg/dL (60-115); Potassium 2.6 mmol/L (3.3-5.1); Sodium 135 mmol/L (135-145)
[2023-01-10] MEDS: Potassium Chloride Packet 20 MEQ PACKET 40 MEQ PO (09:53)
[2023-01-10] MEDS: Potassium Chloride/H20 10 MEQ/100 ML PIGGYBACK 100 MEQ IV ×2 (09:53→14:05)
--- NOTE | 2023-01-10 13:38 | MHC.RECOVRN ---
This race and sports book writer met w/ patient after addiction consult was placed. Patient reports had increased drinking alcohol 1 month [employer]ACH[employer]. Patient states increased drinking due to toothache. Patient states drinks several times per week 1-2 pints. Patient reports no other substance use, reviewed UDS positive for fentanyl, inquired about illicit opiates, patient denied use. Patient states is currently taking Naltrexone which is prescribed by PCP. Patient states takes it when not drinking. Harm reduction reviewed. Patient reports is all set with [facility], patient states will follow up with PCP to continue on Naltrexone. Patient declined recovery resources/supports.
[2023-01-10] MEDS: Acetaminophen 325 MG TABLET 650 MG PO ×2 (14:01→21:01)
[2023-01-10] MEDS: Magnesium Sulfate/H2O 2 GM/50 ML PIGGYBACK IV (15:19)
[2023-01-10 15:25] VITALS: BP 154/91; PULSE 90; RESP 16; TEMP 36.1; O2SAT 94
[2023-01-10 16:09] LABS: Potassium 3.5 mmol/L (3.3-5.1)
--- NOTE | 2023-01-10 16:34 | PM.DS ---
DS: Providers Provider Date of Service: 01/10/23 Date of admission: 01/09/23 03:33 Date of discharge: 01/10/23 Primary care physician: ADDY Landrum Consults: 01/09/23 03:36 Addiction Medicine Routine Consulting Provider: Addiction Covering Reason for consultation: alcohol use disorder Attending physician on discharge: Gilberto Cantrell Discharging clinician: Neisha Merlos DS: Diagnosis Discharge Diagnosis (1) Alcoholic intoxication: Status: Acute (2) ALHAJI (acute kidney injury): Status: Acute DS: Summary Hospital Course Hospital Course: From H&P on day of admission This is a 62-year-old male with pertinent history of alcohol use disorder, essential hypertension, nonischemic cardiomyopathy, opioid use disorder who was brought to the ER via ambulance for acute alcohol intoxication.? Patient wary agitated upon arrival as per ER provider.? He was swearing and screaming in the ER.? Was not answering questions appropriately and kicking objects in the ER.? Patient drinks a pt of vodka every day and his last use was yesterday.? Patient was given Ativan, Haldol and Benadryl in the ER.? He is somnolent upon my examination.? Unable to provide history and unable to obtain review of systems. alcohol intoxication. Patient denies drinking on a daily basis. Patient was started on phenobarbital protocol to prevent alcohol withdrawal. No evidence of withdrawal. Awake, alert this morning, scoring 0 on CIWA score. Seen by Addiction Medicine, patient declined services, will continue naltrexone at home and follow-up with PCP. recommend abstinence from alcohol ALHAJI. Resolved with IV fluid hypokalemia/ hypo magnesemia. Likely secondary to chronic alcohol intake. Replaced with p.o., IV. Levels improved. will be discharged home with a few additional days of potassium. dental pain. No abscess seen on facial bones CT. Has outpatient appointment scheduled with dentist. hypotension ? r/t to dehydration on admission. resolved with IVF. no source of infection identified. BP rebounding, 150s systolic. has been restarted on BP meds and tolerating well. acute lactic acidosis. likely related to dehydration and decreased clearance from hepatic steatosis. ct abdomen, chest, facial bones CT with no source of infection. resolved with IVF. initially discharged on 01/10, however, microbiology called to report 2/2 blood cultures growing GPR. His discharge was cancelled, he was started on empiric antibiotics and ID was consulted. In the end only 1/2 blood cultures were positive and likely contamination per ID. Time Spent with Patient Time attestation: Total time managing care of this patient today ____ minutes. Discharge coordination time: Greater than 30 minutes Quality: Safe Use of Opioids Does Pt have an Active Cancer Diagnosis on the Problem List?: No Quality: Stroke Does the patient have a stroke diagnosis?: No Physical Exam Vital Signs: Vital Signs: Last Vital Signs Temp 96.9 F 01/10/23 15:25 Pulse 90 01/10/23 15:25 Resp 16 01/10/23 15:25 BP 154/91 H 01/10/23 15:25 Pulse Ox 94 01/10/23 15:25 O2 Del Method Room Air 01/10/23 15:25 BMI result Body Mass Index 30.4 Const: General: comfortable, no acute distress, alert and awake Nutritional Appearance: overweight Orientation/consciousness: patient oriented x3 Resp: Effort & Inspection: normal respiratory effort, able to speak in complete sentences, no respiratory distress and no use of accessory muscles Cardio: Rate: regular rate Heart sounds: S1 normal heart sound present and S2 normal heart sound present GI: Inspection: No distended Palpation (GI): Soft to palpation and nontender Neuro: General: patient oriented x3 and CN's II-XI intact bilaterally Extrem: General: Yes no pedal edema DS: Data Data Completed and Pending Completed studies during hospitalization [Text1]: Procedures Control Bleeding in Gastrointestinal Tract, Via Natural or Artificial Opening Endoscopic (06/26/20) Detoxification Services for Substance Abuse Treatment (12/12/21) Introduction of Destructive Agent into Upper GI, Via Natural or Artificial Opening Endoscopic (06/26/20) Transfusion of Nonautologous Red Blood Cells into Peripheral Vein, Percutaneous Approach (06/26/20) Labs on day of discharge: Laboratory Results - last 24 hr 01/10/23 01/10/23 09:05 15:03 Sodium 135 Potassium 2.6 L 3.5 D Chloride 99 Carbon Dioxide 27 Anion Gap 12 BUN 6 L Creatinine 0.70 Estim Creat Clear Calc 118.1 Estimated GFR > 60 Random Glucose 181 H Calcium 8.3 L D Preliminary micro results at discharge 01/08/23 23:09 Blood Culture - Preliminary Blood - Venous No growth after 24 hours. 01/08/23 23:09 Blood Culture - Preliminary Blood - Venous No growth after 24 hours. Discharge Plan Discharge Anticipated Discharge Date/Time: 01/10/23 16:39 Patient Disposition: Home, Self-Care Discharge Diagnosis: alcohol intoxication low potassium/ low magnesium ALHAJI Referrals: Osito Grant PA [Primary Care Provider] - 1 Week Discharge Medications: New thiamine HCl (vitamin B1) 100 mg tablet 100 mg PO DAILY 30 Days Qty: 30 0RF folic acid 1 mg tablet 1 mg PO DAILY 30 Days Qty: 30 0RF potassium chloride [Klor-Con] 20 mEq packet 20 meq PO DAILY 5 Days Qty: 5 0RF Continued omeprazole 40 mg capsule,delayed release(DR/EC) 1 cap PO DAILY tamsulosin 0.4 mg capsule 1 cap PO DAILY trazodone 100 mg tablet 1 tab PO BEDTIME amlodipine 10 mg tablet 10 mg PO DAILY ferrous sulfate 325 mg (65 mg iron) tablet,delayed release (DR/EC) 1 tab PO DAILY naltrexone 50 mg tablet 50 mg PO DAILY hydrochlorothiazide 25 mg tablet 25 mg PO DAILY albuterol sulfate [Ventolin HFA] 90 mcg/actuation HFA aerosol inhaler 2 puff inhalation Q4H PRN (Reason: cough) lisinopril 40 mg tablet 40 mg PO DAILY No Action (DME) Ultra-Light Rollator Misc See Rx Instructions .Route Qty: 1 0RF Rx Instructions: As directed Discharge Orders: Discharge Order (Routine); Ordered 01/11/23 Ordered By: Neisha Merlos Activity on Discharge: As tolerated Stand Alone Forms: Patient Portal Discharge page Care Plan Goals: see below Health Concerns: alcohol intoxication Acute kidney injury acute lactic acidosis dental pain Plan of Treatment: recommend to stop drinking alcohol follow-up with dentist as scheduled. There was no evidence of dental abscess on CT imaging kidney function has returned to baseline continue all previous medications as prescribed take thiamine, folic acid supplementation as prescribed take potassium for the next 5 days call to schedule follow up appointment with PCP Assessment: see discharge summary
--- NOTE | 2023-01-10 17:46 | PM.EVENT ---
Event Note Date of Service: 01/10/23 Event Note: Call to see patient regarding 2/2 blood cultures preliminary GPR. Patient afebrile/asymptomatic. Patient agrees to forego discharge pending ID of cultures. Will start empiric vancomycin; place ID consult for a.m. Time Spent With Patient Time: Total time managing care of this patient today ____ minutes.
[2023-01-10] MEDS: vancomycin/NS 2,000 MG/500 ML PLAST..BAG 250 MG IV (18:02)
--- NOTE | 2023-01-10 18:06 | P.PNIM_ITS ---
Subjective Subjective Date of Service: 01/10/23 Interval History: seen and examined this morning follow up for etoh intoxication feeling well. no specific complaints wants to go home Review of Systems Review of Systems: Yes all other systems are reviewed and are negative Constitutional Constitutional: Denies chills and Denies fever(s) Cardiovascular Cardiovascular: Denies chest pain and Denies dyspnea Respiratory Respiratory: Denies cough and Denies dyspnea Gastrointestinal Gastrointestinal: Denies abdominal pain Physical Exam Vital Signs: Vital Signs: Last Vital Signs Temp 96.9 F 01/10/23 15:25 Pulse 90 01/10/23 15:25 Resp 16 01/10/23 15:25 BP 154/91 H 01/10/23 15:25 Pulse Ox 94 01/10/23 15:25 O2 Del Method Room Air 01/10/23 15:25 BMI result Body Mass Index 30.4 Const: General: cooperative, comfortable, no acute distress, alert and awake Nutritional Appearance: overweight Orientation/consciousness: patient oriented x3 Resp: Effort & Inspection: normal respiratory effort and able to speak in complete sentences Auscultation: clear to auscultation bilaterally Cardio: Rate: regular rate Heart sounds: S1 normal heart sound present and S2 normal heart sound present GI: Palpation (GI): Soft to palpation and nontender Neuro: General: patient oriented x3 and CN's II-XI intact bilaterally Extrem: General: Yes no pedal edema Objective Data Active Medications Acetaminophen (Acetaminophen 325 Mg Tablet) 650 mg PO Q6H PRN PRN Reason: Pain, Mild (Pain Scale 1-3) Last Admin: 01/10/23 14:01 Dose: 650 mg Documented By: ARSEN Albuterol Sulfate (Albuterol Sulfate 90 Mcg 8 Gm Inhaler) 2 puff INHALE Q4H PRN PRN Reason: cough Amlodipine Besylate (Amlodipine Besylate 10 Mg Tablet) 10 mg PO DAILY [facility]; Protocol Last Admin: 01/10/23 08:07 Dose: 10 mg Documented By: ARSEN Enoxaparin Sodium (Enoxaparin Sodium 40 Mg/0.4 Ml Syringe) 40 mg SUBCUT Q24H [facility] Last Admin: 01/10/23 04:56 Dose: 40 mg Documented By: FRANKIE Ferrous Sulfate (Ferrous Sulfate 324 Mg Tablet.) 324 mg PO DAILY [facility] Last Admin: 01/10/23 08:07 Dose: 324 mg Documented By: ARSEN Hydrochlorothiazide (Hydrochlorothiazide 25 Mg Tablet) 25 mg PO DAILY [facility]; Protocol Last Admin: 01/10/23 08:08 Dose: 25 mg Documented By: ARSEN Thiamine HCl 100 mg/ Sodium (Chloride) 101 mls @ 202 mls/hr IV DAILY [facility] Last Infusion: 01/10/23 08:47 Dose: 0 mls/hr Documented By: ARSEN Vancomycin HCl (Vancomycin/Ns) 2,000 mg in 500 mls @ 250 mls/hr IV ONCE ONE Stop: 01/10/23 19:41 Lisinopril (Lisinopril 40 Mg Tablet) 40 mg PO DAILY [facility]; Protocol Last Admin: 01/10/23 08:08 Dose: 40 mg Documented By: ARSEN Melatonin (Melatonin 3 Mg Tablet) 6 mg PO BEDTIME PRN PRN Reason: Insomnia Naltrexone HCl (Naltrexone Hcl 50 Mg Tablet) 50 mg PO DAILY [facility] Last Admin: 01/10/23 08:07 Dose: 50 mg Documented By: ARSEN Omeprazole (Omeprazole 40 Mg Capsule.Dr) 40 mg PO DAILY@0630 [facility] Last Admin: 01/10/23 05:55 Dose: 40 mg Documented By: FRANKIE Ondansetron HCl (Ondansetron Hcl 4 Mg/2 Ml Vial) 4 mg IVPUSH Q8H PRN PRN Reason: Nausea and Vomiting Pharmacy Consult (Consult Rx Perform Med Rec) 1 each MISCELLANE ONCE PRN PRN Reason: Consult order Pharmacy Consult (Consult Rx Etoh Phenob Im/Po) 1 each MISCELLANE ONCE PRN; Protocol PRN Reason: Consult order Pharmacy Consult (Consult Rx Vancomycin Dosing) 1 each MISCELLANE DAILY PRN PRN Reason: Consult order Phenobarbital (Phenobarbital 15 Mg Tablet) 45 mg PO BID [facility]; Protocol Stop: 01/11/23 09:01 Last Admin: 01/10/23 08:07 Dose: 45 mg Documented By: ARSEN Phenobarbital (Phenobarbital 15 Mg Tablet) 15 mg PO BID [facility]; Protocol Stop: 01/13/23 09:01 Phenobarbital (Phenobarbital 15 Mg Tablet) 15 mg PO DAILY [facility]; Protocol Stop: 01/15/23 09:01 Sodium Chloride (0.9 % Sodium Chloride Flush 3 Ml Syringe) 3 ml IVFLUSH QSHIFT [facility] Last Admin: 01/10/23 15:28 Dose: Not Given Documented By: ARSEN Non-Admin Reason: IV Running Tamsulosin HCl (Tamsulosin Hcl 0.4 Mg Capsule) 0.4 mg PO DAILY [facility] Last Admin: 01/10/23 08:07 Dose: 0.4 mg Documented By: ARSEN Trazodone HCl (Trazodone Hcl 100 Mg Tablet) 100 mg PO BEDTIME [facility] Last Admin: 01/09/23 20:08 Dose: 100 mg Documented By: LYSZ Labs 01/09/23 07:24 01/10/23 15:03 Labs: Laboratory Results - last 24 hr 01/10/23 09:05 Anion Gap 12 Estim Creat Clear Calc 118.1 Estimated GFR > 60 Random Glucose 181 H Calcium 8.3 L D Microbiology Microbiology Results: Microbiology 01/08/23 23:09 Blood Culture - Preliminary Blood - Venous Prelim: GPR Gram Stain only 01/08/23 23:09 Blood Culture - Preliminary Blood - Venous No growth after 24 hours. Assessment and Plan (1) ALHAJI (acute kidney injury): Status: Acute (2) Alcoholic intoxication: Status: Acute Plan This is a 62-year-old male with pertinent history of alcohol use disorder, essential hypertension, nonischemic cardiomyopathy, opioid use disorder who was brought to the ER via ambulance for acute alcohol intoxication. #. Acute alcohol intoxication: no evidence of etoh withdrawal at this time continue phenobarb CIWA 0 seen by addiction medicine Gram + bacteremia 1/2 bcx + for gram + sweetie empiric vanco ID consult pending no source of infection identified #. Acute lactic acidosis: Due to hypoperfusion/dehydration. Resolved with IV fluids. No sepsis #. Hypokalemia/Hypomagnesemia: Due to alcoholism. Replaced #. Reactive leukocytosis: Defer antibiotics. UA pending #. Acute kidney injury, stage I likely prerenal: resolved with IVF lisinopril, HCTZ on hold #. Essential hypertension: Hold home antihypertensives home meds on hold for low bp. bp rebounding, likely resume in am dental pain no abscess seen on facial bones CT outpatient follow up with dentist - pt has appt scheduled DVT prophylaxis: Lovenox 40 mg daily Full code Cardiac diet attending - dr payne Time Spent With Patient Time: Total time managing care of this patient today ____ minutes. Quality Stroke Does the patient have a stroke diagnosis?: No VTE Prior VTE?: No VTE Risk Level:: Medical - moderate - high VTE Device Contraindication: Treatment Not Indicated VTE Drug Contraindication: N/A - Med Ordered
--- NOTE | 2023-01-10 18:27 | PHA.PROG ---
Admission Date/Time: January 09, 2023 03:33 Indication:Bacteremia Weight in k.718 kg Adjusted body weight in K.5 Pedro body weight in K.4 Obesity Dosing Indication % IBW: Serum Creatinine - Last 168 Hours 01/08/23 01/09/23 01/10/23 21:45 07:24 09:05 Creatinine 1.74 H 0.96 0.70 Estimated CrCl and GFR - Last 168 Hours 01/08/23 01/09/23 01/10/23 21:45 07:24 09:05 Estim Creat Clear Calc 47.5 86.1 118.1 Estimated GFR 40 > 60 > 60 Vancomycin Loading Dose: 2000 mg Current Vancomycin Dosing Regimen: 1250 mg Q12H Vancomycin Monitoring using AUC goal of 400 - 600 range with trough as surrogate marker: 494 mg/L/hr Date and Time for next Vancomycin Level to be drawn: 01/12 @1600 Pharmacist Comments on Vancomycin Plan: Chose not to do obese model for first dosing. Could not get level after 3 doses as pharmacy will not be here at the time to assess. Vancomycin dosing will take advantage of [employer] as a clinical decision support tool that uses Bayesian modeling to calculate individual patient's pharmacokinetic parameters and forecast the patient's drug concentration time course with the target goal AUC 24 range of 400 - 600 mg/L/hr.
[2023-01-10 19:06] VITALS: BP 163/88; PULSE 93; RESP 20; TEMP 36.4; O2SAT 95
[2023-01-10] MEDS: traZODone HCL 100 MG TABLET PO (21:01)
[2023-01-11] MEDS: Enoxaparin Sodium 40 MG/0.4 ML SYRINGE SUBCUT (03:24)
[2023-01-11 04:00] VITALS: BP 158/96; PULSE 87; RESP 16; TEMP 36.4; O2SAT 94
[2023-01-11] MEDS: Benzonatate 100 MG CAPSULE 200 MG PO (04:08)
[2023-01-11] MEDS: vancomycin HCL 1,250 MG in 0.9 % Sodium Chloride 250 ML 166.67 MG IV (05:04)
[2023-01-11] MEDS: Acetaminophen 325 MG TABLET 650 MG PO (05:58)
[2023-01-11] MEDS: Omeprazole 40 MG CAPSULE.DR PO (05:58)
[2023-01-11 07:26] LABS: MANUAL DIFF FLAG NO
[2023-01-11 07:28] LABS: Basophils Percent Auto 0.4 % (0-2); Eosinophils Absolute Auto 0.2 X10*3/uL (0.0-0.4); Eosinophils Percent Auto 2.5 % (0-4); Hematocrit 36.3 % (42.0-52.0); Hemoglobin 12.2 g/dl (14.0-18.0); Imm Gran Abs Auto 0.03 X10*3/uL (0.00-0.03); Imm Gran Pct Auto 0.4 % (0.0-0.4); Lymphocytes Absolute Auto 1.1 X10*3/uL (1.2-4.9); Lymphocytes Percent Auto 15.1 % (20-40); Mean Corpuscular HGB Conc 33.6 g/dl (31.0-36.0); Mean Corpuscular Hemoglobin 28.6 pg (27.0-33.0); Mean Corpuscular Volume 85.2 fL (80.0-98.0); Mean Platelet Volume 8.4 fL (9.4-12.4); Monocytes Absolute Auto 0.8 X10*3/uL (0.1-1.2); Monocytes Percent Auto 10.7 % (2-11); Neutrophils Absolute Auto 5.1 x10*3/uL (2.0-8.3); Neutrophils Percent Auto 70.9 % (45-73); Platelet Count 154 X10*3/uL (160-400); Red Blood Count 4.26 X10*6/uL (4.60-5.80); Red Cell Distribution Width 16.9 % (11.0-16.0); White Blood Count 7.2 X10*3/uL (4.8-10.8)
[2023-01-11 07:44] LABS: Alanine Aminotransferase 23 U/L (0-40); Albumin Level 3.7 g/dL (3.5-5.0); Alkaline Phosphatase 41 U/L (39-117); Anion Gap 12 (12-20); Aspartate Amino Transferase 31 U/L (5-37); Bilirubin Total 0.4 mg/dL (0.0-1.0); Blood Urea Nitrogen 6 mg/dL (9-16); Calcium 8.6 mg/dL (8.4-10.2); Carbon Dioxide 29 mmol/L (22-29); Chloride 100 mmol/L (96-108); Creatinine Clr Calc Pharmacy 110.2; Estimated Glomerular Filt Rate > 60; Glucose Fasting 111 mg/dL (60-99); Potassium 3.2 mmol/L (3.3-5.1); Sodium 138 mmol/L (135-145); Total Protein 6.5 g/dL (6.5-8.0)
[2023-01-11 08:00] VITALS: BP 162/78; PULSE 84; RESP 18; TEMP 36.8; O2SAT 92
[2023-01-11] MEDS: Tamsulosin HCL 0.4 MG CAPSULE PO (09:13)
[2023-01-11] MEDS: PHENobarbitaL 15 MG TABLET 45 MG PO (09:14)
[2023-01-11] MEDS: Thiamine HCL 100 MG in 0.9 % Sodium Chloride 100 ML 202 MG IV (09:14)
[2023-01-11] MEDS: amLODIPine Besylate 10 MG TABLET PO (09:14)
[2023-01-11] MEDS: lisinopriL 40 MG TABLET PO (09:14)
[2023-01-11] MEDS: Potassium Chloride Packet 20 MEQ PACKET 40 MEQ PO (09:14)
[2023-01-11] MEDS: Ferrous Sulfate 324 MG TABLET.DR PO (09:14)
[2023-01-11] MEDS: Naltrexone HCl 50 MG TABLET PO (09:14)
[2023-01-11] MEDS: hydroCHLOROthiazide 25 MG TABLET PO (09:14)
[2023-01-11] MEDS: 0.9 % Sodium Chloride Flush 3 ML SYRINGE IVFLUSH (09:15)
[2023-01-11] MEDS: Ibuprofen 400 MG TABLET PO (10:34)
--- NOTE | 2023-01-11 11:51 | MHC.CM.PN ---
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
== END 2023-01-11 13:12 | disposition home or self-care (01) | DRG 422 ==
LOC: HO.ED 01-09 02:31 → HO.EDOVER 01-09 07:08 → HO.S3 01-09 07:43 → HO.EDOVER 01-10 10:34 → HO.S3 01-10 10:34
PROVIDERS: Hospitalist; Physician Assistant; Admitting Provider Student in an Organized Health Care Education/Training Program; Emergency Provider Student in an Organized Health Care Education/Training Program; PCP Physician Assistant Medical; Visit Provider Physician Assistant Medical
DX: E87.6 Hypokalemia (principal); E86.0 Dehydration; E87.21 Acute metabolic acidosis; I42.8 Other cardiomyopathies; N17.9 Acute kidney failure, unspecified; R78.81 Bacteremia; I95.9 Hypotension, unspecified; D72.829 Elevated white blood cell count, unspecified; I10 Essential (primary) hypertension; E78.5 Hyperlipidemia, unspecified; F10.229 Alcohol dependence with intoxication, unspecified; F10.239 Alcohol dependence with withdrawal, unspecified; Y90.8 Blood alcohol level of 240 mg/100 ml or more; E83.42 Hypomagnesemia; K08.89 Other specified disorders of teeth and supporting structures; Z20.822 Contact with and (suspected) exposure to COVID-19; Z79.899 Other long term (current) drug therapy
CPT/HCPCS: 36415; 70450; 70486; 71250; 72125; 74176; 80048; 80053; 80307; 81001; 82077; 82550; 82607; 82746; 83605; 83735; 83880; 84132; 84484; 85025; 85610; 87040; 87205; 87635; 93005; 99285; J1200; J1650; J2060; J2543; J2560; J3370; J3371; J3411; J3475

== ENCOUNTER 2023-10-09 19:09 | Emergency (ER) | payer OTHER, SELFPAY ==
--- NOTE | 2023-10-09 | ECG_ITS ---
Test Reason : TACHY Blood Pressure : / mmHG Vent. Rate : 126 BPM Atrial Rate : 126 BPM P-R Int : 160 ms QRS Dur : 104 ms QT Int : 362 ms P-R-T Axes : 033 -12 045 degrees QTc Int : 524 ms Sinus tachycardia Nonspecific T wave abnormality Abnormal ECG When compared with ECG of 09-JAN-2023 09:24, No significant change was found Referred By: Generic ED Physician Electronically Signed By:KERWIN MUIR MD
[2023-10-09 19:28] VITALS: BP 148/99; PULSE 134; RESP 20; TEMP 37.3; O2SAT 85; BMI 33.2
--- NOTE | 2023-10-09 19:47 | MHC.RECOVSUP ---
? Reason for consult:ETOH o? Current location:[facility]? o? Identified substance use concern:? ? Intervention: o? Community resources provided ? Plan:N/A ? Additional information:PT is beligerent, came in intoxicated, I provided opt with resources. I explained he can call when he isn't intoxicated.
--- NOTE | 2023-10-09 19:52 | ED_ITS ---
HPI - General Adult General Chief complaint: ETOH/Substance Use Stated complaint: ETOH, SI Time Seen by Provider: 10/09/23 19:50 History of Present Illness HPI narrative: The patient is a 63-year-old male who was brought to the hospital by ambulance. I believe the patient called EMS. He seemed intoxicated and reported suicidal thoughts. He apparently wanted to use a precinct police sergeant's gun to shoot himself. He said that he wanted to . He was felt to be intoxicated. He has had previous ER visits with similar presentation. Related Data Home Medications Medication Instructions Recorded Confirmed amlodipine 10 mg tablet 10 mg PO DAILY 12/15/21 01/09/23 ferrous sulfate 325 mg (65 mg 1 tab PO DAILY 12/15/21 01/09/23 iron) tablet,delayed release omeprazole 40 mg capsule,delayed 1 cap PO DAILY 12/15/21 01/09/23 release tamsulosin 0.4 mg capsule 1 cap PO DAILY 12/15/21 01/09/23 trazodone 100 mg tablet 1 tab PO BEDTIME 12/15/21 01/09/23 albuterol sulfate 90 mcg/actuation 2 puff inhalation Q4H PRN cough 01/09/23 01/09/23 aerosol inhaler (Ventolin HFA) hydrochlorothiazide 25 mg tablet 25 mg PO DAILY 01/09/23 01/09/23 lisinopril 40 mg tablet 40 mg PO DAILY 01/09/23 01/09/23 naltrexone 50 mg tablet 50 mg PO DAILY 01/09/23 01/09/23 Previous Rx's Medication Instructions Recorded leann (Ultra-Light Rollator misc) #1 ea 08/19/21 folic acid 1 mg tablet 1 mg PO DAILY 30 days #30 tabs 01/10/23 thiamine HCl (vitamin B1) 100 mg 100 mg PO DAILY 30 days #30 tabs 01/10/23 tablet potassium chloride 20 mEq oral 20 meq PO DAILY 5 days #5 ea 01/11/23 packet (Klor-Con) Allergies Allergy/AdvReac Type Severity Reaction Status Date / Time No Known Allergies Allergy Verified 02/01/22 09:33 Review of Systems 2 Review of Systems: Yes Unobtainable due to mental status PMFSH Past Medical History Onset Date is defined in the Problem List Problems that require an onset date and time if occurred within 24 hrs of arrival to the ED Aortic Dissection and Rupture; Neurologic impairment; Cardiopulmonary Arrest; Endotracheal Intubation; Insertion or Replacement of Mechanical Circulatory Assist Device Medical History Acidosis, lactic Alcohol dependence Alcohol dependence with withdrawal Alcoholic intoxication Fracture of distal end of left fibula HLD (hyperlipidemia) Hypertension Hypoxic Nonischemic cardiomyopathy Surgical History History of cardiac cath (~01/2016) Family History Family History Father No problems noted. Mother No problems noted. Social History Social History Household Members: None Housing: Apartment Do you presently have visiting nurse or other home services: No Unable to assess alcohol history related to: Refusing to respond Alcohol intake: current Alcohol intake frequency: 0-2 drinks per day Alcohol type: hard liquor Comment: pt refused use of bed alarm, promised to use callbell before getting up Patient Tobacco Use Status: Never used Tobacco Advance Directives: Yes Advance Directives on File: Yes Advance Directives Date on File: 07/01/20 service: No Current occupational status: unemployed Physical Exam ED Vital Signs: Vital Signs - 24 hr 10/09/23 19:28 10/09/23 20:10 10/09/23 20:25 Temperature 99.2 F Pulse Rate 134 H 172 H 115 H Respiratory Rate 20 24 H 20 Blood Pressure 148/99 H 114/62 95/58 L Pulse Oximetry 85 L 95 93 Oxygen Delivery Method Room Air Nasal Cannula Nasal Cannula Oxygen Flow Rate 2 2 10/09/23 20:40 10/09/23 20:55 10/09/23 22:43 Temperature Pulse Rate 113 H 114 H 102 H Respiratory Rate 20 20 20 Blood Pressure 101/59 L 110/57 L 109/68 Pulse Oximetry 95 96 Oxygen Delivery Method Nasal Cannula Room Air Nasal Cannula Oxygen Flow Rate 2 2 5 10/10/23 01:11 Temperature Pulse Rate 89 Respiratory Rate 16 Blood Pressure 104/67 Pulse Oximetry 94 Oxygen Delivery Method Nasal Cannula Oxygen Flow Rate 5 BMI result Body Mass Index 33.2 Const Other: The patient is an intoxicated 63-year-old who was loud, verbally aggressive, foul mouthed, and agitated. HENMT Other: Face is symmetrical. Mucous membranes moist. Airway clear. Eyes Other: Pupils are round equal, conjunctivae are clear, extraocular movements intact Neck Other: Moving his neck easily. No JVD. Resp Other: Lungs are clear bilaterally. Cardio Other: The patient has a regular rate and rhythm. No murmur. GI Other: The patient has a protuberant abdomen that was soft and nontender. Skin Other: Skin is dry and unremarkable. Neuro Other: The patient was awake but agitated and verbally aggressive. His face was symmetrical. Eye movements intact. Speech was without dysarthria. Moving his extremities symmetrically. The patient seemed intoxicated but otherwise had a nonfocal exam. Extrem Other: No peripheral edema. Good pulses in the feet. Psych Other: Patient was agitated and foulmouthed and verbally aggressive. Medications Administered Discontinued Medications Generic Name Dose Route Start Last Admin Trade Name Freq PRN Reason Stop Dose Admin Potassium Chloride/Sodium Chloride 40 meq in 1,000 mls @ 250 mls/hr 10/09/23 21:15 10/10/23 02:09 Kcl 40 Meq In 0.9 % Sodium Chl IV 10/10/23 01:14 Infused .Q4H EVAN Infusion Midazolam HCl 6 mg 10/09/23 20:30 10/09/23 19:55 Midazolam Hcl 10 Mg/10 Ml Vial IM 10/09/23 20:31 6 mg ONCE ONE Administration Olanzapine 10 mg 10/09/23 19:51 10/09/23 19:55 Olanzapine 10 Mg Vial IM 10/09/23 19:52 10 mg ONCE ONE Administration Medical Decision Making Medical Decision Making [facility] Narrative: The patient is a 63-year-old male came to the hospital after complaining of feeling suicidal. He also seemed intoxicated. Here in the emergency room he was very agitated and verbally aggressive and disruptive. The patient was sufficiently agitated and aggressive that I felt he required sedative medications. He was held physically to allow for administration of IM olanzapine and midazolam. He became much calmer after the administration of these medications. With the of the phlebotomized him at that point. His alcohol level was 267. Labs are otherwise very reassuring. The patient has been kept on a monitor since he was given sedative medications. It will take some time for his alcohol level to come down. The patient will need to be re-evaluated after he is sober and after the sedative medications have worn off to determine history of degree of suicidality. The patient will therefore be signed out to the oncoming emergency team the plan for evaluation by the care team in the morning. Lab Data 10/09/23 20:25 10/09/23 20:25 Labs: Lab Results 10/09/23 10/09/23 Range/Units 20:25 22:46 WBC 8.9 (4.8-10.8) X10*3/uL RBC 4.92 (4.60-5.80) X10*6/uL Hgb 13.4 L (14.0-18.0) g/dl Hct 40.7 L (42.0-52.0) % MCV 82.7 (80.0-98.0) fL MCH 27.2 (27.0-33.0) pg MCHC 32.9 (31.0-36.0) g/dl RDW 17.3 H (11.0-16.0) % Plt Count 223 D (160-400) X10*3/uL MPV 8.7 L (9.4-12.4) fL Immature Gran % (Auto) 1.1 H (0.0-0.4) % Neut % (Auto) 65.9 (45-73) % Lymph % (Auto) 23.4 (20-40) % [place] % (Auto) 8.2 (2-11) % Eos % (Auto) 0.8 (0-4) % Baso % (Auto) 0.6 (0-2) % Lymph # (Auto) 2.1 (1.2-4.9) X10*3/uL [place] # (Auto) 0.7 (0.1-1.2) X10*3/uL Eos # (Auto) 0.1 (0.0-0.4) X10*3/uL Baso # (Auto) 0.1 (0.0-0.2) X10*3/uL Abs Immat Gran (auto) 0.10 H (0.00-0.03) X10*3/uL Absolute Neuts (auto) 5.9 (2.0-8.3) x10*3/uL Absolute Nucleated RBC 0.000 (0.0-0.012) X10*3/uL Nucleated RBC % (auto) 0.0 (0.0-0.2) /100WBC Sodium 142 (135-145) mmol/L Potassium 2.8 L* (3.3-5.1) mmol/L Chloride 101 (96-108) mmol/L Carbon Dioxide 22 (22-29) mmol/L Anion Gap 22 H (12-20) BUN 20 H (9-16) mg/dL Creatinine 1.00 (0.5-1.4) mg/dL Estim Creat Clear Calc 85.1 Estimated GFR > 60 Random Glucose 125 H (60-115) mg/dL Calcium 9.7 D (8.4-10.2) mg/dL Magnesium 1.7 (1.6-2.6) mg/dL Total Bilirubin 0.2 (0.0-1.0) mg/dL Direct Bilirubin < 0.2 (0.0-0.5) mg/dL AST 31 (5-37) U/L ALT 36 (0-40) U/L Alkaline Phosphatase 47 (39-117) U/L Troponin I High Sens 2.8 (<3.5-35.0) ng/L B-Natriuretic Peptide < 10 (<100) pg/mL Total Protein 9.6 H (6.5-8.0) g/dL Albumin 4.9 (3.5-5.0) g/dL Lipase 50 (8-78) U/L Salicylates < 5.0 L (15-30) mg/dL Acetaminophen < 3 (<30) mcg/mL Ethyl Alcohol 267 mg/dL COVID-19 (ELOY) Negative (Negative) COVID-19 Clin Com See Note Influenza Type A (RAFAEL) Negative (Negative) Influenza Type B (RAFAEL) Negative (Negative) Influenza A & B Note See Note Independent Interpretation I performed an independent interpretation of an: EKG Interpretation: EKG at 19:31 shows sinus tachycardia at 126 beats per minute. No change from previous EKGs. Critical Care Time Critical Care Time Critical Care Time: Yes Total Critical Care Time: 35 Attestation: The patient was critically ill with a high probability of imminent or life- threatening deterioration. I spent greater than 30 minutes of discontinuous time evaluating the patient, delivering critical care at the bedside, discussing evaluating data with consultants. Critical care time does not include time spent performing separately billable procedures or teaching. Time spent performing critical care with 35 minutes. Discharge Plan Discharge Clinical Impression: Suicidal ideation, Alcohol intoxication, Agitation Patient Disposition: Still a Patient Prescriptions: No Action (DME) Ultra-Light Rollator Misc See Rx Instructions .Route Qty: 1 0RF Rx Instructions: As directed omeprazole 40 mg capsule,delayed release(DR/EC) 1 cap PO DAILY tamsulosin 0.4 mg capsule 1 cap PO DAILY trazodone 100 mg tablet 1 tab PO BEDTIME amlodipine 10 mg tablet 10 mg PO DAILY ferrous sulfate 325 mg (65 mg iron) tablet,delayed release (DR/EC) 1 tab PO DAILY naltrexone 50 mg tablet 50 mg PO DAILY hydrochlorothiazide 25 mg tablet 25 mg PO DAILY albuterol sulfate [Ventolin HFA] 90 mcg/actuation HFA aerosol inhaler 2 puff inhalation Q4H PRN (Reason: cough) lisinopril 40 mg tablet 40 mg PO DAILY thiamine HCl (vitamin B1) 100 mg tablet 100 mg PO DAILY 30 Days Qty: 30 0RF folic acid 1 mg tablet 1 mg PO DAILY 30 Days Qty: 30 0RF potassium chloride [Klor-Con] 20 mEq packet 20 meq PO DAILY 5 Days Qty: 5 0RF
[2023-10-09] MEDS: OLANZapine 10 MG VIAL IM (19:55)
[2023-10-09 20:10] VITALS: BP 114/62; PULSE 172; RESP 24; O2SAT 95
[2023-10-09 20:25] VITALS: BP 95/58; PULSE 115; RESP 20; O2SAT 93
[2023-10-09 20:30] LABS: MANUAL DIFF FLAG NO
[2023-10-09 20:33] LABS: Basophils Absolute Auto 0.1 X10*3/uL (0.0-0.2); Basophils Percent Auto 0.6 % (0-2); Eosinophils Absolute Auto 0.1 X10*3/uL (0.0-0.4); Eosinophils Percent Auto 0.8 % (0-4); Hematocrit 40.7 % (42.0-52.0); Hemoglobin 13.4 g/dl (14.0-18.0); Imm Gran Pct Auto 1.1 % (0.0-0.4); Lymphocytes Absolute Auto 2.1 X10*3/uL (1.2-4.9); Lymphocytes Percent Auto 23.4 % (20-40); Mean Corpuscular HGB Conc 32.9 g/dl (31.0-36.0); Mean Corpuscular Hemoglobin 27.2 pg (27.0-33.0); Mean Corpuscular Volume 82.7 fL (80.0-98.0); Mean Platelet Volume 8.7 fL (9.4-12.4); Monocytes Absolute Auto 0.7 X10*3/uL (0.1-1.2); Monocytes Percent Auto 8.2 % (2-11); Neutrophils Absolute Auto 5.9 x10*3/uL (2.0-8.3); Neutrophils Percent Auto 65.9 % (45-73); Platelet Count 223 X10*3/uL (160-400); Red Blood Count 4.92 X10*6/uL (4.60-5.80); Red Cell Distribution Width 17.3 % (11.0-16.0); White Blood Count 8.9 X10*3/uL (4.8-10.8)
[2023-10-09 20:40] VITALS: BP 101/59; PULSE 113; RESP 20
[2023-10-09 20:49] LABS: Acetaminophen LAB < 3 mcg/mL (<30); Alanine Aminotransferase 36 U/L (0-40); Albumin Level 4.9 g/dL (3.5-5.0); Alkaline Phosphatase 47 U/L (39-117); Aspartate Amino Transferase 31 U/L (5-37); Bilirubin Direct < 0.2 mg/dL (0.0-0.5); Bilirubin Total 0.2 mg/dL (0.0-1.0); Blood Urea Nitrogen 20 mg/dL (9-16); Calcium 9.7 mg/dL (8.4-10.2); Creatinine Clr Calc Pharmacy 85.1; Estimated Glomerular Filt Rate > 60; Ethanol 267 mg/dL; Glucose Random 125 mg/dL (60-115); Lipase 50 U/L (8-78); Magnesium 1.7 mg/dL (1.6-2.6); Salicylate < 5.0 mg/dL (15-30); Total Protein 9.6 g/dL (6.5-8.0)
[2023-10-09 20:52] LABS: B Type Natriuretic Peptide < 10 pg/mL (<100)
[2023-10-09 20:54] LABS: Troponin-I High Sensitivity 2.8 ng/L (<3.5-35.0)
[2023-10-09 20:55] VITALS: BP 110/57; PULSE 114; RESP 20; O2SAT 95
[2023-10-09 21:06] LABS: Anion Gap 22 (12-20); Carbon Dioxide 22 mmol/L (22-29); Chloride 101 mmol/L (96-108); Potassium 2.8 mmol/L (3.3-5.1); Sodium 142 mmol/L (135-145)
[2023-10-09] MEDS: KCl 40 mEq in 0.9 % Sodium Chl 40 MEQ/1,000 ML IV.SOLN 250 MEQ IV (21:53)
[2023-10-09 22:43] VITALS: BP 109/68; PULSE 102; RESP 20; O2SAT 96
[2023-10-09 23:16] LABS: IDNOW Serial# 9DB6401D; Influenza A Negative (Negative)
[2023-10-09 23:17] LABS: COVID-19 Test Negative (Negative); IDNOW Serial# 152EDE1D; Influenza B2 Negative (Negative)
[2023-10-10 01:11] VITALS: BP 104/67; PULSE 89; RESP 16; O2SAT 94
[2023-10-10 02:24] VITALS: BP 118/79; PULSE 101; RESP 22; O2SAT 96
[2023-10-10 02:43] LABS: Amphetamine Screen Urine Not Detected (Not Detect); Barbiturates, Urine Not Detected (Not Detect); Benzodiazepines Screen Urine POSITIVE (Not Detect); Cannabinoid Screen Urine Not Detected (Not Detect); Cocaine Screen Urine Not Detected (Not Detect); Fentanyl, urine Not Detected (Not Detect); Opiate Screen Urine Not Detected (Not Detect); Phencyclidine Screen Urine Not Detected (Not Detect)
[2023-10-10] MEDS: Potassium Bicarbonate/Cit AC 25 MEQ TABLET.EFF 50 MEQ PO (03:06)
[2023-10-10] MEDS: Acetaminophen 325 MG TABLET 975 MG PO (03:06)
--- NOTE | 2023-10-10 03:34 | MHC.CARE ---
Pt refused to cooperate with the CARE team assessment and began to escalate his behavior by yelling Get out .leave me alone! Care Team will try again in the morning.
[2023-10-10 03:47] VITALS: BP 115/64; PULSE 84; RESP 18; O2SAT 93
[2023-10-10 04:14] LABS: Alanine Aminotransferase 27 U/L (0-40); Albumin Level 3.7 g/dL (3.5-5.0); Alkaline Phosphatase 34 U/L (39-117); Anion Gap 15 (12-20); Aspartate Amino Transferase 27 U/L (5-37); Bilirubin Total 0.2 mg/dL (0.0-1.0); Blood Urea Nitrogen 17 mg/dL (9-16); Calcium 8.2 mg/dL (8.4-10.2); Carbon Dioxide 23 mmol/L (22-29); Chloride 108 mmol/L (96-108); Estimated Glomerular Filt Rate > 60; Glucose Random 97 mg/dL (60-115); Potassium 3.9 mmol/L (3.3-5.1); Sodium 142 mmol/L (135-145); Total Protein 6.9 g/dL (6.5-8.0)
[2023-10-10 05:39] VITALS: BP 111/62; PULSE 92; RESP 20; O2SAT 92
--- NOTE | 2023-10-10 07:21 | PC.NURSE ---
Assumed care of pt from previous RN, pt resting on stretcher with respirations equal and unlabored. Awaiting CARE team evaluation.
[2023-10-10 08:10] VITALS: BP 141/90; PULSE 109; RESP 22; O2SAT 92
[2023-10-10] MEDS: Albuterol Sulfate 90 MCG 8 GM INHALER 2 PUFF INHALE (08:33)
[2023-10-10] MEDS: Magnesium Hydrox/Alum Hydrox 30 ML ORAL.SUSP PO (08:34)
[2023-10-10] MEDS: Acetaminophen 325 MG TABLET 650 MG PO (09:25)
--- NOTE | 2023-10-10 09:28 | MHC.CARE ---
patient seen by CARE team. He denies SI/ HI, declines offer of detox referral. Focused on getting his belongings back. No evidence of psychosis. Cleared by CARE team
--- NOTE | 2023-10-10 09:36 | PC.NURSE ---
Pt given cell phone back from [facility] per request to call someone to bring his cane in for discharge.
[2023-10-10 09:45] LABS: Troponin-I High Sensitivity < 2.7 ng/L (<3.5-35.0)
[2023-10-10 10:14] VITALS: BP 141/83; PULSE 105; RESP 20; TEMP 36.6; O2SAT 92
--- NOTE | 2023-10-10 11:15 | PC.NURSE ---
All belongings from locker #4 given to patient for discharge at this time. PIV discontinued.
== END 2023-10-10 11:36 | disposition home or self-care (01) ==
PROVIDERS: Emergency Medicine; Internal Medicine; Physician Assistant; Emergency Provider Emergency Medicine
DX: R45.851 Suicidal ideations (principal); F10.220 Alcohol dependence with intoxication, uncomplicated; Y90.8 Blood alcohol level of 240 mg/100 ml or more; R45.1 Restlessness and agitation; Z79.899 Other long term (current) drug therapy; Z11.52 Encounter for screening for COVID-19; E78.5 Hyperlipidemia, unspecified; I10 Essential (primary) hypertension; R09.02 Hypoxemia; K70.10 Alcoholic hepatitis without ascites
CPT/HCPCS: 36415; 80048; 80053; 80076; 80143; 80179; 80307; 83690; 83735; 83880; 84484; 85025; 87502; 87635; 93005; 96365; 96366; 96372; 99285; J2250; J2359; J3480; S9485

== ENCOUNTER → 2023-10-09 19:31 | Outpatient (BNV) | payer OTHER, SELFPAY | PROVIDERS: Emergency Provider Emergency Medicine; Visit Provider Internal Medicine Cardiovascular Disease | DX: R00.0 Tachycardia, unspecified (principal); R94.31 Abnormal electrocardiogram [ECG] [EKG] | CPT/HCPCS: 93010 ==

== ENCOUNTER 2023-11-08 08:42 | Outpatient (AMB) | payer OTHER, SELFPAY ==
--- NOTE | 2023-11-08 08:46 | MHC.OFFVIS ---
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: No Accompanied by: Self / Same As Patient Allergies No Known Allergies Allergy (Verified 11/08/23 08:48) Medication List - Last Reconciled 11/08/23 by Natalie Ibarra NP-C albuterol sulfate 90 mcg/actuation (Ventolin HFA) 2 puffs inhalation Q4H PRN amlodipine 10 mg PO DAILY folic acid 1 mg PO DAILY 30 days hydrochlorothiazide 25 mg PO DAILY lisinopril 40 mg PO DAILY naltrexone 50 mg PO DAILY omeprazole 1 cap PO DAILY tamsulosin 0.4 mg PO DAILY thiamine HCl (vitamin B1) 100 mg PO DAILY 30 days trazodone 1 tab PO BEDTIME walker (Ultra-Light Rollator misc) As directed HPI Follow up per PCP -NICM HPI Details Benji is a 63-year-old male past medical history of hypertension, hyperlipidemia, nonischemic cardiomyopathy, alcohol abuse who presents for follow-up. His last prior visit to our office was 03/14/2021. Today he reports that he has been doing generally well over the last few years. He states that he is currently not drinking alcohol. He describes himself as lazy and ambulates only short distances with a cane. He does not engage in any routine exercise. He says he is taking his medications as directed. He denies chest discomfort at rest or with activity. No shortness of breath, palpitations, lightheadedness, presyncope, syncope, PND, orthopnea or edema. [facility] Medical History Hypoxic Acidosis, lactic Alcoholic intoxication Fracture of distal end of left fibula Alcohol dependence Nonischemic cardiomyopathy HLD (hyperlipidemia) Hypertension Alcohol dependence with withdrawal Surgical History History of cardiac cath (~01/2016) Family History Father No problems noted. Mother No problems noted. Social History Household Members: None Housing: Apartment Do you presently have visiting nurse or other home services: No Unable to assess alcohol history related to: Refusing to respond Alcohol intake: current Alcohol intake frequency: 0-2 drinks per day Alcohol type: hard liquor Comment: pt refused use of bed alarm, promised to use callbell before getting up Patient Tobacco Use Status: Never used Tobacco Advance Directives Date on File: 07/01/20 service: No Current occupational status: unemployed Review of Systems Const All systems reviewed & are unremarkable except as noted in HPI and below Denies weakness ENT Denies dizziness Card Denies chest pain, Denies chest pain with activity, Denies syncope, Denies rapid heart rate, Denies pedal edema, Denies edema, Denies leg edema, Denies lightheadedness, Denies palpitations, Denies dyspnea, Denies dyspnea on exertion and Denies orthopnea Resp Denies cough, Denies dyspnea and Denies dyspnea on exertion GI Denies hematochezia and Denies change in stool character Musc Denies abnormal gait, Denies muscle cramps, Denies muscle weakness, Denies numbness, Denies radiating pain into limb and Denies tingling Neuro Denies abnormal gait, Denies dizziness, Denies syncope, Denies numbness, Denies tingling and Denies weakness Endo Denies palpitations Physical Exam Vital Signs: Last Vital Signs Pulse 97 11/08/23 08:48 BP 156/90 H 11/08/23 08:48 BMI result Body Mass Index 35.9 Const Other: Obese General: cooperative, healthy appearing, comfortable and no acute distress Orientation/consciousness: patient oriented x3 Neck Neck: Yes normal visual inspection and Yes no JVD Resp Effort & Inspection: normal respiratory effort Auscultation: clear to auscultation bilaterally, no crackles, no rales, no rhonchi and no wheezes Cardio Jugular venous distension: no JVD Rate: regular rate Rhythm: regular rhythm Heart sounds: S1 normal heart sound present, S2 normal heart sound present, no murmurs and no rubs Neuro General: patient oriented x3 Extrem General: Yes normal to inspection and No no pedal edema Psych Appearance: grossly normal Mental Status: mental status grossly normal Speech and movement: Normal speech and movement present Assessment & Plan Assessment & Plan (1) Nonischemic cardiomyopathy: Code(s): I42.8 - Other cardiomyopathies Plan: Known history of nonischemic cardiomyopathy. Cardiac catheterization 01/2016 showed normal coronary arteries. Echocardiogram from 03/2018 showed EF 35-40%. Cardiomyopathy was thought to be related to alcohol abuse. He was on appropriate neurohormonal modulation. Last echo done 09/19/2020 showed EF 55-60%. He has not been seen in our office since 03/14/2021. Today he reports that he has been doing generally well. He tells me he stopped drinking. He has no longer taking carvedilol for unclear reason. He continues to take lisinopril. On examination he has no clinical signs of decompensated heart failure. Blood pressure is elevated today at 156/90. Will continue lisinopril at 40 mg daily. Will add carvedilol 3.125 mg b.i.d.. Labs done on 10/09/2023 showed creatinine 1.0, magnesium 1.7, BNP less than 10. Will update echocardiogram to re-evaluate EF. Signs and symptoms of heart failure reviewed with him. The importance of ongoing alcohol cessation discussed. The importance of each medication reviewed. Cardiology follow-up in 3 months, sooner if needed (2) Hypertension: Code(s): I10 - Essential (primary) hypertension Plan: As above (3) History of cardiac cath: Onset Date: ~01/2016 Comment: Normal coronaries Code(s): Z98.890 - Other specified postprocedural states Plan: As above (4) Alcohol use: Code(s): Z78.9 - Other specified health status Plan: As above Plan Time spent on chart review, documentation, interview assess Orders: Orders CA echo transthoracic complete Today I42.8 - Other cardiomyopathies Medications: New carvedilol must administer with a meal/food 3.125 mg PO BID 60 tabs 5RF Coding Level of Care Code Est Pt Level 4 (56067) Diagnoses Nonischemic cardiomyopathy I42.8 Hypertension I10 History of cardiac cath Z98.890 Alcohol use Z78.9 Time Spent (min) 28
[2023-11-08 08:48] VITALS: BP 156/90; PULSE 97; BMI 35.9
== END 2023-11-08 09:06 | disposition home or self-care (01) ==
PROVIDERS: Visit Provider Nurse Practitioner Family
DX: I42.8 Other cardiomyopathies (principal); I10 Essential (primary) hypertension; Z98.890 Other specified postprocedural states; Z78.9 Other specified health status
CPT/HCPCS: 99214

== ENCOUNTER → 2023-11-08 08:42 | Outpatient (BNVA) | payer OTHER, SELFPAY | PROVIDERS: Visit Provider Nurse Practitioner Family | DX: I42.8 Other cardiomyopathies (principal); I10 Essential (primary) hypertension; Z98.890 Other specified postprocedural states; F10.90 Alcohol use, unspecified, uncomplicated | CPT/HCPCS: 99212 ==

== ENCOUNTER → 2024-03-05 09:50 | Outpatient (REF) | payer OTHER, SELFPAY ==
--- NOTE | 2024-03-05 09:54 | CA_ITS ---
Transthoracic Echocardiogram Patient (Last, First, Middle): Benji Pretty S Gender: Male Date of : 1960 Age: 63 Procedure Date: 03/05/2024 Procedure Type: Transthoracic Echocardiogram Location: OP Height: 167.64 cm Weight: 99.79 kg BSA: 2.08 m2 Heart Rate: bpm BP: 140 / 90 mmHg Filter Worker: RAINA Blanc MD: Natalie Ibarra DICTATING MACHINE TYPIST-C Sizing Machine Operator: Fabian Simmons MD Symptoms: I42.8 - Other cardiomyopathies Study Quality: Fair ECG Rhythm: Sinus Conclusions: - 1. Mildly reduced LV ejection fraction 45-50% with impaired relaxation filling pattern 2. Cardiac valvular Doppler is within normal limits 3. Normal RV systolic pressure 4. No gross pericardial effusion Findings Procedure Information The patient declines contrast. Left Ventricle Normal left ventricular cavity size. There is normal left ventricular wall thickness. The left ventricular systolic function is mildly decreased. The visually estimated ejection fraction is between 45-50%. Spectral Doppler is indicative of an impaired relaxation filling pattern. E/E prime ratio is between 8 and 15 consistent with indeterminate filling pressures. Right Ventricle Mildly increased right ventricular cavity size. There is normal right ventricular systolic function. Atria The left atrium is mildly dilated. There is a mobile atrial septum noted. Interatrial shunt cannot be excluded. The right atrium is normal in size. Aortic Valve The aortic valve was not well visualized. There is no aortic valve stenosis. There is no aortic valve regurgitation. Mitral Valve Likely normal mitral valve structure and function. There is trace mitral valve regurgitation. There is no mitral valve stenosis. Pulmonic Valve The pulmonic valve was not well visualized. Tricuspid Valve Likely normal tricuspid valve structure and function. There is trace tricuspid valve regurgitation. The right ventricular systolic pressure is normal. The right ventricular systolic pressure is 20 mmHg. Normal right atrial pressure. There is no evidence of pulmonary hypertension. Great Vessels All visible segments of the aorta are normal in size. The pulmonary artery was not well visualized. There is no dilatation of the ascending aorta measuring 3.40 cm. Venous The inferior vena cava is normal in size and collapses greater than 50% with inspiration. Pericardium/Pleural There is no evidence of pericardial effusion. Prior Study Comparison Changes noted compared to prior study dated: 09/19/2020. LV ejection fraction is mildly reduced Measurements 2D Linear Measurements IVSd: 1.10 0.6-0.9/0.6-1.0 cm LVIDd: 4.31 3.9-5.3/4.2-5.9 cm LVIDd Index: 2.07 2.4-3.2/2.2-3.1 cm/m2 LVIDs: 2.89 2.0-3.6 cm LVPWd: 1.15 0.7-1.1 cm Ao Root: 3.60 2.1-3.5 cm LA Diam: 3.40 2.7-3.8/3.0-4.0 cm LAIDs Index: 1.63 1.5-2.3 cm/m2 LV Mass: 210.33 67-162/88-224 g LV Mass Index: 101.12 43-95/49-115 g/m2 LVOT Diam: 2.20 3.0+(-)1.3 cm 2D Systolic Function EF 4C: 47.70 >55% EF 2C: 49.80 >55% EF BiP: 48.50 >55% Mitral Valve MV Pk E: 0.85 MV PK A: 1.18 MV Decel Time: 114.00 E/A: 0.70 E'Lateral: 7.40 E'Medial: 6.42 E/E' Med: 13.20 E/E' Lat: 11.50 PHT: 33.00 MVA PHT: 6.67 Decel [place]: 7.45 Aortic Valve AoV Pk Kel: 1.65 AoV Mn Kel: 1.17 AoV VTI: 0.32 AoV Pk Grad: 11.00 Aov Mn Grad: 6.00 KATHRYN Cont.VTI: 2.51 LVOT LVOT Pk Kel: 1.10 LVOT Mn Kel: 0.82 LVOT VTI: 0.21 LVOT Pk Grad: 5.00 LVOT Mn Grad: 3.00 LVOT Diam: 2.20 LVOT Area: 3.80 Diastolic Function MV Pk E: 0.85 MV Pk A: 1.18 E/A: 0.70 E'Medial: 6.42 E/E' Med: 13.20 E' Laterial: 7.40 E/E' Lat: 11.50 Right Ventricle TAPSE (mm): 19.00 TVS' Kel: 13.70 Tricuspid Valve TR Pk Kel: 2.09 TR Pk Grad: 17.00 RA Press: 3.00 RVSP: 20.00 Great Vessels Aorta Ao Root-2D: 3.60 2.0-3.7 cm Ao Asc: 3.40 2.1-3.4 cm Ao Arch: 3.80 Updated in Other Vendor System with Status of Final Fabian Simmons MD electronically signed on 03/06/2024 1:20:40 PM with status of Final
== END ==
LOC: HO.CARD 09:50
PROVIDERS: Visit Provider Nurse Practitioner Family
DX: I42.8 Other cardiomyopathies (principal)
CPT/HCPCS: 93306

== ENCOUNTER → 2024-03-05 09:54 | Outpatient (BNV) | payer OTHER, SELFPAY | PROVIDERS: Visit Provider Internal Medicine Cardiovascular Disease | DX: I42.8 Other cardiomyopathies (principal) | CPT/HCPCS: 93306 ==

== ENCOUNTER 2024-05-04 09:36 | Outpatient (AMB) | payer OTHER, SELFPAY ==
[2024-05-04 09:50] VITALS: BP 142/90; PULSE 90; BMI 34.5
--- NOTE | 2024-05-04 09:50 | A.OFFVIS_ITS ---
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: No Allergies No Known Allergies Allergy (Verified 05/04/24 09:53) Medication List - Last Reconciled 05/04/24 by JULIANE Hinds albuterol sulfate 90 mcg/actuation (Ventolin HFA) 2 puffs inhalation Q4H PRN amlodipine 10 mg PO DAILY carvedilol 3.125 mg PO BID cyanocobalamin (vitamin B-12) (Vitamin B-12) 1,000 mcg PO DAILY folic acid 1 mg PO DAILY 30 days hydrochlorothiazide 25 mg PO DAILY lisinopril 40 mg PO DAILY naltrexone 50 mg PO DAILY omeprazole 1 cap PO DAILY tamsulosin 0.4 mg PO DAILY trazodone 1 tab PO BEDTIME walker (Ultra-Light Rollator [facility] [place] As directed HPI HPI FOLLOW UP PT REQUEST: Details: Benji is a 63-year-old male past medical history of hypertension, hyperlipidem ia, nonischemic cardiomyopathy, alcohol abuse who presents for follow-up. Today he reports that he has been doing well since his last visit in October. He admits to ongoing use of alcohol. He does not drink daily but when he does he will drink 1-2 pt of liquor. He admits to being mostly sedentary and watches TV a lot. At times he will take walks to the park near his home. He ambulates with a cane. He denies chest discomfort at rest or with activity. No shortness of breath, palpitations, lightheadedness, presyncope, syncope, PND, orthopnea or edema. He says he takes his medications but at times will miss his nighttime meds. [facility] Medical History Hypoxic Acidosis, lactic Alcoholic intoxication Fracture of distal end of left fibula Alcohol dependence Nonischemic cardiomyopathy HLD (hyperlipidemia) Hypertension Alcohol dependence with withdrawal Surgical History History of cardiac cath (~01/2016) Family History Father No problems noted. Mother No problems noted. Social History Household Members: None Housing: Apartment Do you presently have visiting nurse or other home services: No Unable to assess alcohol history related to: Refusing to respond Alcohol intake: current Alcohol intake frequency: 0-2 drinks per day Alcohol type: hard liquor Comment: pt refused use of bed alarm, promised to use callbell before getting up Patient Tobacco Use Status: Never used Tobacco Advance Directives Date on File: 07/01/20 service: No Current occupational status: unemployed Review of Systems Const All systems reviewed & are unremarkable except as noted in HPI and below ENT Denies dizziness Card Denies chest pain, Denies chest pain at rest, Denies chest pain with activity, Denies rapid heart rate, Denies pedal edema, Denies edema, Denies leg edema, Denies lightheadedness, Denies palpitations, Denies dyspnea, Denies dyspnea on exertion and Denies orthopnea Resp Denies cough, Denies dyspnea and Denies dyspnea on exertion GI Denies hematochezia and Denies change in stool character Musc Denies abnormal gait, Denies limited range of motion, Denies muscle cramps, Denies muscle weakness, Denies numbness, Denies radiating pain into limb, Denies stiffness and Denies tingling Neuro Denies abnormal gait, Denies dizziness, Denies numbness and Denies tingling Endo Denies palpitations Physical Exam Vital Signs: Last Vital Signs Pulse 90 05/04/24 09:50 BP 142/90 H 05/04/24 09:50 BMI result Body Mass Index 34.5 Const General: cooperative, healthy appearing, comfortable and no acute distress Orientation/consciousness: patient oriented x3 Neck Neck: Yes normal visual inspection and Yes no JVD Resp Effort & Inspection: normal respiratory effort Auscultation: clear to auscultation bilaterally, no crackles, no rales, no rhonchi and no wheezes Cardio Jugular venous distension: no JVD Rate: regular rate Rhythm: regular rhythm Heart sounds: S1 normal heart sound present, S2 normal heart sound present, no murmurs and no rubs Neuro General: patient oriented x3 Extrem General: Yes normal to inspection, No no pedal edema and No calf tenderness Psych Appearance: grossly normal Mental Status: mental status grossly normal Speech and movement: Normal speech and movement present Assessment & Plan Assessment & Plan (1) Nonischemic cardiomyopathy: Code(s): I42.8 - Other cardiomyopathies Category: Medical Plan: Known history of nonischemic cardiomyopathy. Cardiac catheterization 01/2016 showed normal coronary arteries. Echocardiogram from 03/2018 showed EF 35-40%. Cardiomyopathy was thought to be related to alcohol abuse. He was on appropriate neurohormonal modulation. He was not seen in our office between 03/14/2021 and 11/08/2023. On last visit he reported that he had stopped alcohol. He was not on carvedilol at that time for unclear reason and it was restarted. He was continued on his usual lisinopril. Today he reports that he has been doing generally well. He now admits to drinking alcohol but not daily. He will drink 1-2 pt of hard liquor at a time. He says he misses his nighttime medications at times. The importance of complete alcohol cessation reviewed with him. Informed him that his alcohol is likely the cause of his weak heart. The need for strict med compliance also discussed. On examination he has no clinical signs of decompensated heart failure. Echocardiogram was done on 03/05/2024 showing EF 45-50%, impaired relaxation, normal valves. Blood pressure mildly elevated 142/90. Recheck done by me 136/86. Informed him that carvedilol is b.i.d. and he should take it as directed. Will continue on lisinopril 40 mg daily. Labs done on 10/09/2023 showed creatinine 1.0, magnesium 1.7, BNP less than 10. Signs and symptoms of heart failure reviewed with him. Cardiology follow-up in 6 months, sooner if needed (2) Hypertension: Code(s): I10 - Essential (primary) hypertension Category: Medical Plan: As above (3) History of cardiac cath: Onset Date: ~01/2016 Comment: Normal coronaries Code(s): Z98.890 - Other specified postprocedural states Category: Surgical Plan: As above (4) Alcohol use: Code(s): Z78.9 - Other specified health status Category: Social Hx Plan: As above Plan Time spent on chart review, documentation, interview assess Coding Level of Care Code Est Pt Level 4 (54456) Diagnoses Nonischemic cardiomyopathy I42.8 Hypertension I10 History of cardiac cath Z98.890 Alcohol use Z78.9 Time Spent (min) 28
== END 2024-05-04 10:19 | disposition home or self-care (01) ==
PROVIDERS: Visit Provider Nurse Practitioner Family
DX: I42.8 Other cardiomyopathies (principal); I10 Essential (primary) hypertension; Z98.890 Other specified postprocedural states; Z78.9 Other specified health status
CPT/HCPCS: 99214

== ENCOUNTER → 2024-05-04 09:36 | Outpatient (BNVA) | payer OTHER, SELFPAY | PROVIDERS: Visit Provider Nurse Practitioner Family | DX: I10 Essential (primary) hypertension (principal); E78.5 Hyperlipidemia, unspecified; I42.8 Other cardiomyopathies; Z78.9 Other specified health status; Z98.890 Other specified postprocedural states | CPT/HCPCS: 99212 ==

== ENCOUNTER → 2024-11-05 08:50 | Outpatient (BNVA) | payer OTHER, SELFPAY | PROVIDERS: Visit Provider Nurse Practitioner Family | DX: I42.8 Other cardiomyopathies (principal); I10 Essential (primary) hypertension; E78.5 Hyperlipidemia, unspecified; R07.89 Other chest pain; Z78.9 Other specified health status; Z98.890 Other specified postprocedural states | CPT/HCPCS: 93005; 99212 ==

== ENCOUNTER → 2025-04-27 13:08 | Outpatient (REF) | payer MEDICARE, SELFPAY ==
--- NOTE | 2025-04-27 13:17 | CA_ITS ---
Transthoracic Echocardiogram Patient (Last, First, Middle): Benji Pretty S Gender: Male Date of : 1960 Age: 64 Procedure Date: 04/27/2025 Procedure Type: Transthoracic Echocardiogram Location: OP Height: 167.64 cm Weight: 97.52 kg BSA: 2.06 m2 Heart Rate: bpm BP: 132 / 80 mmHg Plc Engineer: MAEVE Referring MD: Natalie Ibarra TRANSFILL TECHNICIAN-C Symptoms: I42.8 - Other cardiomyopathies Study Quality: Adequate ECG Rhythm: Sinus Conclusions: - 1. Normal LV ejection fraction with mild LVH with impaired relaxation filling pattern 2. Mildly dilated left atrium 3. Normal cardiac valvular Dopplers 4. Normal RV systolic pressure 5. Upper limits of normal ascending aortic size 6. No pericardial effusion Findings Left Ventricle Normal left ventricular size and systolic function. There is mildly increased left ventricular wall thickness. The visually estimated ejection fraction is between 60-65%. Spectral Doppler is indicative of an impaired relaxation filling pattern. E/E prime ratio is between 8 and 15 consistent with indeterminate filling pressures. Right Ventricle Normal right ventricular cavity size and systolic function. Atria The left atrium is mildly dilated. The right atrium is normal in size. Aortic Valve The aortic valve structure and function is likely normal. There is no aortic valve stenosis. There is no aortic valve regurgitation. Mitral Valve Normal mitral valve structure and function. There is trace mitral valve regurgitation. There is no mitral valve stenosis. Pulmonic Valve The pulmonic valve was not well visualized. Tricuspid Valve Likely normal tricuspid valve structure and function. There is trace tricuspid valve regurgitation. The right ventricular systolic pressure is normal. The right ventricular systolic pressure is 22 mmHg. Normal right atrial pressure. There is no evidence of pulmonary hypertension. Great Vessels The pulmonary artery was not well visualized. There is no dilatation of the ascending aorta measuring 3.60 cm. Venous The inferior vena cava is normal in size and collapses greater than 50% with inspiration. Pericardium/Pleural There is no evidence of pericardial effusion. Prior Study Comparison Changes noted compared to prior study dated: 03/05/2024. LV systolic function was normal Measurements 2D Linear Measurements IVSd: 1.30 0.6-0.9/0.6-1.0 cm LVIDd: 4.99 3.9-5.3/4.2-5.9 cm LVIDd Index: 2.42 2.4-3.2/2.2-3.1 cm/m2 LVIDs: 2.98 2.0-3.6 cm LVPWd: 1.27 0.7-1.1 cm Ao Root: 3.40 2.1-3.5 cm LA Diam: 4.00 2.7-3.8/3.0-4.0 cm LAIDs Index: 1.94 1.5-2.3 cm/m2 LV Mass: 320.14 67-162/88-224 g LV Mass Index: 155.41 43-95/49-115 g/m2 LVOT Diam: 2.20 3.0+(-)1.3 cm 2D Systolic Function EF 4C: 61.00 >55% EF 2C: 61.10 >55% EF BiP: 61.80 >55% Mitral Valve MV Pk E: 0.57 MV PK A: 0.76 MV Decel Time: 157.00 E/A: 0.80 E'Lateral: 4.90 E'Medial: 5.66 E/E' Med: 10.10 E/E' Lat: 11.70 PHT: 46.00 MVA PHT: 4.78 Decel [place]: 3.66 Aortic Valve AoV Pk Kel: 1.78 AoV Mn Kel: 1.02 AoV VTI: 0.36 AoV Pk Grad: 13.00 Aov Mn Grad: 5.00 KATHRYN Cont.VTI: 2.16 LVOT LVOT Pk Kel: 0.98 LVOT Mn Kel: 0.64 LVOT VTI: 0.21 LVOT Pk Grad: 4.00 LVOT Mn Grad: 2.00 LVOT Diam: 2.20 LVOT Area: 3.80 Diastolic Function MV Pk E: 0.57 MV Pk A: 0.76 E/A: 0.80 E'Medial: 5.66 E/E' Med: 10.10 E' Laterial: 4.90 E/E' Lat: 11.70 Right Ventricle TAPSE (mm): 23.00 TVS' Kel: 16.00 Tricuspid Valve TR Pk Kel: 2.17 TR Pk Grad: 19.00 RA Press: 3.00 RVSP: 22.00 Great Vessels Aorta Ao Root-2D: 3.40 2.0-3.7 cm Ao Asc: 3.60 2.1-3.4 cm Pulmonary Valve PV Pk Kel: 1.36 Peak PV Grad: 7.00 Updated in Other Vendor System with Status of Final Fabian Simmons MD electronically signed on 04/28/2025 4:25:09 PM with status of Final
--- OUTSIDE RECORDS SUMMARY | 2025-04-27 13:55 | XMS_ITS | Clinical Summary ---
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 03/27/20 23 Active fluticasone HFA (Flovent HFA) 44 mcg/actuation inhaler INHALE ONE PUFF BY MOUTH TWICE A DAY 07/07/20 24 Active folic acid (FOLVITE) 1 mg tablet Take 1 mg by mouth daily. Active thiamine 100 mg tablet TAKE ONE TABLET BY MOUTH EVERY DAY 03/12/20 23 Active lidocaine (LIDODERM) 5 % patchIndications:LLQ pain,Hyperlipidemia, unspecified hyperlipidemia type,Uncomplicated alcohol dependence (CMS/HCC V24, CMS/HCC V28),Benign prostatic hyperplasia with nocturia,Gastroesoph ageal reflux disease without esophagitis,Primary hypertension,Gastroi ntestinal hemorrhage, unspecified gastrointestinal hemorrhage type Apply topically 1 (one) time each day. Remove & discard patch within 12 hours or as directed by MD. 90 patch 3 08/26/20 24 Active naltrexone (DEPADE) 50 mg tablet Take 1 tablet (50 mg total) by mouth 1 (one) time each day. 90 tablet 3 08/26/20 24 Active albuterol HFA (Ventolin HFA) 90 mcg/actuation inhaler Inhale 2 puffs by mouth every 4 (four) hours if needed for wheezing. 6.7 g 11 08/26/20 24 Active tamsulosin (FLOMAX) 0.4 mg 24 hr capsule TAKE ONE CAPSULE BY MOUTH EVERY DAY. TAKE 30 MINUTES AFTER THE SAME MEAL EVERY DAY 90 capsule 09/04/20 24 Active spironolactone (Aldactone) 50 mg tablet Take 1 tablet (50 mg total) by mouth 1 (one) time each day. 30 tablet 1 09/25/20 24 Active omeprazole (PriLOSEC) [address] capsule TAKE ONE CAPSULE BY MOUTH EVERY DAY 90 capsule 3 12/29/19 25 Active traZODone (DESYREL) 100 mg tablet TAKE ONE TABLET BY MOUTH EVERY EVENING AT BEDTIME 90 tablet 3 12/29/19 25 Active nabumetone (RELAFEN) 500 mg tablet TAKE ONE TABLET BY MOUTH TWICE A DAY 180 tablet 1 02/13/20 25 Active amLODIPine (NORVASC) 10 mg tablet Take 1 tablet (10 mg total) by mouth 1 (one) time each day. 90 tablet 1 02/24/20 25 Active hydroCHLOROthiazide (HYDRODIURIL) 25 mg tablet Take 1 tablet (25 mg total) by mouth 1 (one) time each day. 90 tablet 1 02/24/20 25 Active carvediloL (COREG) 25 mg tablet Take 1 tablet (25 mg total) by mouth 2 (two) times a day with meals. 180 tablet 1 02/24/20 25 Active polyethylene glycol (MIRALAX) 17 gram packet Take 17 g by mouth 1 (one) time each day. 510 g 11 02/27/20 25 Active cyanocobalamin (VITAMIN B-12) 1,000 mcg tablet Take 1 tablet (1,000 mcg total) by mouth 1 (one) time each day. 90 tablet 3 02/27/20 25 Active lisinopril (PRINIVIL,ZESTRIL) 40 mg tablet Take 1 tablet (40 mg total) by mouth 1 (one) time each day. 90 tablet 1 04/01/20 25 Active lisinopril (PRINIVIL,ZESTRIL) 40 mg tablet Take 1 tablet (40 mg total) by mouth 1 (one) time each day. 90 tablet 1 09/25/20 24 025 Discontin ued(Reord er) Active Problems Problem Noted Date Diagnosed Date Ulnar neuropathy at wrist, right 12/06/2023 Primary osteoarthritis of both knees 03/30/2021 Benign prostatic hyperplasia with nocturia 12/16 LVH (left ventricular hypertrophy) 05/07/2019 Vitamin B12 deficiency 09/16/2018 Gait instability 09/09/2018 Uncomplicated alcohol dependence (CMS/[facility] V24, C [place]/[facility] V28) 10/04/2017 Alcohol abuse 08/24/2014 GERD (gastroesophageal reflux disease) 3 Lumbago 03/26/[address] scan, chest 06/12/2012 GI bleed 04/22/2012 Hyperlipidemia 12/11/2011 Hypertension 06/18/2006 Encounters Date Type Department Care Team Description 02/26/2025 8:45 AM EDT Office Visit Adult Medicine [address] [phone] Osito Grant PA Primary hypertension (Primary Dx); Screening for malignant neoplasm of colon; Benign prostatic hyperplasia with nocturia; Gastroesophageal reflux disease without esophagitis; Hyperlipidemia, unspecified hyperlipidemia type; Vitamin B12 deficiency; LVH (left ventricular hypertrophy) from Last 3 Months Immunizations Name Administration Dates Next Due Td Tetanus diptheria (Tdvax) 7yo and older 12/16,07/08/2009 Surgical History Surgery Date Site/Laterality Comments COLONOSCOPY 10/20/2012 PROCEDURE: HISTORICAL COLONOSCOPY; COMMENT: normal; repeat in ten yrs ELBOW SURGERY PROCEDURE: HISTORICAL ELBOW SURGERY; COMMENT: left. old injury UPPER GASTROINTESTINAL ENDOSCOPY 10/20/2012 PROCEDURE: ID UPPER GI ENDOSCOPY PERFORMED; COMMENT: esophageal erosions and erosions in hiatus hernia sac CATARACT EXTRACTION 10/2019 Bilateral PROCEDURE: HISTORICAL CATARACT REMOVAL; COMMENT: Rossi Medical History Medical History Date Comments Abnormal CT scan, chest 06/12/2012 DX:Abnor mal CT scan, chest Alcohol abuse 09/09/2018 DX:Alcohol abuse Esophageal reflux 06/18/2006 DX:Esophageal reflux Gait instability 09/09/2018 DX:Gait instabi lity GERD (gastroesophageal reflux disease) 3 DX:GERD (gastroesophageal reflux disease) GI bleed 04/22/2012 DX:GI bleed Hyperlipidemia 12/11/2011 DX:Hyperlipidemi a Hypertension 06/18/2006 DX:Hypertension Lumbago 03/26/2013 DX:Lumbago Tobacco abuse 09/05/2011 DX:Tobacco abuse Uncomplicated alcohol depend ence (CMS/[facility] V24, CMS/[facility] V28) 10/04/2017 DX:Uncomplicated alcohol de pendence ([facility]) Vitamin B12 deficiency 09/16/2018 DX:Vitami n B12 deficiency Family History Medical History Relation Name Comments No Known Problems Aunt Cataracts Brother Cataracts Father Heart attack Father myocardial infa rction age 50 No Known Problems Maternal Grandfather No Known Problems Maternal Grandmother Cataracts Mother No Known Problems Other No Known Problems Paternal Grandfather No Known Problems Paternal Grandmother No Known Problems Sister No Known Problems Uncle Blindness Neg Hx Glaucoma Neg Hx Macular degeneration Neg Hx Strabismus Neg Hx Relation Name Status Comments Aunt Brother Father Maternal Grandfather Maternal Grandmother Mother Other Paternal Grandfather Paternal Grandmother Sister Uncle Social History Tobacco Use Types Packs/Day Years Used Date Smoking Tobacco: Former Cigarettes Q uit: 04/04/2012 Smokeless Tobacco: Current Tobacco Cessation:Ready to Q uit: Not Asked; Counseling Given: Not Answered Alcohol Use Standard Drinks/Week Comments No 0 (1 standard drink = 0.6 oz pur e alcohol) Housing Instability Answer Date Recorde d Are you worried that in the next 2 months you may not have stable housing? No 08/26/2024 Food Access & Nutrition Answer Date Rec orded Do you have access to a vari ety of food including fruits and vegetables? Yes 08/26/2024 Access to Healthcare Answer Date Record ed Within the last 3 months, ho w many times did you visit the emergency department for your medical care? 0 08/26/2024 Health Literacy Answer Date Recorded How often do you need to hav e someone help you when you read instructions, pamphlets, or other written material from your doctor or pharmacy? Never 08/26/2024 Caregiver: How often do you need to have someone help you when you read instructions, pamphlets, or other written material from your doctor or pharmacy? Not on file 08/26/2024 Financial Risk Answer Date Recorded How hard is it for you to pa y for the very basics like food, housing, medical care, and air conditioning / heating? Not very hard 08/26/2024 Transportation Answer Date Recorded Has the lack of transportati on kept you from meetings, work, or from getting things needed for daily living? No Has the lack of transportati on kept you from medical appointments or from getting medications? No 08/26/2024 Social Isolation Answer Date Recorded How often do you feel lonely or isolated from th ose around you? Never 08/26/2024 Food Risk Answer Date Recorded Within the past 12 months we worried whether our food would run out before we got money to buy more. Never true 08/26/2024 Within the past 12 months th e food we bought just didn't last and we didn't have money to get more. Never true 08/26/2024 Dependent Care Answer Date Recorded Do you need help finding or paying for care for your loved ones. For example, children's ministry director or elderly care for an older adult? No 08/26/2024 Education Answer Date Recorded Do you think completing more education or training, like finishing a GED, going to college, or learning a trade, would be helpful for you? No 08/26/2024 Employment and Income Answer Date Recor ded During the last four weeks, have you been actively looking for work? No 08/26/2024 Living Situation Answer Date Recorded What is your living situation? 1 10/26/2023 Sex and Gender Information Value Date Recorded Sex Assigned at Not on file Legal Sex Male 5:27 AM EST Gender Identity Not on file Sexual Orientation Not on file Obstetrics History Last Filed Vital Signs Vital Sign Reading Time Taken Comments Blood Pressure 130/70 02/26/2025 9:04 AM EDT Pulse 82 02/26/2025 8:44 AM EDT Temperature 36.6 C (97.9 F) 09/25/2024 9:12 AM EST Respiratory Rate 18 08/26/2024 12:48 PM EST Oxygen Saturation - - Inhaled Oxygen Concentration - - Weight 106 kg (234 lb) 02/26/2025 8:44 AM EDT Height 167.6 cm (5' 6 ) 02/26/2025 8:44 AM EDT Body Mass Index 37.77 02/26/2025 8:44 AM EDT Plan of Treatment Upcoming Encounters Date Type Department Care Team (Late st Contact Info) Description 08/31/2025 8:15 AM EST Office Visit Adult Medicine [facility] [address] [place], [place] [phone] Osito Grant PA [address] [place] [address] Health Maintenance Due Date Last Done Comments Hepatitis A Vaccines (1 of 2 - Risk 2-dose series) 1979 Colorectal Cancer Screening: Colonoscopy 09/08/2022 Medicare Annual Wellness Visit 09/08/2022 Depression Screening 09/30/2024 01/08/2024 Falls Risk Assessment 08/26/2025 08/26/2024 Social Influencers of Health Screening 08/26/2025 08/26/2024 Hypertension/CHF/CAD Annual BMP Blood Test 02/26/2026 02/26/2025, 01/08/2024 DTaP,Tdap,and Td Vaccines (3 - Td or Tdap) 12/17/2027 12/16/2017, 07/08/2009 Cholesterol Screening (Lipid Panel) 02/26/2030 02/26/2025, 01/08/2024 Hepatitis C Screening Completed 12/16/2020 Abdominal Aortic Aneurysm (AAA) Screen Addressed 02/09/2025 Overridden with the intention of not completing the topic COVID-19 Vaccine Discontinued HIB Vaccines Aged Out No longer eligi ble based on patient's age to complete this topic HPV Vaccines Aged Out No longer eligi ble based on patient's age to complete this topic Hepatitis B Vaccines Aged Out No long er eligible based on patient's age to complete this topic IPV Vaccines Aged Out No longer eligi ble based on patient's age to complete this topic Influenza Vaccine Discontinued MMR Vaccines Aged Out No longer eligi ble based on patient's age to complete this topic Meningococcal ACWY Vaccine Aged Out N o longer eligible based on patient's age to complete this topic Meningococcal B Vaccine Aged Out No l onger eligible based on patient's age to complete this topic Pneumococcal Vaccine: 50+ Years Discontinued RSV Immunization Adult Patients Discontinued RSV Immunization Patients Under 20 months Aged Out No longer eligible b ased on patient's age to complete this topic Varicella Vaccines Aged Out No longer eligible based on patient's age to complete this topic Zoster Vaccines Discontinued Procedures Procedure Name Priority Date/Time Associated Diagnosis Comments CBC WITH AUTO DIFFERENTIAL Routine 02/26/2025 9:29 AM EDT LLQ pain Hyperlipidemia, unspecified hyperlipidemia type Uncomplicated alcohol dependence (CMS/HCC V24, CMS/HCC V28) Benign prostatic hyperplasia with nocturia Gastroesophageal reflux disease without esophagitis Primary hypertension Gastrointestinal hemorrhage, unspecified gastrointestinal hemorrhage type LIPID PANEL WITH REFLEX TO DIRECT LDL Routine 02/26/2025 9:29 AM EDT LLQ pain Hyperlipidemia, unspecified hyperlipidemia type Uncomplicated alcohol dependence (CMS/HCC V24, CMS/HCC V28) Benign prostatic hyperplasia with nocturia Gastroesophageal reflux disease without esophagitis Primary hypertension Gastrointestinal hemorrhage, unspecified gastrointestinal hemorrhage type COMPREHENSIVE METABOLIC PANEL Routine 02/26/2025 9:29 AM EDT LLQ pain Hyperlipidemia, unspecified hyperlipidemia type Uncomplicated alcohol dependence (CMS/HCC V24, CMS/HCC V28) Benign prostatic hyperplasia with nocturia Gastroesophageal reflux disease without esophagitis Primary hypertension Gastrointestinal hemorrhage, unspecified gastrointestinal hemorrhage type CBC AND DIFFERENTIAL Routine 02/26/2025 9:29 AM EDT LLQ pain Hyperlipidemia, unspecified hyperlipidemia type Uncomplicated alcohol dependence (CMS/HCC V24, CMS/HCC V28) Benign prostatic hyperplasia with nocturia Gastroesophageal reflux disease without esophagitis Primary hypertension Gastrointestinal hemorrhage, unspecified gastrointestinal hemorrhage type VITAMIN B12 Routine 02/26/2025 9:29 AM EDT LLQ pain Hyperlipidemia, unspecified hyperlipidemia type Uncomplicated alcohol dependence (CMS/HCC V24, CMS/HCC V28) Benign prostatic hyperplasia with nocturia Gastroesophageal reflux disease without esophagitis Primary hypertension Gastrointestinal hemorrhage, unspecified gastrointestinal hemorrhage type PROSTATE SPECIFIC ANTIGEN SCREEN Routine 02/26/2025 9:29 AM EDT LLQ pain Hyperlipidemia, unspecified hyperlipidemia type Uncomplicated alcohol dependence (CMS/HCC V24, CMS/HCC V28) Benign prostatic hyperplasia with nocturia Gastroesophageal reflux disease without esophagitis Primary hypertension Gastrointestinal hemorrhage, unspecified gastrointestinal hemorrhage type Encounter for screening for malignant neoplasm of prostate DEPRESSION SCREENING Routine 01/08/2024 HEPATITIS C SCREENING Routine 12/16/2020 from Last 3 Months or Most Recently Relevant to Health Maintenance Results * Prostate specific antigen screen (02/26/2025 9:29 AM EDT) PSA 1.03 0.00 - 4.00 ng/mL LAB CHEMISTRY METHOD 02/26/2025 2:21 PM EDT [facility] Blood Venous blood specimen / Unknown Venipuncture / Unknown 02/26/2025 9:29 AM EDT 02/26/2025 9:29 AM EDT Narrative [facility] - 02/26/2025 2:21 PM EDT The Siemens Advia Centaur Chemiluminescent Immunoassay is used. Results obtained with different assay methods or kits cannot be used interchangeably. Results cannot be interpreted as absolute evidence of the presence or absence of malignant disease. us Osito DALY LAB BLOOD ORDERABLES Ursula l Result [facility] [address] [place] [address], * (ABNORMAL) Lipid panel with reflex to direct LDL (02/26/2025 9:29 AM EDT) Cholesterol 228(H) 0 - 200 mg/dL LAB CHEMISTRY METHOD 02/26/2025 1:49 PM EDT [facility] Triglycerides 313(H) 0 - 150 mg/dL LAB CHEMISTRY METHOD 02/26/2025 1:49 PM T [facility] HDL 33(L) >=40 mg/dL LAB CHEMISTRY METHOD 02/26/2025 1:49 PM [facility] LDL Calculated 132(H) 0 - 100 mg/dL LAB CHEMISTRY METHOD 02/26/2025 1:49 PM EDT [facility] VLDL Cholesterol Mehdi 62.6 mg/dL LAB CHEMISTRY METHOD 02/26/2025 1:49 PM EDT [facility] Non HDL Chol. (LDL+VLDL) 195(H) <145 mg/dL LAB CHEMISTRY METHOD 02/26/2025 1:49 PM EDT [facility] Chol/HDL Ratio 6.9(H) 0.0 - 4.4 LAB CHEMISTRY METHOD 02/26/2025 1:49 PM T [facility] Blood Venous blood specimen / Unknown Venipuncture / Unknown 02/26/2025 9:29 AM EDT 02/26/2025 9:29 AM EDT Osito DALY LAB BLOOD ORDERABLES Ursula tracey Result [facility] [address] [place] [address], * (ABNORMAL) CBC auto differential (02/26/2025 9:29 AM EDT) WBC 7.9 4.8 - 10.8 K/mcL LAB HEMETOLOGY METHOD 02/26/2025 12:12 PM [facility] RBC 4.80 4.50 - 5.50 M/mcL LAB HEMETOLOGY METHOD 02/26/2025 12:12 PM [facility] Hemoglobin 12.7(L) 13.5 - 17.5 g/dL LAB HEMETOLOGY METHOD 02/26/2025 12:12 PM [facility] Hematocrit 40.9(L) 42.0 - 54.0 % LAB HEMETOLOGY METHOD 02/26/2025 12:12 PM [facility] MCV 85.7 79.0 - 98.0 FL LAB HEMETOLOGY METHOD 02/26/2025 12:12 PM [facility] MCH 26.6(L) 27.0 - 32.0 pcg LAB HEMETOLOGY METHOD 02/26/2025 12:12 PM [facility] MCHC 31.1(L) 32.0 - 37.0 g/dL LAB HEMETOLOGY METHOD 02/26/2025 12:12 PM [facility] RDW 13.4 11.0 - 15.0 % LAB HEMETOLOGY METHOD 02/26/2025 12:12 PM [facility] Platelets 271 130 - 400 K/mcL LAB HEMETOLOGY METHOD 02/26/2025 12:12 PM EDT [facility] MPV 9.7 7.0 - 11.0 FL LAB HEMETOLOGY METHOD 02/26/2025 12:12 PM [facility] NRBC 0.0 <1.0 % LAB HEMETOLOGY METHOD 02/26/2025 12:12 PM EDT [facility] NRBC Absolute 0.00 <0.10 K/mcL LAB HEMETOLOGY METHOD 02/26/2025 12:12 PM [facility] Neutrophils Relative 71.4 % LAB HEMETOLOGY METHOD 02/26/2025 12:12 PM [facility] Lymphocytes Relative 16.5 % LAB HEMETOLOGY METHOD 02/26/2025 12:12 PM [facility] Monocytes Relative 9.0 % LAB HEMETOLOGY METHOD 02/26/2025 12:12 PM [facility] Eosinophils Relative 2.0 % LAB HEMETOLOGY METHOD 02/26/2025 12:12 PM [facility] Basophils Relative 0.5 % LAB HEMETOLOGY METHOD 02/26/2025 12:12 PM [facility] Immature Granulocytes Relative 0.6 % LAB HEMETOLOGY METHOD 02/26/2025 12:12 PM [facility] Neutrophils Absolute 5.65 1.50 - 7.00 K/mcL LAB HEMETOLOGY METHOD 02/26/2025 12:12 PM [facility] Lymphocytes Absolute 1.31 1.00 - 5.00 K/mcL LAB HEMETOLOGY METHOD 02/26/2025 12:12 PM [facility] Monocytes Absolute 0.71 0.20 - 1.00 K/mcL LAB HEMETOLOGY METHOD 02/26/2025 12:12 PM [facility] Eosinophils Absolute 0.16 0.00 - 0.50 K/[facility] LAB HEMETOLOGY METHOD 02/26/2025 12:12 PM EDT [facility] Basophils Absolute 0.04 0.00 - 0.20 K/[facility] LAB HEMETOLOGY METHOD 02/26/2025 12:12 PM EDT [facility] Immature Granulocytes Absolute 0.05(H) 0.00 - 0.03 K/[facility] LAB HEMETOLOGY METHOD 02/26/2025 12:12 PM EDT [facility] Blood Venous blood specimen / Unknown Venipuncture / Unknown 02/26/2025 9:29 AM EDT 02/26/2025 9:29 AM EDT Osito DALY LAB BLOOD ORDERABLES Ursula l Result Performing Organization Address City/[facility]/ZIP Co de Phone Number [facility] [address] [place] [address], [place] [phone] * (ABNORMAL) Vitamin B12 (02/26/2025 9:29 AM EDT) Pathologist [facility] Vitamin B-12 1,176(H) 250 - 900 pcg/mL LAB CHEMISTRY METHOD 02/26/2025 1:49 PM EDT [facility] Blood Venous blood specimen / Unknown Venipuncture / Unknown 02/26/2025 9:29 AM EDT 02/26/2025 9:29 AM EDT Osito DALY LAB BLOOD ORDERABLES Ursula l Result [facility] [address] [place] [address], [place] [phone] * (ABNORMAL) Comprehensive metabolic panel (02/26/2025 9:29 AM EDT) Pathologist [facility] Sodium 137 133 - 145 mmol/L LAB CHEMISTRY METHOD 02/26/2025 1:49 PM [facility] Potassium 3.9 3.5 - 5.5 mmol/L LAB CHEMISTRY METHOD 02/26/2025 1:49 PM [facility] Chloride 100 96 - 110 mmol/L LAB CHEMISTRY METHOD 02/26/2025 1:49 PM [facility] CO2 31 21 - 32 mmol/L LAB CHEMISTRY METHOD 02/26/2025 1:49 PM [facility] Anion Gap 6 3 - 11 LAB CHEMISTRY METHOD 02/26/2025 1:49 PM [facility] Glucose 108(H) 70 - 100 mg/dL LAB CHEMISTRY METHOD 02/26/2025 1:49 PM [facility] BUN 15 5 - 25 mg/dL LAB CHEMISTRY METHOD 02/26/2025 1:49 PM [facility] Creatinine 0.86 0.70 - 1.30 mg/dL LAB CHEMISTRY METHOD 02/26/2025 1:49 PM [facility] eGFR 96 >=60 mL/min/1. 73m2 LAB CHEMISTRY METHOD 02/26/2025 1:49 PM [facility] Comment:Calculation based on the Chronic Kidney Disease Epidemiology Collaboration (CKD-EPI) equation refit without adjustment for race. BUN/Creatinine Ratio 17.4 LAB CHEMISTRY METHOD 02/26/2025 1:49 PM [facility] Calcium 9.2 8.5 - 10.5 mg/dL LAB CHEMISTRY METHOD 02/26/2025 1:49 PM [facility] AST (SGOT) 14 10 - 42 unit/L LAB CHEMISTRY METHOD 02/26/2025 1:49 PM [facility] ALT (SGPT) 24 10 - 60 unit/L LAB CHEMISTRY METHOD 02/26/2025 1:49 PM [facility] Alkaline Phosphatase 54 42 - 121 unit/L LAB CHEMISTRY METHOD 02/26/2025 1:49 PM EDT [facility] Total Protein 7.9 6.0 - 8.0 g/dL LAB CHEMISTRY METHOD 02/26/2025 1:49 PM EDT [facility] Albumin 4.0 3.2 - 5.0 g/dL LAB CHEMISTRY METHOD 02/26/2025 1:49 PM EDT [facility] Total Bilirubin 0.4 0.0 - 1.4 mg/dL LAB CHEMISTRY METHOD 02/26/2025 1:49 PM EDT [facility] Blood Venous blood specimen / Unknown Venipuncture / Unknown 02/26/2025 9:29 AM EDT 02/26/2025 9:29 AM EDT Osito DALY LAB BLOOD ORDERABLES Ursula l Result [facility] [address] [place] [address], * Depression Screening (01/08/2024) Depression Screening Abstracted Historical Provider HEALTH MAINTENANCE Final Result * Hepatitis C Screening (12/16/2020) Hepatitis C Screening Abstracted Historical Provider HEALTH MAINTENANCE Final Result from Last 3 Months or Most Recently Relevant to Health Maintenance Insurance [place]ICARE [place]ICAID [place] Care Teams Women'S Lacrosse Coach Relationship Specialty Start Date End Date Osito Grant PA [address] [place] [address] PCP - General Internal Medicine 08/10/20
== END ==
LOC: HO.CARD 13:08
PROVIDERS: PCP Physician Assistant Medical; Visit Provider Nurse Practitioner Family
DX: I42.8 Other cardiomyopathies (principal)
CPT/HCPCS: 93306

== ENCOUNTER → 2025-04-27 13:17 | Outpatient (BNV) | payer MEDICARE, MEDICAID, SELFPAY | PROVIDERS: PCP Physician Assistant Medical; Visit Provider Internal Medicine Cardiovascular Disease | DX: I42.8 Other cardiomyopathies (principal); I51.7 Cardiomegaly | CPT/HCPCS: 93306 ==

== ENCOUNTER 2025-06-27 17:51 | Inpatient (IN) | payer MEDICARE, MEDICAID, SELFPAY ==
--- NOTE | ~2025-06-27 | CT_ITS ---
CLINICAL HISTORY: headache, intoxicated CT head without contrast Comparison: CT/REG/SR - CT HEAD WITHOUT IV CONTRAST - 01/09/23 01:55 EDT Findings: No intra-axial mass, midline shift, hydrocephalus, or acute hemorrhage. Heterogeneous low attenuation in the periventricular white matter. Mild cerebral atrophy. Moderate calcified atherosclerotic disease of the cavernous portion of the internal carotid arteries. The visualized paranasal sinuses and mastoid air cells are normal. The orbits are unremarkable. No skull fracture. IMPRESSION: 1. No acute intracranial findings. 2. Chronic periventricular microvascular ischemic disease. 3. Mild cerebral atrophy. 4. Moderate calcified atherosclerosis of the cavernous internal carotid arteries. This document has been electronically signed by: Joselo Santizo MD on 06/27/2025 21:37:24
--- NOTE | ~2025-06-27 | XR_ITS ---
CLINICAL HISTORY: wheezing, etoh 2 view chest x-ray Comparison: None provided Findings: No consolidation or effusion. Low lung volumes. Prominent cardiac silhouette. No acute fracture. IMPRESSION: 1. No acute findings. This document has been electronically signed by: Johnnie Trejo MD on 06/27/2025 19:38:22
--- NOTE | ~2025-06-27 | CT_ITS ---
CLINICAL HISTORY: intoxicated, headche ?Fall CT cervical spine without contrast Comparison: CT/REG/SR - CT CERVICAL SPINE WITHOUT IV CONTRAST - 01/09/23 01:55 EDT Findings: Vertebral alignment is within normal limits. No significant degenerative change. Mild osteopenia. No acute findings on limited view of the intracranial contents. Soft tissues of the neck are normal. Lung apices are clear. Moderate to severe calcified atherosclerotic disease of the cavernous portion of the internal carotid arteries. C1-2: Mild anterior osteoarthrosis. C3-4, C4-5, C5-6 mild anterior spurring. C6-7: Moderate DJD. Mild anterior spurring. Mild right and moderate left calcified atherosclerotic disease of the proximal internal carotid arteries. IMPRESSION: 1. No acute cervical spine injury. 2. Moderate to severe calcified atherosclerotic disease of the cavernous portion of the internal carotid arteries. 3. Mild to moderate degenerative changes of the cervical spine, most pronounced at C6-7. 4. Mild osteopenia. This document has been electronically signed by: Joselo Santizo MD on 06/27/2025 21:36:32
[2025-06-27 17:58] VITALS: BP 132/80; BP 98/69; PULSE 90; PULSE 96; RESP 20; TEMP 36.6; O2SAT 92; O2SAT 94; BMI 35.7
[2025-06-27 18:03] VITALS: BP 110/71; PULSE 91; RESP 20; O2SAT 91
--- OUTSIDE RECORDS SUMMARY | 2025-06-27 18:18 | XMS_ITS | Clinical Summary ---
Author Organization [facility] [address] [facility] Address [address] [place] [id number] Phone Care Team Providers Care Clergy Member Name Role Phone Osito Grant Primary Care Provider [phone] Allergies No known active allergies Medications diclofenac [...] day. 90 tablet 1 04/01/20 25 Active Active Problems Problem Noted Date Diagnosed Date Ulnar neuropathy at wrist, right 12/06/2023 Primary osteoarthritis of both knees 03/30/2021 Benign prostatic hyperplasia with nocturia 12/16 LVH (left ventricular hypertrophy) 05/07/2019 Vitamin B12 deficiency 09/16/2018 Gait instability 09/09/2018 Uncomplicated alcohol dependence (CMS/[facility] V24, C MS/HCC V28) 10/04/2017 Alcohol abuse 08/24/2014 GERD (gastroesophageal reflux disease) 12/27/201 3 Lumbago 03/26/[address] scan, chest 06/12/2012 GI bleed 04/22/2012 Hyperlipidemia 12/11/2011 Hypertension 06/18/2006 Immunizations Immunization Administration Dates Next Due Td Tetanus diptheria (Tdvax) 7yo and older 12/16,07/08/2009 Surgical History Surgery Date Site/Laterality Comments COLONOSCOPY 10/20/2012 PROCEDURE: HISTORICAL COLONOSCOPY; COMMENT: normal; repeat in ten yrs ELBOW SURGERY PROCEDURE: HISTORICAL ELBOW SURGERY; COMMENT: left. old injury UPPER GASTROINTESTINAL ENDOSCOPY 10/20/2012 PROCEDURE: [place] UPPER GI ENDOSCOPY PERFORMED; COMMENT: esophageal erosions and erosions in hiatus hernia sac CATARACT EXTRACTION 10/2019 Bilateral PROCEDURE: HISTORICAL CATARACT REMOVAL; COMMENT: [place] Medical History Medical History Date Comments Abnormal [...] 09/05/2011 DX:Tobacco abuse Uncomplicated alcohol depend ence ([facility] V24, [facility] V28) 10/04/2017 DX:Uncomplicated alcohol de pendence ([facility]) Vitamin B12 deficiency 09/16/2018 DX:Vitami n B12 [...] care for your loved ones. For example, housekeeper child care or elderly care for an older adult? [...] Date Recorded What is your living situation? Unrecognized valu e 08/26/2024 Sex and Gender Information Value Date Recorded [...] 8:15 AM EST Office Visit Adult Medicine [address] [phone] Osito Grant [address] [phone] Health Maintenance Due Date Last Done Comments [...] Procedure Name Priority Date/Time Associated Diagnosis Comments COMPREHENSIVE METABOLIC PANEL Routine 02/26/2025 9:29 AM [...] hypertension Gastrointestinal hemorrhage, unspecified gastrointestinal hemorrhage type DEPRESSION SCREENING Routine 01/08/2024 HEPATITIS C SCREENING Routine 12/16/2020 from Last 3 Months or Most Recently Relevant to Health Maintenance Results * (ABNORMAL) Lipid panel with reflex to direct LDL (02/26/2025 9:29 AM EDT) Cholesterol 228(H) 0 - 200 mg/dL LAB CHEMISTRY METHOD 02/26/2025 1:49 PM EDT [facility] Triglycerides 313(H) 0 - 150 mg/dL LAB CHEMISTRY METHOD 02/26/2025 1:49 PM EDT [facility] HDL 33(L) >=40 mg/dL LAB CHEMISTRY METHOD 02/26/2025 1:49 PM EDT [facility] LDL Calculated 132(H) 0 - 100 mg/dL LAB CHEMISTRY METHOD 02/26/2025 1:49 PM EDT [facility] VLDL Cholesterol Mehdi 62.6 mg/dL LAB CHEMISTRY METHOD 02/26/2025 1:49 PM [facility] Non HDL Chol. (LDL+VLDL) 195(H) <145 mg/dL LAB CHEMISTRY [facility] Chol/HDL Ratio 6.9(H) 0.0 - 4.4 LAB CHEMISTRY METHOD 02/26/2025 1:49 PM [facility] Blood Venous blood specimen / Unknown Venipuncture / Unknown 02/26/2025 9:29 AM EDT 02/26/2025 9:29 AM EDT us Osito DALY LAB BLOOD ORDERABLES Ursula l Result [facility] [address] [place] [address], * (ABNORMAL) Comprehensive metabolic panel (02/26/2025 9:29 AM EDT) [facility] Sodium 137 133 - 145 mmol/L LAB CHEMISTRY METHOD [facility]2025 [facility] Potassium 3.9 3.5 - 5.5 mmol/L LAB CHEMISTRY METHOD 02/26[facility]2025 1:[facility] Chloride 100 96 - 110 mmol/L LAB CHEMISTRY METHOD 02/26/2025 1:49 PM [facility] CO2 31 21 - 32 mmol/L LAB CHEMISTRY METHOD 02/26/2025 1:49 PM [facility] Anion Gap 6 3 - 11 LAB CHEMISTRY METHOD 02/26/2025 1:49 PM [facility] Glucose 108(H) 70 - 100 mg/dL LAB CHEMISTRY METHOD 02/26/2025 1:49 PM [facility] BUN 15 5 - 25 mg/dL LAB CHEMISTRY METHOD 02/26/2025 1:49 PM [facility] Creatinine 0.86 0.70 - 1.30 mg/dL LAB CHEMISTRY METHOD 02/26/2025 1:49 PM [facility] eGFR 96 >=60 mL/min/1. 73m2 LAB CHEMISTRY METHOD 02/26/2025 1:49 PM [facility] Comment:Calculation based on the Chronic Kidney Disease Epidemiology Collaboration (CKD-EPI) equation refit without adjustment for race. BUN/Creatinine Ratio 17.4 LAB CHEMISTRY METHOD 02/26/2025 1:49 PM [facility] Calcium 9.2 8.5 - 10.5 mg/dL LAB CHEMISTRY METHOD 02/26/2025 1:49 PM [facility] AST (SGOT) 14 10 - 42 unit/L LAB CHEMISTRY METHOD 02/26/2025 1:49 PM [facility] ALT (SGPT) 24 10 - 60 unit/L LAB CHEMISTRY METHOD 02/26/2025 1:49 PM [facility] Alkaline Phosphatase 54 42 - 121 unit/L LAB CHEMISTRY METHOD 02/26/2025 1:49 PM [facility] Total Protein 7.9 6.0 - 8.0 g/dL LAB CHEMISTRY METHOD 02/26/2025 1:49 PM [facility] Albumin 4.0 3.2 - 5.0 g/dL LAB CHEMISTRY METHOD 02/26/2025 1:49 PM EDT [facility] Total Bilirubin 0.4 0.0 - 1.4 mg/dL LAB CHEMISTRY METHOD 02/26/2025 1:49 PM EDT [facility] Blood Venous blood specimen / Unknown Venipuncture / Unknown 02/26/2025 9:29 AM EDT 02/26/2025 9:29 AM EDT Osito DALY LAB BLOOD ORDERABLES Ursula l Result [facility] [address] [place] [address], * Depression Screening (01/08/2024) Depression Screening Abstracted Historical Provider HEALTH MAINTENANCE Final Result * Hepatitis C Screening (12/16/2020) Hepatitis C Screening Abstracted Historical Provider HEALTH MAINTENANCE Final Result from Last 3 Months or Most Recently Relevant to Health Maintenance Insurance MEDICARE [place]ICAID [place] Care Teams Clergy Member Relationship Specialty Start Date End Date Osito Grant PA [address] [place], [place] [phone] PCP - General Internal Medicine 08/10/20
--- OUTSIDE RECORDS SUMMARY | 2025-06-27 18:18 | XMS_ITS ---
Author Name [facility] ([place], [place]) Organization Unknown Care Team Organization Name Specialty Phone Email Start Date End Da rebecca [facility] Osito Grant Primary Care 08/07/2022
[2025-06-27 18:26] LABS: MANUAL DIFF FLAG NO
[2025-06-27 18:35] LABS: Hematocrit 35.1 % (42.0-52.0); Hemoglobin 12.0 g/dl (14.0-18.0); Imm Gran Abs Auto 0.07 X10*3/uL (0.00-0.03); Imm Gran Pct Auto 0.8 % (0.0-0.4); Lymphocytes Absolute Auto 1.9 X10*3/uL (1.2-4.9); Mean Corpuscular HGB Conc 34.2 g/dl (31.0-36.0); Mean Corpuscular Hemoglobin 27.8 pg (27.0-33.0); Mean Corpuscular Volume 81.3 fL (80.0-98.0); NRBC Abs Auto 0.000 X10*3/uL (0.0-0.012); NRBC Pct Auto 0.0 /100WBC (0.0-0.2); Platelet Count 247 X10*3/uL (160-400); Red Blood Count 4.32 X10*6/uL (4.60-5.80); White Blood Count 8.6 X10*3/uL (4.8-10.8)
[2025-06-27 18:45] LABS: Acetaminophen LAB 5 mcg/mL (<30); Salicylate < 5.0 mg/dL (15-30)
[2025-06-27 18:52] LABS: Alanine Aminotransferase 27 U/L (0-40); Albumin Level 3.8 g/dL (3.5-5.0); Alkaline Phosphatase 59 U/L (39-117); Anion Gap 18 (12-20); Aspartate Amino Transferase 30 U/L (5-37); Blood Urea Nitrogen 10 mg/dL (9-16); Calcium 7.8 mg/dL (8.4-10.2); Carbon Dioxide 23 mmol/L (22-29); Chloride 100 mmol/L (96-108); Creatinine Clr Calc Pharmacy 81.4; Estimated Glomerular Filt Rate > 60; Potassium 3.2 mmol/L (3.3-5.1); Sodium 138 mmol/L (135-145); Total Protein 6.8 g/dL (6.5-8.0)
[2025-06-27 19:17] VITALS: BP 93/54; BP 99/57; PULSE 89; PULSE 90; RESP 19; RESP 20; O2SAT 89; O2SAT 95
--- NOTE | 2025-06-27 19:21 | PC.NURSE ---
this RN assumed care of pt, pt reporting shortness of breath at this time, pt noted to be 87-88% on room air, pt placed on 2L nc and sating 95%. pt noted to have expiratory wheezing. ADDY Ariza aware, orders placed as follows. pt taken to xray
--- NOTE | 2025-06-27 19:33 | ED.ALCOHOL ---
HPI - Alcohol General Chief Complaint: ETOH/Substance Use Stated Complaint: ETOH for days took too much BP meds today Time Seen by Provider: 06/27/25 19:11 Source: patient and EMS Mode of arrival: EMS Limitations: no limitations History of Present Illness ED Provider: MARIA ARIZA PA-C HPI narrative: 65-year-old male with pmhx significant for HTN, cardiomyopathy, ETOH use disorder, asthma presents to the ED today via EMS from home. It appears he is intoxicated and he called EMS himself. Patient reports drinking a pint, maybe more today. He is a daily etoh drinker. He denies SI/HI. On arrival to the ED, patient is hypoxic to 87-88% on RA, states he feels short of breath. He has expiratory wheezes throughout. Admits to using his albuterol inhaler at home. Denies any chest pain, palpitations or leg swelling. His only complaint at present is a headache. Requesting Tylenol. Of note, patient reported taking 3 doses of omeprazole and trazodone to EMS - he tells me he took this yesterday prior to going to bed. He states that he did not take any medications today. Patient is intoxicated, although alert and oriented. He is overall poor historian. unable to obtain an accurate review of systems. Related Data Home Medications ?Medication ?Instructions ?Recorded ?Confirmed amlodipine 10 mg tablet 10 mg PO DAILY 12/15/21 11/05/24 omeprazole 40 mg capsule,delayed 1 cap PO DAILY 12/15/21 11/05/24 release trazodone 100 mg tablet 1 tab PO BEDTIME 12/15/21 11/05/24 albuterol sulfate 90 mcg/actuation 2 puff inhalation Q4H PRN cough 01/09/23 11/05/24 aerosol inhaler (Ventolin HFA) hydrochlorothiazide 25 mg tablet 25 mg PO DAILY 01/09/23 11/05/24 lisinopril 40 mg tablet 40 mg PO DAILY 01/09/23 11/05/24 naltrexone 50 mg tablet 50 mg PO DAILY 01/09/23 11/05/24 tamsulosin 0.4 mg capsule 0.4 mg PO DAILY 11/08/23 11/05/24 cyanocobalamin (vitamin B-12) 1,000 mcg PO DAILY 05/04/24 11/05/24 1,000 mcg tablet (Vitamin B-12) Previous Rx's ?Medication ?Instructions ?Recorded walker (Ultra-Light Rollator [facility]) #1 ea 08/19/21 folic acid 1 mg tablet 1 mg PO DAILY 30 days #30 tabs 01/10/23 carvedilol 3.125 mg tablet 3.125 mg PO BID #60 tabs 11/08/23 Allergies Allergy/AdvReac Type Severity Reaction Status Date / Time No Known Allergies Allergy Verified 06/27/25 18:01 Review of Systems Review of Systems: Yes all other systems are reviewed and are negative [facility] Past Medical History Attestation statement: The following information was validated with the patient. Source: old records reviewed and nursing notes reviewed Medical History Hypoxic Acidosis, lactic Alcoholic intoxication Fracture of distal end of left fibula Alcohol dependence Nonischemic cardiomyopathy HLD (hyperlipidemia) Hypertension Alcohol dependence with withdrawal Surgical History History of cardiac cath (~01/2016) Family History Family History Father No problems noted. Mother No problems noted. Social History Social History Household Members: None Housing: Apartment Do you presently have visiting nurse or other home services: No Alcohol intake: current Alcohol intake frequency: 3 or more drinks per day Alcohol type: hard liquor Comment: pt refused use of bed alarm, promised to use callbell before getting up Patient Tobacco Use Status: Never used Tobacco Smoked in Last 30 Days: Yes Use of substances other than those prescribed or required for medical reasons: No Advance Directives: Yes Advance Directives on File: Yes Advance Directives Date on File: 07/01/20 service: No Current occupational status: unemployed Physical Exam ED Vital Signs: Vital Signs - 24 hr 06/27/25 17:58 06/27/25 18:03 06/27/25 19:17 Temperature 97.8 F Pulse Rate 90 91 90 Respiratory Rate 20 20 20 Blood Pressure 98/69 110/71 93/54 L Pulse Oximetry 92 91 L 89 L Oxygen Delivery Method Room Air Room Air Room Air Oxygen Flow Rate 06/27/25 19:17 06/27/25 19:36 06/27/25 21:08 Temperature 98.4 F Pulse Rate 89 94 90 Respiratory Rate 19 18 14 Blood Pressure 99/57 L 97/53 L Pulse Oximetry 95 92 Oxygen Delivery Method Nasal Cannula Nasal Cannula Oxygen Flow Rate 2 2 06/27/25 22:17 Temperature Pulse Rate 90 Respiratory Rate 20 Blood Pressure 113/62 Pulse Oximetry 92 Oxygen Delivery Method Room Air Oxygen Flow Rate BMI result Body Mass Index 35.7 satting 87% on arrival, placed on 2L NC. General: appears intoxicated Skin: Warm, dry, intact. No rashes or lesions. Head: Normocephalic, atraumatic. EENT: Hearing is intact b/l. Conjunctiva clear. Sclera is anicteric. PERRLA. EOM intact. Moist mucous membranes.? Neck: Supple without LAD Cardiac: Chest wall symmetric. RRR. no JVD. Lungs: Normal respiratory effort without accessory muscle use. no tripoding or increased effort of breathing. there are expiratory wheezes throughout lung rendon. Abdomen: Soft, non-tender, non-distended. No rebound tenderness or guarding. Positive BS x4. Back: No midline spinous or paraspinal tenderness. No step off deformity. Ext: no pitting edema or calf tenderness b/l Neuro: AOx3. Normal speech. CN 2-12 grossly intact. Course Course Course Narrative: 2049 -- CBC without leukocytosis or left shift. Normocytic anemia, H&H stable when compared to priors and above transfusion threshold. chemistry shows hypokalemia to 3.2 and hypomagnesemia to 1.4 - IV repletion of both ordered. no other acute electrolyte abnormality requiring intervention. no ventura. normal liver function. troponin wnl. bnp wnl. ekg showing NSR with a rate of 92 bpm, no acute ischemic changes or st elevations. > patient reports headache, he is intoxicated, not a reliable historian, unclear if he's fallen - will order ct head/ c spine. > expiratory wheezes throughout lung rendon, satting 87-88% on RA - placed on 2L NC wtih improvement to 95%. CXR does not demonstrate any pneumonia. albuterol, mag, and solumedrol ordered with plan for re-evaluation. viral swabs pending. 1312 -- ct head without bleed, ct c spine without fracture. age adjusted ddimer wnl > PE unlikely. will hold on CTA chest. Patient refusing ambulatory O2. Refusing COVID/flu testing. Given hypoxia in the setting of asthma requiring supplemental O2, discussed admission to medicine for further treatment. patient is agreeable. discussed case with hospitalist dr. lowry who has accepted patient admission. Medical Decision Making Medical Decision Making [facility] Narrative: 65-year-old male with pmhx significant for HTN, cardiomyopathy, ETOH use disorder, asthma presents to the ED today via EMS from home for acute intoxication. Differential diagnosis includes etoh intoxication, etoh abuse, etoh withdrawal, polysubstance abuse, acute hypoxic respiratory failure, asthma exacerbation Plan for labs, cxr, ekg, viral swabs, ed bronch protocol, re-evaluation. Differential Diagnosis Differential Diagnoses: The differential diagnosis associated with the presentation includes as above. Admission/Observation Consideration of admission/observation: Escalation of care including admission/observation considered Patient admitted to medicine for acute hypoxic respiratory failure in the setting of asthma Consult Healthcare Provider Management of the patient was discussed with: Hospitalist (dr. lowry) Lab Data [facility] Lab Attestation statement: I reviewed the patient's lab results. as above. 06/27/25 18:21 06/27/25 18:21 Labs: Lab Results 06/27/25 06/27/25 Range/Units 18:21 22:17 WBC 8.6 (4.8-10.8) X10*3/uL RBC 4.32 L (4.60-5.80) X10*6/uL Hgb 12.0 L (14.0-18.0) g/dl Hct 35.1 L (42.0-52.0) % MCV 81.3 (80.0-98.0) fL MCH 27.8 (27.0-33.0) pg MCHC 34.2 (31.0-36.0) g/dl RDW 17.5 H (11.0-16.0) % Plt Count 247 (160-400) X10*3/uL MPV 8.4 L (9.4-12.4) fL Immature Gran % (Auto) 0.8 H (0.0-0.4) % Neut % (Auto) 65.3 (45-73) % Lymph % (Auto) 22.3 (20-40) % Payne % (Auto) 10.0 (2-11) % Eos % (Auto) 0.9 (0-4) % Baso % (Auto) 0.7 (0-2) % Lymph # (Auto) 1.9 (1.2-4.9) X10*3/uL Payne # (Auto) 0.9 (0.1-1.2) X10*3/uL Eos # (Auto) 0.1 (0.0-0.4) X10*3/uL Baso # (Auto) 0.1 (0.0-0.2) X10*3/uL Abs Immat Gran (auto) 0.07 H (0.00-0.03) X10*3/uL Absolute Neuts (auto) 5.6 (2.0-8.3) x10*3/uL Absolute Nucleated RBC 0.000 (0.0-0.012) X10*3/uL Nucleated RBC % (auto) 0.0 (0.0-0.2) /100WBC D-Dimer High Sensitivty 181 NG/ML Sodium 138 (135-145) mmol/L Potassium 3.2 L (3.3-5.1) mmol/L Chloride 100 (96-108) mmol/L Carbon Dioxide 23 (22-29) mmol/L Anion Gap 18 (12-20) BUN 10 (9-16) mg/dL Creatinine 0.99 (0.5-1.4) mg/dL Estim Creat Clear Calc 81.4 Estimated GFR > 60 Fasting Glucose 106 H (60-99) mg/dL Calcium 7.8 L (8.4-10.2) mg/dL Magnesium 1.4 L* (1.6-2.6) mg/dL Total Bilirubin 0.3 (0.0-1.0) mg/dL AST 30 (5-37) U/L ALT 27 (0-40) U/L Alkaline Phosphatase 59 (39-117) U/L Troponin I High Sens 3.5 (<3.5-35.0) ng/L NT-Pro-B Natriuret Pep 28.8 (<300) pg/mL Total Protein 6.8 (6.5-8.0) g/dL Albumin 3.8 (3.5-5.0) g/dL Salicylates < 5.0 L (15-30) mg/dL Acetaminophen 5 (<30) mcg/mL Ethyl Alcohol 218 mg/dL Independent Interpretation I performed an independent interpretation of an: EKG, Plain X-Ray and CT Scan Interpretation: chest xr without infiltrate or consolidation ekg showing normal sinus rhythm, rate of 92 beats per minute, no acute ischemic changes or ST elevations ct head/brain without acute bleed ct cervical spine without acute fracture Radiology Impression Discussion of test interpretation with radiology: I have reviewed the radiologist's reading. Radiologist Impression: Reason for Exam: wheezing, etoh CLINICAL HISTORY: wheezing, etoh 2 view chest x-ray Comparison: None provided Findings: No consolidation or effusion. Low lung volumes. Prominent cardiac silhouette. No acute fracture. IMPRESSION: 1. No acute findings. This document has been electronically signed by: Johnnie Trejo MD on 06/27/2025 19:38:22 Procedure(s): CT head/brain wo IV con Accession Number(s): [id number] cc: Physician,Unknown ; Maria Ariza~ Report Number: [id number]: Total DLP = 761.00 mGy-cm Reason for Exam: headache, intoxicated CLINICAL HISTORY: headache, intoxicated CT head without contrast Comparison: CT/REG/SR - CT HEAD WITHOUT IV CONTRAST - 01/09/23 01:55 EDT Findings: No intra-axial mass, midline shift, hydrocephalus, or acute hemorrhage. Heterogeneous low attenuation in the periventricular white matter. Mild cerebral atrophy. Moderate calcified atherosclerotic disease of the cavernous portion of the internal carotid arteries. The visualized paranasal sinuses and mastoid air cells are normal. The orbits are unremarkable. No skull fracture. IMPRESSION: 1. No acute intracranial findings. 2. Chronic periventricular microvascular ischemic disease. 3. Mild cerebral atrophy. 4. Moderate calcified atherosclerosis of the cavernous internal carotid arteries. This document has been electronically signed by: Joselo Santizo MD on 06/27/2025 21:37:24 Procedure(s): CT cervical spine wo IV con Accession Number(s): [id number] cc: Physician,Unknown ; Maria Ariza~ Report Number: [id number]: Total DLP = 516.00 mGy-cm Reason for Exam: intoxicated, headche ?Fall CLINICAL HISTORY: intoxicated, headche ?Fall CT cervical spine without contrast Comparison: CT/REG/SR - CT CERVICAL SPINE WITHOUT IV CONTRAST - 01/09/23 01:55 EDT Findings: Vertebral alignment is within normal limits. No significant degenerative change. Mild osteopenia. No acute findings on limited view of the intracranial contents. Soft tissues of the neck are normal. Lung apices are clear. Moderate to severe calcified atherosclerotic disease of the cavernous portion of the internal carotid arteries. C1-2: Mild anterior osteoarthrosis. C3-4, C4-5, C5-6 mild anterior spurring. C6-7: Moderate DJD. Mild anterior spurring. Mild right and moderate left calcified atherosclerotic disease of the proximal internal carotid arteries. IMPRESSION: 1. No acute cervical spine injury. 2. Moderate to severe calcified atherosclerotic disease of the cavernous portion of the internal carotid arteries. 3. Mild to moderate degenerative changes of the cervical spine, most pronounced at C6-7. 4. Mild osteopenia. This document has been electronically signed by: Joselo Santizo MD on 06/27/2025 21:36:32 Independent Historian Clinical information obtained from an independent historian. History obtained from or confirmed by: EMS External Record Review External record reviewed: Inpatient record Chronic Conditions Patient?s care impacted by: Other (asthma) Social Determinants Patient?s care significantly limited by Social Determinants of Health including: Other Social Determinant of Health Medications Administered Discontinued Medications Generic Name Dose Route Start Last Admin Trade Name Freq PRN Reason Stop Dose Admin Albuterol/Ipratropium 3 ml 06/27/25 19:30 06/27/25 19:35 Albuterol/Iprat 2.5/0.5mg 3 Ml Ampul.Neb INHALE 06/27/25 19:31 3 ml ONCE ONE Administration Potassium Chloride 10 meq in 100 mls @ 100 mls/hr 06/27/25 20:00 06/27/25 22:35 Potassium Chloride/H20 IV 06/27/25 21:59 Infused Q1H EVAN Infusion Magnesium Sulfate 2 gm in 50 mls @ 150 mls/hr 06/27/25 19:52 06/27/25 20:40 Magnesium Sulfate/H2o IV 06/27/25 20:11 Infused ONCE ONE Infusion Acetaminophen 1,000 mg in 100 mls @ 400 mls/hr 06/27/25 19:59 06/27/25 20:25 Ofirmev IV 06/27/25 20:13 Infused ONCE ONE Infusion Sodium Chloride 1,000 mls @ 999 mls/hr 06/27/25 21:15 06/27/25 22:09 Ns IV 06/27/25 22:15 Infused .Q1H1M EVAN Infusion Methylprednisolone Sodium Succinate 80 mg 06/27/25 20:54 06/27/25 21:00 Methylprednisolone Sod Succ 125 Mg/2 Ml Vial IVPUSH 06/27/25 20:55 80 mg ONCE ONE Administration Critical Care Time Critical Care Time Critical Care Time: Yes Total Critical Care Time: 45 Attestation: Critical care time in the amount of 45 minutes has been provided to the patient in terms of direct patient care, frequent reevaluation, consultation with hospitalist, review and interpretation of medical data and results, and management of potentially life-threatening conditions. This is all outside of any medical procedures. Discharge Plan Discharge Clinical Impression: Acute hypoxic respiratory failure, Hypokalemia, Hypomagnesemia, Alcohol intoxication Patient Disposition: Admitted As Inpatient
[2025-06-27] MEDS: Albuterol/Iprat 2.5/0.5MG 3 ML AMPUL.NEB INHALE (19:35)
[2025-06-27 19:36] VITALS: PULSE 94; RESP 18; O2SAT 93
[2025-06-27 20:11] LABS: Magnesium 1.4 mg/dL (1.6-2.6)
[2025-06-27 20:14] LABS: NT Pro B Type Natriuretic Pept 28.8 pg/mL (<300)
[2025-06-27] MEDS: Potassium Chloride/H20 10 MEQ/100 ML PIGGYBACK 100 MEQ IV ×2 (20:16→21:30)
[2025-06-27] MEDS: Magnesium Sulfate/H2O 2 GM/50 ML PIGGYBACK IV (20:16)
[2025-06-27 21:08] VITALS: BP 97/53; PULSE 90; RESP 14; TEMP 36.9; O2SAT 92
--- NOTE | 2025-06-27 21:11 | PC.NURSE ---
pt reporting burning in the iv site, provider aware, iv fluids administering at this time
--- NOTE | 2025-06-27 21:35 | ECG_ITS ---
Test Reason : hypoxia Blood Pressure : */* mmHG Vent. Rate : 92 BPM Atrial Rate : 92 BPM P-R Int : 166 ms QRS Dur : 100 ms QT Int : 372 ms P-R-T Axes : 61 -5 -22 degrees QTcB Int : 460 ms Normal sinus rhythm Normal ECG When compared with ECG of 09-Oct-2023 19:31, No significant change was found Referred By: Maria Ariza Electronically Signed By: RENEE GOLD
[2025-06-27 21:57] LABS: Troponin-I High Sensitivity 3.5 ng/L (<3.5-35.0)
[2025-06-27 22:17] VITALS: BP 113/62; PULSE 90; RESP 20; O2SAT 92
--- NOTE | 2025-06-27 22:23 | MHC.EDTECH ---
Pt refusing swabs for covid and flu at this time. RN aware
--- NOTE | 2025-06-27 22:44 | PC.NURSE ---
pt refusing swabs and to take ambulatory walk at this time, PA aware.
[2025-06-27 23:01] LABS: D Dimer High Sensitivity 181 NG/ML
--- NOTE | 2025-06-27 23:28 | PM.IMHP ---
History of Present Illness Date of Service: 06/27/25 Attending physician on admission: Austin Workman Chief Complaint: alcohol intoxication Pt is a 65 yo male with PMH. HTN, HLD, COPD, BPH, GERD, FX of left fibula, ALHAJI, UGIB presents to ED with report of alcohol use over the last 2 days, drink of choice is vodka. Patient currently irritable and agitated but aware that he will be admitted to the hospital for alcohol intoxication as well as low magnesium level and low potassium level. In addition patient initially hypoxic with history of COPD but currently is on room air with no bilateral wheezing. Chest x-ray negative for any acute findings including signs of aspiration. Physical exam overall reassuring. Patient requesting detox. There was a question of possible fall so a CT of the head and cervical spine CT were done in the emergency department. Both scans were negative for any acute findings but patient noted to have moderate to severe calcified atherosclerotic disease of the cavernous portion of the internal carotid arteries. In addition he has [id number] degenerative changes of the cervical spine most pronounced at C6 and C7. Mild osteopenia also noted. Patient currently denying chest pain, shortness of breath at rest and overall refusing to answer most questions regarding HPI, PMH and PSH. Most of the information obtained through patient's medical chart. Patient being admitted for alcohol intoxication with an alcohol level 218. Per ED record patient had stated he may have taken too much of his Protonix and trazodone but was not intending to overdose or commit suicide. Patient denies any SI or HI at this time. Patient does not appear to be delirious. Patient is started on phenobarbital protocol in the emergency department. Review of Systems Review of Systems: Patient denies any chest pain, shortness of breath at rest, abdominal pain, nausea, vomiting, constipation or diarrhea. Patient denies any lower leg pain, back pain or neck pain. [facility] Medical History Hypoxic Acidosis, lactic Alcoholic intoxication Fracture of distal end of left fibula Alcohol dependence Nonischemic cardiomyopathy HLD (hyperlipidemia) Hypertension Alcohol dependence with withdrawal Cognitive capacity: Currently alert and orientated x3 Functional capacity: independent ambulation Family History Father No problems noted. Mother No problems noted. Surgical History History of cardiac cath (~01/2016) Social History Household Members: None Housing: Apartment Do you presently have visiting nurse or other home services: No Alcohol intake: current Alcohol intake frequency: 3 or more drinks per day Alcohol type: hard liquor Comment: pt refused use of bed alarm, promised to use callbell before getting up Patient Tobacco Use Status: Never used Tobacco Smoked in Last 30 Days: Yes Use of substances other than those prescribed or required for medical reasons: No Advance Directives: Yes Advance Directives on File: Yes Advance Directives Date on File: 07/01/20 service: No Current occupational status: unemployed Ebola Risk: Travel/Contact With Anyone From Affected Area/s: No Has Patient Experienced Ebola Symptoms: No Meds Allergies Allergy/AdvReac Type Severity Reaction Status Date / Time No Known Allergies Allergy Verified 06/27/25 18:01 Active Medications: Current Medications Acetaminophen (Acetaminophen 325 Mg Tablet) 650 mg PO Q6H PRN PRN Reason: Pain, Mild 1-3,fever,headache Albuterol/Ipratropium (Albuterol/Iprat 2.5/0.5mg 3 Ml Ampul.Neb) 3 ml INHALE Q4H PRN PRN Reason: Shortness of Breath/Wheezing Calcium Carbonate (Calcium Carbonate 750 Mg Tab.Chew) 750 mg PO Q4H PRN PRN Reason: Heartburn Enoxaparin Sodium (Enoxaparin Sodium 40 Mg/0.4 Ml Syringe) 40 mg SUBCUT Q24H EVAN Thiamine HCl 100 mg/ Sodium (Chloride) 101 mls @ 202 mls/hr IV DAILY EVAN Folic Acid 1 mg/ Sodium (Chloride) 50.2 mls @ 100.4 mls/hr IV DAILY EVAN Magnesium Hydroxide (Milk Of Magnesia 30 Ml Oral.Susp) 30 ml PO DAILY PRN PRN Reason: Constipation Melatonin (Melatonin 3 Mg Tablet) 6 mg PO BEDTIME PRN PRN Reason: Insomnia Multivitamins/Vitamin C (Multivitamin Tablet) 1 tab PO DAILY EVAN Ondansetron HCl (Ondansetron Hcl 4 Mg/2 Ml Vial) 4 mg IVPUSH Q8H PRN PRN Reason: Nausea and Vomiting Polyethylene Glycol (Polyethylene Glycol 3350 17 Gm Powd.Pack) 17 gm PO DAILY PRN PRN Reason: Constipation Potassium Chloride (Potassium Chloride Er 20 Meq Tab.Er.Prt) 20 meq PO DAILY EVAN Senna (Sennosides 8.6 Mg Tablet) 17.2 mg PO BEDTIME EVAN Sodium Chloride (0.9 % Sodium Chloride Flush 3 Ml Syringe) 3 ml IVFLUSH QSHIFT [facility] Home Medications ?Medication ?Instructions ?Recorded ?Confirmed ?Last Taken ?Type amlodipine 10 mg tablet 10 mg PO DAILY 12/15/21 11/05/24 Unknown History omeprazole 40 mg capsule,delayed 1 cap PO DAILY 12/15/21 11/05/24 Unknown History release trazodone 100 mg tablet 1 tab PO BEDTIME 12/15/21 11/05/24 Unknown History albuterol sulfate 90 mcg/actuation 2 puff inhalation Q4H PRN cough 01/09/23 11/05/24 Unknown History aerosol inhaler (Ventolin HFA) hydrochlorothiazide 25 mg tablet 25 mg PO DAILY 01/09/23 11/05/24 Unknown History lisinopril 40 mg tablet 40 mg PO DAILY 01/09/23 11/05/24 Unknown History naltrexone 50 mg tablet 50 mg PO DAILY 01/09/23 11/05/24 Unknown History tamsulosin 0.4 mg capsule 0.4 mg PO DAILY 11/08/23 11/05/24 Unknown History cyanocobalamin (vitamin B-12) 1,000 mcg PO DAILY 05/04/24 11/05/24 Unknown History 1,000 mcg tablet (Vitamin B-12) Physical Exam Vital Signs and Narrative: Vital Signs: Last Vital Signs Temp 98.4 F 06/27/25 21:08 Pulse 90 06/27/25 22:17 Resp 20 06/27/25 22:17 BP 113/62 06/27/25 22:17 Pulse Ox 92 06/27/25 22:17 O2 Del Method Room Air 06/27/25 22:17 O2 Flow Rate 2 06/27/25 21:08 BMI result Body Mass Index 35.7 Alert and orientated X3, irritable and agitated, awake and able to protect airway Neuro: CN II-X11 intact, no deficits, visual acuity intact EYES: PERRLA, EOM intact, sclerae nonicteric ENT: hearing intact, no issues with swallowing, uvula midline, lips moist, nares patent no epistaxis Cardiac: S1 S2 RRR, no murmur, no JVD, no edema in Lower ext Pulmonary: lungs diminished bilaterally Abdominal: BS active in all 4 quadrants, no guarding, tenderness, rebounding MSK: strength 5/5 upper and lower extremities : no CVA tenderness no bladder distension Extremities: no edema in lower extremities, PT and DP pulses palpable +2 Psych: mood irritable, judgement and insight fair Skin: No new lesions or rashes Results Labs 06/27/25 18:21 06/27/25 18:21 Labs: Laboratory Results - last 24 hr 06/27/25 06/27/25 18:21 22:17 MCV 81.3 MCH 27.8 MCHC 34.2 RDW 17.5 H Plt Count 247 MPV 8.4 L Immature Gran % (Auto) 0.8 H Neut % (Auto) 65.3 Lymph % (Auto) 22.3 Bennett % (Auto) 10.0 Eos % (Auto) 0.9 Baso % (Auto) 0.7 Lymph # (Auto) 1.9 Bennett # (Auto) 0.9 Eos # (Auto) 0.1 Baso # (Auto) 0.1 Abs Immat Gran (auto) 0.07 H Absolute Neuts (auto) 5.6 Absolute Nucleated RBC 0.000 Nucleated RBC % (auto) 0.0 D-Dimer High Sensitivty 181 Anion Gap 18 Estim Creat Clear Calc 81.4 Estimated GFR > 60 Fasting Glucose 106 H Calcium 7.8 L Magnesium 1.4 L* Total Bilirubin 0.3 AST 30 ALT 27 Alkaline Phosphatase 59 Troponin I High Sens 3.5 NT-Pro-B Natriuret Pep 28.8 Total Protein 6.8 Albumin 3.8 Salicylates < 5.0 L Acetaminophen 5 Ethyl Alcohol 218 ECG Attestation: I personally reviewed and interpreted this ECG as follows: Prior ECG tracings: not available for review Imaging Radiologist's Impressions: HEAD CT 1. No acute intracranial findings. 2. Chronic periventricular microvascular ischemic disease. 3. Mild cerebral atrophy. 4. Moderate calcified atherosclerosis of the cavernous internal carotid arteries. Cervical SPine CT IMPRESSION: 1. No acute cervical spine injury. 2. Moderate to severe calcified atherosclerotic disease of the cavernous portion of the internal carotid arteries. 3. Mild to moderate degenerative changes of the cervical spine, most pronounced at C6-7. 4. Mild osteopenia. CXR Findings: No consolidation or effusion. Low lung volumes. Prominent cardiac silhouette. No acute fracture. IMPRESSION: 1. No acute findings. Assessment and Plan (1) Acute hypoxic respiratory failure: Status: Acute (2) Alcohol intoxication with moderate or severe use disorder: Qualifiers: Complication of substance-induced condition: uncomplicated Qualified Code(s): F10.229 - Alcohol dependence with intoxication, unspecified Status: Acute Plan Pt is a 65 yo male with PMH. HTN, HLD, COPD, BPH, GERD, FX of left fibula, ALHAJI, UGIB presents to ED with report of alcohol use over the last 2 days, drink of choice is vodka. Patient also found to be hypoxic but is currently on room air with a pulse ox of 92%. Chest x-ray negative for any acute findings. Patient being admitted for alcohol intoxication, acute hypoxic respiratory failure currently resolved with hypokalemia and hypomagnesemia. Patient stated he will contact his sister when he is ready for discharge. Acute Hypxic Respiratory Failure with known COPD/Asthma secondary to possible aspiration Viral testing for COVID and FLU pending CXR negative for acute findings, including aspiration, PNA BNP WNL Currently RA, POX 92%, on continuous pulse ox Duonebs prn Methylprednisolone initiated in ED, will order 60 mgs BID for AM Aspiration precautions Supportive Care Alcohol intoxication CIWA Phenobarbitol protocol initiated on admission, ETOH level 218, pt refused phenobarbitol per nursing Valium prn as pt refused phenobarbitiol Thiamine, Folic Acid, MVI Addicitons consulted Telemetry, PULSE OX Continuous Hypokalemia Supplementation started KCL 20 MDQ daily po to start in AM Telemetry Hypomagnesemia MG 1.4, 2 GMS IV in ED AM testing ordered Will likely need daily MGOX HTN MED REC PENDING BP too low to resume home meds tonight, stable for med tele floor Low Na diet Cardiac Diet HLD Pt not on RX medications Cardiac diet Follow up with PCP for routine Lipid panel, fasting BPH Continue tamsulosin UA pending DVT prophylaxis: Lovenox Med rec pending Full code status Quality Stroke Does the patient have a stroke diagnosis?: No Reason for No Anti-thrombotic by Day Two: N/A - Med Ordered VTE Prior VTE?: No VTE Risk Level:: Medical - moderate - high VTE Device Contraindication: N/A - Device Ordered VTE Drug Contraindication: N/A - Med Ordered
[2025-06-28] VITALS (9 sets, daily range): BP systolic 113–156; BP diastolic 64–88; PULSE 99–114; RESP 15–20; TEMP 36.4–36.7; O2SAT 90–98; BMI 35.9
[2025-06-28] MEDS: Potassium Chloride Packet 20 MEQ PACKET 40 MEQ PO (00:38)
[2025-06-28] MEDS: 0.9 % Sodium Chloride Flush 3 ML SYRINGE IVFLUSH ×4 (00:39→20:07)
--- NOTE | 2025-06-28 00:46 | PC.NURSE ---
attempted to medicate pt with Phenobarb dose, as this rn was reaching for pt arm, pt pulled arm away and stated absolutely not i am not taking that , this rn educated pt and pt continued to refuse dose. TRIMMING ASSEMBLER Fiorella aware and orders as follows. pt medicated per mar
[2025-06-28 07:08] LABS: MANUAL DIFF FLAG NO
[2025-06-28 07:12] LABS: Hematocrit 37.3 % (42.0-52.0); Hemoglobin 12.6 g/dl (14.0-18.0); Imm Gran Abs Auto 0.06 X10*3/uL (0.00-0.03); Imm Gran Pct Auto 1.1 % (0.0-0.4); Lymphocytes Absolute Auto 0.4 X10*3/uL (1.2-4.9); Mean Corpuscular HGB Conc 33.8 g/dl (31.0-36.0); Mean Corpuscular Hemoglobin 27.5 pg (27.0-33.0); Mean Corpuscular Volume 81.4 fL (80.0-98.0); NRBC Abs Auto 0.000 X10*3/uL (0.0-0.012); NRBC Pct Auto 0.0 /100WBC (0.0-0.2); Platelet Count 243 X10*3/uL (160-400); Red Blood Count 4.58 X10*6/uL (4.60-5.80); White Blood Count 5.6 X10*3/uL (4.8-10.8)
[2025-06-28 07:33] LABS: Alanine Aminotransferase 23 U/L (0-40); Albumin Level 4.0 g/dL (3.5-5.0); Alkaline Phosphatase 61 U/L (39-117); Anion Gap 15 (12-20); Aspartate Amino Transferase 24 U/L (5-37); Blood Urea Nitrogen 10 mg/dL (9-16); Calcium 8.3 mg/dL (8.4-10.2); Carbon Dioxide 24 mmol/L (22-29); Chloride 101 mmol/L (96-108); Creatinine Clr Calc Pharmacy 112.3; Estimated Glomerular Filt Rate > 60; Magnesium 1.6 mg/dL (1.6-2.6); Potassium 3.2 mmol/L (3.3-5.1); Sodium 137 mmol/L (135-145); Total Protein 7.3 g/dL (6.5-8.0)
--- NOTE | 2025-06-28 07:49 | PC.ADMIT ---
Pt arrived to floor at approx 0215 from ED via stretcher. Pt A&O x 4. Pt O2 sat 95% on room air. Moving all extremities. Pt passed bedside nursing swallow eval. Pt ambulating to the BR with a standby assist. Ambulating O2 90-92%. Pt able to voice needs. Bed alarm on. Video monitor for pt safety. Bed in lowest position with wheels locked. Care ongoing.
[2025-06-28] MEDS: Thiamine HCL 100 MG in 0.9 % Sodium Chloride 100 ML 202 MG IV (08:10)
[2025-06-28] MEDS: Potassium Chloride ER 20 MEQ TAB.ER.PRT PO (08:11)
--- NOTE | 2025-06-28 08:47 | MHC.CM.PN ---
CM met with Patient at bedside and addressed the IMM with him, providing Patient with the original and a copy has been placed on the chart. 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 Home self care VS Recovery Team recommendations r/t ETOH is the goal and CM has initiated and will follow for dc planning. Patient states that he has a PCP, but he cannot recall the name. Patient will need assist with transport to home at dc and his Sister/Amaya is the HCP.
--- NOTE | 2025-06-28 09:26 | PHA.MEDREC ---
Addendum entered by Maya Martinez johnson 06/28/25 09:48: REVIEWED BY PHARMACIST Original Note: Pharmacy Consult ? Medication Reconciliation Pharmacy has completed the medication reconciliation. Spoke with pt and he confirmed his medications. Pt confirmed he is not taking Naltrexone anymore, stating he didn't like that medication.
[2025-06-28] MEDS: Albuterol/Iprat 2.5/0.5MG 3 ML AMPUL.NEB INHALE (11:34)
[2025-06-28] MEDS: PHENOBARBITAL 75 MG PO ×2 (13:44→20:04)
[2025-06-28 14:39] LABS: Appearance Urine Clear; Glucose Urine UA >=1000 mg/dL (Negative); PH 6.0 (5.0-9.0); Specific Gravity - Urine >= 1.030 (1.005-1.025); UMIC TRIGGER UA YES
--- NOTE | 2025-06-28 14:45 | HO.ADDICTCON ---
History of Present Illness Date of Service: 06/28/2025 Chief Complaint: alcohol intoxication, hypoxia Reason for Consult: AUD Sources of Information: patient interviewed and chart reviewed HPI Narrative: Patient is a 65 year old male who presented to ED via ambulance reporting that he had been drinking too much While in ED found to be hypoxic with electrolyte abnormalities, so medically admitted. Phenobarbital taper started. Consult requested to discuss alcohol use. Patient seen in room 443. He is awake, alert, pleasant, but minimally engaged in interview. He states he had been drinking for 3 days before coming to the hospital. Drinking btwn 1-2 pints of vodka. When asked about treatment history, he denies. Inquired about home prescription of naltrexone. He reports he has been taking this, as prescribed by his doctor. When asked about drinking prior to this weekend, he said sometimes, but not every day . He denies any withdrawal sx, with the exception of a headache. No tremor noted, no diaphoresis, denies GI sx--but is reporting constipation which is chronic He declined to continue discussion with t/w related to alcohol use and stated he would speak to his doctor. Labs reviewed K low at 3.2. Mg improved 1.6 Medical Evaluation Reviewed: Yes Review of Systems Constitutional: Reports as per HPI Diagnostics Vital Signs (24Hr): Vital Signs - 24 hr 06/27/25 17:58 06/27/25 18:03 06/27/25 19:17 Temperature 97.8 F Pulse Rate 90 91 90 Respiratory Rate 20 20 20 Blood Pressure 98/69 110/71 93/54 L Pulse Oximetry 92 91 L 89 L Oxygen Delivery Method Room Air Room Air Room Air Oxygen Flow Rate 06/27/25 19:17 06/27/25 19:36 06/27/25 21:08 Temperature 98.4 F Pulse Rate 89 94 90 Respiratory Rate 19 18 14 Blood Pressure 99/57 L 97/53 L Pulse Oximetry 95 92 Oxygen Delivery Method Nasal Cannula Nasal Cannula Oxygen Flow Rate 2 2 06/27/25 22:17 06/28/25 00:37 06/28/25 02:34 Temperature 97.8 F 98.0 F Pulse Rate 90 99 114 H Respiratory Rate 20 15 17 Blood Pressure 113/62 147/85 H 139/64 Pulse Oximetry 92 95 90 L Oxygen Delivery Method Room Air Nasal Cannula Room Air Oxygen Flow Rate 2 06/28/25 04:00 06/28/25 07:05 06/28/25 11:38 Temperature 97.9 F Pulse Rate 104 H 110 H Respiratory Rate 20 17 Blood Pressure 156/88 H Pulse Oximetry 90 L 94 Oxygen Delivery Method Room Air Oxygen Flow Rate 06/28/25 11:59 06/28/25 14:41 Temperature 97.7 F Pulse Rate 112 H Respiratory Rate 20 Blood Pressure 132/78 Pulse Oximetry 92 93 Oxygen Delivery Method Room Air Room Air Oxygen Flow Rate BMI result Body Mass Index 35.9 Labs 06/28/25 06:05 06/28/25 06:05 Labs: Laboratory Results - last 48 hr 06/27/25 06/27/25 06/28/25 18:21 22:17 06:05 WBC 8.6 5.6 RBC 4.32 L 4.58 L Hgb 12.0 L 12.6 L Hct 35.1 L 37.3 L MCV 81.3 81.4 MCH 27.8 27.5 MCHC 34.2 33.8 RDW 17.5 H 17.6 H Plt Count 247 243 MPV 8.4 L 8.7 L Immature Gran % (Auto) 0.8 H 1.1 H Neut % (Auto) 65.3 89.7 H Lymph % (Auto) 22.3 7.9 L [place] % (Auto) 10.0 1.1 L Eos % (Auto) 0.9 0.0 Baso % (Auto) 0.7 0.2 Lymph # (Auto) 1.9 0.4 L [place] # (Auto) 0.9 0.1 Eos # (Auto) 0.1 0.0 Baso # (Auto) 0.1 0.0 Abs Immat Gran (auto) 0.07 H 0.06 H Absolute Neuts (auto) 5.6 5.0 Absolute Nucleated RBC 0.000 0.000 Nucleated RBC % (auto) 0.0 0.0 D-Dimer High Sensitivty 181 Sodium 138 137 Potassium 3.2 L 3.2 L Chloride 100 101 Carbon Dioxide 23 24 Anion Gap 18 15 BUN 10 10 Creatinine 0.99 0.72 Estim Creat Clear Calc 81.4 112.3 Estimated GFR > 60 > 60 Random Glucose 220 H Fasting Glucose 106 H Calcium 7.8 L 8.3 L D Magnesium 1.4 L* 1.6 Total Bilirubin 0.3 0.5 AST 30 24 ALT 27 23 Alkaline Phosphatase 59 61 Troponin I High Sens 3.5 NT-Pro-B Natriuret Pep 28.8 Total Protein 6.8 7.3 Albumin 3.8 4.0 Urine Color Urine Appearance Urine pH Ur Specific [place] Urine Protein Urine Glucose (UA) Urine Ketones Urine Blood Urine Nitrite Ur Leukocyte Esterase Urine RBC Urine WBC Ur Squamous Epith Cells Urine Bacteria Hyaline Casts Salicylates < 5.0 L Acetaminophen 5 Ethyl Alcohol 218 06/28/25 14:25 WBC RBC Hgb Hct MCV MCH MCHC RDW Plt Count MPV Immature Gran % (Auto) Neut % (Auto) Lymph % (Auto) [place] % (Auto) Eos % (Auto) Baso % (Auto) Lymph # (Auto) [place] # (Auto) Eos # (Auto) Baso # (Auto) Abs Immat Gran (auto) Absolute Neuts (auto) Absolute Nucleated RBC Nucleated RBC % (auto) D-Dimer High Sensitivty Sodium Potassium Chloride Carbon Dioxide Anion Gap BUN Creatinine Estim Creat Clear Calc Estimated GFR Random Glucose Fasting Glucose Calcium Magnesium Total Bilirubin AST ALT Alkaline Phosphatase Troponin I High Sens NT-Pro-B Natriuret Pep Total Protein Albumin Urine Color Yellow Urine Appearance Clear Urine pH 6.0 Ur Specific [place] >= 1.030 H Urine Protein 30 (1+) H Urine Glucose (UA) >=1000 H Urine Ketones Trace Urine Blood Negative Urine Nitrite Negative Ur Leukocyte Esterase Negative Urine RBC 0-2 Urine WBC 0-5 Ur Squamous Epith Cells 0-2 Urine Bacteria None Seen Hyaline Casts 0-2 Salicylates Acetaminophen Ethyl Alcohol Mental Status Exam Mental Status Exam Level of Consciousness: Awake, Appropriate and Alert Patient Behavior: Appropriate and Guarded Affect Description: Calm Speech Pattern: Clear Hallucinations: None Thought Process: Intact Thought Content: positive for Intact Judgement: Good Medications Medications Current Medications Acetaminophen (Acetaminophen 325 Mg Tablet) 650 mg PO Q6H PRN PRN Reason: Pain, Mild 1-3,fever,headache Last Admin: 06/28/25 08:22 Dose: 650 mg Albuterol/Ipratropium (Albuterol/Iprat 2.5/0.5mg 3 Ml Ampul.Neb) 3 ml INHALE Q4H PRN PRN Reason: Shortness of Breath/Wheezing Last Admin: 06/28/25 11:34 Dose: 3 ml Calcium Carbonate (Calcium Carbonate 750 Mg Tab.Chew) 750 mg PO Q4H PRN PRN Reason: Heartburn Diazepam (Diazepam 10 Mg/2 Ml Cartridge) 10 mg IVPUSH Q4H PRN PRN Reason: Alcohol Withdrawal Enoxaparin Sodium (Enoxaparin Sodium 40 Mg/0.4 Ml Syringe) 40 mg SUBCUT Q24H [facility] Last Admin: 06/28/25 00:38 Dose: 40 mg Thiamine HCl 100 mg/ Sodium (Chloride) 101 mls @ 202 mls/hr IV DAILY [facility] Last Infusion: 06/28/25 08:40 Dose: Infused Folic Acid 1 mg/ Sodium (Chloride) 50.2 mls @ 100.4 mls/hr IV DAILY [facility] Last Infusion: 06/28/25 09:38 Dose: Infused Magnesium Hydroxide (Milk Of Magnesia 30 Ml Oral.Susp) 30 ml PO DAILY PRN PRN Reason: Constipation Magnesium Oxide (Magnesium Oxide 400 Mg Tablet) 400 mg PO DAILY [facility] Last Admin: 06/28/25 08:35 Dose: 400 mg Melatonin (Melatonin 3 Mg Tablet) 6 mg PO BEDTIME PRN PRN Reason: Insomnia Methylprednisolone Sodium Succinate (Methylprednisolone Sod Succ 125 Mg/2 Ml Vial) 60 mg IVPUSH Q12H [facility] Last Admin: 06/28/25 08:10 Dose: 60 mg Multivitamins/Vitamin C (Multivitamin Tablet) 1 tab PO DAILY [facility] Last Admin: 06/28/25 08:11 Dose: 1 tab Ondansetron HCl (Ondansetron Hcl 4 Mg/2 Ml Vial) 4 mg IVPUSH Q8H PRN PRN Reason: Nausea and Vomiting Pharmacy Consult (Consult Rx Etoh Phenob Im/Po) 1 each MISCELLANE ONCE PRN; Protocol PRN Reason: Consult order Phenobarbital 60 mg/ (Phenobarbital 15 mg) 75 mg PO BID [facility] Stop: 06/29/25 21:01 Last Admin: 06/28/25 13:44 Dose: 75 mg Phenobarbital (Phenobarbital 30 Mg Tablet) 30 mg PO BID [facility] Stop: 07/01/25 21:01 Phenobarbital (Phenobarbital 30 Mg Tablet) 30 mg PO DAILY [facility] Stop: 07/03/25 09:01 Polyethylene Glycol (Polyethylene Glycol 3350 17 Gm Powd.Pack) 17 gm PO DAILY PRN PRN Reason: Constipation Last Admin: 06/28/25 13:44 Dose: 17 gm Potassium Chloride (Potassium Chloride Er 20 Meq Tab.Er.Prt) 20 meq PO DAILY [facility] Last Admin: 06/28/25 08:11 Dose: 20 meq Senna (Sennosides 8.6 Mg Tablet) 17.2 mg PO BEDTIME [facility] Sodium Chloride (0.9 % Sodium Chloride Flush 3 Ml Syringe) 3 ml IVFLUSH QSHIFT [facility] Last Admin: 06/28/25 13:45 Dose: 3 ml Allergies Allergies Allergy/AdvReac Type Severity Reaction Status Date / Time No Known Allergies Allergy Verified 06/27/25 18:01 Assessment & Plan Assessment & Plan (1) Alcohol use disorder, severe, dependence: Status: Acute Code(s): F10.20 - Alcohol dependence, uncomplicated Assessment and Plan: patient declines refill of naltrexone stating he has it at home and will resume there declined referral/appt or resources related to alcohol use disorder treatment. withdrawal sx well managed with with pheno taper. continue thiamine and folic acid at home following discharge continue naltrexone no additional follow up indicated at this time Total time managing care of this patient today __20__ minutes. PMFSH Past Medical History Medical History Hypoxic Acidosis, lactic Alcoholic intoxication Fracture of distal end of left fibula Alcohol dependence Nonischemic cardiomyopathy HLD (hyperlipidemia) Hypertension Alcohol dependence with withdrawal Family History Family History Father No problems noted. Mother No problems noted. Surgical History Surgical History History of cardiac cath (~01/2016) Social History Social History Household Members: None Housing: Apartment Do you presently have visiting nurse or other home services: No Alcohol intake: current Alcohol intake frequency: 3 or more drinks per day Alcohol type: hard liquor Comment: pt refused use of bed alarm, promised to use callbell before getting up Patient Tobacco Use Status: Former Tobacco user Smoked in Last 30 Days: Yes Use of substances other than those prescribed or required for medical reasons: No Currently Displaying Signs/Symptoms of Drug Intoxication Withdrawal: No Have you been hit, kicked, punched, or otherwise hurt by someone within the past year? If so, by whom?: No Do you feel safe in your current relationship?: No Current Relationship Is there a partner from a previous relationship who is making you feel unsafe now?: No Are you made to feel afraid or neglected: No Advance Directives: Yes Advance Directives on File: Yes Advance Directives Date on File: 07/01/20 Do you have a plan to hurt others: No Plan Recently lost weight without trying: No How much weight loss: Not applicable Eating poorly because of decreased appetite: No Nutrition screen score: 0 Nutrition Risks: No Nutritional Risk Poor oral hygiene: No service: No Current occupational status: unemployed
[2025-06-28 14:46] LABS: Cannabinoid Screen Urine Not Detected (Not Detect)
--- NOTE | 2025-06-28 16:17 | P.PNIM_ITS ---
Subjective Subjective Date of Service: 06/28/25 Interval History: Pleasant male. Lying in bed comfortable. No new complaints or issues. The patient wishes to be discharged today, discussed hypokalemia and possibility of withdrawal. The patient wishes to discontinue use of alcohol; but he informs me he has been taking naltrexone along with alcohol at home (medication ineffective). He is amenable to be seen by addiction Medicine Services Review of Systems Review of Systems: Yes all other systems are reviewed and are negative Physical Exam 2 Exam: Exam: General: A&O x3, oriented to time place person and situation, comfortable, no pain Cardiac: S1, S2 auscultated with no S3/4, no MRG. Well perfused. Respiratory: Normal breath sounds auscultated throughout all lung zones, without wheezing, rales. Normal rate. GI/ : No abdominal pain on palpation, no masses or distentions. MSK: Normal ambulation without pain at bony prominences or musculature Neurological: Normal neurological examination on overview, without obvious CN II-XII abnormalities. Vital Signs: Vital Signs: Last Vital Signs Temp 97.5 F 06/28/25 15:09 Pulse 104 H 06/28/25 15:09 Resp 18 06/28/25 15:09 BP 113/78 06/28/25 15:09 Pulse Ox 92 06/28/25 15:09 O2 Del Method Room Air 06/28/25 15:09 O2 Flow Rate 2 06/28/25 00:37 BMI result Body Mass Index 35.9 Objective Data Active Medications Acetaminophen (Acetaminophen 325 Mg Tablet) 650 mg PO Q6H PRN PRN Reason: Pain, Mild 1-3,fever,headache Last Admin: 06/28/25 15:50 Dose: 650 mg Documented By: KRISHNA Albuterol/Ipratropium (Albuterol/Iprat 2.5/0.5mg 3 Ml Ampul.Neb) 3 ml INHALE Q4H PRN PRN Reason: Shortness of Breath/Wheezing Last Admin: 06/28/25 11:34 Dose: 3 ml Documented By: REBECCA Calcium Carbonate (Calcium Carbonate 750 Mg Tab.Chew) 750 mg PO Q4H PRN PRN Reason: Heartburn Diazepam (Diazepam 10 Mg/2 Ml Cartridge) 10 mg IVPUSH Q4H PRN PRN Reason: Alcohol Withdrawal Enoxaparin Sodium (Enoxaparin Sodium 40 Mg/0.4 Ml Syringe) 40 mg SUBCUT Q24H [facility] Last Admin: 06/28/25 00:38 Dose: 40 mg Documented By: JAYDEN Thiamine HCl 100 mg/ Sodium (Chloride) 101 mls @ 202 mls/hr IV DAILY [facility] Last Infusion: 06/28/25 08:40 Dose: Infused Documented By: KRISHNA Folic Acid 1 mg/ Sodium (Chloride) 50.2 mls @ 100.4 mls/hr IV DAILY [facility] Last Infusion: 06/28/25 09:38 Dose: Infused Documented By: KRISHNA Magnesium Hydroxide (Milk Of Magnesia 30 Ml Oral.Susp) 30 ml PO DAILY PRN PRN Reason: Constipation Magnesium Oxide (Magnesium Oxide 400 Mg Tablet) 400 mg PO DAILY [facility] Last Admin: 06/28/25 08:35 Dose: 400 mg Documented By: KRISHNA Melatonin (Melatonin 3 Mg Tablet) 6 mg PO BEDTIME PRN PRN Reason: Insomnia Methylprednisolone Sodium Succinate (Methylprednisolone Sod Succ 125 Mg/2 Ml Vial) 60 mg IVPUSH Q12H [facility] Last Admin: 06/28/25 08:10 Dose: 60 mg Documented By: KRISHNA Multivitamins/Vitamin C (Multivitamin Tablet) 1 tab PO DAILY [facility] Last Admin: 06/28/25 08:11 Dose: 1 tab Documented By: KRISHNA Ondansetron HCl (Ondansetron Hcl 4 Mg/2 Ml Vial) 4 mg IVPUSH Q8H PRN PRN Reason: Nausea and Vomiting Pharmacy Consult (Consult Rx Etoh Phenob Im/Po) 1 each MISCELLANE ONCE PRN; Protocol PRN Reason: Consult order Phenobarbital 60 mg/ (Phenobarbital 15 mg) 75 mg PO BID [facility] Stop: 06/29/25 21:01 Last Admin: 06/28/25 13:44 Dose: 75 mg Documented By: KRISHNA Phenobarbital (Phenobarbital 30 Mg Tablet) 30 mg PO BID [facility] Stop: 07/01/25 21:01 Phenobarbital (Phenobarbital 30 Mg Tablet) 30 mg PO DAILY [facility] Stop: 07/03/25 09:01 Polyethylene Glycol (Polyethylene Glycol 3350 17 Gm Powd.Pack) 17 gm PO DAILY PRN PRN Reason: Constipation Last Admin: 06/28/25 13:44 Dose: 17 gm Documented By: KRISHNA Potassium Chloride (Potassium Chloride Er 20 Meq Tab.Er.Prt) 20 meq PO DAILY [facility] Last Admin: 06/28/25 08:11 Dose: 20 meq Documented By: KRISHNA Senna (Sennosides 8.6 Mg Tablet) 17.2 mg PO BEDTIME [facility] Sodium Chloride (0.9 % Sodium Chloride Flush 3 Ml Syringe) 3 ml IVFLUSH QSHIFT [facility] Last Admin: 06/28/25 13:45 Dose: 3 ml Documented By: KRISHNA Labs 06/28/25 06:05 06/28/25 06:05 Labs: Laboratory Results - last 24 hr 06/27/25 06/27/25 06/28/25 18:21 22:17 06:05 MCV 81.3 81.4 MCH 27.8 27.5 MCHC 34.2 33.8 RDW 17.5 H 17.6 H Plt Count 247 243 MPV 8.4 L 8.7 L Immature Gran % (Auto) 0.8 H 1.1 H Neut % (Auto) 65.3 89.7 H Lymph % (Auto) 22.3 7.9 L [place] % (Auto) 10.0 1.1 L Eos % (Auto) 0.9 0.0 Baso % (Auto) 0.7 0.2 Lymph # (Auto) 1.9 0.4 L [place] # (Auto) 0.9 0.1 Eos # (Auto) 0.1 0.0 Baso # (Auto) 0.1 0.0 Abs Immat Gran (auto) 0.07 H 0.06 H Absolute Neuts (auto) 5.6 5.0 Absolute Nucleated RBC 0.000 0.000 Nucleated RBC % (auto) 0.0 0.0 D-Dimer High Sensitivty 181 Anion Gap 18 15 Estim Creat Clear Calc 81.4 112.3 Estimated GFR > 60 > 60 Random Glucose 220 H Fasting Glucose 106 H Calcium 7.8 L 8.3 L D Magnesium 1.4 L* 1.6 Total Bilirubin 0.3 0.5 AST 30 24 ALT 27 23 Alkaline Phosphatase 59 61 Troponin I High Sens 3.5 NT-Pro-B Natriuret Pep 28.8 Total Protein 6.8 7.3 Albumin 3.8 4.0 Urine Color Urine Appearance Urine pH Ur Specific [place] Urine Protein Urine Glucose (UA) Urine Ketones Urine Blood Urine Nitrite Ur Leukocyte Esterase Urine RBC Urine WBC Ur Squamous Epith Cells Urine Bacteria Hyaline Casts Salicylates < 5.0 L Urine Opiates Screen Ur Buprenorphine Scrn Ur Oxycodone Screen Urine Methadone Screen Urine Fentanyl Screen Acetaminophen 5 Ur Barbiturates Screen Ur Phencyclidine Scrn Ur Amphetamines Screen U Benzodiazepines Scrn Urine Cocaine Screen U Marijuana (THC) Screen Ethyl Alcohol 218 06/28/25 14:25 MCV MCH MCHC RDW Plt Count MPV Immature Gran % (Auto) Neut % (Auto) Lymph % (Auto) [place] % (Auto) Eos % (Auto) Baso % (Auto) Lymph # (Auto) [place] # (Auto) Eos # (Auto) Baso # (Auto) Abs Immat Gran (auto) Absolute Neuts (auto) Absolute Nucleated RBC Nucleated RBC % (auto) D-Dimer High Sensitivty Anion Gap Estim Creat Clear Calc Estimated GFR Random Glucose Fasting Glucose Calcium Magnesium Total Bilirubin AST ALT Alkaline Phosphatase Troponin I High Sens NT-Pro-B Natriuret Pep Total Protein Albumin Urine Color Yellow Urine Appearance Clear Urine pH 6.0 Ur Specific [place] >= 1.030 H Urine Protein 30 (1+) H Urine Glucose (UA) >=1000 H Urine Ketones Trace Urine Blood Negative Urine Nitrite Negative Ur Leukocyte Esterase Negative Urine RBC 0-2 Urine WBC 0-5 Ur Squamous Epith Cells 0-2 Urine Bacteria None Seen Hyaline Casts 0-2 Salicylates Urine Opiates Screen Not Detected Ur Buprenorphine Scrn Not Detected Ur Oxycodone Screen Not Detected Urine Methadone Screen Not Detected Urine Fentanyl Screen Not Detected Acetaminophen Ur Barbiturates Screen Not Detected Ur Phencyclidine Scrn Not Detected Ur Amphetamines Screen Not Detected U Benzodiazepines Scrn Not Detected Urine Cocaine Screen Not Detected U Marijuana (THC) Screen Not Detected Ethyl Alcohol Assessment and Plan (1) Alcohol intoxication with moderate or severe use disorder: Status: Acute (2) Alcohol withdrawal: Status: Acute (3) Hypertension: Status: Acute (4) Nonischemic cardiomyopathy: Status: Acute (5) History of cardiac cath: Status: Acute (6) Alcoholic fatty liver: Status: Acute (7) Acute kidney injury: Status: Acute (8) Hypokalemia: Status: Acute (9) Hypomagnesemia: Status: Acute (10) Acute respiratory failure with hypoxia: Status: Acute Plan 65 yo male with PMH. HTN, HLD, COPD, BPH, GERD, FX of left fibula, ALHAJI, UGIB presents to ED with report of alcohol use over the last 2 days, drink of choice is vodka. Patient also found to be hypoxic but is currently on room air with a pulse ox of 92%. Chest x-ray negative for any acute findings. Patient being admitted for alcohol intoxication, acute hypoxic respiratory failure currently resolved with hypokalemia and hypomagnesemia. Patient stated he will contact his sister when he is ready for discharge. Acute Hypxic Respiratory Failure 2/2 possible aspiration COPD/asthma overlap syndrome Aspiration pneumonitis CXR negative for acute findings, including aspiration, PNA BNP WNL Off oxygen currently, 98% SpO2 Duonebs prn Methylprednisolone initiated in ED, will order 60 mgs BID for AM Aspiration precautions Supportive Care Alcohol intoxication CIWA Phenobarbitol protocol initiated on admission, ETOH level 218, pt refused phenobarbitol per nursing Valium prn as pt refused phenobarbitiol Thiamine, Folic Acid, MVI Addiction medicine consulted Telemetry, PULSE OX Continuous Hypokalemia Supplementation started KCL 20 MDQ daily po to start in AM Telemetry Hypomagnesemia MG 1.4, 2 GMS IV in ED Magnesium oxide 400 mg OD p.o. HTN Low Na diet Cardiac Diet HLD Pt not on RX medications Cardiac diet Follow up with PCP for routine Lipid panel, fasting BPH Continue tamsulosin - [employer]AL[employer] - VTE: Enoxaparin - CODE STATUS: Full code - DIET: Regular Total time managing care of this patient today: 35 minutes. Quality Stroke Does the patient have a stroke diagnosis?: No Reason for No Anti-thrombotic by Day Two: N/A - Med Ordered VTE Prior VTE?: No VTE Risk Level:: Medical - moderate - high VTE Device Contraindication: N/A - Device Ordered VTE Drug Contraindication: N/A - Med Ordered
[2025-06-28 17:38] LABS: Anion Gap 16 (12-20); Blood Urea Nitrogen 14 mg/dL (9-16); Calcium 8.5 mg/dL (8.4-10.2); Carbon Dioxide 25 mmol/L (22-29); Chloride 102 mmol/L (96-108); Creatinine Clr Calc Pharmacy 105.0; Estimated Glomerular Filt Rate > 60; Potassium 3.5 mmol/L (3.3-5.1); Sodium 139 mmol/L (135-145)
[2025-06-29] VITALS: BP 136/71; PULSE 98; RESP 20; TEMP 37.3; O2SAT 94
[2025-06-29 04:00] VITALS: BP 123/73; PULSE 85; RESP 18; TEMP 37.1; O2SAT 97
[2025-06-29 07:04] VITALS: BP 158/74; PULSE 93; RESP 20; TEMP 36.5; O2SAT 92
[2025-06-29] MEDS: Thiamine HCL 100 MG in 0.9 % Sodium Chloride 100 ML 202 MG IV (08:40)
[2025-06-29] MEDS: 0.9 % Sodium Chloride Flush 3 ML SYRINGE IVFLUSH (08:41)
[2025-06-29] MEDS: Potassium Chloride ER 20 MEQ TAB.ER.PRT PO (08:44)
[2025-06-29] MEDS: PHENOBARBITAL 75 MG PO (08:57)
--- NOTE | 2025-06-29 11:44 | PM.DS ---
DS: Providers Provider Date of Service: 06/29/25 Date of admission: 06/27/25 23:22 Date of discharge: 06/29/25 Primary care physician: ADDY Landrum Consults: 06/27/25 23:50 Addiction Medicine Provider Routine Consulting Provider: Addiction Covering Reason for consultation: ETOH abuse, intoxication, detox requested per pt Has provider been notified: No 06/28/25 02:47 Addiction Medicine Provider Routine Consulting Provider: Addiction Covering Reason for consultation: ETOH abuse DS: Diagnosis Discharge Diagnosis (1) Alcohol intoxication with moderate or severe use disorder: Status: Acute (2) Alcohol withdrawal: Status: Acute (3) Hypertension: Status: Acute (4) Nonischemic cardiomyopathy: Status: Acute (5) History of cardiac cath: Status: Acute (6) Alcoholic fatty liver: Status: Acute (7) Acute kidney injury: Status: Acute (8) Hypokalemia: Status: Acute (9) Hypomagnesemia: Status: Acute (10) Acute respiratory failure with hypoxia: Status: Acute DS: Summary Hospital Course Hospital Course: 65 yo male with PMH. HTN, HLD, COPD, BPH, GERD, FX of left fibula, ALHAJI, UGIB presents to ED with report of alcohol use over the last 2 days, found to be hypoxic with SpO2 92%, admitted with patient being admitted for alcohol intoxication & withdrawal, c/b hypokalemia and hypomagnesemia, with superimposed acute hypoxic respiratory failure. Alcohol intoxication Alcohol withdrawal Phenobarbitol protocol initiated on admission, ETOH level 218. Thiamine, Folic Acid, MVI Patient received phenobarbital during his admission for agitation, diaphoresis. Addiction medicine consulted; the patient refused recommendations by addiction Medicine team as well as offers of medication management and outpatient follow up. The patient was eager to be discharged home, and did not wish to remain inpatient for further management of alcohol intoxication and symptoms of withdrawal. The patient made the decision to leave the hospital against medical advice; despite understanding the risks for possible morbidity and mortality. Acute Hypxic Respiratory Failure 2/2 possible aspiration COPD/asthma overlap syndrome Aspiration pneumonitis CXR negative for acute findings, including aspiration, PNA BNP WNL Off oxygen currently, 98% SpO2 Duonebs prn Patient was hypoxic overnight, and required 2 L O2 for a brief moment in time. Despite recommendations to remain inpatient to complete therapy and treatment, the patient decided to leave the hospital against medical advice. Hypokalemia Supplementation started during inpatient stay. The patient left the hospital against medical advice, and was offered inpatient management, which he refused. BMP was offered to be performed in outpatient setting tomorrow, with close follow up with PCP. Hypomagnesemia MG 1.4, 2 GMS IV in ED Magnesium oxide 400 mg OD p.o. Discharge Against Medical Advice Patient was assessed and determined to have decision-making capacity. I explained the patient?s current condition, the recommended evaluation/treatment, and the potential risks of leaving the hospital against medical advice, including but not limited to worsening illness, permanent disability, or . The patient verbalized understanding of these risks and was able to articulate their decision. Despite this, the patient elected to leave A, citing they did not want to continue receiving care at hospital wishing to return home. Alternatives and safe discharge planning were offered, including prescriptions, follow-up arrangements, and instructions to return to the hospital/ED at any time if symptoms worsen or if the patient changes their mind. The patient did sign the AMA form. At the time of departure, the patient?s condition was fair. The patient was informed they are welcome to return for care at any time and has not been abandoned. Status at Discharge Functional status at discharge: independent ambulation Overall status at discharge: patient is not back to baseline Time Attestation Total time managing care of this patient today: 45 mintues. Discharge Coordination Time (in mins): 15 Quality: Safe Use of Opioids Does Pt have an Active Cancer Diagnosis on the Problem List?: No Quality: Stroke Does the patient have a stroke diagnosis?: No Physical Exam Exam: Exam: General: A&O x3, oriented to time place person and situation, comfortable, no pain Cardiac: S1, S2 auscultated with no S3/4, no MRG. Well perfused. Respiratory: Normal breath sounds auscultated throughout all lung zones, without wheezing, rales. Normal rate. GI/ : No abdominal pain on palpation, no masses or distentions. MSK: Normal ambulation without pain at bony prominences or musculature Neurological: Normal neurological examination on overview, without obvious CN II-XII abnormalities. Vital Signs: Vital Signs: Last Vital Signs Temp 97.7 F 06/29/25 07:04 Pulse 93 06/29/25 07:04 Resp 20 06/29/25 07:04 BP 158/74 H 06/29/25 07:04 Pulse Ox 92 06/29/25 07:04 O2 Del Method Room Air 06/29/25 07:04 O2 Flow Rate 2 06/29/25 04:00 BMI result Body Mass Index 35.9 DS: Data Data Completed and Pending Completed studies during hospitalization [Text1]: Procedures Control Bleeding in Gastrointestinal Tract, Via Natural or Artificial Opening Endoscopic (06/26/20) Detoxification Services for Substance Abuse Treatment (01/09/23) Introduction of Destructive Agent into Upper GI, Via Natural or Artificial Opening Endoscopic (06/26/20) Transfusion of Nonautologous Red Blood Cells into Peripheral Vein, Percutaneous Approach (06/26/20) Labs on day of discharge: Laboratory Results - last 24 hr 06/28/25 06/28/25 14:25 17:11 Sodium 139 Potassium 3.5 Chloride 102 Carbon Dioxide 25 Anion Gap 16 BUN 14 Creatinine 0.77 Estim Creat Clear Calc 105.0 Estimated GFR > 60 Random Glucose 207 H Calcium 8.5 Urine Color Yellow Urine Appearance Clear Urine pH 6.0 Ur Specific [place] >= 1.030 H Urine Protein 30 (1+) H Urine Glucose (UA) >=1000 H Urine Ketones Trace Urine Blood Negative Urine Nitrite Negative Ur Leukocyte Esterase Negative Urine RBC 0-2 Urine WBC 0-5 Ur Squamous Epith Cells 0-2 Urine Bacteria None Seen Hyaline Casts 0-2 Urine Opiates Screen Not Detected Ur Buprenorphine Scrn Not Detected Ur Oxycodone Screen Not Detected Urine Methadone Screen Not Detected Urine Fentanyl Screen Not Detected Ur Barbiturates Screen Not Detected Ur Phencyclidine Scrn Not Detected Ur Amphetamines Screen Not Detected U Benzodiazepines Scrn Not Detected Urine Cocaine Screen Not Detected U Marijuana (THC) Screen Not Detected Discharge Plan Discharge Anticipated Discharge Date/Time: 06/29/25 11:57 Patient Disposition: Left Against Medical Advice Discharge Diagnosis: Acute alcohol intoxication with withdrawal, c/b hypomagnesemia and hypokalemia, with superimposed acute hypoxic respiratory failure likely 2/2 aspiration pneumonitis Referrals: Osito Grant PA [Primary Care Provider, Internal Medicine] - 1 Week Discharge Medications: Continued (DME) Ultra-Light Rollator Misc See Rx Instructions .Route Qty: 1 0RF Rx Instructions: As directed omeprazole 40 mg capsule,delayed release(DR/EC) 40 mg PO DAILY@0630 trazodone 100 mg tablet 1 tab PO BEDTIME amlodipine 10 mg tablet 10 mg PO DAILY tamsulosin 0.4 mg capsule 0.4 mg PO DAILY hydrochlorothiazide 25 mg tablet 25 mg PO DAILY albuterol sulfate [Ventolin HFA] 90 mcg/actuation HFA aerosol inhaler 2 puff inhalation Q4H PRN (Reason: cough) lisinopril 40 mg tablet 40 mg PO DAILY nabumetone 500 mg tablet 500 mg PO BID multivitamin Tablet 1 tab PO DAILY carvedilol 25 mg Tablet 25 mg PO BID Rx Instructions: must administer with a meal/food cyanocobalamin (vitamin B-12) [Vitamin B-12] 1,000 mcg tablet 1,000 mcg PO DAILY Discharge Orders: Discharge Order (Routine); Ordered 06/29/25 Ordered By: Suman Brewer Diet: Advance to usual diet Activity on Discharge: As tolerated Print Language: Lithuanian Other Ambulatory Orders: Basic Metabolic Panel (Routine) Timeframe: 1 Day Facility: [facility] - Location: Laboratory Ordered By: Suman Brewer Care Plan Goals: As above Health Concerns: Acute alcohol intoxication Alcohol withdrawal Alcohol dependence Hypokalemia Hypomagnesemia Acute hypoxic respiratory failure 2/2 aspiration Plan of Treatment: We recommended the patient to remain inpatient to continue management and treatment of acute alcohol withdrawal, and other issues listed above. The patient has made the decision to leave the hospital against medical advice. Assessment: As above
--- NOTE | 2025-06-29 12:05 | MHC.CM.PN ---
Patient has left AMA.
== END 2025-06-29 11:45 | disposition left against medical advice (07) | DRG 177 ==
LOC: HO.ED 23:20 → HO.EDOVER 23:28 → HO.IMC 06-28 01:12
PROVIDERS: Physician Assistant Medical; Admitting Provider Nurse Practitioner Family; Emergency Provider Emergency Medicine Emergency Medical Services; PCP Physician Assistant Medical; Visit Provider Hospitalist
DX: J69.0 Pneumonitis due to inhalation of food and vomit (principal); J96.01 Acute respiratory failure with hypoxia; F10.239 Alcohol dependence with withdrawal, unspecified; I42.8 Other cardiomyopathies; F10.229 Alcohol dependence with intoxication, unspecified; I10 Essential (primary) hypertension; Y90.7 Blood alcohol level of 200-239 mg/100 ml; E87.6 Hypokalemia; E83.42 Hypomagnesemia; N40.0 Benign prostatic hyperplasia without lower urinary tract symptoms; E78.5 Hyperlipidemia, unspecified; Z79.899 Other long term (current) drug therapy
CPT/HCPCS: 36415; 70450; 71046; 72125; 80048; 80053; 80143; 80179; 80307; 81001; 83735; 83880; 84484; 85025; 85379; 93005; 94640; 99285; J0131; J1650; J1808; J2560; J2919; J3411; J3475; J3480

== ENCOUNTER → 2025-06-27 19:11 | Outpatient (BNV) | payer MEDICARE, MEDICAID, SELFPAY | PROVIDERS: Emergency Provider Emergency Medicine Emergency Medical Services; Visit Provider Radiology Diagnostic Radiology | DX: M50.323 Other cervical disc degeneration at C6-C7 level (principal); I25.84 Coronary atherosclerosis due to calcified coronary lesion; I67.82 Cerebral ischemia; I65.23 Occlusion and stenosis of bilateral carotid arteries; R06.2 Wheezing | CPT/HCPCS: 70450; 71046; 72125 ==

== ENCOUNTER → 2025-06-27 21:35 | Outpatient (BNV) | payer MEDICARE, MEDICAID, SELFPAY | PROVIDERS: Admitting Provider Nurse Practitioner Family; Emergency Provider Emergency Medicine Emergency Medical Services; PCP Physician Assistant Medical; Visit Provider Internal Medicine | DX: R09.02 Hypoxemia (principal) | CPT/HCPCS: 93010 ==

== ENCOUNTER → 2025-06-27 23:22 | Outpatient (BNV) | payer MEDICARE, MEDICAID, SELFPAY | PROVIDERS: Admitting Provider Nurse Practitioner Family; Emergency Provider Emergency Medicine Emergency Medical Services; PCP Physician Assistant Medical; Visit Provider Hospitalist | DX: J96.01 Acute respiratory failure with hypoxia (principal); F10.229 Alcohol dependence with intoxication, unspecified | CPT/HCPCS: 99223 ==

== ENCOUNTER → 2025-06-27 23:22 | Outpatient (BNV) | payer MEDICARE, MEDICAID, SELFPAY | PROVIDERS: Admitting Provider Nurse Practitioner Family; Emergency Provider Emergency Medicine Emergency Medical Services; PCP Physician Assistant Medical; Visit Provider Nurse Practitioner Psychiatric/Mental Health | DX: F10.20 Alcohol dependence, uncomplicated (principal) | CPT/HCPCS: 99221 ==